=== PATIENT | female | born 2000 | race Caucasian/White ===

== ENCOUNTER → 2019-04-02 13:01 | Outpatient (CLI) | payer OTHER, SELFPAY ==
[2019-04-02 12:24] VITALS: BMI 26.6
[2019-04-02 15:00] LABS: Chlamydia Trachomatis by PCR Negative (Negative); Neisserai gonorrhoeae by PCR Negative (Negative); Probe Check PASS; Sample Adequacy Control PASS; Specimen Processing Control PASS
== END ==
PROVIDERS: Family Provider Pediatrics; PCP Pediatrics; Referring Provider Obstetrics & Gynecology; Visit Provider Obstetrics & Gynecology
DX: Z11.3 Encounter for screening for infections with a predominantly sexual mode of transmission (principal)
CPT/HCPCS: 87491; 87591

== ENCOUNTER → 2020-06-03 13:18 | Outpatient (CLI) | payer OTHER, SELFPAY ==
[2020-06-03 11:08] VITALS: BMI 26.6
[2020-06-03 17:37] LABS: Chlamydia Trachomatis by PCR Negative (Negative); Neisserai gonorrhoeae by PCR Negative (Negative); Probe Check PASS; Sample Adequacy Control PASS; Specimen Processing Control PASS
[2020-06-08 17:31] LABS: HPV Reflexed? NOT INDICATED
== END ==
PROVIDERS: PCP Pediatrics; Referring Provider Nurse Practitioner Women's Health; Visit Provider Nurse Practitioner Women's Health
DX: Z11.3 Encounter for screening for infections with a predominantly sexual mode of transmission (principal); Z12.4 Encounter for screening for malignant neoplasm of cervix
CPT/HCPCS: 87491; 87591; 88175; G0145

== ENCOUNTER → 2021-08-10 12:49 | Outpatient (CLI) | payer OTHER, SELFPAY ==
[2021-08-12 22:07] LABS: Chlamydia By Nucleic Acid AMP Negative (Negative)
[2021-08-12 22:33] LABS: Gonococcus By Nucleic Acid AMP Negative (Negative)
== END ==
PROVIDERS: PCP Pediatrics; Referring Provider Nurse Practitioner Women's Health; Visit Provider Nurse Practitioner Women's Health
DX: Z11.3 Encounter for screening for infections with a predominantly sexual mode of transmission (principal)
CPT/HCPCS: 87491; 87591

== ENCOUNTER → 2022-09-14 | Outpatient (CLI) | payer BC, SELFPAY ==
[2022-09-18 11:07] LABS: Chlamydia By Nucleic Acid AMP Negative (Negative)
[2022-09-18 14:00] LABS: Gonococcus By Nucleic Acid AMP Negative (Negative)
== END | disposition home or self-care (01) ==
PROVIDERS: PCP Pediatrics; Visit Provider Nurse Practitioner Women's Health
DX: Z11.3 Encounter for screening for infections with a predominantly sexual mode of transmission (principal)
CPT/HCPCS: 87491; 87591

== ENCOUNTER → 2023-01-23 | Outpatient (CLI) | payer BC, SELFPAY ==
[2023-01-23 17:54] LABS: Bacteria 0 SEEN /hpf (None Seen); Mucous, Urine 0 SEEN /hpf (<or=2+); Red Blood Cells-Urine 0 SEEN /hpf (0-5); Squamous Epithelial Cells - UA 0 SEEN /hpf (5-10)
[2023-01-23 18:03] LABS: Color, Urine Yellow (Yellow); Glucose, Dipstick Normal (Normal); Ketone-Dipstick Negative (Negative); Leukocyte Esterase-Dipstick Negative /ul (Negative); Nitrite-Dipstick Negative (Negative); Occult Blood-Urine Negative /ul (Negative); Protein-Dipstick Negative (Negative); Specific Gravity, Urine 1.015 (1.002-1.030); Urine Bilirubin Dipstick Negative (Negative); Urine Clarity Clear (Clear); Urine Urobilinogen Normal (Normal)
[2023-01-23 18:11] LABS: White Blood Cells 0-5 SEEN /hpf (0-5)
== END | disposition home or self-care (01) ==
PROVIDERS: PCP Pediatrics; Visit Provider Physician Assistant
DX: R39.9 Unspecified symptoms and signs involving the genitourinary system (principal)
CPT/HCPCS: 81001; 87086; 87088

== ENCOUNTER → 2023-09-19 | Outpatient (CLI) | payer OTHER, SELFPAY ==
[2023-09-24 15:59] LABS: HPV Reflexed? NOT INDICATED
== END | disposition home or self-care (01) ==
LOC: LABSPEC 17:00
PROVIDERS: PCP Nurse Practitioner Family; Referring Provider Nurse Practitioner Women's Health; Visit Provider Nurse Practitioner Women's Health
DX: Z12.4 Encounter for screening for malignant neoplasm of cervix (principal)
CPT/HCPCS: 88175; G0145

== ENCOUNTER → 2024-09-23 | Outpatient (CLI) | payer OTHER, SELFPAY | END | disposition home or self-care (01) | LOC: LABSPEC 10:41 | PROVIDERS: PCP Nurse Practitioner Family; Referring Provider Physician Assistant; Visit Provider Physician Assistant | DX: N89.8 Other specified noninflammatory disorders of vagina (principal) ==

== ENCOUNTER → 2025-02-24 | Outpatient (CLI) | payer SELFPAY ==
[2025-02-24 17:35] LABS: Amphetamine Urine NEGATIVE (<1000 ng/mL); Barbiturate Urine NEGATIVE (< 200 ng/mL); Benzodiazepine Urine NEGATIVE (< 200 ng/mL); Buprenorphine Urine NEGATIVE (< 200 ng/mL); Cocaine Urine NEGATIVE (< 300 ng/mL); Fentanyl, Urine NEGATIVE; Methadone Urine NEGATIVE (< 300 ng/mL); Opiates Urine NEGATIVE (< 300 ng/mL); Oxycodone, Urine NEGATIVE (< 100 ng/mL); PCP Urine NEGATIVE (< 25 ng/mL); THC Urine NEGATIVE (< 50 ng/mL)
== END | disposition home or self-care (01) ==
LOC: LABSPEC 15:16
PROVIDERS: PCP Nurse Practitioner Family; Referring Provider Obstetrics & Gynecology; Visit Provider Obstetrics & Gynecology
DX: O09.90 Supervision of high risk pregnancy, unspecified, unspecified trimester (principal); Z3A.00 Weeks of gestation of pregnancy not specified; O99.320 Drug use complicating pregnancy, unspecified trimester; F12.99 Cannabis use, unspecified with unspecified cannabis-induced disorder
CPT/HCPCS: 80307; 87086; 87088; 87491; 87591

== ENCOUNTER → 2025-03-20 | Outpatient (CLI) | payer SELFPAY ==
[2025-03-20 12:15] LABS: Absolute Lymphocyte Count 1.69 X10^3/uL (0.83-4.51); Absolute Neutrophil Count 5.7 X10^3/uL (2.0-7.7); Basophil# 0.04 X10^3/uL; Basophil% 0.5 % (0-1); Eosinophil# 0.31 X10^3/uL; Eosinophils% 3.8 % (0-5); Hematocrit 38.6 % (37-47); Hemoglobin 12.8 g/dL (12.0-15.0); Lymphocyte # 1.69 X10^3/ul (0.83-4.51); Lymphocyte % 20.7 % (19-41); Mean Corp Hgb Conc 33.2 g/dL (32-36); Mean Corpuscular Hgb 30.9 pg (27.0-32.0); Mean Corpuscular Volume 93.2 fL (81-99); Mean Platelet Vol. 10.2 fl (6.2-12.0); Monocyte# 0.42 X10^3/uL; Monocyte% 5.1 % (0-10); NRBC Flagged by Analyzer 0 % (0-5); Neutrophil # 5.69 X10^3/uL (2.7-7.7); Neutrophil % 69.7 % (47-70); Platelet Count 261 K/mm3 (150-450); RBC Distribution Width CV 12.7 % (11.6-14.6); RBC Distribution Width SD 43.7 fl (35.1-43.9); Red Blood Count 4.14 M/mm3 (4.2-5.4); White Blood Count 8.2 K/mm3 (4.4-11.0)
[2025-03-20 13:27] LABS: HIV Nonreactive (Nonreactive); Hepatitis B Surface Antigen Nonreactive (Nonreactive); Hepatitis C Antibody Nonreactive (Nonreactive); Rubella IgG REAC (Nonreactive); Syphilis Antibodies Nonreactive (Nonreactive)
[2025-03-20 14:20] LABS: Hemoglobin A1c 5.2 % (<=5.6)
== END | disposition home or self-care (01) ==
PROVIDERS: Obstetrics & Gynecology; PCP Nurse Practitioner Family; Referring Provider Obstetrics & Gynecology; Visit Provider Obstetrics & Gynecology
DX: O99.210 Obesity complicating pregnancy, unspecified trimester (principal); Z3A.00 Weeks of gestation of pregnancy not specified
CPT/HCPCS: 36415; 83036; 85025; 86703; 86762; 86780; 86803; 86850; 86900; 86901; 87340

== ENCOUNTER → 2025-07-14 | Outpatient (CLI) | payer OTHER, SELFPAY ==
[2025-07-14 15:14] LABS: Hematocrit 32.8 % (37-47); Hemoglobin 10.8 g/dL (12.0-15.0); Immature Granulocytes Count 0.070 X10^3/uL (0.0-0.0); Mean Corp Hgb Conc 32.9 g/dL (32-36); Mean Corpuscular Volume 92.7 fL (81-99); Mean Platelet Vol. 10.6 fl (6.2-12.0); NRBC Flagged by Analyzer 0 % (0-5); Platelet Count 295 K/mm3 (150-450); RBC Distribution Width CV 12.9 % (11.6-14.6); RBC Distribution Width SD 43.4 fl (35.1-43.9); Red Blood Count 3.54 M/mm3 (4.2-5.4); White Blood Count 13.2 K/mm3 (4.4-11.0)
[2025-07-14 16:02] LABS: Glucose Challenge Gest 1H 50g 105 mg/dL (70-140); HIV Nonreactive (Nonreactive); Syphilis Antibodies Nonreactive (Nonreactive)
== END | disposition home or self-care (01) ==
PROVIDERS: Obstetrics & Gynecology; Visit Provider Nurse Practitioner Women's Health
DX: O09.92 Supervision of high risk pregnancy, unspecified, second trimester (principal); Z13.1 Encounter for screening for diabetes mellitus; Z3A.00 Weeks of gestation of pregnancy not specified
CPT/HCPCS: 36415; 82950; 85025; 86703; 86780

== ENCOUNTER → 2025-08-19 | Outpatient (CLI) | payer OTHER, SELFPAY ==
--- NOTE | 2025-08-19 13:43 | EKG12_ITS ---
Test Reason : PALP Blood Pressure : */* mmHG Vent. Rate : 106 BPM Atrial Rate : 106 BPM P-R Int : 152 ms QRS Dur : 86 ms QT Int : 362 ms P-R-T Axes : 27 61 6 degrees QTcB Int : 480 ms Sinus tachycardia Otherwise normal ECG Confirmed by GENE REECE, YAMILETH ([id number]), assignment editor BETH HOLLAND ([id number]) on 08/20/2025 7:12:23 AM Referred By: Xin Otero Confirmed By: YAMILETH MILLS MD
== END | disposition home or self-care (01) ==
LOC: PSN 13:43
PROVIDERS: Referring Provider Nurse Practitioner Women's Health; Visit Provider Nurse Practitioner Women's Health
DX: R00.2 Palpitations (principal)
CPT/HCPCS: 93005

== ENCOUNTER 2025-09-07 14:03 | Outpatient (CLI) | payer OTHER, SELFPAY ==
[2025-09-07 14:17] VITALS: PULSE 118; O2SAT 97
[2025-09-07 14:19] VITALS: BMI 44.4
[2025-09-07 14:21] VITALS: BP 125/81; PULSE 107
[2025-09-07 14:22] VITALS: PULSE 120; O2SAT 98
[2025-09-07 14:24] VITALS: RESP 18; TEMP 36.8
--- NOTE | 2025-09-08 21:50 | OB.TRI.PN ---
Progress Notes Date of Service: 09/07/25 Progress Note: Patient presents for triage evaluation secondary to dec movement FHT: 140 Moderate variability reactive no decelerations category I tracing [place]: no regular Contractions Assessment and plan: 36 weeks dec movememnt Reactive NST, reassuring maternal and status patient discharged to home to follow-up as scheduled. See problem list details for additional plan information. Charges/Coding Procedures Urinary/Genital 52xxx-59xxx: 39794-08 non-stress test Interp
== END 2025-09-07 14:55 | disposition home or self-care (01) ==
LOC: WPOUT 14:11 → WP 14:12
PROVIDERS: Referring Provider Obstetrics & Gynecology; Visit Provider Obstetrics & Gynecology
DX: O36.8130 Decreased fetal movements, third trimester, not applicable or unspecified (principal); Z3A.36 36 weeks gestation of pregnancy
CPT/HCPCS: 59025; 99221; G0378

== ENCOUNTER → 2025-09-08 | Outpatient (CLI) | payer OTHER, SELFPAY | END | disposition home or self-care (01) | LOC: LABSPEC 14:58 | PROVIDERS: Visit Provider Advanced Practice Midwife | DX: O09.93 Supervision of high risk pregnancy, unspecified, third trimester (principal); Z3A.00 Weeks of gestation of pregnancy not specified | CPT/HCPCS: 87081 ==

== ENCOUNTER 2025-09-20 12:25 | Outpatient (CLI) | payer OTHER, SELFPAY ==
--- OUTSIDE RECORDS SUMMARY | 2025-09-20 12:35 | XMS RPT_ITS | CCD ---
Author Organization [facility] Care Team Providers Care Financial Sales Advisor Name Role Phone NO, PHYSICIAN Primary Care Unavailable YENY JULIEN Attending Unavailab ad JULIEN, YENY SMITH Primary Care Unavailab ad JULIEN, YENY SMITH Attending Unavailab ad JULIEN, YENY SMITH Primary Care Unavailab YENY Baker Attending Unavailab ad GUZMAN, PHYSICIAN Primary Care Unavailable YENY JULIEN Attending Unavailab Dr. Deanna Jung Primary Care Provider Dr. Deanna Lozada Referring Provider [place] OFFICE ASSISTANT, OFFICE ASSISTANT-C Xin Attending Provider No, Physician Primary Care Provider UnavailYeny Vicente DO Primary Care Provider Dr. Deanna Lozada Primary Care Provider [phone] Dr. Deanna Lozada Referring Provider Cyndi ALEX, ABI Cardenas Attending Provider NONE, XXXX Primary Care Physician Unavailab Nathan Perez Admitting Unavailable Nathan Kilgore Attending Unavailable Nathan Kilgore Attending Unavailable Demond ZUÑIGA-Joyce Frost Primary Care Provider [phone] Joyce Gaines Referring Provider Mary REECE, Dr. Victor Attending Provider Paula Cobos RN Attending Provider UnavailDr. Viktoria Mcconnell DO Attending Provider Dr. Viktoria Longoria DO Referring Provider Dr. Kayleigh Brian MD Referring Provider Xin Magdaleno Attending Provider [phone] Jeannine Gunn CNM Attending Provider [phone] [place] OFFICE ASSISTANT-C, Joyce D Primary Care Provider [place] OFFICE ASSISTANT-C, Joyce D Referring Provider Mary REECE, Dr. Victor Attending Provider Dr. Viktoria Longoria DO Attending Provider Care Physician, No Primary Primary Care Provider Unavailable KAYLEIGH BRIAN Referring Unavailabl e KAYLEIGH BRIAN Attending Unavailart e NO PRIMARY CARE, MD Primary Care Unavailable KAYLEIGH BRIAN Referring Unavailabl e NO PRIMARY CARE, MD Primary Care Unavailable PASCUAL KIRKLAND Attending Unavailable KAYLEIGH BRIAN Referring Unavailabl e NO PRIMARY CARE, Primary Care Unavailable BALAJI JERRY Attending Unavailable [place] OFFICE ASSISTANT-C, Joyce D Primary Care Provider [place] OFFICE ASSISTANT-C, Joyce D Referring Provider [place] OFFICE ASSISTANT-C, Joyce D Primary Care Physician Xin Magdaleno Attending Physician [phone] Jeannine Gunn CNM Attending Physician [phone] Dr. Viktoria Longoria DO Attending Physician Care Physician, No Primary Primary Care Physicia n Unavailable Dr. Kayleigh Brian MD Attending Physician Care Physician, No Primary Referring Provider Un available Care Physician, No Primary Primary Care Unava ilable Care Physician, No Primary Referring Unava ilable Jeannine Gunn Attending Unavailable Care Physician, No Primary Primary Care Unava ilable Kayleigh Brian Attending Unavailable Kayleigh Brian Admitting Unavailable Kayleigh Brian Referring Unavailable Viktoria Longoria Attending Unavailabl e [place], Joyce D Referring Unavailable [place], Joyce D Primary Care Unavailable Care Physician, No Primary Primary Care Unava ilable Jeannine Gunn Attending Unavailable Demond, Joyce D Primary Care Unavailable Benja Mercado Attending Unavailable Benja Mercado Referring Unavailable VandViktoria Li Attending Unavailabl e [place], Joyce D Primary Care Unavailable Viktoria Longoria Referring Unavailabl e Care Physician, No Primary Primary Care Unava ilable Kayleigh Brian Attending Unavailable Kayleigh Brian Referring Unavailable [place], Joyce D Primary Care Unavailable Kayleigh Brian Attending Unavailable Kayleigh Brian Referring Unavailable Care Physician, No Primary Primary Care Unava ilable Shanna OFFICE ASSISTANT, Xin Attending Unavailable [place], Joyce D Referring Unavailable [place] OFFICE ASSISTANT, Xin Attending Unavailable [place], Joyce D Primary Care Unavailable [place], Joyce D Referring Unavailable [place], Joyce D Primary Care Unavailable Jeannine Gunn Attending Unavailable [place], Joyce D Referring Unavailable [place], Joyce D Primary Care Unavailable [place], Joyce D Referring Unavailable MarcanthonyKayleigh Attending Unavailable [place], Joyce D Primary Care Unavailable [place], Joyce D Referring Unavailable Benja Mercado Attending Unavailable Care Physician, No Primary Primary Care Unava ilable Kayleigh Brian Attending Unavailable Kayleigh Brian Consulting Unavailable Kayleigh Brian Referring Unavailable Care Physician, No Primary Primary Care Unava ilable Care Physician, No Primary Referring Unava ilable Viktoria Longoria Attending Unavailabl Paula Hoffman Attending Unavailable [place], Joyce D Primary Care Unavailable [place], Joyce D Primary Care Unavailable [place], Joyce D Referring Unavailable Jeannine Gunn Attending Unavailable Vande VelViktoria mancera Attending Unavailabl e [place], Joyce D Primary Care Unavailable [place], Joyce D Referring Unavailable [place], Joyce D Primary Care Unavailable [place], Joyce D Referring Unavailable EmiranthKayleigh johnson Attending Unavailable Care Physician, No Primary Primary Care Unava ilable [place] OFFICE ASSISTANT, Xin Referring Unavailable [place] OFFICE ASSISTANT, Xin Attending Unavailable Care Physician, No Primary Primary Care Unava ilable [place] OFFICE ASSISTANT, Xin Attending Unavailable Care Physician, No Primary Referring Unava ilable Care Physician, No Primary Primary Care Unava ilable Shanna OFFICE ASSISTANT, Xin Attending Unavailable Care Physician, No Primary Primary Care Unava ilable [place], Joyce D Referring Unavailable Kayleigh Brian Attending Unavailable Care Physician, No Primary Primary Care Unava ilable Care Physician, No Primary Referring Unava ilable Kayleigh Brian Attending Unavailable Demond ZUÑIGA-CJoyce Primary Care Physician Demond ZUÑIGA-CJoyce Referring Provider Dr. Viktoria Longoria DO Attending Physician Xin Magdaleno Attending Physician [phone] Care Physician, No Primary Primary Care Physicia n Unavailable Mary REECE, Dr. Victor Attending Physician Care Physician, No Primary Referring Provider Un available Shanna ZUÑIGA-Xin Frost Referring Provider [phone] Angelica REECE, Dr. Ann Attending Physician [phone] Jeannine Gunn CNM Attending Physician [phone] Dr. Kayleigh Brian MD Referring Provider Mary REECE, Dr. Victor Nurse Practitioner [phone] Allergies Allergy Classification Reported Allergen(s) Allergy Type Date of Onset Reaction(s) Facility (12 sources) cat dander; Translations: [cat dander] Allergy to substance 3 Other [facility] Comment on above: Sneezing, itchy eyes (12 sources) Seasonal Allergies: Uncoded; Translations: [Seasonal Allergies: Uncoded] Allergy to substance 3 Other [facility] Comment on above: Sneezing, itchy eyes (1 source) No Known Medication Allergies; Translations: [No Known Medication Allergies] Propensity to adverse reactions (disorder) [facility] Repository Medications Current Medications Medication Drug Class(es) Dates Sig (Normalized) Sig (Original) docosahexaenoic acid 200 mg oral capsule (10 sources) Start: 02-14-2025 famotidine 20 mg oral tablet (3 sources) Histamine-2 Receptor Antagonist Start: 07-30-2025 take 1 tablet by mouth twice daily ondansetron 4 mg oral tablet (10 sources) Serotonin-3 Receptor Antagonist Start: 02-24-2025 take 1 tablet by mouth every six hours Multivitamins (1 source) Start: 03-07-2025 take 1 tablet by mouth once daily Multivitamins 1 tab(s), Oral, Daily, Refill(s) 0 Start Date: 03/07/25 Status: Ordered Repeat number: 1 Sumatriptan (11 sources) Serotonin-1b and Serotonin-1d Receptor Agonist Start: 03-07-2025 sumatriptan See Instructions, PRN, Refills(s) 0 Start Date: 03/07/25 Status: Ordered Repeat number: 1 Start: 10-10-2024 take 1 tablet by mouth once Completed/Discontinued Medications Medication Drug Class(es) Dates Sig (Normalized) Sig (Original) acetaminophen 250 mg / aspirin 250 mg / caffeine 65 mg oral tablet (11 sources) Platelet Aggregation Inhibitor, Nonsteroidal Anti-inflammatory Drug, Central Nervous System Stimulant, Methylxanthine Start: 10-10-2024 End: 02-14-2025 Aspirin-Acetaminop hen-Caffeine (Excedrin Extra Strength) 250-250-65 mg tablet Discontinued 1 {tbl} PO EVERY 4-6 HOURS as needed October 10, 2024 12:00am February 14, 2025 7:27am take 2 tablets by mo ut every six hours as needed for pain daaowxp-nudshnsyrawqf-odvnanwa (Excedrin Migraine) 250-250-65 mg per tablet Take 2 tablets by mouth every 6 (six) hours as needed for pain . 0 Active escitalopram 10 mg oral tablet (13 sources) Serotonin Reuptake Inhibitor Start: 06-03-2020 End: 08-10-2021 take 1 tablet by mouth once daily Escitalopram Oxalate (Lexapro) 10 mg tablet Discontinued 10 mg PO DAILY June 02, 2020 11:00pm August 10, 2021 10:57am 21 day ethinyl estradiol 0.018391 mg/hr / etonogestrel 0.005 mg/hr vaginal system (20 sources) Progestin, Estrogen Start: 07-07-2020 etonogestreL-ethiny l estradioL (NUVARING) 0.12-0.015 mg/24 hr vaginal ring Insert 1 each into the vagina every 21 days DIRECTED, REMOVE AFTER 3 WEEKS & WAIT 7 DAYS BEFORE INSERTING A NEW RING . 0 07/07/2020 Active Start: 12-11-2018 End: 09-19-2023 Etonogestrel-Ethinyl Estradi ol (Nuvaring) 0.12-0.015 mg/24 hr ring Discontinued 1 NMA VAGINAL every 4 weeks 3 0 August 29, 2022 8:51am September 14, 2022 3:22pm Start: 12-11-2018 End: 08-29-2022 Etonogestrel-Ethinyl Estradi ol (Nuvaring) 0.12-0.015 mg/24 hr ring Discontinued 1 VAG RING VAGINAL every 4 weeks April 26, 2020 7:52pm June 03, 2020 11:08am Start: 01-15-2018 End: 04-30-2018 Etonogestrel-Ethinyl Estradi ol (Nuvaring) 0.12-0.015 mg/24 hr ring Discontinued 1 NMA VAGINAL ONCE 3 24 02January 14, 2018 11:00pm April 28, 2018 11:00pm April 29, 2018 11:07pm Start: 01-15-2018 End: 04-30-2018 Etonogestrel-Ethinyl Estradi ol (Nuvaring) 0.12-0.015 mg/24 hr ring Discontinued 1 VAG RING VAGINAL ONCE 3 January 15, 2018 12:00am April 30, 2018 12:07am Etonogestrel-Ethinyl Estradi ol (Nuvaring) 0.12-0.015 mg/24 hr ring (18 sources) Start: 09-14-2022 End: 09-19-2023 Etonogestrel-Ethinyl Estradi ol (Nuvaring) 0.12-0.015 mg/24 hr ring Discontinued 1 NMA VAGINAL every 4 weeks 3 September 14, 2022 4:21pm September 19, 2023 4:59pm Start: 09-14-2022 End: 09-19-2023 Etonogestrel-Ethinyl Estradi ol (Nuvaring) 0.12-0.015 mg/24 hr ring Discontinued 1 NMA VAGINAL every 4 weeks September 14, 2022 4:21pm September 19, 2023 4:59pm Start: 09-14-2022 Etonogestrel-E thinyl Estradiol (Nuvaring) 0.12-0.015 mg/24 hr ring Active 1 VAG RING VAGINAL every 4 weeks September 14, 2022 4:21pm Start: 09-14-2022 Etonogestrel-E thinyl Estradiol (Nuvaring) 0.12-0.015 mg/24 hr ring Active 1 VAG RING VAGINAL every 4 weeks September 14, 2022 3:21pm Start: 08-29-2022 End: 09-14-2022 Etonogestrel-Ethinyl Estradi ol (Nuvaring) 0.12-0.015 mg/24 hr ring Discontinued 1 NMA VAGINAL every 4 weeks 3 August 29, 2022 9:51am September 14, 2022 4:22pm Start: 08-29-2022 End: 09-14-2022 Etonogestrel-Ethinyl Estradi ol (Nuvaring) 0.12-0.015 mg/24 hr ring Discontinued 1 NMA VAGINAL every 4 weeks 3 August 29, 2022 9:51am September 14, 2022 4:22pm Start: 08-29-2022 End: 09-14-2022 Etonogestrel-Ethinyl Estradi ol (Nuvaring) 0.12-0.015 mg/24 hr ring Discontinued 1 VAG RING VAGINAL every 4 weeks 3 August 29, 2022 9:51am September 14, 2022 4:22pm Start: 08-29-2022 End: 09-14-2022 Etonogestrel-Ethinyl Estradi ol (Nuvaring) 0.12-0.015 mg/24 hr ring Discontinued 1 VAG RING VAGINAL every 4 weeks August 29, 2022 8:51am September 14, 2022 3:22pm fexofenadine hydrochloride 180 mg oral tablet (12 sources) Histamine-1 Receptor Antagonist Start: 04-02-2019 End: 10-10-2024 take 1 tablet by mouth once daily Fexofenadine (Kitty Allergy) 180 mg tablet Discontinued 180 mg PO DAILY April 01, 2019 11:00pm October 10, 2024 4:00pm nitrofurantoin, macrocrystals 25 mg / nitrofurantoin, monohydrate 75 mg oral capsule (20 sources) Nitrofuran Antibacterial Start: 09-23-2024 End: 09-28-2024 take 1 capsule by mouth every twelve hours at mealtime Nitrofurantoin Monohyd/M-Cryst (Macrobid) 100 mg capsule Discontinued 100 mg PO Q12H 10 5 0 September 23, 2024 12:00am September 27, 2024 12:00am September 28, 2024 12:16am must administer with a meal/food Start: 01-23-2023 End: 01-28-2023 take 1 capsule by mouth every twelve hours at mealtime Nitrofurantoin Monohyd/M-Cryst (Macrobid) 100 mg capsule Discontinued 100 mg PO Q12H 10 5 0 January 22, 2023 11:00pm January 26, 2023 11:00pm January 27, 2023 11:12pm must administer with a meal/food propranolol hydrochloride 40 mg oral tablet (1 source) beta-Adrenergic Milind Start: 07-15-2020 End: 08-12-2020 take 1 tablet by mouth twice daily propranoloL (INDERAL) 40 MG tablet Indications: Migraine without aura and without status migrainosus, not intractable Take 1 (one) tablet (40 mg total) by mouth 2 (two) times a day . 60 tablet 0 07/15/2020 08/12/2020 Discontinued (Reorder (Suppress CancelRx Message to Pharmacy)) rimegepant 75 mg disintegrating oral tablet (11 sources) Start: 01-23-2023 End: 10-10-2024 take 1 tablet by mouth once as needed Rimegepant (Nurtec Odt) 75 mg tablet,disintegra ting Discontinued 75 mg PO ONCE as needed January 22, 2023 11:00pm October 10, 2024 4:01pm as a single dose Problems Active Problems Problem Classification Problem Date Documented Date Episodic/Chronic Abdominal pain (12 sources) Abdominal pain; Translations: [Unspecified abdominal pain] 08-10-2021 Episodic Comment on above: upper mid. Refer Dr Friend/GI Bacterial infection; unspecified site (1 source) Bacteria present; Translations: [Streptococcus, group B, as the cause of diseases classified elsewhere] 09-11-2025 Episodic Comment on above: treat in labor Cardiac dysrhythmias (12 sources) Palpitations; Translations: [Palpitations] Onset: 09-08-2025 07-14-2025 Episodic Comment on above: EKG Headache; including migraine (20 sources) Migraine without aura, not refractory ; Translations: [Migraine without aura, not intractable, without status migrainosus] Onset: 08-12-2020 Chronic Comment on above: on Sumatriptan - las t use 4/2 Immunizations and screening for infectious disease (1 source) Contact with and (suspected) exposure to infections with a predominantly sexual mode of transmission; Translations: [Contact with or exposure to venereal diseases] Episodic Menstrual disorders (1 source) Amenorrhea, unspecified; Translations: [Amenorrhea, unspecified] Onset: 08-18-2025 Chronic Nausea and vomiting (12 sources) Nausea and vomiting; Translations: [Nausea with vomiting, unspecified] 08-10-2021 Episodic Comment on above: related to upper abd ominal pain. Other complications of (20 sources) Maternal obesity complicating , childbirth and the puerperium, antepartum; Translations: [Obesity complicating , unspecified trimester] 02-14-2025 Chronic Comment on above: BMI 31.7 - HgBA1C or dered w/NOB Other complications of (11 sources) Anemia of ; Translations: [Anemia complicating , unspecified trimester] 07-15-2025 Chronic Comment on above: Add Fe Other complications of (1 source) Anemia complicating , third trimester; Translations: [Anemia complicating , third trimester] Onset: 09-08-2025 Chronic Other complications of (1 source) Obesity complicating , second trimester; Translations: [Obesity complicating , second trimester] Onset: 09-08-2025 Chronic Other complications of (1 source) Anemia complicating , unspecified trimester; Translations: [Anemia complicating , unspecified trimester] Onset: 07-30-2025 Chronic Other complications of (2 sources) Obesity complicating , unspecified trimester; Translations: [Obesity complicating , unspecified trimester] Onset: 08-18-2025 Chronic Other complications of (20 sources) High risk ; Translations: [Supervision of high risk , unspecified, unspecified trimester] 02-14-2025 Episodic Comment on above: G1, EMMANUEL 10/02/25, Hu sband: Eulalio PRR G1, EMMANUEL 10/02/25 , : Eulalio PRR G1, EMMANUEL 10/02/25 , girl [facility] : Eulaloi Other complications of (1 source) Supervision of high risk , unspecified, third trimester; Translations: [Supervision of high risk , unspecified, third trimester] Onset: 09-09-2025 Episodic Other complications of (1 source) Decreased movements, third trimester, not applicable or unspecified; Translations: [Decreased movements, third trimester, not applicable or unspecified] Onset: 09-17-2025 Episodic Other complications of (1 source) Supervision of high risk , unspecified, second trimester; Translations: [Supervision of high risk , unspecified, second trimester] Onset: 07-22-2025 Episodic Other complications of (2 sources) Supervision of high risk , unspecified, unspecified trimester; Translations: [Supervision of high risk , unspecified, unspecified trimester] Onset: 08-18-2025 Episodic Other and delivery including normal (20 sources) ; Translations: [Encounter for supervision of normal , unspecified, unspecified trimester] Onset: 08-18-2025 03-20-2025 Episodic Comment on above: Discussed genetic/ca rrier testing - desires both NIPT low risk, riccardo er neg. 10/19 Carrier for Cystic Fibrosis and Jdgjt-Hmdwx-Mjzsp Syndome. Other upper respiratory disease (10 sources) Seasonal allergy; Translations: [Other seasonal allergic rhinitis] 02-18-2025 Chronic Residual codes; unclassified (20 sources) Carrier of cystic fibrosis gene mutation; Translations: [Cystic fibrosis carrier] 04-15-2025 Episodic Comment on above: also Cybzh-uywxu-wmq tz 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 FOB needs screened also Rpttt-fvwwy-wzy tz 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 FOB drawn 04/15/25: Residual codes; unclassified (1 source) Cystic fibrosis carrier; Translations: [Cystic fibrosis carrier] Onset: 09-08-2025 Episodic Residual codes; unclassified (1 source) 36 weeks gestation of ; Translations: [36 weeks gestation of ] Onset: 09-08-2025 Episodic Residual codes; unclassified (1 source) 34 weeks gestation of ; Translations: [34 weeks gestation of ] Onset: 08-27-2025 Episodic Residual codes; unclassified (1 source) 30 weeks gestation of ; Translations: [30 weeks gestation of ] Onset: 07-30-2025 Episodic Residual codes; unclassified (1 source) 12 weeks gestation of ; Translations: [12 weeks gestation of ] Onset: 08-18-2025 Episodic Residual codes; unclassified (1 source) 8 weeks gestation of ; Translations: [8 weeks gestation of ] Onset: 08-18-2025 Episodic Screening and history of mental health and substance abuse codes (20 sources) H/O: anxiety state; Translations: [Personal history of other mental and behavioral disorders] Onset: 08-18-2025 02-14-2025 Episodic Comment on above: In college - on [employer] pro 2018, counseling 2022 Substance-related disorders (20 sources) Marijuana user; Translations: [Cannabis use, unspecified, uncomplicated] Onset: 08-18-2025 02-14-2025 Episodic Comment on above: Last use 2022 - rand om tx screen ordered Urinary tract infections (12 sources) Urinary tract infectious disease; Translations: [Urinary tract infection, site not specified] 01-23-2023 Episodic Past or Other Problems Problem Classification Problem Date Documented Date Episodic/Chronic Genitourinary symptoms and ill-defined conditions (1 source) Frequency of micturition; Translations: [Frequency of micturition] Onset: 09-23-2024 Episodic Hemorrhage during ; abruptio placenta; placenta previa (18 sources) Low lying placenta; Translations: [Low lying placenta NOS or without hemorrhage, unspecified trimester] Onset: 06-12-2025 05-28-2025 Episodic Comment on above: follow up at 28 week s Other female genital disorders (1 source) Other specified noninflammatory disorders of vagina; Translations: [Other specified noninflammatory disorders of vagina] Onset: 10-21-2024 Episodic Other lower respiratory disease (1 source) Hemoptysis; Translations: [Hemoptysis] Onset: 08-12-2020 08-12-2020 Episodic Residual codes; unclassified (1 source) 24 weeks gestation of ; Translations: [24 weeks gestation of ] Onset: 06-12-2025 Episodic Residual codes; unclassified (1 source) 19 weeks gestation of ; Translations: [19 weeks gestation of ] Onset: 05-12-2025 Episodic Results Test Name Value Interpretation Reference Range Facility Rule out Beta Strep (Grp. B) on 09-12-2025 CHRISTY Rule out Beta Strep (Grp. B) Rule out Beta Strep (Grp. B) Streptococcus agalactiae (B) Amount Growth Growth Streptococcus agalactiae (B): REACTION Ampicillin Islt JOSE G <=0.25 cefTRIAXone Islt JOSE G <=0.12 S Clindamycin Islt JOSE G >=1 R Clindamycin.induced Susc Islt NEG Linezolid Islt JOSE G <=2 S Vancomycin Islt JOSE G 0.5 S Normal [facility] Comment on above: Performed By: #### M [id number] ####[facility] [id number] [place], [address] Laboratory - Chemistry and C hemistry - challengeOrdered By: Jeannine Gunn on 09-08-2025 Glucose Ql (U) Negative [facility] Laboratory - UrinalysisOrder ed By: Jeannine Gunn on 09-08-2025 Protein Ql (U) Negative [facility] OB Triage Progress Noteon OB Triage Progress Note [facility] Medical Records Department [address] [place] [address] OB Triage Progress Note 09/08/252149 MR#: [id number] Acct: [id number] Name: BRAYEDN CONNELLY Rep #: [id number] : 2000 25 From: Kayleigh Brian MD PCP: Care Physician,No Primary Status:DEP CLI Y DOS: Location: WPOUT Progress Notes Date of Service: 09/07/25 Progress Note: Patient presents for triage evaluation secondary to dec movement FHT: 140 Moderate variability reactive no decelerations category I tracing [place]: no regular Contractions Assessment and plan: 36 weeks dec movememnt Reactive NST, reassuring maternal and status patient discharged to home to follow-up as scheduled. See problem list details for additional plan information. Charges/Coding Procedures Urinary/Genital 52xxx-59xxx: [id number] non-stress test Interp 09/08/252149 Date Kayleigh Brian MD Cosigner Signature (if applicable): Date __ CC: Dr. Kayleigh Brian MD; No Primary Care Physician Signed Normal [facility] Office Visit Reporton 09-08-2025 [facility] Office Visit Report [facility] [address], [address] [place] [address] OFFICE VISIT Date of Service: 09/08/25 MR#: [id number] Acct: [id number] Name: BRAYDEN CONNELLY Rep #: [id number] : 2000 Provider: JACK Christina ams Age/Sex: 25/F Location: [facility] Status: Signed Intake Vital Signs 07/30/25 14:22 08/27/25 14:25 09/07/25 14:19 09/08/25 13:33 09/08/25 13:40 Height 5 ft 4 in 5 ft 4 in 5 ft 4 in 5 ft 4 in 5 ft 4 in Weight: 260 lb 2 oz BMI 44.6 BP 120/86 H Intake Visit 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: No Is patient in pain?: No Allergies cat dander Allergy (Verified 09/08/25 13:33) Other Seasonal Allergies: Uncoded Allergy (Verified 09/08/25 13:33) Other Medications ???Medication ???Instructions ???Recorded ???Confirmed ???Type sumatriptan succinate 100 mg tablet 100 mg PO ONCE 10/10/24 5 History docosahexaenoic acid 200 mg mg PO 02/14/25 09/08/25 History capsule ( DHA) ondansetron HCl 4 mg tablet 4 mg PO Q6H #30 tabs 02/24/2501/28 Rx famotidine 20 mg tablet (Pepcid) 20 mg PO BID #60 tabs 07/30/2501/28 Rx Last Menstrual Period: 12/26/24 Zika: Zika virus screening: Negative : No PFSH PFSH Medical History Seasonal allergies Surgical History H/O oral surgery Family History Aunt Breast cancer Grandfather Pancreatic cancer Grandfather Heart disease Grandmother Benign tumor of breast Mother Benign tumor of breast Social History adopted: No household members: spouse 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: No 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) pets and animals: cat(s) history of recent travel: Yes ([place] - December 2024 [place] - January 2025) out of state: Yes sexually active: Yes Smoking Status: Never smoker alcohol intake: current alcohol intake frequency: holidays/special occasions only details: Not while substance use type: former substance user Date of last use: 2022 - Marijuana well-balanced diet: daily or most days caffeine: Yes Type: carbonated beverages eating out: 1-3 times/week during the past year weight has: decreased > 10 lbs what type of physical activity do you participate in: walking and running frequency: 5-6 times per week duration: 15-30 minutes/day naina/buddhism: Congregation seatbelt use: always do you feel safe at home: Yes 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 OB Visit EMMANUEL Calculator Estimated Delivery Date Method Current WG Current Estimate 10/02/25 LMP (Certain) 36w 4d Other Estimates 09/30/25 Ultrasound #1 36w 6d Expected Delivery Route/Plan Labor Preferences- CB/BF classes: encouraged labor support person: Pradip labor intervention preferences: [] pain management options preferred: wants limited but ok w epidural cut cord/dad catch: yes : yes PP control planned: discussed discussed possible routes of delivery and associated risks: [] special requests: [] Specific Issue/Plans Covid status: [] Flu vaccine: declines Tdap vaccine: declines Rhogam: NA LARC form signed: yes movement and labor precautions reviewed. Problem list reviewed and updated with the most current plan of care details and appropriate orders placed. Relevant counseling for the gestational age provided. Continue routine care and follow up unless otherwise noted in visit notes/problem list details Initial Weight: Not Recorded Date -???-???-???-???-?? ?-???-???-???-???-? ??-???-???- EGA Weight BP Urine Prot -???-???-???-???-?? ?-???-???-???-???-? ??-???-???- Glucose FHR FuHt Pres Dilation -???-???-???-???-?? ?-???-???-???-???-? ??-???-???- Effaced St Visit Note 02/24/25 -???-???-???-???-?? ?-???-???-???-???-? ??-???-???- 8w 4d 186 lb 2 oz 128/85 -???-???-???-???-?? ?-???-???-???-???-? ??-???-???- 189 -???-???-???-???-?? ?-???-???-???-???-? ??-???-???- JV- CRL cons istent with LMP. undecided about NIPT. 03/20/25 -???-???-???-???-?? ?-???-???-???-???-? ??-???-???- 12w 0d 194 lb 4 oz 118/75 Negative -???-???-???-???-?? ?-???-???-???-???-? ??-???-???- Negative 160 -???-???-???-???-?? ?-???-???-???-???-? ??-???-???- SM- no vb c (more content not included)... Normal [facility] Screening beta-hemolytic Str eptococcus cultureOrdered By: Jeannine Gunn on 09-08-2025 Beta-hemolytic Streptococcus culture Streptococcus agalactiae (B) Abnormal [facility] Laboratory - Chemistry and C hemistry - challengeOrdered By: Kayleigh Brian on 08-27-2025 Glucose Ql (U) Negative [facility] Laboratory - UrinalysisOrder ed By: Kayleigh Brian on 08-27-2025 Protein Ql (U) Negative [facility] Office Visit Reporton 08-27-2025 [facility] Office Visit Report [facility]'[address], [address] [place] [address] OFFICE VISIT Date of Service: 08/27/25 MR#: [id number] Acct: [id number] Name: BRAYDEN CONNELLY Rep #: [id number] : 2000 Provider: Dr. Kayleigh holly MD Age/Sex: 25/F Location: [facility] [place] Status: Signed Intake Vital Signs 07/14/25 13:11 08/13/25 13:28 08/27/25 14:25 Height 5 ft 4 in 5 ft 4 in 5 ft 4 in Weight: 262 lb 3 oz BMI 45.0 BP 114/81 H Intake Visit Reasons: 34 WK 6 DAYS Extruder Tender Required: No Is patient in pain?: No Allergies cat dander Allergy (Verified 08/27/25 14:26) Other Seasonal Allergies: Uncoded Allergy (Verified 08/27/25 14:26) Other Medications ???Medication ???Instructions ???Recorded ???Confirmed ???Type sumatriptan succinate 100 mg tablet 100 mg PO ONCE 10/10/24 5 History docosahexaenoic acid 200 mg mg PO 02/14/25 08/27/25 History capsule ( DHA) ondansetron HCl 4 mg tablet 4 mg PO Q6H #30 tabs 02/24/2508/07 Rx famotidine 20 mg tablet (Pepcid) 20 mg PO BID #60 tabs 07/30/25 Rx Last Menstrual Period: 12/26/24 Zika: Zika virus screening: Negative : No Have you fallen in the past year?: No PFSH PFSH Medical History Seasonal allergies Surgical History H/O oral surgery Family History Aunt Breast cancer Grandfather Pancreatic cancer Grandfather Heart disease Grandmother Benign tumor of breast Mother Benign tumor of breast Social History adopted: No household members: spouse 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: No 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) pets and animals: cat(s) history of recent travel: Yes ([place] - December 2024 [place] - January 2025) out of state: Yes sexually active: Yes Smoking Status: Never smoker alcohol intake: current alcohol intake frequency: holidays/special occasions only details: Not while substance use type: former substance user Date of last use: 2022 - Marijuana well-balanced diet: daily or most days caffeine: Yes Type: carbonated beverages eating out: 1-3 times/week during the past year weight has: decreased > 10 lbs what type of physical activity do you participate in: walking and running frequency: 5-6 times per week duration: 15-30 minutes/day naina/buddhism: Congregation seatbelt use: always do you feel safe at home: Yes 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 OB Visit EMMANUEL Calculator Estimated Delivery Date Method Current WG Current Estimate 10/02/25 LMP (Certain) 34w 6d Other Estimates 09/30/25 Ultrasound #1 35w 1d Expected Delivery Route/Plan Labor Preferences- CB/BF classes: encouraged labor support person: Pradip labor intervention preferences: [] pain management options preferred: wants limited but ok w epidural cut cord/dad catch: yes : yes PP control planned: discussed discussed possible routes of delivery and associated risks: [] special requests: [] Specific Issue/Plans Covid status: [] Flu vaccine: declines Tdap vaccine: declines Rhogam: NA LARC form signed: yes movement and labor precautions reviewed. Problem list reviewed and updated with the most current plan of care details and appropriate orders placed. Relevant counseling for the gestational age provided. Continue routine care and follow up unless otherwise noted in visit notes/problem list details Initial Weight: Not Recorded Date -???-???-???-???-?? ?-???-???-???-???-? ??-???-???- EGA Weight BP Urine Prot -???-???-???-???-?? ?-???-???-???-???-? ??-???-???- Glucose FHR FuHt Pres Dilation -???-???-???-???-?? ?-???-???-???-???-? ??-???-???- Effaced St Visit Note 02/24/25 -???-???-???-???-?? ?-???-???-???-???-? ??-???-???- 8w 4d 186 lb 2 oz 128/85 -???-???-???-???-?? ?-???-???-???-???-? ??-???-???- 189 -???-???-???-???-?? ?-???-???-???-???-? ??-???-???- JV- CRL cons istent with LMP. undecided about NIPT. 03/20/25 -???-???-???-???-?? ?-???-???-???-???-? ??-???-???- 12w 0d 194 lb 4 oz 118/75 Negative -???-???-???-???-?? ?-???-???-???-???-? ??-???-???- Negative 160 -???-???-???-???-?? ?-???-???-???-???-? ??-???-???- SM- no vb cr amping 0 (more content not included)... Normal [facility] 12 Lead EKGon 08-19-2025 12 Lead EKG [facility] [address] [place] [address] 12 Lead EKG 08/19/25 1404 MR#: [id number] Acct: [id number] Name: BRAYDEN CONNELLY Rep #: [id number] : 2000 25 From: Seth Dominguez MD Attending Dr: Xin Otero, OFFICE ASSISTANT-C Status: REG CLI Ordering Dr: Xin Otero OFFICE ASSISTANT OFFICE ASSISTANT-C Date: 08/19/25 Location: PSN Sex: F C Admitted: Test Reason : PALP Blood Pressure : */* mmHG Vent. Rate : 106 BPM Atrial Rate : 106 BPM P-R Int : 152 ms QRS Dur : 86 ms QT Int : 362 ms P-R-T Axes : 27 61 6 degrees QTcB Int : 480 ms Sinus tachycardia Otherwise normal ECG Confirmed by SETH DOMINGUEZ MD ([id number]), legal editor BETH HOLLAND ([id number]) on 08/20/2025 7:12:23 AM Referred By: Xin Otero Confirmed By: SETH DOMINGUEZ MD 08/20/25 0712 Date Seth Dominguez MD CC: OFFICE ASSISTANT-C Xni Otero; No Primary Care Physician Signed Normal [facility] Laboratory - Chemistry and C hemistry - challengeOrdered By: Xin Otero on 08-13-2025 Glucose Ql (U) Negative [facility] Laboratory - UrinalysisOrder ed By: Xin Otero on 08-13-2025 Protein Ql (U) Negative [facility] Car[facility] Office Visit Reporton 08-13-2025 Car[facility] Office Visit Report [facility]'s [address], [address] [place] [address] OFFICE VISIT Date of Service: 08/13/25 MR#: [id number] Acct: [id number] Name: BRAYDEN CONNELLY Rep #: [id number] : 2000 Provider: RAMILA eduardo Age/Sex: 25/F Location: [facility] [place] Status: Signed Intake Vital Signs 07/14/25 13:11 07/30/25 14:22 08/13/25 13:28 Height 5 ft 4 in 5 ft 4 in 5 ft 4 in Weight: 253 lb 5 oz BMI 43.4 BP 115/75 Intake Visit Reasons: 32 WK 6 DAYS Extruder Tender Required: No Is patient in pain?: No Allergies cat dander Allergy (Verified 08/13/25 13:26) Other Seasonal Allergies: Uncoded Allergy (Verified 08/13/25 13:26) Other Medications ???Medication ???Instructions ???Recorded ???Confirmed ???Type sumatriptan succinate 100 mg tablet 100 mg PO ONCE 10/10/24 5 History docosahexaenoic acid 200 mg mg PO 02/14/25 08/13/25 History capsule ( DHA) ondansetron HCl 4 mg tablet 4 mg PO Q6H #30 tabs 02/24/2506/30 Rx famotidine 20 mg tablet (Pepcid) 20 mg PO BID #60 tabs 07/30/2506/30 Rx Last Menstrual Period: 12/26/24 Zika: Zika virus screening: Negative : No PFSH PFSH Medical History Seasonal allergies Surgical History H/O oral surgery Family History Aunt Breast cancer Grandfather Pancreatic cancer Grandfather Heart disease Grandmother Benign tumor of breast Mother Benign tumor of breast Social History adopted: No household members: spouse 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: No 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) pets and animals: cat(s) history of recent travel: Yes ([place] - December 2024 [place] - January 2025) out of state: Yes sexually active: Yes Smoking Status: Never smoker alcohol intake: current alcohol intake frequency: holidays/special occasions only details: Not while substance use type: former substance user Date of last use: 2022 - Marijuana well-balanced diet: daily or most days caffeine: Yes Type: carbonated beverages eating out: 1-3 times/week during the past year weight has: decreased > 10 lbs what type of physical activity do you participate in: walking and running frequency: 5-6 times per week duration: 15-30 minutes/day naina/buddhism: Congregation seatbelt use: always do you feel safe at home: Yes additional social history: : Eulalio DANGELO History 1 Elective abortions Hx Para 0 Spontaneous abortions 0 Hx # Term Pregnancies Ectopic pregnancies Hx # Pregnancies Multiple births # of living children HPI 32 WK 6 DAYS Details: BRAYDEN CONNELLY is a 25 year old who presents for routine OB visit. OB Visit EMMANUEL Calculator Estimated Delivery Date Method Current WG Current Estimate 10/02/25 LMP (Certain) 32w 6d Other Estimates 09/30/25 Ultrasound #1 33w 1d Expected Delivery Route/Plan Labor Preferences- CB/BF classes: encouraged labor support person: Pradip labor intervention preferences: [] pain management options preferred: wants limited but ok w epidural cut cord/dad catch: yes : yes PP control planned: discussed discussed possible routes of delivery and associated risks: [] special requests: [] Specific Issue/Plans Covid status: [] Flu vaccine: declines Tdap vaccine: declines Rhogam: NA LARC form signed: yes movement and labor precautions reviewed. Problem list reviewed and updated with the most current plan of care details and appropriate orders placed. Relevant counseling for the gestational age provided. Continue routine care and follow up unless otherwise noted in visit notes/problem list details Initial Weight: Not Recorded Date -???-???-???-???-?? ?-???-???-???-???-? ??-???-???- EGA Weight BP Urine Prot -???-???-???-???-?? ?-???-???-???-???-? ??-???-???- Glucose FHR FuHt Pres Dilation -???-???-???-???-?? ?-???-???-???-???-? ??-???-???- Effaced St Visit Note 02/24/25 -???-???-???-???-?? ?-???-???-???-???-? ??-???-???- 8w 4d 186 lb 2 oz 128/85 -???-???-???-???-?? ?-???-???-???-???-? ??-???-???- 189 -???-???-???-???-?? ?-???-???-???-???-? ??-???-???- JV- CRL cons istent with LMP. undecided about NIPT. 03/20/25 -???-???-???-???-?? ?-???-???-???-???-? ??-???-???- 12w 0d 194 lb 4 oz 118/75 Negative -???-???-???-???-?? ?-???-???-???-???-? ??-???-???- Negative 160 -???-???-???-???-?? ?-???-???-???-???-? ??-???-???- SM- no vb cr amping 04/15/25 -???-???-???-???-?? (more content not included)... Normal [facility] Laboratory - Chemistry and C hemistry - challengeOrdered By: Kayleigh Brian on 07-30-2025 Glucose Ql (U) Negative [facility] Laboratory - UrinalysisOrder ed By: Kayleigh Brian on 07-30-2025 Protein Ql (U) Negative [facility] Car[facility]vester Office Visit Reporton 07-30-2025 Carrot [facility]vester Office Visit Report [facility]'s [address], [address] [place] [address] OFFICE VISIT Date of Service: 07/30/25 MR#: [id number] Acct: [id number] Name: BRAYDEN CONNELLY Rep #: [id number] : 2000 Provider: Dr. Kayleigh holly MD Age/Sex: 25/F Location: [facility] [place] Status: Signed Intake Vital Signs 05/12/25 13:39 07/14/25 13:11 07/30/25 14:22 Height 5 ft 4 in 5 ft 4 in 5 ft 4 in Weight: 251 lb 3 oz BMI 43.1 BP 119/84 H Intake Visit Reasons: 30 WK 6 DAYS Chief Complaint: 30wk OB Extruder Tender Required: No Is patient in pain?: No Allergies cat dander Allergy (Verified 07/30/25 14:18) Other Seasonal Allergies: Uncoded Allergy (Verified 07/30/25 14:18) Other Medications ???Medication ???Instructions ???Recorded ???Confirmed ???Type sumatriptan succinate 100 mg tablet 100 mg PO ONCE 10/10/24 5 History docosahexaenoic acid 200 mg mg PO 02/14/25 07/30/25 History capsule ( DHA) ondansetron HCl 4 mg tablet 4 mg PO Q6H #30 tabs 02/24/2507/08 Rx famotidine 20 mg tablet (Pepcid) 20 mg PO BID #60 tabs 07/30/25 Rx Last Menstrual Period: 12/26/24 : No PFSH PFSH Medical History Seasonal allergies Surgical History H/O oral surgery Family History Aunt Breast cancer Grandfather Pancreatic cancer Grandfather Heart disease Grandmother Benign tumor of breast Mother Benign tumor of breast Social History adopted: No household members: spouse 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: No 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) pets and animals: cat(s) history of recent travel: Yes ([place] - December 2024 [place] - January 2025) out of state: Yes sexually active: Yes Smoking Status: Never smoker alcohol intake: current alcohol intake frequency: holidays/special occasions only details: Not while substance use type: former substance user Date of last use: 2022 - Marijuana well-balanced diet: daily or most days caffeine: Yes Type: carbonated beverages eating out: 1-3 times/week during the past year weight has: decreased > 10 lbs what type of physical activity do you participate in: walking and running frequency: 5-6 times per week duration: 15-30 minutes/day naina/buddhism: Congregation seatbelt use: always do you feel safe at home: Yes 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 OB Visit EMMANUEL Calculator Estimated Delivery Date Method Current WG Current Estimate 10/02/25 LMP (Certain) 30w 6d Other Estimates 09/30/25 Ultrasound #1 31w 1d Expected Delivery Route/Plan Labor Preferences- CB/BF classes: encouraged labor support person: Pradip labor intervention preferences: [] pain management options preferred: wants limited but ok w epidural cut cord/dad catch: yes : yes PP control planned: discussed discussed possible routes of delivery and associated risks: [] special requests: [] Specific Issue/Plans Covid status: [] Flu vaccine: [] Tdap vaccine: declines Rhogam: NA LARC form signed: yes movement and labor precautions reviewed. Problem list reviewed and updated with the most current plan of care details and appropriate orders placed. Relevant counseling for the gestational age provided. Continue routine care and follow up unless otherwise noted in visit notes/problem list details Initial Weight: Not Recorded Date -???-???-???-???-?? ?-???-???-???-???-? ??-???-???- EGA Weight BP Urine Prot -???-???-???-???-?? ?-???-???-???-???-? ??-???-???- Glucose FHR FuHt Pres Dilation -???-???-???-???-?? ?-???-???-???-???-? ??-???-???- Effaced St Visit Note 02/24/25 -???-???-???-???-?? ?-???-???-???-???-? ??-???-???- 8w 4d 186 lb 2 oz 128/85 -???-???-???-???-?? ?-???-???-???-???-? ??-???-???- 189 -???-???-???-???-?? ?-???-???-???-???-? ??-???-???- JV- CRL cons istent with LMP. undecided about NIPT. 03/20/25 -???-???-???-???-?? ?-???-???-???-???-? ??-???-???- 12w 0d 194 lb 4 oz 118/75 Negative -???-???-???-???-?? ?-???-???-???-???-? ??-???-???- Negative 160 -???-???-???-???-?? ?-???-???-???-???-? ??-???-???- SM- no vb cr amping 04/15/25 -???-???-???-???-?? ?-???-???-???-???-? ??-???-???- (more content not included)... Normal [facility] Absolute lymphocyte countOrd ered By: Viktoria Suazo on 07-14-2025 Lymphocytes Auto (Unsp spec) [#/Vol] 1.58 10*3/uL 0.83-4.51 [facility] Absolute neutrophil countOrd ered By: Viktoria Suazo on 07-14-2025 Neutrophils (Bld) [#/Vol] 10.7 10*3/uL High 2.0-7.7 [facility] Automated lymphocyte count a s percentage of total leukocytesOrdered By: Viktoria Suazo on 07-14-2025 Lymphocytes/100 WBC Auto (Unsp spec) 12.0 % Low 19-41 [facility] Basophil percentageOrdered B y: Viktoria Suazo on 07-14-2025 Basophils/100 WBC (Bld) 0.3 % 0-1 [facility] CBC W/Diff, Automatedon 09-0 Absolute Lymph 1.58 X10 3/uL Normal 0.83-4.51 [facility] Comment on above: Performed By: #### L 205.1481, L501.0250, L100.0100, [id number] ####[facility] [address] [place], [address] Absolute Neut 10.7 X10 3/uL High 2.0-7.7 [facility] Comment on above: Performed By: #### L 509.8002, L501.0250, L100.0100, [id number] ####[facility] [address] [place], [address] Basophils/100 WBC (Bld) 0.3 % Normal 0-1 [facility] Comment on above: Performed By: #### L 509.8002, L501.0250, L100.0100, [id number] ####[facility] [address] [place], [address] Eosinophils/100 WBC (Bld) 1.8 % Normal 0-5 [facility] Comment on above: Performed By: #### L 509.8002, L501.0250, L100.0100, [id number] ####[facility] [address] [place], [address] Erythrocyte distribution width (RBC) [Ratio] 12.9 % Normal 11.6-14.6 [facility] Comment on above: Performed By: #### L 509.8002, L501.0250, L100.0100, [id number] ####[facility] [address] [place], [address] Hematocrit (Bld) [Volume fraction] 32.8 % Low 37-47 [facility] Comment on above: Performed By: #### L 509.8002, L501.0250, L100.0100, [id number] ####[facility] [address] [place], [address] Hemoglobin (Bld) [Mass/Vol] 10.8 g/dL Low 12.0-15.0 [facility] Comment on above: Performed By: #### L 509.8002, L501.0250, L100.0100, [id number] ####[facility] [address] [place], [address] IG% 0.500 Normal 0.0-0.9 [facility] Comment on above: Result Comment: IG% - Immature Granulocytes (promyelocytes, myelocytes and metamyelocytes) > 1% indicates that a LEFT SHIFT is Present. Performed By: #### L 509.8002, L501.0250, L100.0100, [id number] ####[facility] [address] [place], [address] Lymphocytes/100 WBC (Bld) 12.0 % Low 19-41 [facility] Comment on above: Performed By: #### L 509.8002, L501.0250, L100.0100, [id number] ####[facility] [address] [place], [address] MCH (RBC) [Entitic mass] 30.5 pg Normal 27.0-32.0 [facility] Comment on above: Performed By: #### L 509.8002, L501.0250, L100.0100, [id number] ####[facility] [address] [place], [address] MCHC (RBC) [Mass/Vol] 32.9 g/dL Normal 32-36 [facility] Comment on above: Performed By: #### L 509.8002, L501.0250, L100.0100, [id number] ####[facility] [address] [place], [address] MCV (RBC) [Entitic vol] 92.7 fL Normal 81-99 [facility] Comment on above: Performed By: #### L 509.8002, L501.0250, L100.0100, [id number] ####[facility] [address] [place], [address] Monocytes/100 WBC (Bld) 4.4 % Normal 0-10 [facility] Comment on above: Performed By: #### L 509.8002, L501.0250, L100.0100, [id number] ####[facility] [address] [place], [address] Neutrophils/100 WBC (Bld) 81.0 % High 47-70 [facility] Comment on above: Performed By: #### L 509.8002, L501.0250, L100.0100, [id number] ####[facility] [address] [place], [address] Nucleated RBC (Bld) [#/Vol] 0 10*3/uL Normal 0-5 [facility] Comment on above: Performed By: #### L 509.8002, L501.0250, L100.0100, [id number] ####[facility] [address] [place], [address] Platelet mean volume (Bld) [Entitic vol] 10.6 fL Normal 6.2-12.0 [facility] Comment on above: Performed By: #### L 509.8002, L501.0250, L100.0100, [id number] ####[facility] [address] [place], [address] Platelets (Bld) [#/Vol] 295 10*3/uL Normal 150-450 [facility] Comment on above: Performed By: #### L 509.8002, L501.0250, L100.0100, [id number] ####[facility] [address] [place], [address] RBC (Bld) [#/Vol] 3.54 10*6/uL Low 4.2-5.4 [facility] Comment on above: Performed By: #### L 509.8002, L501.0250, L100.0100, [id number] ####[facility] [address] [place], [address] RDW SD 43.4 fl Normal 35.1-43.9 [facility] Comment on above: Performed By: #### L 509.8002, L501.0250, L100.0100, [id number] ####[facility] [address] [place], [address] WBC (Bld) [#/Vol] 13.2 10*3/uL High 4.4-11.0 [facility] Comment on above: Performed By: #### L 509.8002, L501.0250, L100.0100, [id number] ####[facility] [address] [place], [address] Eosinophil percentageOrdered By: Viktoria Suazo on 07-14-2025 Eosinophils/100 WBC (Bld) 1.8 % 0-5 [facility] Erythrocyte distribution wid th ratioOrdered By: Viktoria Suazo on 07-14-2025 Erythrocyte distribution width (RBC) [Ratio] 12.9 % 11.6-14.6 [facility] Erythrocyte distribution wid th standard deviationOrdered By: Viktoria Suazo on 07-14-2025 Erythrocyte distribution width (RBC) [Ratio] 43.4 fl 35.1-43.9 [facility] Glucose Challenge Gest 1H 50 zonia 07-14-2025 GLU GEST 50g 1H 105 mg/dL Normal 70-140 [facility] Comment on above: Performed By: #### L 509.8002, L501.0250, L100.0100, L3890.6006 ####[facility] [id number] [place], [address] Glucose measurement at 2 chinmay rs post-dose gestational glucose tolerance testOrdered By: Viktoria Suazo on 07-14-2025 Glucose [Mass/Vol] 105 mg/dL 70-140 [facility] HIVon 07-14-2025 HIV Non-Reactive Normal Nonreactive [facility] Comment on above: Result Comment: Non- Reactive Reactive Repeatedly reactive samples must be confirmed according to CDC recommended confirmatory algorithms. The subresults for either HIVAG or AHIV can be used as an aid in the selection of the confirmation algorithm for reactive samples. Send out specimens with Reactive results to [facility] for confirmation. Order the HIV antibody detection and differentiation: lc#[id number] Performed By: #### L 509.8002, L501.0250, L100.0100, L3890.6006 ####[facility] [id number] [place], [address] Hematocrit Auto (Bld) [Volum e fraction]Ordered By: Viktoria Suazo on 07-14-2025 Hematocrit (Bld) [Volume fraction] 32.8 % Low 37-47 [facility] Hemoglobin measurementOrdere d By: Viktoria Suazo on 07-14-2025 Hemoglobin (Bld) [Mass/Vol] 10.8 g/dL Low 12.0-15.0 [facility] Immature granulocytes/100 WB C Auto (Bld)Ordered By: Viktoria Suazo on 07-14-2025 Immature granulocytes/100 WBC (Bld) 0.500 % 0.0-0.9 [facility] Comment on above: IG% - Immature Granu locytes (promyelocytes, myelocytes and metamyelocytes) > 1% indicates that a LEFT SHIFT is Present. Laboratory - Chemistry and C hemistry - challengeOrdered By: Xin Otero on 07-14-2025 Glucose Ql (U) Negative [facility] Laboratory - UrinalysisOrder ed By: Xin Otero on 07-14-2025 Protein Ql (U) Negative [facility] MCV (mean corpuscular volume ) determinationOrdered By: Viktoria Suazo on 07-14-2025 MCV (RBC) [Entitic vol] 92.7 fL 81-99 [facility] Mean corpuscular hemoglobin (MCH) determinationOrdered By: Viktoria Suazo on 07-14-2025 MCH (RBC) [Entitic mass] 30.5 pg 27.0-32.0 [facility] Mean corpuscular hemoglobin concentration (MCHC) determinationOrdered By: Viktoria Suazo on 07-14-2025 MCHC (RBC) [Mass/Vol] 32.9 g/dL 32-36 [facility] Mean platelet volume determi nationOrdered By: Viktoria Lakeisha on 07-14-2025 Platelet mean volume (Bld) [Entitic vol] 10.6 fL 6.2-12.0 [facility] Monocyte percentageOrdered B y: Viktoria Lakeisha on 07-14-2025 Monocytes/100 WBC (Bld) 4.4 % 0-10 [facility] Neutrophil percentageOrdered By: Viktoria Lakeisha on 07-14-2025 Neutrophils/100 WBC (Bld) 81.0 % High 47-70 [facility] No Panel InformationOrdered By: Viktoria Suazo on 07-14-2025 HIV (1&2) Antibody Non-Reactive Nonreactive [facility] Comment on above: Non-ReactiveReactive Repeatedly reactive samples must be confirmed according to CDC recommended confirmatory algorithms. The subresults for either HIVAG or AHIV can be used as an aid in the selection of the confirmation algorithm for reactive samples.Send out specimens with Reactive results to [facility] for confirmation.Order the HIV antibody detection and differentiation: #[id number] Nucleated red blood cell per centageOrdered By: Viktoriaisaias Suazo on 07-14-2025 Nucleated RBC/100 WBC (Bld) [Ratio] 0 % 0-5 [facility] Office Visit Reporton 07-14-2025 [facility] Office Visit Report [facility] [address], [address] [place] [address] OFFICE VISIT Date of Service: 07/14/25 MR#: [id number] Acct: [id number] Name: BRAYDEN CONNELLY Rep #: [id number] : 2000 Provider: RAMILA eduardo Age/Sex: 25/F Location: [facility] [place] Status: Signed Intake Vital Signs 05/12/25 13:39 06/12/25 11:08 07/14/25 12:59 07/14/25 13:11 Height 5 ft 4 in 5 ft 4 in 5 ft 4 in 5 ft 4 in Weight: 247 lb 3 oz BMI 42.4 BP 120/79 Intake Visit Reasons: 28 wk ob/glucose Chief Complaint: 28 Week OB/Glucose Extruder Tender Required: No Is patient in pain?: No Allergies cat dander Allergy (Verified 07/14/25 12:58) Other Seasonal Allergies: Uncoded Allergy (Verified 07/14/25 12:58) Other Medications ???Medication ???Instructions ???Recorded ???Confirmed ???Type sumatriptan succinate 100 mg tablet 100 mg PO ONCE 10/10/24 5 History docosahexaenoic acid 200 mg mg PO 02/14/25 07/14/25 History capsule ( DHA) ondansetron HCl 4 mg tablet 4 mg PO Q6H #30 tabs 02/24/25 09/0 06/30 Rx Last Menstrual Period: 12/26/24 Zika: Zika virus screening: Negative : Yes PFSH PFSH Medical History Seasonal allergies Surgical History H/O oral surgery Family History Aunt Breast cancer Grandfather Pancreatic cancer Grandfather Heart disease Grandmother Benign tumor of breast Mother Benign tumor of breast Social History adopted: No household members: spouse 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: No 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) pets and animals: cat(s) history of recent travel: Yes ([place] - December 2024 [place] - January 2025) out of state: Yes sexually active: Yes Smoking Status: Never smoker alcohol intake: current alcohol intake frequency: holidays/special occasions only details: Not while substance use type: former substance user Date of last use: 2022 - Marijuana well-balanced diet: daily or most days caffeine: Yes Type: carbonated beverages eating out: 1-3 times/week during the past year weight has: decreased > 10 lbs what type of physical activity do you participate in: walking and running frequency: 5-6 times per week duration: 15-30 minutes/day naina/buddhism: Congregation seatbelt use: always do you feel safe at home: Yes 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 OB Visit EMMANUEL Calculator Estimated Delivery Date Method Current WG Current Estimate 10/02/25 LMP (Certain) 28w 4d Other Estimates 09/30/25 Ultrasound #1 28w 6d Expected Delivery Route/Plan Labor Preferences- CB/BF classes: encouraged labor support person: Pradip labor intervention preferences: [] pain management options preferred: wants limited but ok w epidural cut cord/dad catch: yes : yes PP control planned: discussed discussed possible routes of delivery and associated risks: [] special requests: [] Specific Issue/Plans Covid status: [] Flu vaccine: [] Tdap vaccine: declines Rhogam: NA LARC form signed: yes Problem list reviewed and updated with the most current plan of care details and appropriate orders placed. Relevant counseling for the gestational age provided. Continue routine care and follow up unless otherwise noted in visit notes/problem list details Initial Weight: Not Recorded Date -???-???-???-???-?? ?-???-???-???-???-? ??-???-???- EGA Weight BP Urine Prot -???-???-???-???-?? ?-???-???-???-???-? ??-???-???- Glucose FHR FuHt Pres Dilation -???-???-???-???-?? ?-???-???-???-???-? ??-???-???- Effaced St Visit Note 02/24/25 -???-???-???-???-?? ?-???-???-???-???-? ??-???-???- 8w 4d 186 lb 2 oz 128/85 -???-???-???-???-?? ?-???-???-???-???-? ??-???-???- 189 -???-???-???-???-?? ?-???-???-???-???-? ??-???-???- JV- CRL cons istent with LMP. undecided about NIPT. 03/20/25 -???-???-???-???-?? ?-???-???-???-???-? ??-???-???- 12w 0d 194 lb 4 oz 118/75 Negative -???-???-???-???-?? ?-???-???-???-???-? ??-???-???- Negative 160 -???-???-???-???-?? ?-???-???-???-???-? ??-???-???- SM- no vb cr amping 04/15/25 -???-???-???-???-?? ?-???-???-???-???-? ??-???-???- 15w 5d 203 lb 8 oz 120/82 Negat (more content not included)... Normal [facility] Platelet countOrdered By: Deo Suazo on 07-14-2025 Platelets (d) [#/Vol] 295 10*3/uL 150-450 [facility] RBC Auto (d) [#/Vol]Ordere d By: Viktoria Suazo on 07-14-2025 RBC (d) [#/Vol] 3.54 10*6/uL Low 4.2-5.4 [facility] Syphilis Antibodieson 2024 Syphilis Abs Non-Reactive Normal Nonreactive [facility] Comment on above: Performed By: #### L 509.8002, L501.0250, L100.0100, L3890.6006 ####[facility] [id number] [place], [address] White blood cell (WBC) count Ordered By: Viktoria Suazo on 07-14-2025 WBC (Bld) [#/Vol] 13.2 10*3/uL High 4.4-11.0 [facility] Laboratory - Chemistry and C hemistry - challengeOrdered By: Viktoria Suazo on 06-12-2025 Glucose Ql (U) Negative [facility] Laboratory - UrinalysisOrder ed By: Viktoria Suazo on 06-12-2025 Protein Ql (U) Negative [facility] Office Visit Reporton 06-12-2025 [facility] Office Visit Report [facility]'s [address], [address] [place] [address] OFFICE VISIT Date of Service: 06/12/25 MR#: [id number] Acct: [id number] Name: MARICELBRAYDEN KANDACE Rep #: [id number] : 2000 Provider: Dr. Viktoria Rosas DO Age/Sex: 25/F Location: [facility] [place] Status: Signed Intake Vital Signs 03/20/25 10:55 05/12/25 13:39 06/12/25 11:07 06/12/25 11:08 Height 5 ft 4 in 5 ft 4 in 5 ft 4 in 5 ft 4 in Weight: 233 lb 3 oz BMI 40.0 BP 123/84 H Intake Visit Reasons: 24 wk ob Extruder Tender Required: No Is patient in pain?: No Allergies cat dander Allergy (Verified 06/12/25 11:07) Other Seasonal Allergies: Uncoded Allergy (Verified 06/12/25 11:07) Other Medications ???Medication ???Instructions ???Recorded ???Confirmed ???Type sumatriptan succinate 100 mg tablet 100 mg PO ONCE 10/10/24 5 History docosahexaenoic acid 200 mg mg PO 02/14/25 06/12/25 History capsule ( DHA) ondansetron HCl 4 mg tablet 4 mg PO Q6H #30 tabs 02/24/2505/30 Rx Last Menstrual Period: 12/26/24 Zika: Zika virus screening: Negative : No PFSH PFSH Medical History Seasonal allergies Surgical History H/O oral surgery Family History Aunt Breast cancer Grandfather Pancreatic cancer Grandfather Heart disease Grandmother Benign tumor of breast Mother Benign tumor of breast Social History adopted: No household members: spouse 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: No 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) pets and animals: cat(s) history of recent travel: Yes ([place] - December 2024 [place] - January 2025) out of state: Yes sexually active: Yes Smoking Status: Never smoker alcohol intake: current alcohol intake frequency: holidays/special occasions only details: Not while substance use type: former substance user Date of last use: 2022 - Marijuana well-balanced diet: daily or most days caffeine: Yes Type: carbonated beverages eating out: 1-3 times/week during the past year weight has: decreased > 10 lbs what type of physical activity do you participate in: walking and running frequency: 5-6 times per week duration: 15-30 minutes/day naina/buddhism: Congregation seatbelt use: always do you feel safe at home: Yes 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 OB Visit EMMANUEL Calculator Estimated Delivery Date Method Current WG Current Estimate 10/02/25 LMP (Certain) 24w 0d Other Estimates 09/30/25 Ultrasound #1 24w 2d Expected Delivery Route/Plan Labor Preferences- CB/BF classes: [] labor support person: [] labor intervention preferences: [] pain management options preferred: [] cut cord/dad catch: [] : [] PP control planned: [] discussed possible routes of delivery and associated risks: [] special requests: [] Specific Issue/Plans Covid status: [] Flu vaccine: [] Tdap vaccine: [] Rhogam: [] LARC form signed: [] Problem list reviewed and updated with the most current plan of care details and appropriate orders placed. Relevant counseling for the gestational age provided. Continue routine care and follow up unless otherwise noted in visit notes/problem list details Initial Weight: Not Recorded Date -???-???-???-???-?? ?-???-???-???-???-? ??-???-???- EGA Weight BP Urine Prot -???-???-???-???-?? ?-???-???-???-???-? ??-???-???- Glucose FHR FuHt Pres Dilation -???-???-???-???-?? ?-???-???-???-???-? ??-???-???- Effaced St Visit Note 02/24/25 -???-???-???-???-?? ?-???-???-???-???-? ??-???-???- 8w 4d 186 lb 2 oz 128/85 -???-???-???-???-?? ?-???-???-???-???-? ??-???-???- 189 -???-???-???-???-?? ?-???-???-???-???-? ??-???-???- JV- CRL cons istent with LMP. undecided about NIPT. 03/20/25 -???-???-???-???-?? ?-???-???-???-???-? ??-???-???- 12w 0d 194 lb 4 oz 118/75 Negative -???-???-???-???-?? ?-???-???-???-???-? ??-???-???- Negative 160 -???-???-???-???-?? ?-???-???-???-???-? ??-???-???- SM- no vb cr amping 04/15/25 -???-???-???-???-?? ?-???-???-???-???-? ??-???-???- 15w 5d 203 lb 8 oz 120/82 Negative -???-???-???-???-?? ?-???-???-???-???-? ??-???-???- Negative 160 -???-???-???-???-?? ?-???-?? (more content not included)... Normal [facility] Laboratory - Chemistry and C hemistry - challengeOrdered By: Jeannine Gunn on 05-12-2025 Glucose Ql (U) Negative [facility] Laboratory - UrinalysisOrder ed By: Jeannine Gunn on 05-12-2025 Protein Ql (U) Negative [facility] Office Visit Reporton 05-12-2025 Car[facility] Office Visit Report [facility]'s [address], [address] [place] [address] OFFICE VISIT Date of Service: 05/12/25 MR#: [id number] Acct: [id number] Name: BRAYDEN CONNELLY Rep #: [id number] : 2000 Provider: JACK Christina ams Age/Sex: 25/F [place] [facility] [place] Status: Signed Intake Vital Signs 02/24/25 13:12 04/15/25 13:37 05/12/25 13:39 Height 5 ft 4 in 5 ft 4 in 5 ft 4 in Weight: 216 lb 8 oz BMI 37.1 BP 124/82 H Intake Visit Reasons: 20 wk ob Chief Complaint: 20wk OB Extruder Tender Required: No Is patient in pain?: No Allergies cat dander Allergy (Verified 05/12/25 13:40) Other Seasonal Allergies: Uncoded Allergy (Verified 05/12/25 13:40) Other Medications ???Medication ???Instructions ???Recorded ???Confirmed ???Type sumatriptan succinate 100 mg tablet 100 mg PO ONCE 10/10/24 5 History docosahexaenoic acid 200 mg mg PO 02/14/25 05/12/25 History capsule ( DHA) ondansetron HCl 4 mg tablet 4 mg PO Q6H #30 tabs 02/24/2505/30 Rx Last Menstrual Period: 12/26/24 : No PFSH PFSH Medical History Seasonal allergies Surgical History H/O oral surgery Family History Aunt Breast cancer Grandfather Pancreatic cancer Grandfather Heart disease Grandmother Benign tumor of breast Mother Benign tumor of breast Social History adopted: No household members: spouse 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: No 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) pets and animals: cat(s) history of recent travel: Yes ([place] - December 2024 [place] - January 2025) out of state: Yes sexually active: Yes Smoking Status: Never smoker alcohol intake: current alcohol intake frequency: holidays/special occasions only details: Not while substance use type: former substance user Date of last use: 2022 - Marijuana well-balanced diet: daily or most days caffeine: Yes Type: carbonated beverages eating out: 1-3 times/week during the past year weight has: decreased > 10 lbs what type of physical activity do you participate in: walking and running frequency: 5-6 times per week duration: 15-30 minutes/day naina/buddhism: Congregation seatbelt use: always do you feel safe at home: Yes 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 OB Visit EMMANUEL Calculator Estimated Delivery Date Method Current WG Current Estimate 10/02/25 LMP (Certain) 19w 4d Other Estimates 09/30/25 Ultrasound #1 19w 6d Expected Delivery Route/Plan Labor Preferences- CB/BF classes: [] labor support person: [] labor intervention preferences: [] pain management options preferred: [] cut cord/dad catch: [] : [] PP control planned: [] discussed possible routes of delivery and associated risks: [] special requests: [] Specific Issue/Plans Covid status: [] Flu vaccine: [] Tdap vaccine: [] Rhogam: [] LARC form signed: [] Problem list reviewed and updated with the most current plan of care details and appropriate orders placed. Relevant counseling for the gestational age provided. Continue routine care and follow up unless otherwise noted in visit notes/problem list details Initial Weight: Not Recorded Date -???-???-???-???-?? ?-???-???-???-???-? ??-???-???- EGA Weight BP Urine Prot -???-???-???-???-?? ?-???-???-???-???-? ??-???-???- Glucose FHR FuHt Pres Dilation -???-???-???-???-?? ?-???-???-???-???-? ??-???-???- Effaced St Visit Note 02/24/25 -???-???-???-???-?? ?-???-???-???-???-? ??-???-???- 8w 4d 186 lb 2 oz 128/85 -???-???-???-???-?? ?-???-???-???-???-? ??-???-???- 189 -???-???-???-???-?? ?-???-???-???-???-? ??-???-???- JV- CRL cons istent with LMP. undecided about NIPT. 03/20/25 -???-???-???-???-?? ?-???-???-???-???-? ??-???-???- 12w 0d 194 lb 4 oz 118/75 Negative -???-???-???-???-?? ?-???-???-???-???-? ??-???-???- Negative 160 -???-???-???-???-?? ?-???-???-???-???-? ??-???-???- SM- no vb cr amping 04/15/25 -???-???-???-???-?? ?-???-???-???-???-? ??-???-???- 15w 5d 203 lb 8 oz 120/82 Negative -???-???-???-???-?? ?-???-???-???-???-? ??-???-???- Negative 160 -???-???-???-???-?? ?-???-???-???-???-? ??-???-???- MH-No VB. Na usea improved. Reviewed CF ca (more content not included)... Normal [facility] Laboratory - Chemistry and C hemistry - challengeOrdered By: Xin Otero on 04-15-2025 Glucose Ql (U) Negative [facility] Laboratory - UrinalysisOrder ed By: Xin Otero on 04-15-2025 Protein Ql (U) Negative [facility] Office Visit Reporton 04-15-2025 Car[facility] Office Visit Report [facility]'s [address], [address] [place] [address] OFFICE VISIT Date of Service: 04/15/25 MR#: [id number] Acct: [id number] Name: BRAYDEN CONNELLY Rep #: [id number] : 2000 Provider: RAMILA eduardo Age/Sex: 25/F Location: [facility] [place] Status: Signed Intake Vital Signs 02/24/25 13:12 03/20/25 10:55 04/15/25 13:37 Height 5 ft 4 in 5 ft 4 in 5 ft 4 in Weight: 203 lb 8 oz BMI 34.9 BP 120/82 H Intake Visit Reasons: 16 wk ob Chief Complaint: 16 Week OB Extruder Tender Required: No Is patient in pain?: No Allergies cat dander Allergy (Verified 04/15/25 13:39) Other Seasonal Allergies: Uncoded Allergy (Verified 04/15/25 13:39) Other Medications ???Medication ???Instructions ???Recorded ???Confirmed ???Type sumatriptan succinate 100 mg tablet 100 mg PO ONCE 10/10/24 5 History docosahexaenoic acid 200 mg mg PO 02/14/25 04/15/25 History capsule ( DHA) ondansetron HCl 4 mg tablet 4 mg PO Q6H #30 tabs 02/24/2504/06 Rx Last Menstrual Period: 12/26/24 Zika: Zika virus screening: Negative : No PFSH PFSH Medical History Seasonal allergies Surgical History H/O oral surgery Family History Aunt Breast cancer Grandfather Pancreatic cancer Grandfather Heart disease Grandmother Benign tumor of breast Mother Benign tumor of breast Social History adopted: No household members: spouse 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: No 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) pets and animals: cat(s) history of recent travel: Yes ([place] - December 2024 [place] - January 2025) out of state: Yes sexually active: Yes Smoking Status: Never smoker alcohol intake: current alcohol intake frequency: holidays/special occasions only details: Not while substance use type: former substance user Date of last use: 2022 - Marijuana well-balanced diet: daily or most days caffeine: Yes Type: carbonated beverages eating out: 1-3 times/week during the past year weight has: decreased > 10 lbs what type of physical activity do you participate in: walking and running frequency: 5-6 times per week duration: 15-30 minutes/day naina/buddhism: Congregation seatbelt use: always do you feel safe at home: Yes 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 OB Visit EMMANUEL Calculator Estimated Delivery Date Method Current WG Current Estimate 10/02/25 LMP (Certain) 15w 5d Other Estimates 09/30/25 Ultrasound #1 16w 0d Expected Delivery Route/Plan Labor Preferences- CB/BF classes: [] labor support person: [] labor intervention preferences: [] pain management options preferred: [] cut cord/dad catch: [] : [] PP control planned: [] discussed possible routes of delivery and associated risks: [] special requests: [] Specific Issue/Plans Covid status: [] Flu vaccine: [] Tdap vaccine: [] Rhogam: [] LARC form signed: [] Problem list reviewed and updated with the most current plan of care details and appropriate orders placed. Relevant counseling for the gestational age provided. Continue routine care and follow up unless otherwise noted in visit notes/problem list details Initial Weight: Not Recorded Date -???-???-???-???-?? ?-???-???-???-???-? ??-???-???- EGA Weight BP Urine Prot -???-???-???-???-?? ?-???-???-???-???-? ??-???-???- Glucose FHR FuHt Pres Dilation -???-???-???-???-?? ?-???-???-???-???-? ??-???-???- Effaced St Visit Note 02/24/25 -???-???-???-???-?? ?-???-???-???-???-? ??-???-???- 8w 4d 186 lb 2 oz 128/85 -???-???-???-???-?? ?-???-???-???-???-? ??-???-???- 189 -???-???-???-???-?? ?-???-???-???-???-? ??-???-???- JV- CRL cons istent with LMP. undecided about NIPT. 03/20/25 -???-???-???-???-?? ?-???-???-???-???-? ??-???-???- 12w 0d 194 lb 4 oz 118/75 Negative -???-???-???-???-?? ?-???-???-???-???-? ??-???-???- Negative 160 -???-???-???-???-?? ?-???-???-???-???-? ??-???-???- SM- no vb cr amping 04/15/25 -???-???-???-???-?? ?-???-???-???-???-? ??-???-???- 15w 5d 203 lb 8 oz 120/82 Negative -???-???-???-???-?? ?-???-???-???-???-? ??-???-???- Negative 160 -???-???-???-???-?? ?-???-???- (more content not included)... Normal [facility] Absolute lymphocyte countOrd ered By: Viktoria Lakeisha on 03-20-2025 Lymphocytes Auto (Unsp spec) [#/Vol] 1.69 10*3/uL 0.83-4.51 [facility] Absolute neutrophil countOrd ered By: Viktoria Suazo on 03-20-2025 Neutrophils (Bld) [#/Vol] 5.7 10*3/uL 2.0-7.7 [facility] Automated lymphocyte count a s percentage of total leukocytesOrdered By: Viktoria Suazo on 03-20-2025 Lymphocytes/100 WBC Auto (Unsp spec) 20.7 % 19-41 [facility] Basophil percentageOrdered B y: Viktoria Lakeisha on 03-20-2025 Basophils/100 WBC (Bld) 0.5 % 0-1 [facility] CBC W/Diff, Automatedon 05- Absolute Lymph 1.69 X10 3/uL Normal 0.83-4.51 [facility] [facility] Comment on above: Performed By: #### L 3890.6301, L3890.6102, L900.0098, L509.8002, L3890.6006, L501.9985, L100.0100, BTS, L509.4006 #### [facility] [address] [place], [place], [address] Absolute Neut 5.7 X10 3/uL Normal 2.0-7.7 [facility] Comment on above: Performed By: #### L 3890.6301, L3890.6102, L900.0098, L509.8002, L3890.6006, L501.9985, L100.0100, BTS, L509.4006 #### [facility] [address] [place], [address] Basophils/100 WBC (Bld) 0.5 % Normal 0-1 [facility] Comment on above: Performed By: #### L 3890.6301, L3890.6102, L900.0098, L509.8002, L3890.6006, L501.9985, L100.0100, BTS, L509.4006 #### [facility] [address] [place], [address] Eosinophils/100 WBC (Bld) 3.8 % Normal 0-5 [facility] Comment on above: Performed By: #### L 3890.6301, L3890.6102, L900.0098, L509.8002, L3890.6006, L501.9985, L100.0100, BTS, L509.4006 #### [facility] [address] [facility] [place] [place], [address] Erythrocyte distribution width (RBC) [Ratio] 12.7 % Normal 11.6-14.6 [facility] Comment on above: Performed By: #### L 3890.6301, L3890.6102, L900.0098, L509.8002, L3890.6006, L501.9985, L100.0100, BTS, L509.4006 #### [facility] [address] [place], [address] Hematocrit (Bld) [Volume fraction] 38.6 % Normal 37-47 [facility] Comment on above: Performed By: #### L 3890.6301, L3890.6102, L900.0098, L509.8002, L3890.6006, L501.9985, L100.0100, BTS, L509.4006 #### [facility] [address] [place], [address] Hemoglobin (Bld) [Mass/Vol] 12.8 g/dL Normal 12.0-15.0 [facility] Comment on above: Performed By: #### L 3890.6301, L3890.6102, L900.0098, L509.8002, L3890.6006, L501.9985, L100.0100, BTS, L509.4006 #### [facility] [address] [place], [address] IG% 0.200 Normal 0.0-0.9 [facility] Comment on above: Result Comment: IG% - Immature Granulocytes (promyelocytes, myelocytes and metamyelocytes) > 1% indicates that a LEFT SHIFT is Present. Performed By: #### L 3890.6301, L3890.6102, L900.0098, L509.8002, L3890.6006, L501.9985, L100.0100, BTS, L509.4006 #### [facility] [address] [place], [address] Lymphocytes/100 WBC (Bld) 20.7 % Normal 19-41 [facility] Comment on above: Performed By: #### L 3890.6301, L3890.6102, L900.0098, L509.8002, L3890.6006, L501.9985, L100.0100, BTS, L509.4006 #### [facility] [address] [place], [address] MCH (RBC) [Entitic mass] 30.9 pg Normal 27.0-32.0 [facility] Comment on above: Performed By: #### L 3890.6301, L3890.6102, L900.0098, L509.8002, L3890.6006, L501.9985, L100.0100, BTS, L509.4006 #### [facility] [address] [place], [address] MCHC (RBC) [Mass/Vol] 33.2 g/dL Normal 32-36 [facility] Comment on above: Performed By: #### L 3890.6301, L3890.6102, L900.0098, L509.8002, L3890.6006, L501.9985, L100.0100, BTS, L509.4006 #### [facility] [address] [place], [address] MCV (RBC) [Entitic vol] 93.2 fL Normal 81-99 [facility] Comment on above: Performed By: #### L 3890.6301, L3890.6102, L900.0098, L509.8002, L3890.6006, L501.9985, L100.0100, BTS, L509.4006 #### [facility] [address] [place], [address] Monocytes/100 WBC (Bld) 5.1 % Normal 0-10 [facility] Comment on above: Performed By: #### L 3890.6301, L3890.6102, L900.0098, L509.8002, L3890.6006, L501.9985, L100.0100, BTS, L509.4006 #### [facility] [address] [place], [address] Neutrophils/100 WBC (Bld) 69.7 % Normal 47-70 [facility] Comment on above: Performed By: #### L 3890.6301, L3890.6102, L900.0098, L509.8002, L3890.6006, L501.9985, L100.0100, BTS, L509.4006 #### [facility] [address] [place], [address] Nucleated RBC (Bld) [#/Vol] 0 10*3/uL Normal 0-5 [facility] Comment on above: Performed By: #### L 3890.6301, L3890.6102, L900.0098, L509.8002, L3890.6006, L501.9985, L100.0100, BTS, L509.4006 #### [facility] [address] [place], [address] Platelet mean volume (Bld) [Entitic vol] 10.2 fL Normal 6.2-12.0 [facility] Comment on above: Performed By: #### L 3890.6301, L3890.6102, L900.0098, L509.8002, L3890.6006, L501.9985, L100.0100, BTS, L509.4006 #### [facility] [address] [place], [address] ( Platelets (Bld) [#/Vol] 261 10*3/uL Normal 150-450 [facility] Comment on above: Performed By: #### L 3890.6301, L3890.6102, L900.0098, L509.8002, L3890.6006, L501.9985, L100.0100, BTS, L509.4006 #### [facility] [address] [place], [address] ( RBC (Bld) [#/Vol] 4.14 10*6/uL Low 4.2-5.4 [facility] Comment on above: Performed By: #### L 3890.6301, L3890.6102, L900.0098, L509.8002, L3890.6006, L501.9985, L100.0100, BTS, L509.4006 #### [facility] [address] [place], [address] RDW SD 43.7 fl Normal 35.1-43.9 [facility] Comment on above: Performed By: #### L 3890.6301, L3890.6102, L900.0098, L509.8002, L3890.6006, L501.9985, L100.0100, BTS, L509.4006 #### [facility] [address] [place], [place], [id number] WBC (Bld) [#/Vol] 8.2 10*3/uL Normal 4.4-11.0 [facility] Comment on above: Performed By: #### L 3890.6301, L3890.6102, L900.0098, L509.8002, L3890.6006, L501.9985, L100.0100, BTS, L509.4006 #### [facility] [address] [place], [place], [id number] Eosinophil percentageOrdered By: Viktoria Suazo on 03-20-2025 Eosinophils/100 WBC (Bld) 3.8 % 0-5 [facility] Erythrocyte distribution wid th ratioOrdered By: Viktoria Suazo on 03-20-2025 Erythrocyte distribution width (RBC) [Ratio] 12.7 % 11.6-14.6 [facility] Erythrocyte distribution wid th standard deviationOrdered By: Viktoria Suazo on 03-20-2025 Erythrocyte distribution width (RBC) [Ratio] 43.7 fl 35.1-43.9 [facility] HIVon 03-20-2025 HIV Non-Reactive Normal Nonreactive [facility] Comment on above: Result Comment: Non- Reactive Reactive Repeatedly reactive samples must be confirmed according to CDC recommended confirmatory algorithms. The subresults for either HIVAG or AHIV can be used as an aid in the selection of the confirmation algorithm for reactive samples. Send out specimens with Reactive results to [facility] for confirmation. Order the HIV antibody detection and differentiation: lc#[id number] Performed By: #### L 3890.6301, L3890.6102, L900.0098, L509.8002, L3890.6006, L501.9985, L100.0100, BTS, L509.4006 ####[facility] [address] [place], [place], [id number] Hematocrit Auto (Bld) [Volum e fraction]Ordered By: Viktoria Lakeisha on 03-20-2025 Hematocrit (Bld) [Volume fraction] 38.6 % 37-47 [facility] Hemoglobin A1con 03-20-2025 HbA1c (Bld) [Mass fraction] 5.2 % Normal <=5.6 [facility] Comment on above: Result Comment: Norm al < 5.7 % Prediabetic 5.7 - 6.4 % Diabetic >or= 6.5 % Please note range changes. Performed By: #### L 3890.6301, L3890.6102, L900.0098, L509.8002, L3890.6006, L501.9985, L100.0100, BTS, L509.4006 ####[facility] [address] [place], [place], [id number] Hemoglobin A1c percentageOrd ered By: Viktoria Lakeisha on 03-20-2025 HbA1c (Bld) [Mass fraction] 5.2 % <5.7 [facility] Comment on above: Normal < 5.7 % Predi abetic 5.7 - 6.4 % Diabetic >or= 6.5 % Please note range changes. Hemoglobin measurementOrdere d By: Viktoria Suazo on 03-20-2025 Hemoglobin (Bld) [Mass/Vol] 12.8 g/dL 12.0-15.0 [facility] Hepatitis C Antibodyon 03-20 Hepatitis C Ab Non-Reactive Normal Nonreactive [facility] Comment on above: Result Comment: Reac tive: Presumptive evidence of antibodies to HCV. Follow CDC recommendations for supplemental testing. Non-Reactive: Antibodies to HCV were not detected; does not exclude the possibility of exposure to HCV Reactive Results are presumptive evidence of antibodies to HCV. Follow CDC recommendations for supplemental testing. Order confirmation testing: HCV Quant by PCR testing - HCVPCR #[id number] Non Reactive: < 0.8 Equivocal: >/= 0.8 to < 1.0 Reactive: >/= 1.0 The CDC requires that a reactive/equivocal HCV antibody result be sent out for confirmation. HCV Quant by PCR testing. Performed By: #### L 3890.6301, L3890.6102, L900.0098, L509.8002, L3890.6006, L501.9985, L100.0100, BTS, L509.4006 ####[facility] [address] [facility] [place], [place], [id number] Immature granulocytes/100 WB C Auto (Bld)Ordered By: Viktoria Suazo on 03-20-2025 Immature granulocytes/100 WBC (Bld) 0.200 % 0.0-0.9 [facility] Comment on above: IG% - Immature Granu locytes (promyelocytes, myelocytes and metamyelocytes) > 1% indicates that a LEFT SHIFT is Present. L3890.6102on 03-20-2025 HEP B Surf Ag Non-Reactive Normal Nonreactive [facility] Comment on above: Result Comment: Reac tive: Presumptive evidence of HBV. Repeatedly reactive samples must be confirmed using a neutralization test ([employer] HBsAg Confirmatory Test) Non-Reactive: HBsAg not detected; does not exclude the possibility of exposure to HBV Performed By: #### L 3890.6301, L3890.6102, L900.0098, L509.8002, L3890.6006, L501.9985, L100.0100, BTS, L509.4006 ####[facility] [address] [place], [place], [id number] L509.4006on 03-20-2025 Rubella IgG REAC Normal Nonreactive [facility] Comment on above: Result Comment: Anti body Result: Interpretation Non-Reactive: Non-Immune Reactive: Immune The following results were obtained with the [employer] Rubella IgG assay. Results from assays of other manufacturers cannot be used interchangeably. Performed By: #### L 3890.6301, L3890.6102, L900.0098, L509.8002, L3890.6006, L501.9985, L100.0100, BTS, L509.4006 ####[facility] [id number] [place], [address] Laboratory - Chemistry and C hemistry - challengeOrdered By: Kayleigh Brian on 03-20-2025 Glucose Ql (U) Negative [facility] Laboratory - Microbiology an d Antimicrobial susceptibilityOrdered By: Viktoria Suazo on 03-20-2025 HBV surface Ag Ql (S) Non-Reactive Nonreactive [facility] Comment on above: Reactive: Presumptiv e evidence of HBV. Repeatedly reactive samples must be confirmed using a neutralization test ([employer] HBsAg Confirmatory Test)Non-Reactive: HBsAg not detected; does not exclude the possibility of exposure to HBV Laboratory - UrinalysisOrder ed By: Kayleigh Brian on 03-20-2025 Protein Ql (U) Negative [facility] MCV (mean corpuscular volume ) determinationOrdered By: Viktoria Suazo on 03-20-2025 MCV (RBC) [Entitic vol] 93.2 fL 81-99 [facility] Mean corpuscular hemoglobin (MCH) determinationOrdered By: Viktoria Suazo on 03-20-2025 MCH (RBC) [Entitic mass] 30.9 pg 27.0-32.0 [facility] Mean corpuscular hemoglobin concentration (MCHC) determinationOrdered By: Viktoria Suazo on 03-20-2025 MCHC (RBC) [Mass/Vol] 33.2 g/dL 32-36 [facility] Mean platelet volume determi nationOrdered By: Viktoria Suazo on 03-20-2025 Platelet mean volume (Bld) [Entitic vol] 10.2 fL 6.2-12.0 [facility] Monocyte percentageOrdered B y: Viktoria Suazo on 03-20-2025 Monocytes/100 WBC (Bld) 5.1 % 0-10 [facility] NATERAon 03-20-2025 NATURA SEE SCANNED REPORT Normal [facility] Comment on above: Order Comment: Comme nts: Genetic Carrier testing - with gender Performed By: #### L 3890.6301, L3890.6102, L900.0098, L509.8002, L3890.6006, L501.9985, L100.0100, BTS, L509.4006 ####[facility] [address] [place], [address] Neutrophil percentageOrdered By: Viktoria Suazo on 03-20-2025 Neutrophils/100 WBC (Bld) 69.7 % 47-70 [facility] No Panel InformationOrdered By: Viktoria Suazo on 03-20-2025 HIV (1&2) Antibody Non-Reactive Nonreactive [facility] Comment on above: Non-ReactiveReactive Repeatedly reactive samples must be confirmed according to CDC recommended confirmatory algorithms. The subresults for either HIVAG or AHIV can be used as an aid in the selection of the confirmation algorithm for reactive samples.Send out specimens with Reactive results to [facility] for confirmation.Order the HIV antibody detection and differentiation: #[id number] Nucleated red blood cell per centageOrdered By: Viktoria Suazo on 03-20-2025 Nucleated RBC/100 WBC (Bld) [Ratio] 0 % 0-5 [facility] Office Visit Reporton 03-20-2025 [facility] Office Visit Report [facility], [address] [place] [address] OFFICE VISIT Date of Service: 03/20/25 MR#: [id number] Acct: [id number] Name: BRAYDEN LUZ Rep #: [id number] 23 : 2000 Provider: Dr. 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 Tender Required: No Is patient in pain?: No Feel stressed/tense/nerv ous/anxious/difficu lty sleeping: not at all Allergies cat dander Allergy (Verified 03/20/25 10:54) Other Seasonal Allergies: Uncoded Allergy (Verified 03/20/25 10:54) Other Medications ???Medication ???Instructions ???Recorded ???Confirmed ???Type sumatriptan succinate 100 mg tablet 100 mg PO ONCE 10/10/24 5 History docosahexaenoic acid 200 mg mg PO 02/14/25 03/20/25 History capsule ( DHA) ondansetron HCl 4 mg tablet 4 mg PO Q6H #30 tabs 02/24/2503/06 Rx Last Menstrual Period: 12/26/24 Zika: Zika virus screening: Negative : No PFSH PFSH Medical History Seasonal allergies Surgical History H/O oral surgery Family History Aunt Breast cancer Grandfather Pancreatic cancer Grandfather Heart disease Grandmother Benign tumor of breast Mother Benign tumor of breast Social History adopted: No household members: spouse 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: No 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) pets and animals: cat(s) history of recent travel: Yes ([place] - December 2024 [place] - January 2025) out of state: Yes sexually active: Yes Smoking Status: Never smoker alcohol intake: current alcohol intake frequency: holidays/special occasions only details: Not while substance use type: former substance user Date of last use: 2022 - Marijuana well-balanced diet: daily or most days caffeine: Yes Type: carbonated beverages eating out: 1-3 times/week during the past year weight has: decreased > 10 lbs what type of physical activity do you participate in: walking and running frequency: 5-6 times per week duration: 15-30 minutes/day naina/buddhism: Congregation seatbelt use: always do you feel safe at home: Yes additional social history: : Eulalio - ANTOLIN History 1 Elective abortions Hx Para 0 Spontaneous abortions 0 Hx # Term Pregnancies Ectopic pregnancies Hx # Pregnancies Multiple births # of living children HPI 12wk OB Details: BRAYDEN LUZ is a 25 year old who presents for routine OB visit. OB Visit EMMANUEL Calculator Estimated Delivery Date Method Current WG Current Estimate 10/02/25 LMP (Certain) 12w 0d Other Estimates 09/30/25 Ultrasound #1 12w 2d Expected Delivery Route/Plan Labor Preferences- CB/BF classes: [] labor support person: [] labor intervention preferences: [] pain management options preferred: [] cut cord/dad catch: [] : [] PP control planned: [] discussed possible routes of delivery and associated risks: [] special requests: [] Specific Issue/Plans Covid status: [] Flu vaccine: [] Tdap vaccine: [] Rhogam: [] LARC form signed: [] Problem list reviewed and updated with the most current plan of care details and appropriate orders placed. Relevant counseling for the gestational age provided. Continue routine care and follow up unless otherwise noted in visit notes/problem list details Initial Weight: Not Recorded Date -???-???-???-???-?? ?-???-???-???-???-? ??-???-???- EGA Weight BP Urine Prot -???-???-???-???-?? ?-???-???-???-???-? ??-???-???- Glucose FHR FuHt Pres Dilation -???-???-???-???-?? ?-???-???-???-???-? ??-???-???- Effaced St Visit Note 02/24/25 -???-???-???-???-?? ?-???-???-???-???-? ??-???-???- 8w 4d 186 lb 2 oz 128/85 -???-???-???-???-?? ?-???-???-???-???-? ??-???-???- 189 -???-???-???-???-?? ?-???-???-???-???-? ??-???-???- JV- CRL cons istent with LMP. undecided about NIPT. 03/20/25 -???-???-???-???-?? ?-???-???-???-???-? ??-???-???- 12w 0d 194 lb 4 oz 118/75 Negative -???-???-???-???-?? ?-???-???-???-???-? ??-???-???- Negative 160 -???-???-???-???-?? ?-???-???-???-???-? ??-???-???- SM- no vb cr amping ACOG First Trimester First Trimester: Discussed Results POC Urinalysis 2 Dip (Clinic) Office Urine (more content not included)... Normal [facility] Platelet countOrdered By: Deo Suazo on 03-20-2025 Platelets (Bld) [#/Vol] 261 10*3/uL 150-450 [facility] RBC Auto (Bld) [#/Vol]Ordere d By: Viktoria Suazo on 03-20-2025 RBC (Bld) [#/Vol] 4.14 10*6/uL Low 4.2-5.4 [facility] Syphilis Antibodieson 2024 Syphilis Abs Non-Reactive Normal Nonreactive [facility] Comment on above: Performed By: #### L 3890.6301, L3890.6102, L900.0098, L509.8002, L3890.6006, L501.9985, L100.0100, BTS, L509.4006 ####[facility] [address] [place], [place], [id number] Type AND Screenon 03-20-2025 Ab SCREEN GEL Negative Normal [facility] Comment on above: Order Comment: PN Performed By: #### L 3890.6301, L3890.6102, L900.0098, L509.8002, L3890.6006, L501.9985, L100.0100, BTS, L509.4006 ####[facility] [address] [place], [address] White blood cell (WBC) count Ordered By: Viktoria Suazo on 03-20-2025 WBC (Bld) [#/Vol] 8.2 10*3/uL 4.4-11.0 [facility] C Urineon 03-10-2025 Bacteria identified Cx Nom (U) Microbiology PROCEDURE: Urine Culture [R1] SOURCE: U CleanCatch BODY SITE: COLLECTED DATE/TIME: 03/07/2025 17:41 EDT RECEIVED DATE/TIME: 03/08/2025 12:43 EDT START DATE/TIME: 03/08/2025 12:43 EDT FREE TEXT SOURCE: Jame MI, Nathan Cardenas. Jame MI, Nathan Cardenas. FINAL REPORTS Final Report [] Verified Date/Time: 03/10/2025 08:24 EDT <10,000 cfu/ml Mixed skin contaminants Performing Locations R1: This test was performed at: [facility], [address] [place] [address], [address] , [place], Normal [facility] Comment on above: Performed By: #### 2 [id number] #### [facility] [address] [place] [address] Family Medicine Office/Clini c Noteon 03-08-2025 Family Medicine Office/Clinic Note Family Medicine Office/Clinic Note Chief Complaint uti symptoms HPI Staff 25 year old female presents with UTI symptoms on and off for a few weeks feels like shes not emptying her bladder completely pt is 10 weeks Frequency- yes Urgency- yes Small volume void- denies Dysuria- slightly Pressure- yes Back pain- low back pain Nocturia- yes Fever/chills- denies Nausea/vomiting- nausea UTI or other reason for antbx's last 30 days- denies History of Present Illness I have reviewed and verified the staff HPI to be accurate for this encounter. Portions of this record have been created with voice recognition software. Occasional wrong-word or ???lsiye-j-syen??? substitutions may have occurred due to the inherent limitations of voice recognition software. 25 yo female presents today with cc of urinary urgency frequency states slight burning and lower bladder pressure low back pain. States that is currently 10 weeks . G1, P0. Feels like she is not emptying her bladder completely. States these symptoms have been on and off, x 2-3 weeks duration. Pt also notes getting up in the middle of the night to urinate. States nausea. Denies vomiting. Denies fever, or chills. Patient states history of UTIs especially as a teenager. States similar where she would have symptoms intermittently for long periods of time sometimes she would have UTIs sometimes she would not. States she feels like with early things are probably growing and moving but she denies any burning with urination states some bladder pressure notices that more so she is running or exercising. States that this is her first so she is unsure if it is UTI versus . 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 Patient states that they were not planning to get this soon so will most likely be moving back to [place] by the end of the year as that is where all of their support system is. She would just like to ensure that she does not have a UTI or if she does be treated. She has no other concerns at this time. Review of Systems PHQ Score Initial Depression Screen Score: 0 SCORE ROS negative unless otherwise stated in HPI. Physical Exam Vitals & Measurements T: 36.9 ???C(Oral) HR: 98(Peripheral) BP: 126/82 SpO2: 97% HT: 64 in HT: 162 cm WT: 189.597 lb WT: 86 kg BMI: 32.77 General:Well developed, well nourished, in no acute distress very pleasant young female Eyes:not assessed Ears:not assessed Nose:not addressed Mouth:not assessed Neck:not assessed Lungs:Lung sounds are clear bilaterally. No wheezing, rhonchi, or crackles on exam. Cardio:S1, S2, regular rhythm. No murmurs, gallops, or rubs. Abdomen:Bowel sounds are present x 4 quadrants. Abdomen is soft, non-tender, non-distended. No rigidity, rebound, or guarding on exam. No flank pain. Musculoskeletal:No CVA tenderness Extremity:not assessed Neurologic:not assessed Skin:not assessed Mental Status:Alert and oriented x3. Normal mood and affect Assessment/Plan Urine dip in office is negative. Will send for culture in regards to patient's early to confirm no bacterial growth. Discussed with patient that we will update her or contact her in the next 2 to 4 days with a urine culture result otherwise continue follow-up with her OB in addition to increasing water intake. Continue to monitor. May return if needed. ER for reevaluation for any significantly worsening symptoms. Patient agrees and understands plan. 1. Urinary frequency (R35.0: Frequency of micturition) UA without abnormality. Discussed UTI unlikely. Will cx urine to ensure no bacterial growth and notify of results in 3-5 days. Fluids/rest. FU with PCP if continuing or worsening symptoms for further eval. Patient verbalized understanding of tx plan. Ordered: E&M of New Patient Low 30-44 Min 28893 2. First trimester (Z34.91: Encounter for supervision of normal , unspecified, first trimester) Continue follow up with OB. Ordered: E&M of New Patient Low 30-44 Min 03636 UTI symptoms (R39.9: Unspecified symptoms and signs involving the genitourinary system) Ordered: Urine Culture Urnls Dip Stick Auto w/o Microscopy POC 41651 Follow-up With When Contact Information NONE, XXXX Additional Instructions: Patient Education First Trimester of , Udui-cc-Cqzc Urinary Frequency, Adult Problem List/Past Medical History Ongoing No qualifying data Historical No qualifying data Medications Multivitamins, 1 tab(s), Oral, Daily sumatriptan, See Instructions Allergies No Known Medication Allergies Social History Tobacco Never (less than 100 in lifetime) Tobacco Use:. Never Smokeless Tobacco Use:., 03/07/2025 [facility] Comment on above: Result Comment: Elec tronically Signed By: Jame MI, Nathan Griffin\.br\Date and Time Signed: 03/08/25 09:14 EDT Ambulatory Visit Summaryon 0 03-07-2025 Ambulatory Visit Summary Ambulatory Visi t Summary BRAYDEN CONNELLY :2000 Visit Date:03/07/2025 Ambulatory Visit Instructions Your Diagnosis Urinary frequency First trimester UTI symptoms Your Care Team Attending Physician - Jame MI, Nathan Griffin Primary Care Physician - NONE, XXXX This Is Your Medications List Contact prescribing physician if questions or concerns multivitamin, ( Multivitamins) sumatriptan Discharge Vitals Temperature (Oral) 36.9 ???C Heart Rate (Peripheral) 98 Blood Pressure 126/82 Height 162 cm Height 64 in Weight 86 kg Weight 189.597 lb BMI 32.77 Medications What How Much When Instructions Unchanged multivitamin, ( Multivitamins) 1 Tablets By Mouth Every day Contact prescribing physician if questions or concerns Unchanged sumatriptan See instructions PRN Contact prescribing physician if questions or concerns Allergies No Known Medication Allergies Patient Survey You may receive a survey via text or e-mail asking about your office visit. Please share your experience with us by completing your survey. We appreciate your feedback and thank you for choosing us for your care. [facility] Patient Letter FTon 2024 Patient Letter [facility] Patient Letter [facility] [address] [facility] [place], [facility] [place] [phone] March 07, 2025 BRAYDEN CONNELLY [address] [place] [id number] : 2000 Please excuse BRAYDEN CONNELLY from work . Date and/or Time of Absence: From: 03/07/25 To: 03/10/25 May return to work on: 03/10/25 Restrictions: None Comments: Please excuse due to an acute illness. Provider Signature: Nathan Kilgore PA-C Physician [employer] [address] [facility] [place] [address] [facility] Chlamydia/GC AMY aptimaon CHLAMY,NUC ACID Negative Normal Negative [facility] Comment on above: Performed By: #### L 505.5000, L7000.1800, M100.2200 ####[facility] [address] [place], [address] GC BY NUC ACID Negative Normal Negative [facility] Comment on above: Result Comment: Perf ormed at: =G - [facility] [address] [place], [place] [id number] [employer] T[employer] Burner: Christal Cochran MD, Phone: [phone] Performed By: #### L 505.5000, L7000.1800, M100.2200 ####[facility] [address] [place], [address] Urine Cultureon 02-25-2025 URC Mixed Gram Positive Organisms Veyo Count 11,000-25,000 MIXC Mixed contaminants. Submit a new specimen if indicated. Normal [facility] Comment on above: Performed By: #### L 505.5000, L7000.1800, M100.2200 ####[facility] [address] [place], [address] Amphetamine detection with 1 000 ng/mL as cutoffOrdered By: Viktoria Suazo on 02-24-2025 Amphetamines Screen method >1000 ng/mL Ql (U) Negative < 200 ng/mL [facility] Chlamydia trachomatis rRNA d etection by probe and target amplification methodOrdered By: Viktoria Suazo on 02-24-2025 C. trachomatis rRNA AMY+probe Ql (Unsp spec) Negative Negative [facility] Neisseria gonorrhoeae nuclei c acid detection by amplified probe techniqueOrdered By: Viktoria Suazo on 02-24-2025 N. gonorrhoeae DNA AMY+probe Ql (Unsp spec) Negative Negative [facility] Comment on above: Performed at: =G - [facility] [address] [facility], [place] [id number] Director: Christal Cochran MD, Phone: [phone] No Panel InformationOrdered By: Viktoria Suazo on 02-24-2025 Urine Buprenorphine Qualitative Negative < 200 ng/mL [facility] Urine Oxycodone Screen Negative < 100 ng/mL [facility] Office Visit Reporton 02-24-2025 [facility] Office Visit Report [facility] [address], [address] [place] [address] OFFICE VISIT Date of Service: 02/24/25 MR#: [id number] Acct: [id number] Name: BRAYDEN LUZ Rep #: [id number] : 2000 Provider: Dr. 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: New OB Extruder Tender Required: No Is patient in pain?: No Allergies cat dander Allergy (Verified 02/24/25 13:10) Other Seasonal Allergies: Uncoded Allergy (Verified 02/24/25 13:10) Other Medications ???Medication ???Instructions ???Recorded ???Confirmed ???Type sumatriptan succinate 100 mg tablet 100 mg PO ONCE 10/10/24 5 History docosahexaenoic acid 200 mg mg PO 02/14/25 02/24/25 History capsule ( DHA) ondansetron HCl 4 mg tablet 4 mg PO Q6H #30 tabs 02/24/252 11/30 Rx Last Menstrual Period: 12/26/24 : No PFSH PFSH Medical History Seasonal allergies Surgical History H/O oral surgery Family History Aunt Breast cancer Grandfather Pancreatic cancer Grandfather Heart disease Grandmother Benign tumor of breast Mother Benign tumor of breast Social History adopted: No household members: spouse 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: No 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) pets and animals: cat(s) history of recent travel: Yes ([place] - December 2024 [place] - January 2025) out of state: Yes sexually active: Yes Smoking Status: Never smoker alcohol intake: current alcohol intake frequency: holidays/special occasions only details: Not while substance use type: former substance user Date of last use: 2022 - Marijuana well-balanced diet: daily or most days caffeine: Yes Type: carbonated beverages eating out: 1-3 times/week during the past year weight has: decreased > 10 lbs what type of physical activity do you participate in: walking and running frequency: 5-6 times per week duration: 15-30 minutes/day naina/buddhism: Congregation seatbelt use: always do you feel safe at home: Yes 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 OB Visit EMMANUEL Calculator Estimated Delivery Date Method Current WG Current Estimate 10/02/25 LMP (Certain) 8w 4d Other Estimates 09/30/25 Ultrasound #1 8w 6d Estimated Due Date: 10/02/25 Expected Delivery Route/Plan Labor Preferences- CB/BF classes: [] labor support person: [] labor intervention preferences: [] pain management options preferred: [] cut cord/dad catch: [] : [] PP control planned: [] discussed possible routes of delivery and associated risks: [] special requests: [] Specific Issue/Plans Covid status: [] Flu vaccine: [] Tdap vaccine: [] Rhogam: [] LARC form signed: [] Problem list reviewed and updated with the most current plan of care details and appropriate orders placed. Relevant counseling for the gestational age provided. Continue routine care and follow up unless otherwise noted in visit notes/problem list details Initial Weight: Not Recorded Date -???-???-???-???-?? ?-???-???-???-???-? ??-???-???- EGA Weight BP Urine Prot -???-???-???-???-?? ?-???-???-???-???-? ??-???-???- Glucose FHR FuHt Pres Dilation -???-???-???-???-?? ?-???-???-???-???-? ??-???-???- Effaced St Visit Note 02/24/25 -???-???-???-???-?? ?-???-???-???-???-? ??-???-???- 8w 4d 186 lb 2 oz 128/85 -???-???-???-???-?? ?-???-???-???-???-? ??-???-???- 189 -???-???-???-???-?? ?-???-???-???-???-? ??-???-???- JV- CRL cons istent with LMP. undecided about NIPT. Menstrual History Last Menstrual Period: 12/26/24 On hormonal BC at conception: No Antepartum Record Genetic Screening: Congenital Heart Defect: Other, Neural Tube Defect: Other, Hemoglobinopathy Or Carrier: Other, Cystic Fibrosis: Other, Chromosome Abnormality: Other, Bautista-Sachs: Other, Hemophilia: Other, Intellectual Disability/Autism: Other, Recurrent Loss/Stillbirth: Other, Other St (more content not included)... Normal [facility] Quantitative urine opiates m easurementOrdered By: Viktoria Suazo on 02-24-2025 Opiates Ql (U) Negative < 300 ng/mL [facility] Screening urine fentanyl ajay surementOrdered By: Viktoria Suazo on 02-24-2025 fentaNYL Screen Ql (U) Negative [facility] Urine Drug Screen (VISTA)on 02-24-2025 AMPHETAMINES Negative Normal <1000 ng/mL [facility] Comment on above: Order Comment: UNK Performed By: #### L 505.5000, L7000.1800, M100.2200 ####[facility] [address] [place], [address] BARBITIURATES Negative Normal < 200 ng/mL [facility] Comment on above: Order Comment: UNK Performed By: #### L 505.5000, L7000.1800, M100.2200 ####[facility] [address] [place], [address] BENZODIAZIPINE Negative Normal < 200 ng/mL [facility] Comment on above: Order Comment: UNK Performed By: #### L 505.5000, L7000.1800, M100.2200 ####[facility] [address] [place], [address] BUP Ur Drug Scr Negative Normal < 200 ng/mL [facility] Comment on above: Order Comment: UNK Performed By: #### L 505.5000, L7000.1800, M100.2200 ####[facility] [address] [place], [address] COCAINE Negative Normal < 300 ng/mL [facility] Comment on above: Order Comment: UNK Performed By: #### L 505.5000, L7000.1800, M100.2200 ####[facility] [address] [place], [address] Fentanyl Negative Normal [facility] Comment on above: Order Comment: UNK Performed By: #### L 505.5000, L7000.1800, M100.2200 ####[facility] [address] [place], [address] METHADONE Negative Normal < 300 ng/mL [facility] Comment on above: Order Comment: UNK Performed By: #### L 505.5000, L7000.1800, M100.2200 ####[facility] [address] [place], [address] OPIATES Negative Normal < 300 ng/mL [facility] Comment on above: Order Comment: UNK Performed By: #### L 505.5000, L7000.1800, M100.2200 ####[facility] [address] [place], [address] OXYCODONE Negative Normal < 100 ng/mL [facility] Comment on above: Order Comment: UNK Performed By: #### L 505.5000, L7000.1800, M100.2200 ####[facility] [address] [place], [address] PCP Negative Normal < 25 ng/mL [facility] Comment on above: Order Comment: UNK Performed By: #### L 505.5000, L7000.1800, M100.2200 ####[facility] [address] [place], [address] THC Negative Normal < 50 ng/mL [facility] Comment on above: Order Comment: UNK Performed By: #### L 505.5000, L7000.1800, M100.2200 ####[facility] [address] [place], [address] Urine benzodiazepine levelOr dered By: Viktoria Suazo on 02-24-2025 Benzodiazepines Ql (U) Negative < 200 ng/mL [facility] Urine cocaine levelOrdered B y: Viktoria Suazo on 02-24-2025 Cocaine Ql (U) Negative < 300 ng/mL [facility] Urine cultureOrdered By: Luz Suazo on 02-24-2025 Bacteria identified Cx Nom (U) Positive Abnormal [facility] Urine jiskk-8-gpxttnyppguovc abinol (THC) measurementOrdered By: Viktoria Suazo on 02-24-2025 Cannabinoids Screen Ql (U) Negative < 50 ng/mL [facility] Urine phencyclidine (PCP) de tectionOrdered By: Viktoria Suazo on 02-24-2025 Phencyclidine Ql (U) Negative < 25 ng/mL [facility] - Chemistry and C hemistry - challengeOrdered By: Viktoria Suazo on 02-14-2025 HCG ( test) Ql (U) Positive [facility] Office Visit Reporton [address] [facility] [address] [place] [address] OFFICE VISIT Date of Service: MR#: [id number] Acct: [id number] Patient: BRAYDEN LUZ Rep #: [id number] : 2000 Provider: Paula Cobos RN Age/Sex: 25/F Location: [facility] Status: Signed Intake Vital Signs 01/29/25 09:16 02/14/25 09:20 Height 5 ft 4 in 5 ft 4 in Weight: 184 lb 6 oz BMI 31.6 BP 118/68 Intake Visit Reasons: Amb Documentation Chief Complaint: Nurse visit; Confirmation; Inperson PNOB Extruder Tender Required: No Accompanied by: Mother Is patient in pain?: No Allergies cat dander Allergy (Verified 02/14/25 08:26) Other Seasonal Allergies: Uncoded Allergy (Verified 02/14/25 08:26) Other Medications ???Medication ???Instructions ???Recorded ???Confirmed ???Type sumatriptan succinate 100 mg tablet 100 mg PO ONCE 10/10/24 5 History docosahexaenoic acid 200 mg mg PO 02/14/25 02/14/25 History capsule ( DHA) Is last menstrual period known: Yes Post menopausal: No Patient : Yes Nurse's Note: Pt here for PNOB. Office UPT: positive/negative. Vitals WNL. PNOB questions completed. Problem list, allergies, and medications updated. Results POC Urine Office , Urine Positive Last Edit by Paula Cobos RN on 02/14/25 09:22 Assessment and Plan Assessment and Plan (1) Obesity affecting : Status: Acute Comment: BMI 31.7 - HgBA1C ordered w/NOB (2) Supervision of high-risk : Status: Acute Comment: G1, EMAMNUEL 10/02/25, : Eulalio (3) : Status: Acute Comment: Discussed genetic/carrier testing - desires both (4) History of anxiety: Status: Acute Comment: In college - on Lexapro 2018, counseling 2022 (5) Marijuana use: Status: Acute Comment: Last use 2022 - random tx screen ordered (6) Migraines: Status: Acute Comment: on Sumatriptan - last use 02/05 Orders: Orders CBC W/Diff, Automated 02/14/25 O09.90 - Supervision of high risk , unspecified, unspecified trimester Type Screen 02/14/25 O09.90 - Supervision of high risk , unspecified, unspecified trimester Rubella IgG 02/14/25 O09.90 - Supervision of high risk , unspecified, unspecified trimester Hepatitis C Antibody 02/14/25 O09.90 - Supervision of high risk , unspecified, unspecified trimester Hepatitis B Surface Antigen 02/14/25 O09.90 - Supervision of high risk , unspecified, unspecified trimester Culture, Urine 02/14/25 O09.90 - Supervision of high risk , unspecified, unspecified trimester Syphilis Antibodies 02/14/25 O09.90 - Supervision of high risk , unspecified, unspecified trimester Chlamydia/GC AMY aptima 02/14/25 O09.90 - Supervision of high risk , unspecified, unspecified trimester HIV 02/14/25 O09.90 - Supervision of high risk , unspecified, unspecified trimester Urine Drug Screen 02/14/25 F12.90 - Cannabis use, unspecified, uncomplicated, O09.90 - Supervision of high risk , unspecified, unspecified trimester Hemoglobin A1c 02/14/25 O09.90 - Supervision of high risk , unspecified, unspecified trimester, O99.210 - Obesity complicating , unspecified trimester CHRISTIE 03/06/25 O09.90 - Supervision of high risk , unspecified, unspecified trimester POC Urine 02/14/25 N91.2 - Amenorrhea, unspecified 02/18/25 0512 Date Kayleigh Ambriz Signature: Date (if applicable) CC: Normal [facility] Office Visit Reporton 10-10-2024 Car[facility]vester Office Visit Report [facility] [address], [address] [place] [address] OFFICE VISIT Date of Service: 10/10/24 MR#: [id number] Acct: [id number] Name: BRAYDEN LUZ Rep #: [id number] : 2000 Provider: JACK Christina ams Age/Sex: 24/F Location: [facility] Status: Signed Intake Vital Signs 09/19/23 15:59 09/19/23 16:20 09/23/24 08:32 10/10/24 15:59 10/10/24 16:04 Height 5 ft 5 in 5 ft 5 in 5 ft 4 in 5 ft 4 in 5 ft 4 in Weight: 189 lb BMI 32.4 BP 118/76 Intake Visit Reasons: Annual (HUC OB) Extruder Tender Required: No Is patient in pain?: No Allergies cat dander Allergy (Verified 10/10/24 16:00) Other Seasonal Allergies: Uncoded Allergy (Verified 10/10/24 16:00) Other Medications ???Medication ???Instructions ???Recorded ???Confirmed ???Type aspirin-acetaminoph en-caffeine 250 1 tab PO Q4-6H PRN 10/10/24 10/10/24 History mg-250 mg-65 mg tablet (Excedrin Extra Strength) sumatriptan succinate 100 mg tablet 100 mg PO ONCE 10/10/24 10/10/24 History Is last menstrual period known: Yes Last Menstrual Period: 10/05/24 Post menopausal: No Patient : No : No PFSH Medical History Seasonal allergies Urinary tract infection with hematuria Surgical History H/O oral surgery Family History Aunt Breast cancer Grandfather Pancreatic cancer Social History (Updated 10/10/24 @ 16:03 by Renuka Peters) current occupational status: 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 Last PAP: 2022 History of abnormal PAP: Last mammogram: due at 39 History of abnormal mammogram: Colon cancer screening: due at 44 Other preventative health care screenings: online doc - no screening labs Female Reproductive History Last Menstrual Period: 10/05/24 Cycle Length: 21-35 Bleeding Duration: 7 Questions: metorrhagia: No, sexually active: Yes, dyspareunia: No and PCB: No ROS Const Constitutional: Reports system reviewed and no additional complaints, except as documented Cardio Card: Reports system reviewed and no additional complaints, except as documented Resp Resp: Reports system reviewed and no additional complaints, except as documented GI GI: Reports system reviewed and no additional complaints, except as documented : Reports system reviewed and no additional complaints, except as documented; Denies difficulty voiding, dysuria or urinary frequency Skin Skin/Breast: Reports system reviewed and no additional complaints, except as documented Neuro Neuro: Reports system reviewed and no additional complaints, except as documented Psych Psych: Reports system reviewed and no additional complaints, except as documented; Denies anhedonia, anxiety or depression Exam Const General: cooperative, healthy appearing, comfortable and no acute distress Orientation: alert, awake and oriented x3 Neck Neck: normal visual inspection and full ROM Thyroid: thyroid normal Chest Breast inspection: normal inspection of the breasts and normal inspection of the axillae Breast palpation: normal palpation of the breasts and normal palpation of the axillae Resp Effort Inspection: normal respiratory effort, able to speak in complete sentences and symmetric chest movement GI Inspection: normal to inspection Palpation: soft Rectal Exam: visual inspection normal External Female Exam: normal external appearance and normal appearance of the urethra Urethra: normal appearance of the urethra Speculum Exam - Vagina: normal appearance of the vagina and normal vaginal discharge Speculum Exam - Cervix: normal appearance of the cervix and nontender Bimanual Exam- Vagina Uterus: normal bimanual exam, normal palpation, uterine size normal, No tender and non-tender Bimanual Exam- Adnexa, other: normal Pelvic Support: normal Skin General: no rashes or lesions noted Neuro General: patient alert, patient awake and patient oriented x3 Cognition: normal cognition Speech: speech normal Gait: normal gait Extrem General: normal to inspection and fu (more content not included)... Normal [facility] Urgent Care Visit Reporton 1 11-23-2023 Urgent Care Visit Report [facility] [address], [address] [place] [address] OFFICE VISIT Date of Service: 09/23/24 MR#: [id number] Acct: [id number] Name: BRAYDEN LUZ Rep #: [id number] : 2000 Provider: ABI Salgado Age/Sex: 24/F [place] [facility] Status: Signed Intake Vital Signs 09/19/23 16:20 09/23/24 08:32 Height 5 ft 5 in 5 ft 4 in Weight: 191 lb 2 oz BMI 32.8 BP 110/72 Blood Pressure Location Lt brachial Position Sitting Respiration 14 Pulse 76 Pulse Source NIBP Temp 98.6 F Temp Source Oral Pulse Oximetry (%) 98 Oxygen Delivery Method room air Intake Visit Reasons: CONCERN FOR UTI Chief Complaint: urinary frequency Extruder Tender Required: No Is patient in pain?: No Allergies cat dander Allergy (Verified 09/23/24 08:32) Other Seasonal Allergies: Uncoded Allergy (Verified 09/23/24 08:32) Other Is last menstrual period known: No Post menopausal: No Patient : No Have you fallen in the past year?: No Nurse's Note: urinary frequency x 1 week, concern for UTI. denies abd pain/back pain/ fever. 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 No complaints of fever, chills, sweats, lightheadedness/diz ziness, nausea/vomiting, or chest pain/shortness of breath/dyspnea on exertion/back pain. No changes in color/ character of urine or stool. No miat-gjp-knoilvw products taken to assist. No other associated symptoms and no alleviating/aggrava ting factors. ROS Const Constitutional: No other (As above) Exam Const General: cooperative, healthy appearing and no acute distress Orientation: alert, awake and oriented x3 Chest Chest palpation inspection: normal inspection of the chest Resp Effort Inspection: normal respiratory effort and able to speak in complete sentences Cardio Rate: regular rate Pulses: radial pulses present GI Inspection: normal to inspection Palpation: soft and trace to absent tender suprapubic (Patient describes upon self-palpation) General: No CVA tenderness Skin General: no rashes or lesions noted Neuro General: patient alert, patient awake and patient oriented x3 Cognition: normal cognition Speech: speech normal Psych Appearance: grossly normal Mental Status: mental status grossly normal Mood: congruent mood Affect: normal affect Speech and Movement: speech and movement normal Attitude: cooperative Diagnoses Urinary tract infection N39.0 Assessment and Plan Assessment and Plan (1) Urinary tract infection: Status: Acute Plan: See POC results; urine sent to lab for UA and C/S. Macrobid as prescribed today. Supportive measures as instructed today. Follow-up with PCP in 3 to 5 days should symptoms not improve, sooner should symptoms only worsen or any other concerns develop. Patient states acknowledging understanding all the above. Results POC Urine Office , Urine Negative Last Edit by Awa Berman on 09/23/24 08:37 POC Urinalysis Dip (Clinic) Office Urine Color Yellow Last Edit by Awa Berman on 09/23/24 08:37 Office Urine Clarity Clear Last Edit by Awa Berman on 09/23/24 08:37 Office Urine Glucose Negative Last Edit by Awa Berman on 09/23/24 08:37 Office Urine Ketones Negative Last Edit by Awa Berman on 09/23/24 08:37 Off Ur Spec [place] 1.010 Last Edit by Awa Berman on 09/23/24 08:37 Office Urine pH 6.5 Last Edit by Awa Berman on 09/23/24 08:37 Office Urine Bilirubin Negative Last Edit by Awa Berman on 09/23/24 08:37 Office Urine Urobilinogen Negative Last Edit by Awa Berman on 09/23/24 08:37 Office Urine Blood Negative Last Edit by Awa Berman on 09/23/24 08:37 Office Urine Blood Hemolyzed NA Last Edit by Awa Berman on 09/23/24 08:37 Office Urine Pr (more content not included)... Normal [facility] Culture, urineOrdered By: St bari Hanna on 01-25-2023 Bacteria identified Cx Nom (U) Positive [facility] Basophil percentageOrdered B y: Benja Hanna on 01-23-2023 Basophil percentage 0-5 SEEN /hpf 0-5 [facility] Bilirubin Test strip Ql (U)O rdered By: Benja Hanna on 01-23-2023 Bilirubin Ql (U) Negative Negative [facility] Ketones Test strip Ql (U)Ord ered By: Benja Hanna on 01-23-2023 Ketones Ql (U) Negative Negative [facility] Laboratory - Chemistry and C hemistry - challengeon 01-23-2023 Bilirubin Ql (U) Negative [facility] Glucose Ql (U) Negative [facility] Ketones Ql (U) Negative [facility] pH (U) 6.0 [pH] [facility] Specific gravity (U) [Rel density] 1.010 [facility] Urobilinogen (U) [Mass/Vol] 0.3101173 mg/dL [facility] Laboratory - Hematology and Cell countson 01-23-2023 Hemoglobin Ql (U) Negative [facility] Laboratory - Specimen inform ationon 01-23-2023 Clarity (U) Clear [facility] Color (U) Yellow [facility] Laboratory - Urinalysison Nitrite Ql (U) Negative [facility] Protein Ql (U) Negative [facility] Mucus LM Ql (Urine sed)Order ed By: Benja Hanna on 01-23-2023 Mucus Ql (Urine sed) 0 SEEN /hpf [facility] Nitrite Test strip Ql (U)Ord ered By: Benja Hanna on 01-23-2023 Nitrite Ql (U) Negative Negative [facility] No Panel Informationon 01-23 Urine Leukocytes Positive [facility] Comment on above: Off Ur Leukocytes pr eviously reported as Negatve Urine Non-Hemolyzed Blood [facility] Protein Test strip Ql (U)Ord ered By: Benja Hanna on 01-23-2023 Protein Ql (U) Negative Negative [facility] Squamous epithelial cells de tection in urine sediment by light microscopyOrdered By: Benja Hanna on 01-23-2023 Epithelial cells.squamous LM Ql (Urine sed) 0 SEEN /hpf 5-10 [facility] Urine blood detectionOrdered By: Benja Hanna on 01-23-2023 RBC Ql (U) Negative Negative [facility] RBC Ql (U) 0 SEEN /hpf 0-5 [facility] Urine clarityOrdered By: Eugenio Hanna on 01-23-2023 Clarity (U) Clear Clear [facility] Urine color determinationOrd ered By: Benja Hanna on 01-23-2023 Color (U) Yellow Yellow [facility] Urine glucose detectionOrder ed By: Benja Hanna on 01-23-2023 Glucose Ql (U) Normal mg/dl Normal [facility] Urine leukocyte esterase det ection by dipstickOrdered By: Benja Hanna on 01-23-2023 Leukocyte esterase Test strip Ql (U) Negative Negative [facility] Urine pHOrdered By: Benja yanez on 01-23-2023 pH (U) 6.0 [pH] 5.0 - 8.0 [facility] Urine sediment bacteria coun t by microscopy (number/high power field)Ordered By: Benja Hanna on 01-23-2023 Bacteria LM.HPF (Urine sed) [#/Area] 0 /[HPF] None Seen [facility] Urine specific gravity measu rementOrdered By: Benja Hanna on 01-23-2023 Specific gravity (U) [Rel density] 1.015 1.002-1.030 [facility] Urobilinogen Auto test strip Ql (U)Ordered By: Benja Hanna on 01-23-2023 Urobilinogen Ql (U) Normal mg/dl Normal [facility] Chlamydia trachomatis rRNA d etection by probe and target amplification methodon 09-14-2022 C. trachomatis rRNA AMY+probe Ql (Unsp spec) Negative Negative [facility] Work Phone: Laboratory - Microbiology an d Antimicrobial susceptibilityon 09-14-2022 N. gonorrhoeae DNA AMY+probe Ql (Unsp spec) Negative Negative [facility] Work Phone: Comment on above: Performed at: =G - [address] [id number] Director: Christal Cochran MD, Phone: [phone] No Panel Informationon 09-14 POC Trichomonas (Rapid) Negative [facility] Work Phone: Vital Signs Date Time Vital Sign Value Performing Clinician Faci lity 09-08-2025 13:40-0500 Body height 162.56 cm Joyce MCGRATH Work Phone: [facility] 09-08-2025 13:33-0500 Body mass index (BMI) [Ratio] 44.6 kg/m2 Joyce MCGRATH Work Phone: [facility] 09-08-2025 13:33-0500 Body weight 117.99 kg Joyce MCGRATH Work Phone: [facility] 09-08-2025 13:33-0500 Diastolic blood pressure 86 mm[Hg] Joyce MCGRATH Work Phone: [facility] 09-08-2025 13:33-0500 Systolic blood pressure 120 mm[Hg] Joyce Eubanksley OFFICE ASSISTANT-C Work Phone: [facility] 09-07-2025 14:24-0500 Body temperature 98.2 [degF] Joyce Lagos OFFICE ASSISTANT-C Work Phone: [facility] 09-07-2025 14:24-0500 Respiratory rate 18 /min Joyce Lagos OFFICE ASSISTANT-C Work Phone: [facility] 09-07-2025 14:22-0500 Heart rate 120 /min Joyce Lagos OFFICE ASSISTANT-C Work Phone: [facility] 09-07-2025 14:22-0500 SaO2% (BldA) [Mass fraction] 98 % Joyce Lagos OFFICE ASSISTANT-C Work Phone: [facility] 09-07-2025 14:21-0500 Diastolic blood pressure 81 mm[Hg] Joyce Lagos OFFICE ASSISTANT-C Work Phone: [facility] 09-07-2025 14:21-0500 Systolic blood pressure 125 mm[Hg] Joyce Lagos OFFICE ASSISTANT-C Work Phone: [facility] 09-07-2025 14:19-0500 Body mass index (BMI) [Ratio] 44.4 kg/m2 Joyce Lagos OFFICE ASSISTANT-C Work Phone: [facility] 09-07-2025 14:19-0500 Body weight 117.59 kg Joyce Lagos OFFICE ASSISTANT-C Work Phone: [facility] 08-27-2025 14:25-0400 Body mass index (BMI) [Ratio] 45 kg/m2 Joyce Lagos OFFICE ASSISTANT-C Work Phone: [facility] 08-27-2025 14:25-0400 Body weight 118.92 kg Joyce Lagos OFFICE ASSISTANT-C Work Phone: [facility] 08-27-2025 14:25-0400 Diastolic blood pressure 81 mm[Hg] Joyce Lagos OFFICE ASSISTANT-C Work Phone: [facility] 08-27-2025 14:25-0400 Systolic blood pressure 114 mm[Hg] Joyce Lagos OFFICE ASSISTANT-C Work Phone: [facility] 08-13-2025 13:28-0400 Body height 162.56 cm Joyce Lagos OFFICE ASSISTANT-C Work Phone: [facility] 08-13-2025 13:28-0400 Body mass index (BMI) [Ratio] 43.4 kg/m2 Joyce Lagos OFFICE ASSISTANT-C Work Phone: [facility] 08-13-2025 13:28-0400 Body weight 114.9 kg Joyec Lagos OFFICE ASSISTANT-C Work Phone: [facility] 08-13-2025 13:28-0400 Diastolic blood pressure 75 mm[Hg] Joyce Lagos OFFICE ASSISTANT-C Work Phone: [facility] 08-13-2025 13:28-0400 Systolic blood pressure 115 mm[Hg] Joyce Lagos OFFICE ASSISTANT-C Work Phone: [facility] 07-30-2025 14:22-0400 Body height 162.56 cm Joyce Lagos OFFICE ASSISTANT-C Work Phone: [facility] 07-30-2025 14:22-0400 Body mass index (BMI) [Ratio] 43.1 kg/m2 Joyce Lagos OFFICE ASSISTANT-C Work Phone: [facility] 07-30-2025 14:22-0400 Body weight 113.93 kg Joyce Lagos OFFICE ASSISTANT-C Work Phone: [facility] 07-30-2025 14:22-0400 Diastolic blood pressure 84 mm[Hg] Joyce Lagos OFFICE ASSISTANT-C Work Phone: [facility] 07-30-2025 14:22-0400 Systolic blood pressure 119 mm[Hg] Joyce Lagos OFFICE ASSISTANT-C Work Phone: [facility] 07-14-2025 13:11-0400 Body height 162.56 cm Joyce Lagos OFFICE ASSISTANT-C Work Phone: [facility] 07-14-2025 12:59-0400 Body mass index (BMI) [Ratio] 42.4 kg/m2 Joyce Lagos OFFICE ASSISTANT-C Work Phone: [facility] 07-14-2025 12:59-0400 Body weight 112.12 kg Joyce Lagos OFFICE ASSISTANT-C Work Phone: [facility] 07-14-2025 12:59-0400 Diastolic blood pressure 79 mm[Hg] Joyce Lagos OFFICE ASSISTANT-C Work Phone: [facility] 07-14-2025 12:59-0400 Systolic blood pressure 120 mm[Hg] Joyce Lagos OFFICE ASSISTANT-C Work Phone: [facility] 06-12-2025 11:08-0400 Body height 162.56 cm Joyce Lagos OFFICE ASSISTANT-C Work Phone: [facility] 06-12-2025 11:07-0400 Body mass index (BMI) [Ratio] 40 kg/m2 Joyce Lagos OFFICE ASSISTANT-C Work Phone: [facility] 06-12-2025 11:07-0400 Body weight 105.77 kg Joyce Lagos OFFICE ASSISTANT-C Work Phone: [facility] 06-12-2025 11:07-0400 Diastolic blood pressure 84 mm[Hg] Joyce Lagos OFFICE ASSISTANT-C Work Phone: [facility] 06-12-2025 11:07-0400 Systolic blood pressure 123 mm[Hg] Joyce Lagos OFFICE ASSISTANT-C Work Phone: [facility] 05-12-2025 13:39-0400 Body height 162.56 cm Joyce Lagos OFFICE ASSISTANT-C Work Phone: [facility] 05-12-2025 13:39-0400 Body mass index (BMI) [Ratio] 37.1 kg/m2 Joyce Lagos OFFICE ASSISTANT-C Work Phone: [facility] 05-12-2025 13:39-0400 Body weight 98.2 kg Joyce Lagos OFFICE ASSISTANT-C Work Phone: [facility] 05-12-2025 13:39-0400 Diastolic blood pressure 82 mm[Hg] Joyce Lagos OFFICE ASSISTANT-C Work Phone: [facility] 05-12-2025 13:39-0400 Systolic blood pressure 124 mm[Hg] Joyce Lagos OFFICE ASSISTANT-C Work Phone: [facility] 04-15-2025 13:37-0400 Body height 162.56 cm Joyce Lagos OFFICE ASSISTANT-C Work Phone: [facility] 04-15-2025 13:37-0400 Body mass index (BMI) [Ratio] 34.9 kg/m2 Joyce Lagos OFFICE ASSISTANT-C Work Phone: [phone] [place] [address] 04-15-2025 13:37-0400 Body weight 92.3 kg Joyce Lagos OFFICE ASSISTANT-C Work Phone: [facility] 04-15-2025 13:37-0400 Diastolic blood pressure 82 mm[Hg] Joyce Lagos OFFICE ASSISTANT-C Work Phone: [facility] 04-15-2025 13:37-0400 Systolic blood pressure 120 mm[Hg] Joyce Lagos OFFICE ASSISTANT-C Work Phone: [facility] 03-20-2025 10:55-0400 Body height 162.56 cm Joyce Lagos OFFICE ASSISTANT-C Work Phone: [facility] 03-20-2025 10:54-0400 Body mass index (BMI) [Ratio] 33.3 kg/m2 Joyce Lagos OFFICE ASSISTANT-C Work Phone: [facility] 03-20-2025 10:54-0400 Body weight 88.11 kg Joyce Lagos OFFICE ASSISTANT-C Work Phone: [facility] 03-20-2025 10:54-0400 Diastolic blood pressure 75 mm[Hg] Joyce Lagos OFFICE ASSISTANT-C Work Phone: [facility] 03-20-2025 10:54-0400 Systolic blood pressure 118 mm[Hg] Joyce Lagos OFFICE ASSISTANT-C Work Phone: [facility] 02-24-2025 13:12-0400 Body mass index (BMI) [Ratio] 31.9 kg/m2 Joyce Lagos OFFICE ASSISTANT-C Work Phone: [facility] 02-24-2025 13:12-0400 Body weight 84.42 kg Joyce Lagos OFFICE ASSISTANT-C Work Phone: [facility] 02-24-2025 13:12-0400 Diastolic blood pressure 85 mm[Hg] Joyce Lagos OFFICE ASSISTANT-C Work Phone: [facility] 02-24-2025 13:12-0400 Systolic blood pressure 128 mm[Hg] Joyce Lagos OFFICE ASSISTANT-C Work Phone: [facility] 02-14-2025 09:20-0400 Body mass index (BMI) [Ratio] 31.6 kg/m2 Joyce Lagos OFFICE ASSISTANT-C Work Phone: [facility] 02-14-2025 09:20-0400 Body weight 83.63 kg Joyce Lagos OFFICE ASSISTANT-C Work Phone: [facility] 02-14-2025 09:20-0400 Diastolic blood pressure 68 mm[Hg] Joyce Lagos OFFICE ASSISTANT-C Work Phone: [facility] 02-14-2025 09:20-0400 Systolic blood pressure 118 mm[Hg] Joyce Lagos OFFICE ASSISTANT-C Work Phone: [facility] 01-23-2023 15:48-0400 Body height 165.[address] Deanna Lozada Work Phone: [facility] 01-23-2023 15:48-0400 Body mass index (BMI) [Ratio] 27.3 kg/m2 Dr. Deanna Lozada Work Phone: [facility] 01-23-2023 15:48-0400 Body temperature 98.6 [degF] Dr. Deanna Lozada Work Phone: [facility] 01-23-2023 15:48-0400 Body weight 74.[address] Deanna Lozada Work Phone: [facility] 01-23-2023 15:48-0400 Diastolic blood pressure 68 mm[Hg] Dr. Deanna Lozada Work Phone: [facility] 01-23-2023 15:48-0400 Heart rate 65 /min Dr. Deanna Lozada Work Phone: [facility] 01-23-2023 15:48-0400 Respiratory rate 16 /min Dr. Deanna Lozada Work Phone: [facility] 01-23-2023 15:48-0400 SaO2% (BldA) [Mass fraction] 97 % Dr. Deanna Lozada Work Phone: [facility] 01-23-2023 15:48-0400 Systolic blood pressure 106 mm[Hg] Dr. Deanna Lozada Work Phone: [facility] 09-14-2022 15:16-0500 Body height 162.[address] Deanna Lozada Work Phone: [facility] Work Phone: 09-14-2022 15:11-0500 Body mass index (BMI) [Ratio] 28.5 kg/m2 Dr. Deanna Lozada Work Phone: [facility] Work Phone: 09-14-2022 15:11-0500 Body weight 75.[address] Deanna Lozada Work Phone: [facility] Work Phone: 09-14-2022 15:11-0500 Diastolic blood pressure 74 mm[Hg] Dr. Deanna Lozada Work Phone: [facility] Work Phone: 09-14-2022 15:11-0500 Systolic blood pressure 116 mm[Hg] Dr. Deanna Lozada Work Phone: [facility] Work Phone: Encounters Encounter Date Encounter Type Care Provider Facility Start: 10-02-2025 ambulatory No Primary Car e Physician Facility:[facility] Start: 09-18-2025 ambulatory No [place] Car [place] [place]: 09-08-2025 ambulatory No Primary Car e Physician [place] [place] Start: 09-08-2025 End: 09-08-2025 ambulatory No Primary Care Physician [place] Start: 09-07-2025 End: 09-08-2025 ambulatory No Primary Care Physician Facility:[facility] Start: 08-27-2025 End: 08-27-[address] Kayleigh Brian MD -[facility] Work Phone: Start: 08-27-2025 End: 08-27-2025 ambulatory No Primary Care Physician Facility[place] Start: 08-19-2025 Non-patient / Non-visit Dr. Kristie REECE -[facility] Work Phone: Start: 08-19-2025 End: 08-19-2025 Patient encounter procedure Xin Otero NP-C -Pulmonary Services/Neurology Work Phone: Start: 08-19-2025 End: 08-19-2025 ambulatory No Primary Care Physician Facility:[facility] Start: 08-13-2025 End: 08-13-2025 Patient encounter procedure Xin Otero NP-C -[facility] Work Phone: Start: 08-13-2025 End: 08-13-2025 ambulatory Joyce Lagos OFFICE ASSISTANT-C Work Phone: [facility] Start: 07-30-2025 End: 07-30-[address] Kayleigh Brian MD -[facility] Work Phone: Start: 07-30-2025 End: 07-30-2025 ambulatory Joyce Francis Lagos OFFICE ASSISTANT-C Work Phone: -[facility] Start: 07-14-2025 End: 07-14-2025 Patient encounter procedure Xin Otero NP-C -[facility] Work Phone: Start: 07-14-2025 End: 07-14-2025 ambulatory Joyce Lagos OFFICE ASSISTANT-C Work Phone: [facility] Start: 07-14-2025 End: 07-14-2025 ambulatory No Primary Care Physician Facility:[facility] Start: 06-12-2025 End: 06-12-[address] Viktoria Longoria DO -[facility] Work Phone: Start: 06-12-2025 End: 06-12-2025 ambulatory Joyce Francis Lagos OFFICE ASSISTANT-C Work Phone: -[facility] Start: 05-27-2025 End: 05-27-2025 [facility]ulatory [facility] Start: 05-12-2025 End: 05-12-2025 Patient encounter procedure Jeannine Gunn CNM -[facility] Work Phone: Start: 05-12-2025 End: 05-12-2025 ambulatory Joyce Francis Lagos OFFICE ASSISTANT-C Work Phone: -[facility] Start: 05-12-2025 End: 05-12-2025 ambulatory KAYLEIGH BRIAN [facility] Start: 04-15-2025 End: 04-15-2025 Patient encounter procedure Xin LANTIGUAC -[facility] Work Phone: Start: 04-15-2025 End: 04-15-2025 ambulatory Joyce Lagos OFFICE ASSISTANT-C Work Phone: [facility] Work Phone: Start: 03-20-2025 End: 03-20-[address] Kayleigh Brian MD -[facility] Work Phone: Start: 03-20-2025 End: 03-20-2025 ambulatory Joyce Lagos OFFICE ASSISTANT-C Work Phone: [facility] Work Phone: Start: 03-20-2025 End: 03-20-2025 ambulatory Joyce Francis Lagos Facility:[facility] Start: 03-07-2025 End: 03-07-2025 Lab Drop off Nathan Kilgore [facility] Start: 03-07-2025 End: 03-07-2025 ambulatory Nathan Kilgore Facility:[facility] [place] Start: 02-24-2025 End: 02-24-[address] Viktoria Longoria DO -Laboratory Specimen Work Phone: Start: 02-24-2025 End: 02-24-[address] Viktoria Longoria DO -[facility] Work Phone: Start: 02-24-2025 End: 02-24-2025 ambulatory Viktoria Longoria [place] [place]: 02-24-2025 End: 02-24-2025 ambulatory Viktoria Longoria Facility:[facility] Start: 02-14-2025 Non-patient / Non-visit Paula mccann RN -[facility] Work Phone: Start: 02-14-2025 End: 02-14-[address] Kayleigh Brian MD -[facility] Work Phone: Start: 02-14-2025 End: 02-14-2025 ambulatory Joyce Lagos [place] [place] Start: 10-10-2024 Encounter for gynecological examination (general) (routine) without abnormal findings Jeannine Gunn [facility] Start: 10-10-2024 End: 10-10-2024 ambulatory Joyce Lagos [place] [place] Start: 09-23-2024 End: 09-23-2024 ambulatory Joyce Lagos [place] [place] Start: 09-23-2024 End: 09-23-2024 ambulatory Joyce Lagos Facility:[facility] Start: 01-23-2023 End: 01-23-[address] Deanna Lozada Work Phone: [facility] Work Phone: Start: 01-23-2023 End: 01-23-[address] Deanna Lozada Work Phone: [facility]-Laboratory, Specimen Start: 01-23-2023 End: 01-23-[address] Deanna Lozada Work Phone: [facility] Start: 09-14-2022 End: 09-14-[address] Deanna Lozada Work Phone: [facility] Work Phone: Start: 09-14-2022 End: 09-14-[address] Deanna Lozada Work Phone: [facility]-Laboratory, Specimen Start: 09-14-2022 End: 09-14-[address] Deanna Lozada Work Phone: [facility] Start: 08-12-2020 End: 08-12-2020 Patient encounter procedure YENY JULIEN [facility] Start: 08-10-2020 Patient encounter procedure YENY JULIEN [facility] Start: 08-08-2020 Refill Yeny Curry DO Work Phone: [facility] Comment on above: Migraine without aur a and without status migrainosus, not intractable Start: 07-15-2020 End: 07-15-2020 Patient encounter procedure PHYSICIAN NO [facility] Ambulatory Procedures Date Procedure Procedure Detail Performing Clinician Start: 07-14-2025 Serologic test for syphilis Joyce Lagos NP-Marg[facility] Work Phone: Start: 03-20-2025 Hepatitis C antibody measurement Joyce Lagos NP-Margot Work Phone: Comment on above: Reactive: Presumptiv e evidence of antibodies to HCV. Follow CDC recommendations for supplemental testing.Non-Reactive: Antibodies to HCV were not detected; does not exclude the possibility of exposure to HCVReactive Results are presumptive evidence of antibodies to HCV. Follow CDC recommendations for supplemental testing.Order confirmation testing: HCV Quant by PCR testing - HCVPCR #[id number] Non Reactive: < 0.8 Equivocal: >/= 0.8 to < 1.0 Reactive: >/= 1.0The CDC requires that a reactive/equivocal HCV antibody result be sent out for confirmation. HCV Quant by PCR testing. Start: 03-20-2025 Procedure Joyce Lagos OFFICE ASSISTANT-C Work Phone: Start: 03-20-2025 Rubella IgG measurement Joyce Lagos OFFICE ASSISTANT-C Work Phone: Comment on above: Antibody Result: Int erpretationNon-Reactive: Non- ImmuneReactive: ImmuneThe following results were obtained with the [employer] Rubella IgG assay. Results from assays of other manufacturers cannot be used interchangeably. Start: 03-20-2025 Serologic test for syphilis Joyce Lagos OFFICE ASSISTANT-C Work Phone: Start: 02-24-2025 Methadone measurement, urine Joyce Lagos OFFICE ASSISTANT-C Work Phone: Start: 02-24-2025 Urine culture Joyce pastrana OFFICE ASSISTANT-C Work Phone: Urine culture Dr. Deanna Ospina dt Work Phone: Plan of Treatment Date Care Activity Detail Author Start: 09-08-2025 Non-patient / Non-visit Non-patient / Non-visit -[facility] Start: 09-08-2025 End: 09-08-2025 Patient encounter procedure Departed Clinical -Laboratory Specimen Work Phone: Start: 09-08-2025 Beta-hemolytic Streptococcus culture Group B Streptococcus Culture [facility] Start: 09-08-2025 End: 09-08-2025 Patient encounter procedure Anemia in -[facility] Work Phone: Start: 09-07-2025 Nonstress test [facility] Start: 09-07-2025 Obstetric monitoring [facility] Start: 09-07-2025 Vital signs measurements [facility] Start: 09-07-2025 [facility] Start: 09-07-2025 End: 09-07-2025 Patient encounter procedure Departed Clinical [facility] Work Phone: Start: 09-07-2025 End: 09-08-2025 Non-patient / Non-visit Non-patient / Non-visit -[facility] Start: 09-07-2025 Patient discharge [facility] Start: 07-14-2025 Electrocardiographic procedure [facility] Start: 07-14-2025 CBC W Auto Differential panel - Blood [facility] Start: 07-14-2025 Measurement of glucose 2 hours after glucose challenge for glucose tolerance test [facility] Start: 07-14-2025 Serologic test for syphilis [facility] Start: 07-14-2025 [facility] Start: 03-20-2025 CBC W Auto Differential panel - Blood [facility] Start: 03-20-2025 Hemoglobin A1c/Hemoglobin.total in Blood [facility] Start: 03-20-2025 Hepatitis C antibody measurement [facility] Start: 03-20-2025 Procedure [facility] Start: 03-20-2025 Rubella IgG measurement [facility] Start: 03-20-2025 Serologic test for syphilis [facility] Start: 03-20-2025 [facility] Start: 07-07-2022 Influenza vaccination Sequential Influenza Vaccine (#1) [facility] Start: 2017 Hepatitis C screening Hepatitis C Screening [facility] Start: 2014 HIV screening HIV Screening [facility] Start: 2011 Depression screening using PHQ-9 (Patient Health Questionnaire 9) score Depression Screening (PHQ-2/9) [facility] Start: 2010 Vaccination for human papillomavirus HPV Vaccines (1 - 2-dose series) [facility] Start: 2002 History and physical examination, annual for health maintenance Wellness Visit [facility] Start: 1999 COVID-19 Vaccine (#1) COVID-19 Vaccine (#1) [facility] Start: 1999 Screening for Chlamydia trachomatis Chlamydia Screening [facility] Start: 1999 Screening for malignant neoplasm of cervix Pap Smear [facility] Start: 1999 Tetanus vaccination Tetanus: Every 10yrs [facility] CBC W Auto Different ial panel - Blood [facility] Erythrocyte mean cor puscular volume determination [facility] Erythrocyte mean cor puscular volume determination [facility] Hematocrit [Volume F raction] of Blood [facility] Hematocrit [Volume F raction] of Blood [facility] Hemoglobin [Mass/vol ume] in Blood [facility] Hemoglobin [Mass/vol ume] in Blood [facility] Hepatitis B virus rivas rface Ag [Presence] in Serum [facility] Leukocytes [#/volume ] in Blood [facility] Leukocytes [#/volume ] in Blood [facility] Mean corpuscular hem oglobin concentration determination [facility] Mean corpuscular hem oglobin concentration determination [facility] Mean corpuscular hem oglobin determination [facility] Mean corpuscular hem oglobin determination [facility] Measurement of gluco se 2 hours after glucose challenge for glucose tolerance test [facility] Neutrophil count [facility] Neutrophil count [facility] Neutrophil percent differential count [facility] Neutrophil percent differential count [facility] Patient Education Kick Counts OB Triage: Return to Hospital or Notify Physician if you Experience: [facility] Work Phone: Platelets [#/volume] in Blood [facility] Platelets [#/volume] in Blood [facility] Red blood cell count [facility] Red blood cell count [facility] Red cell distributio n width determination [facility] Red cell distributio n width determination [facility] Serologic test for syphilis [facility] Payers Date Payer Category Payer Unknown [id number] 2024 Self-pay [id number] 2023 Unknown [id number] 2019 Unknown [id number] 1999 Unknown [id number] 2.16. 840.1.042586.3.579.2.903 1999 Unknown [id number] 2.16. 840.1.101347.3.579.2.903 1999 Unknown [id number] 2.16. 840.1.886185.3.579.2.903 1999 Unknown [id number] 2.16. 840.1.372992.3.579.2.903 1999 Unknown [id number] 2.16.8 40.1.270743.3.579.2.727 1999 Unknown [id number] 2.16.8 40.1.038366.3.579.2.727 1999 Unknown [id number] 2.16. 840.1.859028.3.579.2.479 Unknown [id number] Unknown [id number] Unknown [id number] 2.16.8 40.1.882088.3.579.2.462 Unknown [id number] 2.16.8 40.1.093174.3.579.2.462 Unknown [id number] 2.16.8 40.1.716391.3.579.2.462 Unknown [id number] 2.16.8 40.1.491439.3.579.2.462 Unknown [id number] 2.16.8 40.1.082227.3.579.2.462 Unknown [id number] 2.16.8 40.1.685460.3.579.2.462 Unknown [id number] 2.16.8 40.1.192936.3.579.2.462 Unknown [id number] 2.16.8 40.1.339123.3.579.2.462 Unknown [id number] 2.16.8 40.1.052449.3.579.2.462 Unknown [id number] 2.16.8 40.1.519226.3.579.2.462 Unknown [id number] 2.16.8 40.1.997390.3.579.2.462 Unknown [id number] 2.16.8 40.1.946619.3.579.2.462 Unknown [id number] 2.16.8 40.1.845933.3.579.2.462 Unknown [id number] 2.16.8 40.1.722656.3.579.2.462 Unknown [id number] 2.16.8 40.1.071519.3.579.2.462 Unknown [id number] 2.16.8 40.1.795314.3.579.2.462 Unknown [id number] 2.16.8 40.1.036105.3.579.2.462 Unknown [id number] 2.16.8 40.1.447546.3.579.2.462 Unknown [id number] 2.16.8 40.1.108354.3.579.2.462 Unknown [id number] 2.16.8 40.1.150447.3.579.2.462 Unknown [id number] 2.16.8 40.1.593137.3.579.2.462 Unknown [id number] 2.16.8 40.1.930648.3.579.2.462 Unknown [id number] 2.16.8 40.1.123038.3.579.2.462 Unknown [id number] 2.16.8 40.1.479211.3.579.2.462 Social History Date Type Detail Facility Start: 09-14-2022 End: 01-23-2023 Tobacco smoking status NHIS Unknown if ever smoked [facility] Start: 2000 Sex Assigned At Female W [facility] Start: 07-15-2020 End: 02-14-2025 Tobacco smoking status NHIS Never smoked tobacco [facility] Start: 07-15-2020 Tobacco use and exposure Smoke less tobacco non-user [facility] Start: 07-15-2020 Alcohol intake Current drinke r of alcohol (finding) [facility] Start: 07-15-2020 History SDOH Alcohol Frequency 3 [facility] Start: 07-14-2020 History SDOH Alcohol Std Drinks 99 [facility] Start: 2000 Sex Assigned At Not on file [facility] Start: 07-13-2020 End: 08-12-2020 Exposure to SARS-CoV-2 (event) Unable to assess [facility] Tobacco smoking status Never [facility] Sexual Orientation [facility] Sex Assigned At Female [facility] Sex Female (finding) [facility] Clinical Notes 08-10-2020 to 08-27-2025 Note Date & Type Note Facility 08-27-2025 Progress note [facility] 08-27-2025 Progress note Note Date/Time August 27, 2025 3:55pm [facility] [address], [address] [place] [address] OFFICE VISIT Date of Service: 08/27/25 MR#: [id number] Acct: [id number] Name: BRAYDEN CONNELLY Rep #: [id number] : 2000 Provider: Dr. 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 Is patient in pain?: No Allergies cat dander Allergy (Verified 08/27/25 14:26) Other Seasonal Allergies: Uncoded Allergy (Verified 08/27/25 14:26) Other Medications ?Medication ?Instructions ?Recorded ?Confirmed ?Type sumatriptan succinate 100 mg tablet 100 mg PO ONCE 03/2908/27/25 History docosahexaenoic acid 200 mg mg PO 02/14/25 08/27/25 Hi story capsule ( DHA) ondansetron HCl 4 mg tablet 4 mg PO Q6H #30 tabs 02/2408/27/25 Rx famotidine 20 mg tablet (Pepcid) 20 mg PO BID #60 tabs 07/30/25 08/27/25 Rx Last Menstrual Period: 12/26/24 Zika: Zika virus screening: Negative : No Have you fallen in the past year?: No PFSH PFSH Medical History Seasonal allergies Surgical History H/O oral surgery Family History Aunt Breast cancer Grandfather Pancreatic cancer Grandfather Heart disease Grandmother Benign tumor of breast Mother Benign tumor of breast Social History adopted: No household members: spouse 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: No 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) pets and animals: cat(s) history of recent travel: Yes ([place] - December 2024 & [place] - January 2025)out of state: Yes sexually active: Yes Smoking Status: Never smoker alcohol intake: current alcohol intake frequency: holidays/special occasions only details: Not while substance use type: former substance user Date of last use: 2022 - Marijuana well-balanced diet: daily or most days caffeine: Yes Type: carbonated beverages eating out: 1-3 times/week during the past year weight has: decreased > 10 lbs what type of physical activity do you participate in: walking and running frequency: 5-6 times per week duration: 15-30 minutes/day naina/buddhism: Congregation seatbelt use: always do you feel safe at home: Yes additional social history: : Eulalio - ANTOLIN History 1 Elective abortions Hx Para 0 Spontaneous abortions 0 Hx # Term Pregnancies Ectopic pregnancies Hx # Pregnancies Multiple births # of living children HPI 34 WK 6 DAYS Details: BRAYDEN CONNELLY is a 25 year old who presents for routine OB visit. OB Visit EMMANUEL Calculator Estimated Delivery Date Method Current WG Current Estimate 10/02/25 LMP (Certain) 34w 6d Other Estimates 09/30/25 Ultrasound #1 35w 1d Expected Delivery Route/Plan Labor Preferences- CB/BF classes: encouraged labor support person: Pradip labor intervention preferences: [] pain management options preferred: wants limited but ok w epidural cut cord/dad catch: yes : yes PP control planned: discussed discussed possible routes of delivery and associated risks: [] special requests: [] Specific Issue/Plans Covid status: [] Flu vaccine: declines Tdap vaccine: declines Rhogam: NA LARC form signed: yes movement and labor precautions reviewed. Problem list reviewed and updated with the most current plan of care details and appropriate orders placed. Relevant counseling for the gestational age provided. Continue routine care and follow up unless otherwise noted in visit notes/problem list details Initial Weight: Not Recorded Date -?-?-?-?-?-?-?-?-?-?-?-?- EGA Weight BP Urine Prot -?-?-?-?-?-?-?-?-?-?-?-?- Glucose FHR FuHt Pres Dilation -?-?-?-?-?-?-?-?-?-?-?-?- Effaced St Visit Note 02/24/25 -?-?-?-?-?-?-?-?-?-?-?-?- 8w 4d 186 lb 2 oz 128/85 -?-?-?-?-?-?-?-?-?-?-?-?- 189 -?-?-?-?-?-?-?-?-?-?-?-?- JV- CRL consiste nt with LMP. undecided about NIPT. 03/20/25 -?-?-?-?-?-?-?-?-?-?-?-?- 12w 0d 194 lb 4 oz 118/75 Nega tive -?-?-?-?-?-?-?-?-?-?-?-?- Negative 160 -?-?-?-?-?-?-?-?-?-?-?-?- SM- no vb crampi ng 04/15/25 -?-?-?-?-?-?-?-?-?-?-?-?- 15w 5d 203 lb 8 oz 120/82 Nega tive -?-?-?-?-?-?-?-?-?-?-?-?- Negative 160 -?-?-?-?-?-?-?-?-?-?-?-?- MH-No VB. Nausea improved. Reviewed CF carrier and Ruthann vaz-FOB to be drawn today. Brief US confirm FHT 05/12/25 -?-?-?-?-?-?-?-?-?-?-?-?- 19w 4d 216 lb 8 oz 124/82 Nega tive -?-?-?-?-?-?-?-?-?-?-?-?- Negative 150 -?-?-?-?-?-?-?-?-?-?-?-?- KW- no vb/ctx. f luttlydia +, had anatomy US today. 06/12/25 -?-?-?-?-?-?-?-?-?-?-?-?- 24w 0d 233 lb 3 oz 123/84 Nega tive -?-?-?-?-?-?-?-?-?-?-?-?- Negative 144 26 -?-?-?-?-?-?-?-?-?-?-?-?- JV- migraines ar e stable on sumatriptan. taking it about once or twice a week. no lof, vaginal bleeding, or dec fm. JV- migraines are stable on sumatriptan. taking it about once or twice a week. no lof, vaginal bleeding, or dec fm. needs rpt scan for placenta jul 13. 07/14/25 -?-?-?-?-?-?-?-?-?-?-?-?- 28w 4d 247 lb 3 oz 120/79 Nega tive -?-?-?-?-?-?-?-?-?-?-?-?- Negative 151 30 -?-?-?-?-?-?-?-?-?-?-?-?- -No VB, LOF. G ood FM. States noting that she is having increased heart rate-EKG ordered. [facility] US today for growth and check placenta. 28 wk labs pending. -No VB, LOF. Good FM. Sta trisha noting that she is having increased heart rate- EKG ordered. [facility] today for growth and check placenta. 28 wk labs pending. Discussed changes in areolas-exam normal. 07/30/25 -?-?-?-?-?-?-?-?-?-?-?-?- 30w 6d 251 lb 3 oz 119/84 Nega tive -?-?-?-?-?-?-?-?-?-?-?-?- Negative 140 32 -?-?-?-?-?-?-?-?-?-?-?-?- Sm- no vb lof go od fm no regular ctx 08/13/25 -?-?-?-?-?-?-?-?-?-?-?-?- 32w 6d 253 lb 5 oz 115/75 Nega tive -?-?-?-?-?-?-?-?-?-?-?-?- Negative 141 33 -?-?-?-?-?-?-?-?-?-?-?-?- MH-No VB, LOF, C TX. Good FM. Did have migraine over weekend and had to use imitrex first time in several months 08/27/25 -?-?-?-?-?-?-?-?-?-?-?-?- 34w 6d 262 lb 3 oz 114/81 Nega tive -?-?-?-?-?-?-?-?-?-?-?-?- Negative 130 35 -?-?-?-?-?-?-?-?-?-?-?-?- SM- no vb lof go od fm n oreuglar ctx ACOG First Trimester First Trimester: Discussed Second Trimester Second Trimester: Signs and Symptoms of Labor, Selecting a care provider, Depression/Anxiety and Intimate Partner Violence Third Trimester Third Trimester: Pain Management Plans, Labor support person(s), Immediate Larc, Signs and Symptoms of Preeclampsia, Infant Feeding No and Family Medical Leave or Disability Forms ROS Const Denies fever(s) GI Reports as per HPI and Denies abdominal pain Reports as per HPI, Denies abnormal vaginal bleeding, Denies dysuria and Denies vaginal discharge Exam Const General: healthy appearing, comfortable and no acute distress GI Inspection: normal to inspection Palpation: soft and nontender Results POC Urinalysis 2 Dip (Clinic) Office Urine Glucose Negative Last Edit by Kristie Jackman on 08/27/25 14:30 Office Urine Protein Negative Last Edit by Kristie Jackman on 08/27/25 14:30 Coding Level of Care Code OB Routine Diagnoses Anemia during in third trimester O99.013 Trimester: third trimester Palpitation R00.2 Cystic fibrosis carrier Z14.1 Obesity affecting in second trimester, unspecified obesity type O99.212 Obesity type affecting : unspecified obesity Trimester: second trimester Supervision of high risk in third trimester O09.93 Trimester: third trimester 34 weeks gestation of Z3A.34 Weeks of gestation: 34 weeks History of anxiety Z86.59 Marijuana use F12.90 Migraine without status migrainosus, not intractable, unspecified migraine type G43.909 Intractability: not intractable Migraine type: unspecified Status migrainosus presence: without status migrainosus Assessment and Plan Assessment and Plan (1) Anemia in : Status: Acute Qualifiers: Trimester: third trimester Qualified Code(s): O99.013 - Anemia complicating , third trimester Comment: Add Fe (2) Palpitation: Status: Acute Comment: EKG (3) Cystic fibrosis carrier: Status: 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 FOB drawn 04/15/25: (4) Obesity affecting : Status: Acute Qualifiers: Obesity type affecting : unspecified obesity Trimester: second trimester Qualified Code(s): O99.212 - Obesity complicating , second trimester Comment: BMI 31.7 - HgBA1C ordered w/NOB (5) Supervision of high-risk : Status: Acute Qualifiers: Trimester: third trimester Qualified Code(s): O09.93 - Supervision of high risk , unspecified, third trimester Comment: PRR G1, EMMANUEL 10/02/25, girl [facility] : Eulalio (6) : Status: Acute Qualifiers: Weeks of gestation: 34 weeks Qualified Code(s): Z3A.34 - 34 weeks gestation of Comment: NIPT low risk, carrier neg. 10/19 Carrier for Cystic Fibrosis and Koozk-Cnhxf-Vrrfs Syndome. (7) History of anxiety: Status: Acute Comment: In college - on Lexapro 2018, counseling 2022 (8) Marijuana use: Status: Acute Comment: Last use 2022 - random tx screen ordered (9) Migraines: Status: Acute Qualifiers: Intractability: not intractable Migraine type: unspecified Status migrainosus presence: without status migrainosus Qualified Code(s): G43.909 - Migraine, unspecified, not intractable, without status migrainosus Comment: on Sumatriptan - last use 02/05 Orders: Orders POC Urinalysis 2 Dip (Clinic) Today Clinical Quality Measures Falls Risk Screening/Assistive Devices Have you fallen in the past year?: No 08/27/25 4548 <Electronically signed by Kayleigh garcia MD> Date _ [facility] Signature: Date (if applicable) CC: ~ [employer] Work Phone: 1(249) 788-874909-24-2025 [facility] [address], [address] [place] [address] OFFICE VISIT Date of Service: 07/30/25 MR#: [id number] Acct: [id number] Name: BRAYDEN CONNELLY Rep #: [id number] : 2000 Provider: Dr. Isael Brian MD Age/Sex: 25/F [place] [facility] Status: Signed Intake Vital Signs 05/12/25 13:39 07/14/25 13:11 07/30/25 14:22 Height 5 ft 4 in 5 ft 4 in 5 ft 4 in Weight: 251 lb 3 oz BMI 43.1 BP 119/84 H Intake Visit Reasons: 30 WK 6 DAYS Chief Complaint: 30wk OB Extruder Tender Required: No Is patient in pain?: No Allergies cat dander Allergy (Verified 07/30/25 14:18) Other Seasonal Allergies: Uncoded Allergy (Verified 07/30/25 14:18) Other Medications ?Medication ?Instructions ?Recorded ?Confirmed ?Type sumatriptan succinate 100 mg tablet 100 mg PO ONCE 03/2907/30/25 History docosahexaenoic acid 200 mg mg PO 02/14/25 07/30/25 Hi story capsule ( DHA) ondansetron HCl 4 mg tablet 4 mg PO Q6H #30 tabs 02/2407/30/25 Rx famotidine 20 mg tablet (Pepcid) 20 mg PO BID #60 tabs 07/30/25 07/30/25 Rx Last Menstrual Period: 12/26/24 : No PFSH PFSH Medical History Seasonal allergies Surgical History H/O oral surgery Family History Aunt Breast cancer Grandfather Pancreatic cancer Grandfather Heart disease Grandmother Benign tumor of breast Mother Benign tumor of breast Social History adopted: No household members: spouse 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: No 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) pets and animals: cat(s) history of recent travel: Yes ([place] - December 2024 & [place] - January 2025)out of state: Yes sexually active: Yes Smoking Status: Never smoker alcohol intake: current alcohol intake frequency: holidays/special occasions only details: Not while substance use type: former substance user Date of last use: 2022 - Marijuana well-balanced diet: daily or most days caffeine: Yes Type: carbonated beverages eating out: 1-3 times/week during the past year weight has: decreased > 10 lbs what type of physical activity do you participate in: walking and running frequency: 5-6 times per week duration: 15-30 minutes/day naina/buddhism: Congregation seatbelt use: always do you feel safe at home: Yes 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 OB Visit EMMANUEL Calculator Estimated Delivery Date Method Current WG Current Estimate 10/02/25 LMP (Certain) 30w 6d Other Estimates 09/30/25 Ultrasound #1 31w 1d Expected Delivery Route/Plan Labor Preferences- CB/BF classes: encouraged labor support person: Pradip labor intervention preferences: [] pain management options preferred: wants limited but ok w epidural cut cord/dad catch: yes : yes PP control planned: discussed discussed possible routes of delivery and associated risks: [] special requests: [] Specific Issue/Plans Covid status: [] Flu vaccine: [] Tdap vaccine: declines Rhogam: NA LARC form signed: yes movement and labor precautions reviewed. Problem list reviewed and updated with the most current plan of care details and appropriate ordersplaced. Relevant counseling for the gestational age provided. Continue routine care and follow up unless otherwise noted in visit notes/problem list details Initial Weight: Not Recorded Date -?-?-?-?-?-?-?-?-?-?-?-?- EGA Weight BP Urine Prot -?-?-?-?-?-?-?-?-?-?-?-?- Glucose FHR FuHt Pres Dilation -?-?-?-?-?-?-?-?-?-?-?-?- Effaced St Visit Note 02/24/25 -?-?-?-?-?-?-?-?-?-?-?-?- 8w 4d 186 lb 2 oz 128/85 -?-?-?-?-?-?-?-?-?-?-?-?- 189 -?-?-?-?-?-?-?-?-?-?-?-?- JV- CRL consiste nt with LMP. undecided about NIPT. 03/20/25 -?-?-?-?-?-?-?-?-?-?-?-?- 12w 0d 194 lb 4 oz 118/75 Nega tive -?-?-?-?-?-?-?-?-?-?-?-?- Negative 160 -?-?-?-?-?-?-?-?-?-?-?-?- SM- no vb crampi ng 04/15/25 -?-?-?-?-?-?-?-?-?-?-?-?- 15w 5d 203 lb 8 oz 120/82 Nega tive -?-?-?-?-?-?-?-?-?-?-?-?- Negative 160 -?-?-?-?-?-?-?-?-?-?-?-?- -No VB. Nausea improved. Reviewed CF carrier and Ruthann vaz-FOB to be drawn today. Brief US confirm FHT 05/12/25 -?-?-?-?-?-?-?-?-?-?-?-?- 19w 4d 216 lb 8 oz 124/82 Nega tive -?-?-?-?-?-?-?-?-?-?-?-?- Negative 150 -?-?-?-?-?-?-?-?--?-?-?-?- - no vb/ctx. f lutters +, had anatomy US today. 06/12/25 -?-?-?-?-?-?-?-?-?-?-?-?- 24w 0d 233 lb 3 oz 123/84 Nega tive -?-?-?-?-?-?-?-?-?-?-?-?- Negative 144 26 -?-?-?-?-?-?-?-?-?-?-?-?- JV- migraines ar e stable on sumatriptan. taking it about once or twice a week. no lof, vaginal bleeding, or dec fm. JV- migraines are stable on sumatriptan. taking it about once or twice a week. no lof, vaginal bleeding, or dec fm. needs rpt scan for placenta jul 13. 07/14/25 -?-?-?-?-?-?-?-?-?-?--?-?- 28w 4d 247 lb 3 oz 120/79 Nega tive -?-?-?-?-?-?-?-?-?-?-?-?- Negative 151 30 -?-?-?-?-?-?-?-?-?-?-?-?- -No VB, LOF. G ood FM. States noting that she is having increased heart rate-EKG ordered. [facility] US today for growth and check placenta. 28 wk labs pending. -No VB, LOF. Good FM. Sta trisha noting that she is having increased heart rate- EKG ordered. [facility] US today for growth and check placenta. 28 wk labs pending. Discussed changes in areolas-exam normal. 07/30/25 -?-?-?-?-?-?-?-?-?-?-?-?- 30w 6d 251 lb 3 oz 119/84 Nega tive -?-?-?-?-?-?-?-?-?-?-?-?- Negative 140 32 -?-?-?-?-?-?-?-?-?-?-?-?- Sm- no vb lof go od fm no regular ctx ACOG First Trimester First Trimester: Discussed Second Trimester Second Trimester: Signs and Symptoms of Labor, Selecting a care provider, Depression/Anxiety and Intimate Partner Violence Third Trimester Third Trimester: Pain Management Plans, Labor support person(s), Immediate Larc, Signs and Symptoms of Preeclampsia, Infant Feeding No and Family Medical Leave or Disability Forms Results POC Urinalysis 2 Dip (Clinic) Office Urine Glucose Negative Last Edit by Viridiana Adame on 07/30/25 14:31 Office Urine Protein Negative Last Edit by Viridiana Adame on 07/30/25 14:31 Coding Level of Care Code OB Routine Diagnoses Anemia in O99.019 Palpitation R00.2 Cystic fibrosis carrier Z14.1 Obesity affecting in second trimester, unspecified obesity type O99.212 Obesity type affecting : unspecified obesity Trimester: second trimester Supervision of high risk in third trimester O09.93 Trimester: third trimester 30 weeks gestation of Z3A.30 Weeks of gestation: 30 weeks History of anxiety Z86.59 Marijuana use F12.90 Migraines G43.909 Assessment and Plan Assessment and Plan (1) Anemia in : Status: Acute Comment: Add Fe (2) Palpitation: Status: Acute Comment: EKG (3) Cystic fibrosis carrier: Status: Acute Comment: also Mcipg-odnqr-gpilm 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 FOB drawn 04/15/25: (4) Obesity affecting : Status: Acute Qualifiers: Obesity type affecting : unspecified obesity Trimester: second trimester Qualified Code(s): O99.212 - Obesity complicating , second trimester Comment: BMI 31.7 - HgBA1C ordered w/NOB (5) Supervision of high-risk : Status: Acute Qualifiers: Trimester: third trimester Qualified Code(s): O09.93 - Supervision of high risk , unspecified, third trimester Comment: PRR G1, EMMANUEL 10/02/25, : Eulalio (6) : Status: Acute Qualifiers: Weeks of gestation: 30 weeks Qualified Code(s): Z3A.30 - 30 weeks gestation of Comment: NIPT low risk, carrier neg. 10/19 Carrier for Cystic Fibrosis and Xzbue-Ixvcc-Umqlb Syndome. (7) History of anxiety: Status: Acute Comment: In college - on Lexapro 2018, counseling 2022 (8) Marijuana use: Status: Acute Comment: Last use 2022 - random tx screen ordered (9) Migraines: Status: Acute Comment: on Sumatriptan - last use 02/05 Orders: Orders POC Urinalysis 2 Dip (Clinic) Today Medications: New famotidine (Pepcid) 20 mg PO BID 60 tabs 6RF 07/30/25 1457 jose REECE> Date _ Kayleigh Brian [facility] Signature: Date (if applicable) CC: ~ [facility]09[facility]24-2025 Progress note Author Kayleigh Biran [facility] Services Note Date/Time July 30, 2025 2:57pm [facility] [address], [address] [place] [address] OFFICE VISIT Date of Service: 07/30/25 MR#: [id number] Acct: [id number] Name: BRAYDEN CONNELLY Rep #: [id number] : 2000 Provider: Dr. Isael Brian MD Age/Sex: 25/F Location: [facility] Status: Signed Intake Vital Signs 05/12/25 13:39 07/14/25 13:11 07/30/25 14:22 Height 5 ft 4 in 5 ft 4 in 5 ft 4 in Weight: 251 lb 3 oz BMI 43.1 BP 119/84 H Intake Visit Reasons: 30 WK 6 DAYS Chief Complaint: 30wk OB Extruder Tender Required: No Is patient in pain?: No Allergies cat dander Allergy (Verified 07/30/25 14:18) Other Seasonal Allergies: Uncoded Allergy (Verified 07/30/25 14:18) Other Medications ?Medication ?Instructions ?Recorded ?Confirmed ?Type sumatriptan succinate 100 mg tablet 100 mg PO ONCE 03/2907/30/25 History docosahexaenoic acid 200 mg mg PO 02/14/25 07/30/25 Hi story capsule ( DHA) ondansetron HCl 4 mg tablet 4 mg PO Q6H #30 tabs 02/2407/30/25 Rx famotidine 20 mg tablet (Pepcid) 20 mg PO BID #60 tabs 07/30/25 07/30/25 Rx Last Menstrual Period: 12/26/24 : No PFSH PFSH Medical History Seasonal allergies Surgical History H/O oral surgery Family History Aunt Breast cancer Grandfather Pancreatic cancer Grandfather Heart disease Grandmother Benign tumor of breast Mother Benign tumor of breast Social History adopted: No household members: spouse 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: No 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) pets and animals: cat(s) history of recent travel: Yes ([place] - December 2024 & [place] - January 2025)out of state: Yes sexually active: Yes Smoking Status: Never smoker alcohol intake: current alcohol intake frequency: holidays/special occasions only details: Not while substance use type: former substance user Date of last use: 2022 - Marijuana well-balanced diet: daily or most days caffeine: Yes Type: carbonated beverages eating out: 1-3 times/week during the past year weight has: decreased > 10 lbs what type of physical activity do you participate in: walking and running frequency: 5-6 times per week duration: 15-30 minutes/day naina/buddhism: Congregation seatbelt use: always do you feel safe at home: Yes 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 OB Visit EMMANUEL Calculator Estimated Delivery Date Method Current WG Current Estimate 10/02/25 LMP (Certain) 30w 6d Other Estimates 09/30/25 Ultrasound #1 31w 1d Expected Delivery Route/Plan Labor Preferences- CB/BF classes: encouraged labor support person: Pradip labor intervention preferences: [] pain management options preferred: wants limited but ok w epidural cut cord/dad catch: yes : yes PP control planned: discussed discussed possible routes of delivery and associated risks: [] special requests: [] Specific Issue/Plans Covid status: [] Flu vaccine: [] Tdap vaccine: declines Rhogam: NA LARC form signed: yes movement and labor precautions reviewed. Problem list reviewed and updated with the most current plan of care details and appropriate orders placed. Relevant counseling for the gestational age provided. Continue routine care and follow up unless otherwise noted in visit notes/problem list details Initial Weight: Not Recorded Date -?-?-?-?-?-?-?-?-?-?-?-?- EGA Weight BP Urine Prot -?-?-?-?-?-?-?-?-?-?-?-?- Glucose FHR FuHt Pres Dilation -?-?-?-?-?-?-?-?-?-?-?-?- Effaced St Visit Note 02/24/25 -?-?-?-?-?-?-?-?-?-?-?-?- 8w 4d 186 lb 2 oz 128/85 -?-?-?-?-?-?-?-?-?-?-?-?- 189 -?-?-?-?-?-?-?-?-?-?-?-?- JV- CRL consiste nt with LMP. undecided about NIPT. 03/20/25 -?-?-?-?-?-?-?-?-?-?-?-?- 12w 0d 194 lb 4 oz 118/75 Nega tive -?-?-?-?-?-?-?-?-?-?-?-?- Negative 160 -?-?-?-?-?-?-?-?-?-?-?-?- SM- no vb crampi ng 04/15/25 -?-?-?-?-?-?-?-?-?-?-?-?- 15w 5d 203 lb 8 oz 120/82 Nega tive -?-?-?-?-?-?-?-?-?-?-?-?- Negative 160 -?-?-?-?-?-?-?-?-?-?-?-?- MH-No VB. Nausea improved. Reviewed CF mervat and Ruthann vaz-FOB to be drawn today. Brief US confirm FHT 05/12/25 -?-?-?-?-?-?-?-?-?-?-?-?- 19w 4d 216 lb 8 oz 124/82 Nega tive -?-?-?-?-?-?-?-?-?-?-?-?- Negative 150 -?-?-?-?-?-?-?-?--?-?-?-?- KW- no vb/ctx. f lutters +, had anatomy US today. 06/12/25 -?-?-?-?-?-?-?-?-?-?-?-?- 24w 0d 233 lb 3 oz 123/84 Nega tive -?-?-?-?-?-?-?-?-?-?-?-?- Negative 144 26 -?-?-?-?-?-?-?-?-?-?-?-?- JV- migraines ar e stable on sumatriptan. taking it about once or twice a week. no lof, vaginal bleeding, or dec fm. JV- migraines are stable on sumatriptan. taking it about once or twice a week. no lof, vaginal bleeding, or dec fm. needs rpt scan for placenta jul 13. 07/14/25 -?-?-?-?-?-?-?-?-?-?--?-?- 28w 4d 247 lb 3 oz 120/79 Nega tive -?-?-?-?-?-?-?-?-?-?-?-?- Negative 151 30 -?-?-?-?-?-?-?-?-?-?-?-?- MH-No VB, LOF. G ood FM. States noting that she is having increased heart rate-EKG ordered. MFM US today for growth and check placenta. 28 wk labs pending. MH-No VB, LOF. Good FM. Sta trisha noting that she is having increased heart rate- EKG ordered. MFM US today for growth and check placenta. 28 wk labs pending. Discussed changes in areolas-exam normal. 07/30/25 -?-?-?-?-?-?-?-?-?-?-?-?- 30w 6d 251 lb 3 oz 119/84 Nega tive -?-?-?-?-?-?-?-?-?-?-?-?- Negative 140 32 -?-?-?-?-?-?-?-?-?-?-?-?- - no vb lof go od fm no regular ctx ACOG First Trimester First Trimester: Discussed Second Trimester Second Trimester: Signs and Symptoms of Labor, Selecting a care provider, Depression/Anxiety and Intimate Partner Violence Third Trimester Third Trimester: Pain Management Plans, Labor support person(s), Immediate Larc, Signs and Symptoms of Preeclampsia, Feeding No and Family Medical Leave or Disability Forms Results POC Urinalysis 2 Dip (Clinic) Office Urine Glucose Negative Last Edit by Viridiana Adame on 07/30/25 14:31 Office Urine Protein Negative Last Edit by Viridiana Adame on 07/30/25 14:31 Coding Level of Care Code OB Routine Diagnoses Anemia in O99.019 Palpitation R00.2 Cystic fibrosis carrier Z14.1 Obesity affecting in second trimester, unspecified obesity type O99.212 Obesity type affecting : unspecified obesity Trimester: second trimester Supervision of high risk in third trimester O09.93 Trimester: third trimester 30 weeks gestation of Z3A.30 Weeks of gestation: 30 weeks History of anxiety Z86.59 Marijuana use F12.90 Migraines G43.909 Assessment and Plan Assessment and Plan (1) Anemia in : Status: Acute Comment: Add Fe (2) Palpitation: Status: Acute Comment: EKG (3) Cystic fibrosis carrier: Status: Acute Comment: also Seztd-hgtmg-yvvls 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 FOB drawn 04/15/25: (4) Obesity affecting : Status: Acute Qualifiers: Obesity type affecting : unspecified obesity Trimester: second trimester Qualified Code(s): O99.212 - Obesity complicating , second trimester Comment: BMI 31.7 - HgBA1C ordered w/NOB (5) Supervision of high-risk : Status: Acute Qualifiers: Trimester: third trimester Qualified Code(s): O09.93 - Supervision of high risk , unspecified, third trimester Comment: PRR G1, EMMANUEL 10/02/25, : Eulalio (6) : Status: Acute Qualifiers: Weeks of gestation: 30 weeks Qualified Code(s): Z3A.30 - 30 weeks gestation of Comment: NIPT low risk, carrier neg. 10/19 Carrier for Cystic Fibrosis and Nflgr-Plrpx-Nsbaf Syndome. (7) History of anxiety: Status: Acute Comment: In college - on Lexapro 2018, counseling 2022 (8) Marijuana use: Status: Acute Comment: Last use 2022 - random tx screen ordered (9) Migraines: Status: Acute Comment: on Sumatriptan - last use 02/05 Orders: Orders POC Urinalysis 2 Dip (Clinic) Today Medications: New famotidine (Pepcid) 20 mg PO BID 60 tabs 6RF 07/30/25 4787 <Electronically signed by Kayleigh garcia MD> Date _ Kayleigh Brian MD Cosigner Signature: Date (if applicable) CC: ~ [facility] [employer] [facility] Work Phone: 1(284) 977-323908-07-2025 Evaluation note* Diagnosis Onset Date Resolution Status Admit Date Cystic fibrosis carrier acute A ug2024 10:58am History of anxiety acute June 12, 2025 10:58am Marijuana use acute June 12, 2025 10:58am Migraines acute June 12 10:58am Obesity affecting acute June 12, 2025 10:58am acute June 12 10:58am Supervision of high-risk acute June 12, 2025 10:58am Low lying placenta, antepartum resolved June 12, 2025 10:58am Cystic fibrosis carrier acute S eptember 2024 12:52pm History of anxiety acute 2024 12:52pm Marijuana use acute July 142024 12:52pm Obesity affecting acute July 14, 2025 12:52pm acute July 14, 2025 12:52pm Supervision of high-risk acute July 14 12:52pm Low lying placenta, antepartum resolved July 14 025 12:52pm Anemia in acute Septe mb2024 2:14pm Cystic fibrosis carrier acute S eptember 2024 2:14pm History of anxiety acute 2024 2:14pm Marijuana use acute July 082024 2:14pm Migraines acute July 2:14pm Obesity affecting acute July 30, 2025 2:14pm Palpitation acute July 2:14pm acute July 2:14pm Supervision of high-risk acute July 30, 2025 2:14pm Anemia in acute Octob er 2024 1:23pm Cystic fibrosis carrier acute O ctober 2024 1:23pm History of anxiety acute Octobe r 2024 1:23pm Marijuana use acute August 1:23pm Migraines acute August 13, 2 025 1:23pm Obesity affecting acute August 13, 2025 1:23pm Palpitation acute August 13, 2025 1:23pm acute August 13 2 025 1:23pm Supervision of high-risk acute August 13 1:23pm Anemia in acute Octob er 2024 2:23pm Cystic fibrosis carrier acute O ctober 2024 2:23pm History of anxiety acute Octobe r 2024 2:23pm Marijuana use acute August 2:23pm Migraines acute August 27, 2025 2:23pm Obesity affecting acute August 27, 2025 2:23pm Palpitation acute August 27, 2025 2:23pm acute August 27, 2025 2:23pm Supervision of high-risk acute August 27 2:23pm Anemia in acute Novem petey 2024 1:29pm Cystic fibrosis carrier acute N ovember 2024 1:29pm History of anxiety acute Novemb er 2024 1:29pm Marijuana use acute September 1:29pm Migraines acute September 08, 2025 1:29pm Obesity affecting acute September 08, 2025 1:29pm Palpitation acute September 08, 2025 1:29pm acute September 08, 2025 1:29pm Supervision of high-risk acute September 08 1:29pm [facility] Work Phone: 1(711) 996-557108-07-2025 [facility] [address] [place] [address], [address] [place] [id number] OFFICE VISIT Date of Service: 06/12/25 MR#: [id number] Acct: [id number] Name: BRAYDEN CONNELLY Rep #: [id number] : 2000 Provider: Dr. 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 Is patient in pain?: No Allergies cat dander Allergy (Verified 06/12/25 11:07) Other Seasonal Allergies: Uncoded Allergy (Verified 06/12/25 11:07) Other Medications ?Medication ?Instructions ?Recorded ?Confirmed ?Type sumatriptan succinate 100 mg tablet 100 mg PO ONCE 03/2906/12/25 History docosahexaenoic acid 200 mg mg PO 02/14/25 06/12/25 Hi story capsule ( DHA) ondansetron HCl 4 mg tablet 4 mg PO Q6H #30 tabs 02/2406/12/25 Rx Last Menstrual Period: 12/26/24 Zika: Zika virus screening: Negative : No PFSH PFSH Medical History Seasonal allergies Surgical History H/O oral surgery Family History Aunt Breast cancer Grandfather Pancreatic cancer Grandfather Heart disease Grandmother Benign tumor of breast Mother Benign tumor of breast Social History adopted: No household members: spouse 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: No 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) pets and animals: cat(s) history of recent travel: Yes ([place] - December 2024 & [place] - January 2025)out of state: Yes sexually active: Yes Smoking Status: Never smoker alcohol intake: current alcohol intake frequency: holidays/special occasions only details: Not while substance use type: former substance user Date of last use: 2022 - Marijuana well-balanced diet: daily or most days caffeine: Yes Type: carbonated beverages eating out: 1-3 times/week during the past year weight has: decreased > 10 lbs what type of physical activity do you participate in: walking and running frequency: 5-6 times per week duration: 15-30 minutes/day naina/buddhism: Congregation seatbelt use: always do you feel safe at home: Yes 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 OB Visit EMMANUEL Calculator Estimated Delivery Date Method Current WG Current Estimate 10/02/25 LMP (Certain) 24w 0d Other Estimates 09/30/25 Ultrasound #1 24w 2d Expected Delivery Route/Plan Labor Preferences- CB/BF classes: [] labor support person: [] labor intervention preferences: [] pain management options preferred: [] cut cord/dad catch: [] : [] PP control planned: [] discussed possible routes of delivery and associated risks: [] special requests: [] Specific Issue/Plans Covid status: [] Flu vaccine: [] Tdap vaccine: [] Rhogam: [] LARC form signed: [] Problem list reviewed and updated with the most current plan of care details and appropriate ordersplaced. Relevant counseling for the gestational age provided. Continue routine care and follow up unless otherwise noted in visit notes/problem list details Initial Weight: Not Recorded Date -?-?-?-?-?-?-?-?-?-?-?-?- EGA Weight BP Urine Prot -?-?-?-?-?-?-?-?-?-?--?-?- Glucose FHR FuHt Pres Dilation -?-?-?-?-?-?-?-?-?-?-?-?- Effaced St Visit Note 02/24/25 -?-?-?-?-?-?-?-?-?-?-?-?- 8w 4d 186 lb 2 oz 128/85 -?-?-?-?-?-?-?-?-?-?-?-?- 189 -?-?-?-?-?-?-?-?-?-?-?-?- JV- CRL consiste nt with LMP. undecided about NIPT. 03/20/25 -?-?-?-?-?-?-?-?-?-?-?-?- 12w 0d 194 lb 4 oz 118/75 Nega tive -?-?-?-?-?-?-?-?-?-?-?-?- Negative 160 -?-?-?-?-?-?-?-?-?-?-?-?- SM- no vb crampi ng 04/15/25 -?-?-?-?-?-?-?-?-?-?-?-?- 15w 5d 203 lb 8 oz 120/82 Nega tive -?-?-?-?-?-?-?-?-?-?-?-?- Negative 160 -?-?-?-?-?-?-?-?-?-?-?-?- MH-No VB. Nausea improved. Reviewed CF carrier and Ruthann vaz-FOB to be drawn today. Brief US confirm FHT 05/12/25 -?-?-?-?-?-?-?-?-?-?-?-?- 19w 4d 216 lb 8 oz 124/82 Nega tive -?-?-?-?-?-?-?-?-?-?-?-?- Negative 150 -?-?-?-?-?-?-?-?-?-?-?-?- KW- no vb/ctx. f lutters +, had anatomy US today. 06/12/25 -?-?-?-?-?-?-?--?-?-?-?-?- 24w 0d 233 lb 3 oz 123/84 Nega tive -?-?-?-?-?-?-?-?-?-?-?-?- Negative 144 26 -?-?-?-?-?-?-?-?-?-?-?-?- JV- migraines ar e stable on sumatriptan. taking it about once or twice a week. no lof, vaginal bleeding, or dec fm. JV- migraines are stable on sumatriptan. taking it about once or twice a week. no lof, vaginal bleeding, or dec fm. needs rpt scan for placenta jul 13. ACOG First Trimester First Trimester: Discussed Results POC Urinalysis 2 Dip (Clinic) Office Urine Glucose Negative Last Edit by Palma Arriaga on 06/12/25 11: 43 Office Urine Protein Negative Last Edit by Palma Arriaga on 06/12/25 11: 43 Coding Level of Care Code OB Routine Diagnoses Low lying placenta, antepartum O44.40 Cystic fibrosis carrier Z14.1 Obesity affecting in second trimester, unspecified obesity type O99.212 Obesity type affecting : unspecified obesity Trimester: second trimester Supervision of high risk in second trimester O09.92 Trimester: second trimester 24 weeks gestation of Z3A.24 Weeks of gestation: 24 weeks History of anxiety Z86.59 Marijuana use F12.90 Migraines G43.909 Assessment and Plan Assessment and Plan (1) Low lying placenta, antepartum: Status: Acute Comment: follow up at 28 weeks (2) Cystic fibrosis carrier: Status: Acute Comment: 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 FOB drawn 04/15/25: (3) Obesity affecting : Status: Acute Qualifiers: Obesity type affecting : unspecified obesity Trimester: second trimester Qualified Code(s): O99.212 - Obesity complicating , second trimester Comment: BMI 31.7 - HgBA1C ordered w/NOB (4) Supervision of high-risk : Status: Acute Qualifiers: Trimester: second trimester Qualified Code(s): O09.92 - Supervision of high risk , unspecified, second trimester Comment: PRR G1, EMMANUEL 10/02/25, : Eulalio (5) : Status: Acute Qualifiers: Weeks of gestation: 24 weeks Qualified Code(s): Z3A.24 - 24 weeks gestation of Comment: NIPT low risk, carrier neg. 10/19 Carrier for Cystic Fibrosis and Cnskk-Sowbu-Zmqxm Syndome. (6) History of anxiety: Status: Acute Comment: In college - on Lexapro 2018, counseling 2022 (7) Marijuana use: Status: Acute Comment: Last use 2022 - random tx screen ordered (8) Migraines: Status: Acute Comment: on Sumatriptan - last use 02/05 Orders: Orders POC Urinalysis 2 Dip (Clinic) Today CBC W/Diff, Automated Today O09.92 - Supervision of high risk , unspecified, second trimester Glucose Challenge Gest 1H 50g Today O09.92 - Supervision of high risk , unspecified, second trimester, Z13.1 - Encounter for screening for diabetes mellitus HIV Today O09.92 - Supervision of high risk , unspecified, second trimester Syphilis Antibodies Today O09.92 - Supervision of high risk , unspecified, second trimester 06/12/25 1145 e Velde DO> Date _ Viktoria Wilkes Lakeisha DO [facility] Signature: Date (if applicable) CC: ~ [facility]07-07-2025 [facility] [address] [place] [address], [address] [place] [address] OFFICE VISIT Date of Service: 05/12/25 MR#: [id number] Acct: [id number] Name: BRAYDEN CONNELLY Rep #: [id number] : 2000 Provider: JACK Gunn Age/Sex: 25/F Location: [facility] Status: Signed Intake Vital Signs 02/24/25 13:12 04/15/25 13:37 05/12/25 13:39 Height 5 ft 4 in 5 ft 4 in 5 ft 4 in Weight: 216 lb 8 oz BMI 37.1 BP 124/82 H Intake Visit Reasons: 20 wk ob Chief Complaint: 20wk OB Extruder Tender Required: No Is patient in pain?: No Allergies cat dander Allergy (Verified 05/12/25 13:40) Other Seasonal Allergies: Uncoded Allergy (Verified 05/12/25 13:40) Other Medications ?Medication ?Instructions ?Recorded ?Confirmed ?Type sumatriptan succinate 100 mg tablet 100 mg PO ONCE 03/2905/12/25 History docosahexaenoic acid 200 mg mg PO 02/14/25 05/12/25 Hi story capsule ( DHA) ondansetron HCl 4 mg tablet 4 mg PO Q6H #30 tabs 02/2405/12/25 Rx Last Menstrual Period: 12/26/24 : No PFSH PFSH Medical History Seasonal allergies Surgical History H/O oral surgery Family History Aunt Breast cancer Grandfather Pancreatic cancer Grandfather Heart disease Grandmother Benign tumor of breast Mother Benign tumor of breast Social History adopted: No household members: spouse 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: No 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) pets and animals: cat(s) history of recent travel: Yes ([place] - December 2024 & [place] - January 2025)out of state: Yes sexually active: Yes Smoking Status: Never smoker alcohol intake: current alcohol intake frequency: holidays/special occasions only details: Not while substance use type: former substance user Date of last use: 2022 - Marijuana well-balanced diet: daily or most days caffeine: Yes Type: carbonated beverages eating out: 1-3 times/week during the past year weight has: decreased > 10 lbs what type of physical activity do you participate in: walking and running frequency: 5-6 times per week duration: 15-30 minutes/day naina/buddhism: Congregation seatbelt use: always do you feel safe at home: Yes 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 OB Visit EMMANUEL Calculator Estimated Delivery Date Method Current WG Current Estimate 10/02/25 LMP (Certain) 19w 4d Other Estimates 09/30/25 Ultrasound #1 19w 6d Expected Delivery Route/Plan Labor Preferences- CB/BF classes: [] labor support person: [] labor intervention preferences: [] pain management options preferred: [] cut cord/dad catch: [] : [] PP control planned: [] discussed possible routes of delivery and associated risks: [] special requests: [] Specific Issue/Plans Covid status: [] Flu vaccine: [] Tdap vaccine: [] Rhogam: [] LARC form signed: [] Problem list reviewed and updated with the most current plan of care details and appropriate ordersplaced. Relevant counseling for the gestational age provided. Continue routine care and follow up unless otherwise noted in visit notes/problem list details Initial Weight: Not Recorded Date -?-?-?-?-?-?-?-?-?-?-?-?- EGA Weight BP Urine Prot -?-?-?-?-?-?-?-?-?-?-?-?- Glucose FHR FuHt Pres Dilation -?-?-?-?-?-?-?-?-?-?-?-?- Effaced St Visit Note 02/24/25 -?-?-?-?-?-?-?-?-?-?-?-?- 8w 4d 186 lb 2 oz 128/85 -?-?-?-?-?-?-?-?-?-?-?-?- 189 -?-?-?-?-?-?-?-?-?-?-?-?- JV- CRL consiste nt with LMP. undecided about NIPT. 03/20/25 -?-?-?-?-?-?-?-?-?-?-?-?- 12w 0d 194 lb 4 oz 118/75 Nega tive -?-?-?-?-?-?-?-?-?-?-?-?- Negative 160 -?-?-?-?-?-?-?-?-?-?-?-?- SM- no vb crampi ng 04/15/25 -?-?-?-?-?-?-?-?-?-?-?-?- 15w 5d 203 lb 8 oz 120/82 Nega tive -?-?-?-?-?-?-?-?-?-?-?-?- Negative 160 -?-?-?-?-?-?-?-?-?-?-?-?- MH-No VB. Nausea improved. Reviewed CF carrier and Ruthann vaz-FOB to be drawn today. Brief US confirm FHT 05/12/25 -?-?-?-?-?-?-?-?-?-?-?-?- 19w 4d 216 lb 8 oz 124/82 Nega tive -?-?-?-?-?-?-?-?-?-?-?-?- Negative 150 -?-?--?-?-?-?-?-?-?-?-?-?- KW- no vb/ctx. f lutters +, had anatomy US today. ACOG First Trimester First Trimester: Discussed ROS Const Reports system reviewed and no additional complaints, except as documented Eyes Reports system reviewed and no additional complaints, except as documented ENT Reports system reviewed and no additional complaints, except as documented Card Reports system reviewed and no additional complaints, except as documented Resp Reports system reviewed and no additional complaints, except as documented GI Reports system reviewed and no additional complaints, except as documented, Denies nausea and Denies vomiting Reports system reviewed and no additional complaints, except as documented Musc Reports system reviewed and no additional complaints, except as documented Skin/Breast Reports system reviewed and no additional complaints, except as documented Neuro Yes system reviewed and no additional complaints, except as documented Psych Reports system reviewed and no additional complaints, except as documented Endo Reports system reviewed and no additional complaints, except as documented Jarrod/Lymph Reports system reviewed and no additional complaints, except as documented Aller/Immun Reports system reviewed and no additional complaints, except as documented Exam Const General: cooperative, healthy appearing and no acute distress Orientation: alert, awake and oriented x3 Neck Neck: normal visual inspection and full ROM Resp Effort & Inspection: normal respiratory effort, able to speak in complete sentences and symmetric chest movement GI Inspection: normal to inspection Palpation: soft and other Other: gravid Skin General: no rashes or lesions noted Neuro General: patient alert, patient awake and patient oriented x3 Cognition: normal cognition Speech: speech normal Gait: normal gait Motor: muscle tone normal throughout Extrem General: normal to inspection and full ROM Psych Appearance: grossly normal Mental Status: mental status grossly normal Mood: congruent mood Affect: normal affect Speech and Movement: speech and movement normal Attitude: cooperative Thought Process: normal Thought Content: normal Judgment: judgment good Results POC Urinalysis 2 Dip (Clinic) Office Urine Glucose Negative Last Edit by Viridiana Adame on 05/12/25 13:48 Office Urine Protein Negative Last Edit by Viridiana Adame on 05/12/25 13:48 Coding Level of Care Code OB Routine Diagnoses Cystic fibrosis carrier Z14.1 Obesity affecting in second trimester, unspecified obesity type O99.212 Obesity type affecting : unspecified obesity Trimester: second trimester Supervision of high risk in second trimester O09.92 Trimester: second trimester 19 weeks gestation of Z3A.19 Weeks of gestation: 19 weeks History of anxiety Z86.59 Marijuana use F12.90 Migraines G43.909 Assessment and Plan Assessment and Plan (1) Cystic fibrosis carrier: Status: Acute Comment: also Huecz-sqyke-nqevw 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 FOB drawn 04/15/25: (2) Obesity affecting : Status: Acute Qualifiers: Obesity type affecting : unspecified obesity Trimester: second trimester Qualified Code(s): O99.212 - Obesity complicating , second trimester Comment: BMI 31.7 - HgBA1C ordered w/NOB (3) Supervision of high-risk : Status: Acute Qualifiers: Trimester: second trimester Qualified Code(s): O09.92 - Supervision of high risk , unspecified, second trimester Comment: PRR G1, EMMANUEL 10/02/25, : Eulalio (4) : Status: Acute Qualifiers: Weeks of gestation: 19 weeks Qualified Code(s): Z3A.19 - 19 weeks gestation of Comment: NIPT low risk, carrier neg. 10/19 Carrier for Cystic Fibrosis and Neivv-Zvsip-Vntwg Syndome. (5) History of anxiety: Status: Acute Comment: In college - on Lexapro 2018, counseling 2022 (6) Marijuana use: Status: Acute Comment: Last use 2022 - random tx screen ordered (7) Migraines: Status: Acute Comment: on Sumatriptan - last use 02/05 Orders: Orders POC Urinalysis 2 Dip (Clinic) Today Plan Details Additional Comments: ACOG trimester education reviewed and updated. see problem list details for updated plan management information and see below for orders placed atthis visit. [place] appropriate handout given. 05/12/25 1403 s JACK> Date _ Jeannine Gunn CNM Cosigner Signature: Date (if applicable) CC: ~ [facility]07-07-2025 Progress note Author Jeannine Gunn [facility] Note Date/Time May 12, 2025 2:03p [facility] [address] [place] [address], [address] [place] [address] OFFICE VISIT Date of Service: 05/12/25 MR#: [id number] Acct: [id number] Name: BRAYDEN CONNELLY Rep #: [id number] : 2000 Provider: JACK Gunn Age/Sex: 25/F Location: [facility] [place] Status: Signed Intake Vital Signs 02/24/25 13:12 04/15/25 13:37 05/12/25 13:39 Height 5 ft 4 in 5 ft 4 in 5 ft 4 in Weight: 216 lb 8 oz BMI 37.1 BP 124/82 H Intake Visit Reasons: 20 wk ob Chief Complaint: 20wk OB Extruder Tender Required: No Is patient in pain?: No Allergies cat dander Allergy (Verified 05/12/25 13:40) Other Seasonal Allergies: Uncoded Allergy (Verified 05/12/25 13:40) Other Medications ?Medication ?Instructions ?Recorded ?Confirmed ?Type sumatriptan succinate 100 mg tablet 100 mg PO ONCE 03/2905/12/25 History docosahexaenoic acid 200 mg mg PO 02/14/25 05/12/25 Hi story capsule ( DHA) ondansetron HCl 4 mg tablet 4 mg PO Q6H #30 tabs 02/2405/12/25 Rx Last Menstrual Period: 12/26/24 : No PFSH PFSH Medical History Seasonal allergies Surgical History H/O oral surgery Family History Aunt Breast cancer Grandfather Pancreatic cancer Grandfather Heart disease Grandmother Benign tumor of breast Mother Benign tumor of breast Social History adopted: No household members: spouse 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: No 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) pets and animals: cat(s) history of recent travel: Yes ([place] - December 2024 & [place] - January 2025)out of state: Yes sexually active: Yes Smoking Status: Never smoker alcohol intake: current alcohol intake frequency: holidays/special occasions only details: Not while substance use type: former substance user Date of last use: 2022 - Marijuana well-balanced diet: daily or most days caffeine: Yes Type: carbonated beverages eating out: 1-3 times/week during the past year weight has: decreased > 10 lbs what type of physical activity do you participate in: walking and running frequency: 5-6 times per week duration: 15-30 minutes/day naina/buddhism: [employer]regation seatbelt use: always do you feel safe at home: Yes 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 OB Visit EMMANUEL Calculator Estimated Delivery Date Method Current WG Current Estimate 10/02/25 LMP (Certain) 19w 4d Other Estimates 09/30/25 Ultrasound #1 19w 6d Expected Delivery Route/Plan Labor Preferences- CB/BF classes: [] labor support person: [] labor intervention preferences: [] pain management options preferred: [] cut cord/dad catch: [] : [] PP control planned: [] discussed possible routes of delivery and associated risks: [] special requests: [] Specific Issue/Plans Covid status: [] Flu vaccine: [] Tdap vaccine: [] Rhogam: [] LARC form signed: [] Problem list reviewed and updated with the most current plan of care details and appropriate orders placed. Relevant counseling for the gestational age provided. Continue routine care and follow up unless otherwise noted in visit notes/problem list details Initial Weight: Not Recorded Date -?-?-?-?-?-?-?-?-?-?-?-?- EGA Weight BP Urine Prot -?-?-?-?-?-?-?-?-?-?-?-?- Glucose FHR FuHt Pres Dilation -?-?-?-?-?-?-?-?-?-?-?-?- Effaced St Visit Note 02/24/25 -?-?-?-?-?-?-?-?-?-?-?-?- 8w 4d 186 lb 2 oz 128/85 -?-?-?-?-?-?-?-?-?-?-?-?- 189 -?-?-?-?-?-?-?-?-?-?-?-?- JV- CRL consiste nt with LMP. undecided about NIPT. 03/20/25 -?-?-?-?-?-?-?-?-?-?-?-?- 12w 0d 194 lb 4 oz 118/75 Nega tive -?-?-?-?-?-?-?-?-?-?-?-?- Negative 160 -?-?-?-?-?-?-?-?-?-?-?-?- SM- no vb crampi ng 04/15/25 -?-?-?-?-?-?-?-?-?-?-?-?- 15w 5d 203 lb 8 oz 120/82 Nega tive -?-?-?-?-?-?-?-?-?-?-?-?- Negative 160 -?-?-?-?-?-?-?-?-?-?-?-?- MH-No VB. Nausea improved. Reviewed CF carrier and Ruthann vaz-FOB to be drawn today. Brief US confirm FHT 05/12/25 -?-?-?-?-?-?-?-?-?-?-?-?- 19w 4d 216 lb 8 oz 124/82 Nega tive -?-?-?-?-?-?-?-?-?-?-?-?- Negative 150 -?-?--?-?-?-?-?-?-?-?-?-?- KW- no vb/ctx. f lutters +, had anatomy US today. ACOG First Trimester First Trimester: Discussed ROS Const Reports system reviewed and no additional complaints, except as documented Eyes Reports system reviewed and no additional complaints, except as documented ENT Reports system reviewed and no additional complaints, except as documented Card Reports system reviewed and no additional complaints, except as documented Resp Reports system reviewed and no additional complaints, except as documented GI Reports system reviewed and no additional complaints, except as documented, Denies nausea and Denies vomiting Reports system reviewed and no additional complaints, except as documented Musc Reports system reviewed and no additional complaints, except as documented Skin/Breast Reports system reviewed and no additional complaints, except as documented Neuro Yes system reviewed and no additional complaints, except as documented Psych Reports system reviewed and no additional complaints, except as documented Endo Reports system reviewed and no additional complaints, except as documented Jarrod/Lymph Reports system reviewed and no additional complaints, except as documented Aller/Immun Reports system reviewed and no additional complaints, except as documented Exam Const General: cooperative, healthy appearing and no acute distress Orientation: alert, awake and oriented x3 Neck Neck: normal visual inspection and full ROM Resp Effort & Inspection: normal respiratory effort, able to speak in complete sentences and symmetric chest movement GI Inspection: normal to inspection Palpation: soft and other Other: gravid Skin General: no rashes or lesions noted Neuro General: patient alert, patient awake and patient oriented x3 Cognition: normal cognition Speech: speech normal Gait: normal gait Motor: muscle tone normal throughout Extrem General: normal to inspection and full ROM Psych Appearance: grossly normal Mental Status: mental status grossly normal Mood: congruent mood Affect: normal affect Speech and Movement: speech and movement normal Attitude: cooperative Thought Process: normal Thought Content: normal Judgment: judgment good Results POC Urinalysis 2 Dip (Clinic) Office Urine Glucose Negative Last Edit by Viridiana Adame on 05/12/25 13:48 Office Urine Protein Negative Last Edit by Viridiana Adame on 05/12/25 13:48 Coding Level of Care Code OB Routine Diagnoses Cystic fibrosis carrier Z14.1 Obesity affecting in second trimester, unspecified obesity type O99.212 Obesity type affecting : unspecified obesity Trimester: second trimester Supervision of high risk in second trimester O09.92 Trimester: second trimester 19 weeks gestation of Z3A.19 Weeks of gestation: 19 weeks History of anxiety Z86.59 Marijuana use F12.90 Migraines G43.909 Assessment and Plan Assessment and Plan (1) Cystic fibrosis carrier: Status: Acute Comment: also Rpkgv-jsbyn-wyopu 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 FOB drawn 04/15/25: (2) Obesity affecting : Status: Acute Qualifiers: Obesity type affecting : unspecified obesity Trimester: second trimester Qualified Code(s): O99.212 - Obesity complicating , second trimester Comment: BMI 31.7 - HgBA1C ordered w/NOB (3) Supervision of high-risk : Status: Acute Qualifiers: Trimester: second trimester Qualified Code(s): O09.92 - Supervision of high risk , unspecified, second trimester Comment: PRR G1, EMMANUEL 10/02/25, : Eulalio (4) : Status: Acute Qualifiers: Weeks of gestation: 19 weeks Qualified Code(s): Z3A.19 - 19 weeks gestation of Comment: NIPT low risk, carrier neg. 10/19 Carrier for Cystic Fibrosis and Vvplb-Eajio-Jyokv Syndome. (5) History of anxiety: Status: Acute Comment: In college - on Lexapro 2018, counseling 2022 (6) Marijuana use: Status: Acute Comment: Last use 2022 - random tx screen ordered (7) Migraines: Status: Acute Comment: on Sumatriptan - last use 02/05 Orders: Orders POC Urinalysis 2 Dip (Clinic) Today Plan Details Additional Comments: ACOG trimester education reviewed and updated. see problem list details for updated plan management information and see below for orders placed at this visit. [place] appropriate handout given. 05/12/25 1383 <Electronically signed by Jeannine davenport CNM> Date _ Jeaninne Gunn CNM Cosigner Signature: Date (if applicable) CC: ~ [facility] Work Phone: 1(844) 593-333206-10-2025 Evaluation note* Diagnosis Onset Date Resolution Status Admit Date Cystic fibrosis carrier acute J 2024 1:33pm History of anxiety acute April 062024 1:33pm Marijuana use acute April 15, 2025 1:33pm Obesity affecting acute April 15, 2025 1:33pm acute April 15 1:33pm Supervision of high-risk acute April 15, 2025 1:33pm Cystic fibrosis carrier acute J arturo2024 1:29pm History of anxiety acute May 122024 1:29pm Marijuana use acute May 12 1:29pm Migraines acute May 12, 2025 1:29pm Obesity affecting acute May 12, 2025 1:29pm acute May 12, 2025 1:29pm Supervision of high-risk acute May 12, 2025 1 :29pm Cystic fibrosis carrier acute A ugust 2024 10:58am History of anxiety acute June 12, 2025 10:58am Marijuana use acute June 12, 2025 10:58am Migraines acute June 12 10:58am Obesity affecting acute June 12, 2025 10:58am acute June 12 10:58am Supervision of high-risk acute June 12, 2025 10:58am Low lying placenta, antepartum resolved June 12, 2025 10:58am Cystic fibrosis carrier acute S eptember 2024 12:52pm History of anxiety acute 2024 12:52pm Marijuana use acute July 142024 12:52pm Obesity affecting acute July 14, 2025 12:52pm acute July 14, 2025 12:52pm Supervision of high-risk acute July 14 12:52pm Low lying placenta, antepartum resolved July 14 12:52pm [facility] Work Phone: 1(735) 614-876206-10-2025 Evaluation note* Diagnosis Onset Date Resolution Status Admit Date Cystic fibrosis carrier acute J 2024 1:33pm History of anxiety acute April 062024 1:33pm Marijuana use acute April 15, 2025 1:33pm Obesity affecting acute April 15, 2025 1:33pm acute April 15 1:33pm Supervision of high-risk acute April 15, 2025 1:33pm Cystic fibrosis carrier acute J arturo 2024 1:29pm History of anxiety acute May 122024 1:29pm Marijuana use acute May 12 1:29pm Migraines acute May 12, 2025 1:29pm Obesity affecting acute May 12, 2025 1:29pm acute May 12, 2025 1:29pm Supervision of high-risk acute May 12, 2025 1 :29pm Cystic fibrosis carrier acute A ug2024 10:58am History of anxiety acute June 12, 2025 10:58am Marijuana use acute June 12, 2025 10:58am Migraines acute June 12 10:58am Obesity affecting acute June 12, 2025 10:58am acute June 12 10:58am Supervision of high-risk acute June 12, 2025 10:58am Low lying placenta, antepartum resolved June 12, 2025 10:58am Cystic fibrosis carrier acute S epte2024 12:52pm History of anxiety acute 2024 12:52pm Marijuana use acute July 142024 12:52pm Obesity affecting acute July 14, 2025 12:52pm acute July 14, 2025 12:52pm Supervision of high-risk acute July 14 12:52pm Low lying placenta, antepartum resolved July 14 12:52pm Anemia in acute 2024 2:14pm Cystic fibrosis carrier acute S eptember 2024 2:14pm History of anxiety acute 2024 2:14pm Marijuana use acute July 082024 2:14pm Migraines acute July 2:14pm Obesity affecting acute July 30, 2025 2:14pm Palpitation acute July 2:14pm acute July 2:14pm Supervision of high-risk acute July 30, 2025 2:14pm [facility] Work Phone: 1(641) 871-308206-10-2025 Evaluation note* Diagnosis Onset Date Resolution Status Admit Date Cystic fibrosis carrier acute J 2024 1:33pm History of anxiety acute April 062024 1:33pm Marijuana use acute April 15, 2025 1:33pm Obesity affecting acute April 15, 2025 1:33pm acute April 15 1:33pm Supervision of high-risk acute April 15, 2025 1:33pm Cystic fibrosis carrier acute J arturo 2024 1:29pm History of anxiety acute May 122024 1:29pm Marijuana use acute May 12 1:29pm Migraines acute May 12, 2025 1:29pm Obesity affecting acute May 12, 2025 1:29pm acute May 12, 2025 1:29pm Supervision of high-risk acute May 12, 2025 1 :29pm Cystic fibrosis carrier acute A ugust 2024 10:58am History of anxiety acute June 12, 2025 10:58am Marijuana use acute June 12, 2025 10:58am Migraines acute June 12 10:58am Obesity affecting acute June 12, 2025 10:58am acute June 12 10:58am Supervision of high-risk acute June 12, 2025 10:58am Low lying placenta, antepartum resolved June 12, 2025 10:58am Cystic fibrosis carrier acute S eptemb2024 12:52pm History of anxiety acute 2024 12:52pm Marijuana use acute July 142024 12:52pm Obesity affecting acute July 14, 2025 12:52pm acute July 14, 2025 12:52pm Supervision of high-risk acute July 14 12:52pm Low lying placenta, antepartum resolved July 14 12:52pm Anemia in acute Jule mb2024 2:14pm Cystic fibrosis carrier acute S eptemb2024 2:14pm History of anxiety acute Septem 2024 2:14pm Marijuana use acute July 082024 2:14pm Migraines acute July 2:14pm Obesity affecting acute July 30, 2025 2:14pm Palpitation acute July 2:14pm acute July 2:14pm Supervision of high-risk acute July 30, 2025 2:14pm Anemia in acute Octob er 2024 1:23pm Cystic fibrosis carrier acute O ctober 2024 1:23pm History of anxiety acute Octobe r 2024 1:23pm Marijuana use acute August 1:23pm Migraines acute August 13, 2 025 1:23pm Obesity affecting acute August 13, 2025 1:23pm Palpitation acute August 13, 2025 1:23pm acute August 13 025 1:23pm Supervision of high-risk acute August 13 1:23pm [facility] Work Phone: 1(280) 533-467005-15-2025 Evaluation note* Diagnosis Onset Date Resolution Status Admit Date History of anxiety acute March 202024 10:44am Marijuana use acute March 20, 2 025 10:44am Migraines acute March 20, 2025 10:44am Obesity affecting acute March 20, 2025 10:44am acute March 20, 2025 10:44am Supervision of high-risk acute March 20, 2025 1 0:44am Cystic fibrosis carrier acute J une 2024 1:33pm History of anxiety acute April 062024 1:33pm Marijuana use acute April 15, 2025 1:33pm Obesity affecting acute April 15, 2025 1:33pm acute April 15 1:33pm Supervision of high-risk acute April 15, 2025 1:33pm Cystic fibrosis carrier acute J arturo2024 1:29pm History of anxiety acute May 122024 1:29pm Marijuana use acute May 12, 2 025 1:29pm Migraines acute May 12, 2025 1:29pm Obesity affecting acute May 12, 2025 1:29pm acute May 12, 2025 1:29pm Supervision of high-risk acute May 12, 2025 1 :29pm Cystic fibrosis carrier acute A ugust 2024 10:58am History of anxiety acute June 12, 2025 10:58am Low lying placenta, antepartum acute June 12, 2025 10:58am Marijuana use acute June 12, 2025 10:58am Migraines acute June 12 10:58am Obesity affecting acute June 12, 2025 10:58am acute June 12 10:58am Supervision of high-risk acute June 12, 2025 10:58am Cystic fibrosis carrier acute S eptember 2024 12:52pm History of anxiety acute Septem 2024 12:52pm Low lying placenta, antepartum acute July 14 2 025 12:52pm Marijuana use acute July 142024 12:52pm Migraines acute July 14, 2025 12:52pm Obesity affecting acute July 14, 2025 12:52pm acute July 14, 2025 12:52pm Supervision of high-risk acute July 14 2 025 12:52pm [facility] Work Phone: 1([phone]) 111-535405-03-2025 NotePatient Education Obstetrics and Gynecology First Trimester of The first trimester of starts on the first day of your last menstrual period until the end of week 12. This is also called months 1 through 3 of . Body changes during your first trimester Your body goes through many changes during . The changes usually return to normal after your baby is born. Physical changes ??? You may gain or lose weight. ??? Your breasts may grow larger and hurt. The area around your nipples may get darker. ??? Dark spots or blotches may develop on your face. ??? You may have changes in your hair. Health changes ??? You may feel like you might vomit (nauseous), and you may vomit. ??? You may have heartburn. ??? You may have headaches. ??? You may have trouble pooping (constipation). ??? Your gums may bleed. Other changes ??? You may get tired easily. ??? You may pee (urinate) more often. ??? Your menstrual periods will stop. ??? You may not feel hungry. ??? You may want to eat certain kinds of food. ??? You may have changes in your emotions from day to day. ??? You may have more dreams. Follow these instructions at home: Medicines ??? Take vbgc-teq-lfunqsi and prescription medicines only as told by your doctor. Some medicines are not safe during . ??? Take a vitamin that contains at least 600 micrograms (mcg) of folic acid. Eating and drinking ??? Eat healthy meals that include: ? Fresh fruits and vegetables. ? Whole grains. ? Good sources of protein, such as meat, eggs, or tofu. ? Low-fat dairy products. ??? Avoid raw meat and unpasteurized juice, milk, and cheese. ??? If you feel like you may vomit, or you vomit: ? Eat 4 or 5 small meals a day instead of 3 large meals. ? Try eating a few soda crackers. ? Drink liquids between meals instead of during meals. ??? You may need to take these actions to prevent or treat trouble pooping: ? Drink enough fluids to keep your pee (urine) pale yellow. ? Eat foods that are high in fiber. These include beans, whole grains, and fresh fruits and vegetables. ? Limit foods that are high in fat and sugar. These include fried or sweet foods. Activity ??? Exercise only as told by your doctor. Most people can do their usual exercise routine during . ??? Stop exercising if you have cramps or pain in your lower belly (abdomen) or low back. ??? Do not exercise if it is too hot or too humid, or if you are in a place of great height (high altitude). ??? Avoid heavy lifting. ??? If you choose to, you may have sex unless your doctor tells you not to. Relieving pain and discomfort ??? Wear a good support bra if your breasts are sore. ??? Rest with your legs raised (elevated) if you have leg cramps or low back pain. ??? If you have bulging veins (varicose veins) in your legs: ? Wear support hose as told by your doctor. ? Raise your feet for 15 minutes, 3?4 times a day. ? Limit salt in your food. Safety ??? Wear your seat belt at all times when you are in a car. ??? Talk with your doctor if someone is hurting you or yelling at you. ??? Talk with your doctor if you are feeling sad or have thoughts of hurting yourself. Lifestyle ??? Do not use hot tubs, steam rooms, or saunas. ??? Do not douche. Do not use tampons or scented sanitary pads. ??? Do not use herbal medicines, illegal drugs, or medicines that are not approved by your doctor. Do not drink alcohol. ??? Do not smoke or use any products that contain nicotine or tobacco. If you need help quitting, ask your doctor. ??? Avoid cat litter boxes and soil that is used by cats. These carry germs that can cause harm to the baby and can cause a loss of your baby by miscarriage or stillbirth. General instructions ??? Keep all follow-up visits. This is important. ??? Ask for help if you need counseling or if you need help with nutrition. Your doctor can give you advice or tell you where to go for help. ??? Visit your dentist. At home, brush your teeth with a soft toothbrush. Floss gently. ??? Write down your questions. Take them to your visits. Where to find more information ??? [employer]: [email or web address] ??? [employer]: www.acog.org ??? Office on Women's Health: womenshealth.gov/ Contact a doctor if: ??? You are dizzy. ??? You have a fever. ??? You have mild cramps or pressure in your lower belly. ??? You have a nagging pain in your belly area. ??? You continue to feel like you may vomit, you vomit, or you have watery poop (diarrhea) for 24 hours or longer. ??? You have a bad-smelling fluid coming from your vagina. ??? You have pain when you pee. ??? You are exposed to a disease that spreads from person to person, such as chickenpox, measles, Zika virus, HIV, or hepatitis. Get help right away if: ??? You (more content not included)...[facility]05-02-2025 Evaluation + Plan note Diagnostic Tests Pending * Urine Culture 03/07/25 [facility] 04-21-2025 Evaluation note* Diagnosis Onset Date Resolution Status Admit Date History of anxiety acute February 24, 2025 1:08pm Marijuana use acute February 24, 2025 1:08pm Migraines acute February 24 1:08pm Obesity affecting acute February 24, 2025 1:08pm acute February 24 1:08pm Supervision of high-risk acute February 24, 2025 1:08pm History of anxiety acute March 202024 10:44am Marijuana use acute March 20, 2 025 10:44am Migraines acute March 20, 2025 10:44am Obesity affecting acute March 20, 2025 10:44am acute March 20, 2025 10:44am Supervision of high-risk acute March 20, 2025 1 0:44am [facility] Work Phone: 1(247) 519-574104-21-2025 Evaluation note* Diagnosis Onset Date Resolution Status Admit Date History of anxiety acute February 24, 2025 1:08pm Marijuana use acute February 24, 2025 1:08pm Migraines acute February 24 1:08pm Obesity affecting acute February 24, 2025 1:08pm acute February 24 1:08pm Supervision of high-risk acute February 24, 2025 1:08pm History of anxiety acute March 202024 10:44am Marijuana use acute March 20, 10:44am Migraines acute March 20, 2025 10:44am Obesity affecting acute March 20, 2025 10:44am acute March 20, 2025 10:44am Supervision of high-risk acute March 20, 2025 1 0:44am Cystic fibrosis carrier acute J 2024 1:33pm History of anxiety acute April 062024 1:33pm Marijuana use acute April 15, 2025 1:33pm Migraines acute April 15 1:33pm Obesity affecting acute April 15, 2025 1:33pm acute April 15 1:33pm Supervision of high-risk acute April 15, 2025 1:33pm [facility] Work Phone: 1(840) 514-926604-21-2025 Evaluation note* Diagnosis Onset Date Resolution Status Admit Date History of anxiety acute February 24, 2025 1:08pm Marijuana use acute February 24, 2025 1:08pm Migraines acute February 24 1:08pm Obesity affecting acute February 24, 2025 1:08pm acute February 24 1:08pm Supervision of high-risk acute February 24, 2025 1:08pm History of anxiety acute March 202024 10:44am Marijuana use acute March 20, 2 025 10:44am Migraines acute March 20, 2025 10:44am Obesity affecting acute March 20, 2025 10:44am acute March 20, 2025 10:44am Supervision of high-risk acute March 20, 2025 1 0:44am Cystic fibrosis carrier acute J une 2024 1:33pm History of anxiety acute April 062024 1:33pm Marijuana use acute April 15, 2025 1:33pm Obesity affecting acute April 15, 2025 1:33pm acute April 15 1:33pm Supervision of high-risk acute April 15, 2025 1:33pm Cystic fibrosis carrier acute J arturo 2024 1:29pm History of anxiety acute May 122024 1:29pm Marijuana use acute May 12, 2 1:29pm Migraines acute May 12, 2025 1:29pm Obesity affecting acute May 12, 2025 1:29pm acute May 12, 2025 1:29pm Supervision of high-risk acute May 12, 2025 1 :29pm [facility] Work Phone: 1(270) 327-256704-21-2025 Evaluation note* Diagnosis Onset Date Resolution Status Admit Date History of anxiety acute February 24, 2025 1:08pm Marijuana use acute February 24, 2025 1:08pm Migraines acute February 24 1:08pm Obesity affecting acute February 24, 2025 1:08pm acute February 24 1:08pm Supervision of high-risk acute February 24, 2025 1:08pm History of anxiety acute March 202024 10:44am Marijuana use acute March 20, 2 025 10:44am Migraines acute March 20, 2025 10:44am Obesity affecting acute March 20, 2025 10:44am acute March 20, 2025 10:44am Supervision of high-risk acute March 20, 2025 1 0:44am Cystic fibrosis carrier acute J une 2024 1:33pm History of anxiety acute April 062024 1:33pm Marijuana use acute April 15, 2025 1:33pm Obesity affecting acute April 15, 2025 1:33pm acute April 15 1:33pm Supervision of high-risk acute April 15, 2025 1:33pm Cystic fibrosis carrier acute J arturo 2024 1:29pm History of anxiety acute May 122024 1:29pm Marijuana use acute May 12, 2 025 1:29pm Migraines acute May 12, 2025 1:29pm Obesity affecting acute May 12, 2025 1:29pm acute May 12, 2025 1:29pm Supervision of high-risk acute May 12, 2025 1 :29pm Cystic fibrosis carrier acute A [id number] 10:58am History of anxiety acute June 12, 2025 10:58am Low lying placenta, antepartum acute June 12, 2025 10:58am Marijuana use acute June 12, 2025 10:58am Migraines acute June 12 10:58am Obesity affecting acute June 12, 2025 10:58am acute June 12 10:58am Supervision of high-risk acute June 12, 2025 10:58am [facility] Work Phone: [phone]) [phone] Miscellaneous Notes* Telephone Encounter - Joyce Lloyd LPN - 08/11/2020 11:17 AM EDT Pt rescheduled video visit for tomorrow (08/12/20) at 11:00am. States she does not need a refill before appt. * Telephone Encounter - Yeny Julien DO - 08/10/2020 2:01 PM EDT No show for today's appointment. Please reschedule video visit. Let me know if refill needed beforeappointment and update preferred pharmacy if needed. documented in this [id number] Telephone encounter Note* Telephone Encounter - Joyce Lloyd LPN - 08/11/2020 11:17 AM EDT Pt rescheduled video visit for tomorrow (08/12/20) at 11:00am. States she does not need a refill before appt. [id number] Telephone encounter Note* Telephone Encounter - Yeny Julien DO - 08/10/2020 2:01 PM EDT No show for today's appointment. Please reschedule video visit. Let me know if refill needed beforeappointment and update preferred pharmacy if needed. [facility] note* Diagnosis Onset Date Resolution Status Possible exposure to STD non eactive Encounter for routine gynecological examination noneactive [facility] Work Phone: Evaluation note* Diagnosis Migraine without aura and without status migrainosus, not intractable documented in this encounter [facility] note* Diagnosis Onset Date Resolution Status Urinary tract infection with hematuria acute [facility] Work Phone: Hospital course Narrative No data available for this section [facility] Hospital Discharge instructions No data available for this section [facility] Progress note No data available for this section [facility] Progress note Author Viktoria Suazo [facility] Note Date/Time June 12, 2025 11: 45am [facility] [address] [place] [address], [address] [place] [address] OFFICE VISIT Date of Service: 06/12/25 MR#: [id number] Acct: [id number] Name: BRAYDEN CONNELLY Rep #: [id number] : 2000 Provider: Dr. 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 Is patient in pain?: No Allergies cat dander Allergy (Verified 06/12/25 11:07) Other Seasonal Allergies: Uncoded Allergy (Verified 06/12/25 11:07) Other Medications ?Medication ?Instructions ?Recorded ?Confirmed ?Type sumatriptan succinate 100 mg tablet 100 mg PO ONCE 03/2906/12/25 History docosahexaenoic acid 200 mg mg PO 02/14/25 06/12/25 Hi story capsule ( DHA) ondansetron HCl 4 mg tablet 4 mg PO Q6H #30 tabs 02/2406/12/25 Rx Last Menstrual Period: 12/26/24 Zika: Zika virus screening: Negative : No PFSH PFSH Medical History Seasonal allergies Surgical History H/O oral surgery Family History Aunt Breast cancer Grandfather Pancreatic cancer Grandfather Heart disease Grandmother Benign tumor of breast Mother Benign tumor of breast Social History adopted: No household members: spouse 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: No 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) pets and animals: cat(s) history of recent travel: Yes ([place] - December 2024 & [place] - January 2025)out of state: Yes sexually active: Yes Smoking Status: Never smoker alcohol intake: current alcohol intake frequency: holidays/special occasions only details: Not while substance use type: former substance user Date of last use: 2022 - well-balanced diet: daily or most days caffeine: Yes Type: carbonated beverages eating out: 1-3 times/week during the past year weight has: decreased > 10 lbs what type of physical activity do you participate in: walking and running frequency: 5-6 times per week duration: 15-30 minutes/day naina/buddhism: [employer] seatbelt use: always do you feel safe at home: Yes 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 OB Visit EMMANUEL Calculator Estimated Delivery Date Method Current WG Current Estimate 10/02/25 LMP (Certain) 24w 0d Other Estimates 09/30/25 Ultrasound #1 24w 2d Expected Delivery Route/Plan Labor Preferences- CB/BF classes: [] labor support person: [] labor intervention preferences: [] pain management options preferred: [] cut cord/dad catch: [] : [] PP control planned: [] discussed possible routes of delivery and associated risks: [] special requests: [] Specific Issue/Plans Covid status: [] Flu vaccine: [] Tdap vaccine: [] Rhogam: [] LARC form signed: [] Problem list reviewed and updated with the most current plan of care details and appropriate orders placed. Relevant counseling for the gestational age provided. Continue routine care and follow up unless otherwise noted in visit notes/problem list details Initial Weight: Not Recorded Date -?-?-?-?-?-?-?-?-?-?-?-?- EGA Weight BP Urine Prot -?-?-?-?-?-?-?-?-?-?--?-?- Glucose FHR FuHt Pres Dilation -?-?-?-?-?-?-?-?-?-?-?-?- Effaced St Visit Note 02/24/25 -?-?-?-?-?-?-?-?-?-?-?-?- 8w 4d 186 lb 2 oz 128/85 -?-?-?-?-?-?-?-?-?-?-?-?- 189 -?-?-?-?-?-?-?-?-?-?-?-?- JV- CRL consiste nt with LMP. undecided about NIPT. 03/20/25 -?-?-?-?-?-?-?-?-?-?-?-?- 12w 0d 194 lb 4 oz 118/75 Nega tive -?-?-?-?-?-?-?-?-?-?-?-?- Negative 160 -?-?-?-?-?-?-?-?-?-?-?-?- SM- no vb crampi ng 04/15/25 -?-?-?-?-?-?-?-?-?-?-?-?- 15w 5d 203 lb 8 oz 120/82 Nega tive -?-?-?-?-?-?-?-?-?-?-?-?- Negative 160 -?-?-?-?-?-?-?-?-?-?-?-?- MH-No VB. Nausea improved. Reviewed CF mervat and Ruthann vaz-FOB to be drawn today. Brief US confirm FHT 05/12/25 -?-?-?-?-?-?-?-?-?-?-?-?- 19w 4d 216 lb 8 oz 124/82 Nega tive -?-?-?-?-?-?-?-?-?-?-?-?- Negative 150 -?-?-?-?-?-?-?-?-?-?-?-?- KW- no vb/ctx. f lutters +, had anatomy US today. 06/12/25 -?-?-?-?-?-?-?--?-?-?-?-?- 24w 0d 233 lb 3 oz 123/84 Nega tive -?-?-?-?-?-?-?-?-?-?-?-?- Negative 144 26 -?-?-?-?-?-?-?-?-?-?-?-?- JV- migraines ar e stable on sumatriptan. taking it about once or twice a week. no lof, vaginal bleeding, or dec fm. JV- migraines are stable on sumatriptan. taking it about once or twice a week. no lof, vaginal bleeding, or dec fm. needs rpt scan for placenta jul 13. ACOG First Trimester First Trimester: Discussed Results POC Urinalysis 2 Dip (Clinic) Office Urine Glucose Negative Last Edit by Palma Arriaga on 06/12/25 11: 43 Office Urine Protein Negative Last Edit by Palma Arriaga on 06/12/25 11: 43 Coding Level of Care Code OB Routine Diagnoses Low lying placenta, antepartum O44.40 Cystic fibrosis carrier Z14.1 Obesity affecting in second trimester, unspecified obesity type O99.212 Obesity type affecting : unspecified obesity Trimester: second trimester Supervision of high risk in second trimester O09.92 Trimester: second trimester 24 weeks gestation of Z3A.24 Weeks of gestation: 24 weeks History of anxiety Z86.59 Marijuana use F12.90 Migraines G43.909 Assessment and Plan Assessment and Plan (1) Low lying placenta, antepartum: Status: Acute Comment: follow up at 28 weeks (2) Cystic fibrosis carrier: Status: Acute Comment: 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 FOB drawn 04/15/25: (3) Obesity affecting : Status: Acute Qualifiers: Obesity type affecting : unspecified obesity Trimester: second trimester Qualified Code(s): O99.212 - Obesity complicating , second trimester Comment: BMI 31.7 - HgBA1C ordered w/NOB (4) Supervision of high-risk : Status: Acute Qualifiers: Trimester: second trimester Qualified Code(s): O09.92 - Supervision of high risk , unspecified, second trimester Comment: PRR G1, EMMANUEL 10/02/25, : Eulalio (5) : Status: Acute Qualifiers: Weeks of gestation: 24 weeks Qualified Code(s): Z3A.24 - 24 weeks gestation of Comment: NIPT low risk, carrier neg. 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 (6) History of anxiety: Status: Acute Comment: In college - on Lexapro 2018, counseling 2022 (7) Marijuana use: Status: Acute Comment: Last use 2022 - random tx screen ordered (8) Migraines: Status: Acute Comment: on Sumatriptan - last use 02/05 Orders: Orders POC Urinalysis 2 Dip (Clinic) Today CBC W/Diff, Automated Today O09.92 - Supervision of high risk , unspecified, second trimester Glucose Challenge Gest 1H 50g Today O09.92 - Supervision of high risk , unspecified, second trimester, Z13.1 - Encounter for screening for diabetes mellitus HIV Today O09.92 - Supervision of high risk , unspecified, second trimester Syphilis Antibodies Today O09.92 - Supervision of high risk , unspecified, second trimester 06/12/25 1145 <Electronically signed by Viktoria Diaz DO> Date _ Viktoria Longoria DO Cosigner Signature: Date (if applicable) CC: ~ [facility] Work Phone: Reason for referral (narrative)No reason for referral information availableK[facility] Work Phone: Summary Purpose Family History Relationship Condition Age at Onset Recorded Date/T solomon aunt Malignant neoplasm of breast Unknown grandfather Malignant neoplasm of pancreas Unknown Relationship Condition Age at Onset Recorded Date/T solomon aunt Malignant neoplasm of breast Unknown grandfather Malignant neoplasm of pancreas Unknown grandfather Cardiac disease Unknown grandmother Benign neoplasm of breast Unknown mother Benign neoplasm of breast Unknown Advance Directives No Advanced Directives Records FoundNo Advanced Directives Records FoundNo Advanced Directives Records FoundNo Advanced Directives Records FoundNo Advanced Directives Records FoundNo Advanced Directives Records Found Chief Complaint and Reason for Visit Chief Complaint Annual (HUC OB) Reason for Visit Possible exposure to STD Encounter for routine gynecological examination Chief Complaint CONCERN FOR UTI Reason for Visit Urinary tract infect ion with hematuria Chief Complaint Admit Date confirmation test/ vitals Apri l 2024 8:11am Amb Documentation February 14, 2025 8:2 6am New OB, LMP 12/26, EMMANUEL 10/02February 24, 2025 1:08pm 12wk OB March 20, 2025 10:44 am Reason for Visit Admit Date History of anxiety February 24, 2025 1:0 8pm Marijuana use February 24, 2025 1:0 8pm Migraines February 24, 2025 1:0 8pm Obesity affecting February 24, 2025 1:08pm February 24, 2025 1:0 8pm Supervision of high-risk February 24, 2025 1:08pm History of anxiety March 20, 2025 10:44 am Marijuana use March 20, 2025 10:44 am Migraines March 20, 2025 10:44 am Obesity affecting March 20 10:44am March 20, 2025 10:44 am Supervision of high-risk March 062024 10:44am Chief Complaint Admit Date confirmation test/ vitals Apri l 2024 8:11am Amb Documentation February 14, 2025 8:2 6am New OB, LMP 12/26, EMMANUEL 10/02February 24, 2025 1:08pm 12wk OB March 20, 2025 10:44 am 16 wk ob April 15, 2025 1:33 pm Reason for Visit Admit Date History of anxiety February 24, 2025 1:0 8pm Marijuana use February 24, 2025 1:0 8pm Migraines February 24, 2025 1:0 8pm Obesity affecting February 24, 2025 1:08pm February 24, 2025 1:0 8pm Supervision of high-risk February 24, 2025 1:08pm History of anxiety March 20, 2025 10:44 am Marijuana use March 20, 2025 10:44 am Migraines March 20, 2025 10:44 am Obesity affecting March 20 10:44am March 20, 2025 10:44 am Supervision of high-risk March 062024 10:44am Cystic fibrosis carrier April 15, 2025 1:33pm History of anxiety April 15, 2025 1:33 pm Marijuana use April 15, 2025 1:33 pm Migraines April 15, 2025 1:33 pm Obesity affecting April 15, 1:33pm April 15, 2025 1:33 pm Supervision of high-risk April 15, 2025 1:33pm Chief Complaint Admit Date confirmation test/ vitals Apri l 2024 8:11am Amb Documentation February 14, 2025 8:2 6am New OB, LMP 12/26, EMMANUEL 10/02February 24, 2025 1:08pm 12wk OB March 20, 2025 10:44 am 16 wk ob April 15, 2025 1:33 pm 20 wk ob May 12, 2025 1:29p m Reason for Visit Admit Date History of anxiety February 24, 2025 1:0 8pm Marijuana use February 24, 2025 1:0 8pm Migraines February 24, 2025 1:0 8pm Obesity affecting February 24, 2025 1:08pm February 24, 2025 1:0 8pm Supervision of high-risk February 24, 2025 1:08pm History of anxiety March 20, 2025 10:44 am Marijuana use March 20, 2025 10:44 am Migraines March 20, 2025 10:44 am Obesity affecting March 20 10:44am March 20, 2025 10:44 am Supervision of high-risk March 062024 10:44am Cystic fibrosis carrier April 15, 2025 1:33pm History of anxiety April 15, 2025 1:33 pm Marijuana use April 15, 2025 1:33 pm Obesity affecting April 15, 025 1:33pm April 15, 2025 1:33 pm Supervision of high-risk April 15, 2025 1:33pm Cystic fibrosis carrier May 12, 2025 1 :29pm History of anxiety May 12, 2025 1:29p m Marijuana use May 12, 2025 1:29p m Migraines May 12, 2025 1:29p m Obesity affecting May 12 1:29pm May 12, 2025 1:29p m Supervision of high-risk May 12, 2025 1:29pm Chief Complaint Admit Date confirmation test/ vitals Apri l 2024 8:11am Amb Documentation February 14, 2025 8:2 6am New OB, LMP 12/26, EMMANUEL 10/02February 24, 2025 1:08pm 12wk OB March 20, 2025 10:44 am 16 wk ob April 15, 2025 1:33 pm 20 wk ob May 12, 2025 1:29p m 24 wk ob June 12, 2025 10: 58am Reason for Visit Admit Date History of anxiety February 24, 2025 1:0 8pm Marijuana use February 24, 2025 1:0 8pm Migraines February 24, 2025 1:0 8pm Obesity affecting February 24, 2025 1:08pm February 24, 2025 1:0 8pm Supervision of high-risk February 24, 2025 1:08pm History of anxiety March 20, 2025 10:44 am Marijuana use March 20, 2025 10:44 am Migraines March 20, 2025 10:44 am Obesity affecting March 20 10:44am March 20, 2025 10:44 am Supervision of high-risk March 062024 10:44am Cystic fibrosis carrier April 15, 2025 1:33pm History of anxiety April 15, 2025 1:33 pm Marijuana use April 15, 2025 1:33 pm Obesity affecting April 15, 1:33pm April 15, 2025 1:33 pm Supervision of high-risk April 15, 2025 1:33pm Cystic fibrosis carrier May 12, 2025 1 :29pm History of anxiety May 12, 2025 1:29p m Marijuana use May 12, 2025 1:29p m Migraines May 12, 2025 1:29p m Obesity affecting May 12 1:29pm May 12, 2025 1:29p m Supervision of high-risk May 12, 2025 1:29pm Cystic fibrosis carrier June 12, 2025 10:58am History of anxiety June 12, 2025 10: 58am Low lying placenta, antepartum June 10:58am Marijuana use June 12, 2025 10: 58am Migraines June 12, 2025 10: 58am Obesity affecting June 12, 2025 10:58am June 12, 2025 10: 58am Supervision of high-risk Augus 2024 10:58am Chief Complaint Admit Date 12wk OB March 20, 2025 10:44 am 16 wk ob April 15, 2025 1:33 pm 20 wk ob May 12, 2025 1:29p m 24 wk ob June 12, 2025 10: 58am 28 wk ob/glucose July 14, 2025 12:52pm Reason for Visit Admit Date History of anxiety March 20, 2025 10:44 am Marijuana use March 20, 2025 10:44 am Migraines March 20, 2025 10:44 am Obesity affecting March 20 10:44am March 20, 2025 10:44 am Supervision of high-risk March 062024 10:44am Cystic fibrosis carrier April 15, 2025 1:33pm History of anxiety April 15, 2025 1:33 pm Marijuana use April 15, 2025 1:33 pm Obesity affecting April 15, 025 1:33pm April 15, 2025 1:33 pm Supervision of high-risk April 15, 2025 1:33pm Cystic fibrosis carrier May 12, 2025 1 :29pm History of anxiety May 12, 2025 1:29p m Marijuana use May 12, 2025 1:29p m Migraines May 12, 2025 1:29p m Obesity affecting May 12 1:29pm May 12, 2025 1:29p m Supervision of high-risk May 12, 2025 1:29pm Cystic fibrosis carrier June 12, 2025 10:58am History of anxiety June 12, 2025 10: 58am Low lying placenta, antepartum June 10:58am Marijuana use June 12, 2025 10: 58am Migraines June 12, 2025 10: 58am Obesity affecting June 12, 2025 10:58am June 12, 2025 10: 58am Supervision of high-risk Augus 2024 10:58am Cystic fibrosis carrier July 14 12:52pm History of anxiety July 14, 2025 12:52pm Low lying placenta, antepartum July 14, 2025 12:52pm Marijuana use July 14, 2025 12:52pm Migraines July 14, 2025 12:52pm Obesity affecting July 12:52pm July 14, 2025 12:52pm Supervision of high-risk Septe [email or web address] 12:52pm Chief Complaint Admit Date 16 wk ob April 15, 2025 1:33 pm 20 wk ob May 12, 2025 1:29p m 24 wk ob June 12, 2025 10: 58am 28 WK 4 D/GLUCOSE July 14, 2025 12:52pm Reason for Visit Admit Date Cystic fibrosis carrier April 15, 2025 1:33pm History of anxiety April 15, 2025 1:33 pm Marijuana use April 15, 2025 1:33 pm Obesity affecting April 15, 2 025 1:33pm April 15, 2025 1:33 pm Supervision of high-risk April 15, 2025 1:33pm Cystic fibrosis carrier May 12, 2025 1 :29pm History of anxiety May 12, 2025 1:29p m Marijuana use May 12, 2025 1:29p m Migraines May 12, 2025 1:29p m Obesity affecting May 12 1:29pm May 12, 2025 1:29p m Supervision of high-risk May 12, 2025 1:29pm Cystic fibrosis carrier June 12, 2025 10:58am History of anxiety June 12, 2025 10: 58am Marijuana use June 12, 2025 10: 58am Migraines June 12, 2025 10: 58am Obesity affecting June 12, 2025 10:58am June 12, 2025 10: 58am Supervision of high-risk Augus 2024 10:58am Low lying placenta, antepartum June 10:58am Cystic fibrosis carrier July 14 12:52pm History of anxiety July 14, 2025 12:52pm Marijuana use July 14, 2025 12:52pm Obesity affecting July 12:52pm July 14, 2025 12:52pm Supervision of high-risk Septe [email or web address] 12:52pm Low lying placenta, antepartum July 14, 2025 12:52pm Chief Complaint Admit Date 16 wk ob April 15, 2025 1:33 pm 20 wk ob May 12, 2025 1:29p m 24 wk ob June 12, 2025 10: 58am 28 WK 4 D/GLUCOSE July 14, 2025 12:52pm 30 WK 6 DAYS July 30, 2025 2:14pm Reason for Visit Admit Date Cystic fibrosis carrier April 15, 2025 1:33pm History of anxiety April 15, 2025 1:33 pm Marijuana use April 15, 2025 1:33 pm Obesity affecting April 15 025 1:33pm April 15, 2025 1:33 pm Supervision of high-risk April 15, 2025 1:33pm Cystic fibrosis carrier May 12, 2025 1 :29pm History of anxiety May 12, 2025 1:29p m Marijuana use May 12, 2025 1:29p m Migraines May 12, 2025 1:29p m Obesity affecting May 12 1:29pm May 12, 2025 1:29p m Supervision of high-risk May 12, 2025 1:29pm Cystic fibrosis carrier June 12, 2025 10:58am History of anxiety June 12, 2025 10: 58am Marijuana use June 12, 2025 10: 58am Migraines June 12, 2025 10: 58am Obesity affecting June 12, 2025 10:58am June 12, 2025 10: 58am Supervision of high-risk Augus 2024 10:58am Low lying placenta, antepartum June 10:58am Cystic fibrosis carrier July 14 025 12:52pm History of anxiety July 14, 2025 12:52pm Marijuana use July 14, 2025 12:52pm Obesity affecting July 12:52pm July 14, 2025 12:52pm [facility] 20[facility] 12:52pm Low lying placenta, antepartum July 14, 2025 12:52pm Anemia in July 30, 2025 2:14pm Cystic fibrosis carrier July 30, 2025 2:14pm History of anxiety July 30, 2025 2:14pm Marijuana use July 30, 2025 2:14pm Migraines July 30, 2025 2:14pm Obesity affecting July [id number] 2:14pm Palpitation July 30, 2025 2:14pm July 30, 2025 2:14pm Supervision of high-risk [facility] 2024 2:14pm Chief Complaint Admit Date 16 wk ob April 15, 2025 1:33 pm 20 wk ob May 12, 2025 1:29p m 24 wk ob June 12, 2025 10: 58am 28 WK 4 D/GLUCOSE July 14, 2025 12:52pm 30 WK 6 DAYS July 30, 2025 2:14pm 32 WK 6 DAYS August 13, 2025 1: 23pm Reason for Visit Admit Date Cystic fibrosis carrier April 15, 2025 1:33pm History of anxiety April 15, 2025 1:33 pm Marijuana use April 15, 2025 1:33 pm Obesity affecting April 15, 2 025 1:33pm April 15, 2025 1:33 pm Supervision of high-risk April 15, 2025 1:33pm Cystic fibrosis carrier May 12, 2025 1 :29pm History of anxiety May 12, 2025 1:29p m Marijuana use May 12, 2025 1:29p m Migraines May 12, 2025 1:29p m Obesity affecting May 12 1:29pm May 12, 2025 1:29p m Supervision of high-risk May 12, 2025 1:29pm Cystic fibrosis carrier June 12, 2025 10:58am History of anxiety June 12, 2025 10: 58am Marijuana use June 12, 2025 10: 58am Migraines June 12, 2025 10: 58am Obesity affecting June 12, 2025 10:58am June 12, 2025 10: 58am Supervision of high-risk [facility] 2024 10:58am Low lying placenta, antepartum June 10:58am Cystic fibrosis carrier July 14 12:52pm History of anxiety July 14, 2025 12:52pm Marijuana use July 14, 2025 12:52pm Obesity affecting July 12:52pm July 14, 2025 12:52pm Supervision of high-risk [facility] 2024 12:52pm Low lying placenta, antepartum July 14, 2025 12:52pm Anemia in July 30, 2025 2:14pm Cystic fibrosis carrier July 30, 2025 2:14pm History of anxiety July 30, 2025 2:14pm Marijuana use July 30, 2025 2:14pm Migraines July 30, 2025 2:14pm Obesity affecting July [id number] 2:14pm Palpitation July 30, 2025 2:14pm July 30, 2025 2:14pm Supervision of high-risk [facility] 2024 2:14pm Anemia in August 13, 2025 1: 23pm Cystic fibrosis carrier August 13 1:23pm History of anxiety August 13, 2025 1: 23pm Marijuana use August 13, 2025 1: 23pm Migraines August 13, 2025 1: 23pm Obesity affecting August 13, 2025 1:23pm Palpitation August 13, 2025 1: 23pm August 13, 2025 1: 23pm Supervision of high-risk [facility] 2024 1:23pm Chief Complaint Admit Date 24 wk ob June 12, 2025 10: 58am 28 WK 4 D/GLUCOSE July 14, 2025 12:52pm 30 WK 6 DAYS July 30, 2025 2:14pm 32 WK 6 DAYS August 13, 2025 1: 23pm PALPITATIONS August 19, 2025 1 :41pm PALPITATIONS August 19, 2025 2 :04pm 34 WK 6 DAYS August 27, 2025 2 :23pm [email or web address] ob August 19, 2025 2 :04pm DECREASED MOVEMENT September 07, 2 025 2:03pm [email or web address] ob September 08, 2025 1 :29pm DECREASED MOVEMENT September 08, 2 025 9:50pm Reason for Visit Admit Date Cystic fibrosis carrier June 12, 2025 10:58am History of anxiety June 12, 2025 10: 58am Marijuana use June 12, 2025 10: 58am Migraines June 12, 2025 10: 58am Obesity affecting June 12, 2025 10:58am June 12, 2025 10: 58am Supervision of high-risk [facility] 2024 10:58am Low lying placenta, antepartum June 10:58am Cystic fibrosis carrier July 14 025 12:52pm History of anxiety July 14, 2025 12:52pm Marijuana use July 14, 2025 12:52pm Obesity affecting July 12:52pm July 14, 2025 12:52pm [facility] 2024 12:52pm Low lying placenta, antepartum July 14, 2025 12:52pm Anemia in July 30, 2025 2:14pm Cystic fibrosis carrier July 30, 2025 2:14pm History of anxiety July 30, 2025 2:14pm Marijuana use July 30, 2025 2:14pm Migraines July 30, 2025 2:14pm Obesity affecting July [id number] 2:14pm Palpitation July 30, 2025 2:14pm July 30, 2025 2:14pm Supervision of high-risk [facility] 2024 2:14pm Anemia in August 13, 2025 1: 23pm Cystic fibrosis carrier August 13 1:23pm History of anxiety August 13, 2025 1: 23pm Marijuana use August 13, 2025 1: 23pm Migraines August 13, 2025 1: 23pm Obesity affecting August 13, 2025 1:23pm Palpitation August 13, 2025 1: 23pm August 13, 2025 1: 23pm Supervision of high-risk [facility] 2024 1:23pm Anemia in August 27, 2025 2 :23pm Cystic fibrosis carrier August 27 2:23pm History of anxiety August 27, 2025 2 :23pm Marijuana use August 27, 2025 2 :23pm Migraines August 27, 2025 2 :23pm Obesity affecting August 2:23pm Palpitation August 27, 2025 2 :23pm August 27, 2025 2 :23pm Supervision of high-risk [facility] 2024 2:23pm Anemia in September 08, 2025 1 :29pm Cystic fibrosis carrier September 08 1:29pm History of anxiety September 08, 2025 1 :29pm Marijuana use September 08, 2025 1 :29pm Migraines September 08, 2025 1 :29pm Obesity affecting September 1:29pm Palpitation September 08, 2025 1 :29pm September 08, 2025 1 :29pm Supervision of high-risk N[facility] 2024 1:29pm Additional Source Comments INFORMATION SOURCE (unrecogn ized section and content) DATE CREATED AUTHOR 09/01/2020 [facility] DATE CREATED AUTHOR AUTHOR'S ORGANIZ ATION 03/13/2025 [facility] DATE CREATED AUTHOR AUTHOR'S ORGANIZ ATION 07/16/2025 [facility] DATE CREATED AUTHOR AUTHOR'S ORGANIZ ATION 09/17/2025 [facility] Goals (unrecognized section and content) Type Care Experience svdLabor Preferences -CB/BF classes: encouragedlabor support person: Mushtaq intervention preferences: []pain management options preferred: wants limited but ok w epiduralcut cord/dad catch: yesbreastfeeding: yesPP control planned: discusseddiscussed possible routes of delivery and associated risks: []special requests: [] Reason for Visit (unrecogniz ed section and content) Reason Comments Medication Refill Care Teams (unrecognized sec tion and content) Financial Sales Advisor Relationship Specialty Start Date End Date No, Physician [facility] PCP - General 07/14/20 08/09/20 Yeny Julien DO [address] [place] [address] [place] [address] PCP - General Family Medicine 08/10/20 Team Status: Active Member Role Status Dates Dr. Deanna Lozada MD Family Provider Active Dr. Deanna Lozada MD Primary Care Provider Active Team Status: Inactive Member Role Status Dates Dr. Deanna Lozada MD Primary Care Provider, Referring Provider Active Benja ALEX PA Attending Provider Active Team Status: Inactive Member Role Status Dates Dr. Deanna Lozada MD Primary Care Provider Active Benja ALEX PA Attending Provider Active Team Status: Active Member Role Status Dates Joyce Lagos , OFFICE ASSISTANT-C Primary Care Provider Active Team Status: Inactive Member Role Status Dates Joyce Lagos , OFFICE ASSISTANT-C Primary Care Provider Active Start: February 14, 2025 End: February 14, 2025 Joyce Francis Lagos , OFFICE ASSISTANT-C Referring Provider Active St art: February 14, 2025 End: February 14, 2025 Dr. Kayleigh Brian MD Attending Provider Active Start: February 14, 2025 End: February 14, 2025 Team Status: Active Member Role Status Dates Joyce Lagos , OFFICE ASSISTANT-C Primary Care Provider Active Start: February 14, 2025 Paula Cobos RN Attending Provider Active St art: February 14, 2025 Team Status: Inactive Member Role Status Dates Joyce Francis Lagos , OFFICE ASSISTANT-C Primary Care Provider Active Start: February 24, 2025 End: February 24, 2025 Joyce Francis Lagos , OFFICE ASSISTANT-C Referring Provider Active St art: February 24, 2025 End: February 24, 2025 Dr. Viktoria Longoria DO Attending Provider Activ e Start: February 24, 2025 End: February 24, 2025 Team Status: Inactive Member Role Status Dates Joyce Francis Lagos , OFFICE ASSISTANT-C Primary Care Provider Active Start: February 24, 2025 End: February 24, 2025 Dr. Viktoria Longoria DO Attending Provider Activ e Start: February 24, 2025 End: February 24, 2025 Dr. Viktoria Longoria DO Referring Provider Activ e Start: February 24, 2025 End: February 24, 2025 Team Status: Inactive Member Role Status Dates Joyce Francis Lagos , OFFICE ASSISTANT-C Primary Care Provider Active Start: March 20, 2025 End: March 20, 2025 Joyce Lagos , OFFICE ASSISTANT-C Referring Provider Active St art: March 20, 2025 End: March 20, 2025 Dr. Kayleigh Brian MD Attending Provider Active Start: March 20, 2025 End: March 20, 2025 Team Status: Active Member Role Status Dates Joyce Lagos , OFFICE ASSISTANT-C Primary Care Provider Active Start: March 20, 2025 Dr. Kayleigh Brian MD Attending Provider Active Start: March 20, 2025 Dr. Kayleigh Brian MD Referring Provider Active Start: March 20, 2025 Team Status: Inactive Member Role Status Dates Joyce Lagos , OFFICE ASSISTANT-C Primary Care Provider Active Start: March 20, 2025 End: March 20, 2025 Dr. Kayleigh Brian MD Attending Provider Active Start: March 20, 2025 End: March 20, 2025 Dr. Kayleigh Brian MD Referring Provider Active Start: March 20, 2025 End: March 20, 2025 Team Status: Inactive Member Role Status Dates Joyce Francis Lagos , OFFICE ASSISTANT-C Primary Care Provider Active Start: April 15, 2025 End: April 15, 2025 Joyce Lagos , OFFICE ASSISTANT-C Referring Provider Active St art: April 15, 2025 End: April 15, 2025 Xin Otero NP, OFFICE ASSISTANT-C Attending Provider Active Start: April 15, 2025 End: April 15, 2025 Team Status: Active Member Role/Relationship Status Dates Joyce Francis Lagos , OFFICE ASSISTANT-C Primary Care Provider Active Team Status: Inactive Member Role/Relationship Status Dates Joyce Francis Lagos , OFFICE ASSISTANT-C Primary Care Provider Active Start: February 14, 2025 End: February 14, 2025 Joyce Lagos , OFFICE ASSISTANT-C Referring Provider Active St art: February 14, 2025 End: February 14, 2025 Dr. Kayleigh Brian MD Attending Provider Active Start: February 14, 2025 End: February 14, 2025 Team Status: Active Member Role/Relationship Status Dates Joyce Lagos , OFFICE ASSISTANT-C Primary Care Provider Active Start: February 14, 2025 Paula Cobos RN Attending Provider Active St art: February 14, 2025 Team Status: Inactive Member Role/Relationship Status Dates Joyce Francis Lagos , OFFICE ASSISTANT-C Primary Care Provider Active Start: February 24, 2025 End: February 24, 2025 Joyce Lagos , OFFICE ASSISTANT-C Referring Provider Active St art: February 24, 2025 End: February 24, 2025 Dr. Viktoria Longoria DO Attending Provider Activ e Start: February 24, 2025 End: February 24, 2025 Team Status: Inactive Member Role/Relationship Status Dates Joyce Francis Lagos , OFFICE ASSISTANT-C Primary Care Provider Active Start: February 24, 2025 End: February 24, 2025 Dr. Viktoria Longoria DO Attending Provider Activ e Start: February 24, 2025 End: February 24, 2025 Dr. Viktoria Longoria DO Referring Provider Activ e Start: February 24, 2025 End: February 24, 2025 Team Status: Inactive Member Role/Relationship Status Dates Joyce Francis Lagos , OFFICE ASSISTANT-C Primary Care Provider Active Start: March 20, 2025 End: March 20, 2025 Joyce Lagos , OFFICE ASSISTANT-C Referring Provider Active St art: March 20, 2025 End: March 20, 2025 Dr. Kayleigh Brian MD Attending Provider Active Start: March 20, 2025 End: March 20, 2025 Team Status: Inactive Member Role/Relationship Status Dates Joyce Lagos , OFFICE ASSISTANT-C Primary Care Provider Active Start: March 20, 2025 End: March 20, 2025 Dr. Kayleigh Brian MD Attending Provider Active Start: March 20, 2025 End: March 20, 2025 Dr. Kayleigh Brian MD Referring Provider Active Start: March 20, 2025 End: March 20, 2025 Team Status: Inactive Member Role/Relationship Status Dates Joyce Francis Lagos , OFFICE ASSISTANT-C Primary Care Provider Active Start: April 15, 2025 End: April 15, 2025 Joyce Lagos , OFFICE ASSISTANT-C Referring Provider Active St art: April 15, 2025 End: April 15, 2025 Xin Otero NP, OFFICE ASSISTANT-C Attending Provider Active Start: April 15, 2025 End: April 15, 2025 Team Status: Inactive Member Role/Relationship Status Dates Joyce Francis Lagos , OFFICE ASSISTANT-C Primary Care Provider Active Start: May 12, 2025 End: May 12, 2025 Joyce D Demond , OFFICE ASSISTANT-C Referring Provider Active St art: May 12, 2025 End: May 12, 2025 Jeannine Gunn CNM Attending Provider Active S tart: May 12, 2025 End: May 12, 2025 Team Status: Inactive Member Role/Relationship Status Dates Joyce D Demond , OFFICE ASSISTANT-C Primary Care Provider Active Start: June 12, 2025 End: June 12, 2025 Joyce D Demond , OFFICE ASSISTANT-C Referring Provider Active St art: June 12, 2025 End: June 12, 2025 Dr. Viktoria Longoria DO Attending Provider Activ e Start: June 12, 2025 End: June 12, 2025 Team Status: Active Member Role/Relationship Status Dates No Primary Care Physician Primary Care Provider Active Team Status: Inactive Member Role/Relationship Status Dates Joyce D Demond , OFFICE ASSISTANT-C Primary Care Provider Active Start: March 20, 2025 End: March 20, 2025 Joyce Francis Lagos , OFFICE ASSISTANT-C Referring Provider Active St art: March 20, 2025 End: March 20, 2025 Dr. Kayleigh Brain MD Attending Provider Active Start: March 20, 2025 End: March 20, 2025 Team Status: Inactive Member Role/Relationship Status Dates Joyce D Demond , OFFICE ASSISTANT-C Primary Care Provider Active Start: March 20, 2025 End: March 20, 2025 Dr. Kayleigh Brian MD Attending Provider Active Start: March 20, 2025 End: March 20, 2025 Dr. Kayleigh Brian MD Referring Provider Active Start: March 20, 2025 End: March 20, 2025 Team Status: Inactive Member Role/Relationship Status Dates Joyce D Demond , OFFICE ASSISTANT-C Primary Care Provider Active Start: April 15, 2025 End: April 15, 2025 Joyce D Demond , OFFICE ASSISTANT-C Referring Provider Active St art: April 15, 2025 End: April 15, 2025 Xin Otero NP, OFFICE ASSISTANT-C Attending Provider Active Start: April 15, 2025 End: April 15, 2025 Team Status: Inactive Member Role/Relationship Status Dates Joyce D Demond , OFFICE ASSISTANT-C Primary Care Provider Active Start: May 12, 2025 End: May 12, 2025 Joyce Lagos , OFFICE ASSISTANT-C Referring Provider Active St art: May 12, 2025 End: May 12, 2025 Jeannine Gunn CNM Attending Provider Active S tart: May 12, 2025 End: May 12, 2025 Team Status: Inactive Member Role/Relationship Status Dates Joyce Lagos , OFFICE ASSISTANT-C Primary Care Provider Active Start: June 12, 2025 End: June 12, 2025 Joyce Lagos , OFFICE ASSISTANT-C Referring Provider Active St art: June 12, 2025 End: June 12, 2025 Dr. Viktoria Longoria , DO Attending Provider Activ e Start: June 12, 2025 End: June 12, 2025 Team Status: Inactive Member Role/Relationship Status Dates Joyce Lagos , OFFICE ASSISTANT-C Referring Provider Active St art: July 14, 2025 End: July 14, 2025 Xin Otero OFFICE ASSISTANT, OFFICE ASSISTANT-C Attending Provider Active Start: July 14, 2025 End: July 14, 2025 No Primary Care Physician Primary Care Provider Active Start: July 14, 2025 End: July 14, 2025 Team Status: Active Member Role/Relationship Status Dates No Primary Care Physician Primary Care Provider Active Start: July 14, 2025 Xin Otero OFFICE ASSISTANT, OFFICE ASSISTANT-C Attending Provider Active Start: July 14, 2025 Team Status: Inactive Member Role/Relationship Status Dates Joyce Lagos , OFFICE ASSISTANT-C Primary Care Provider Active Start: April 15, 2025 End: April 15, 2025 Joyce Lagos , OFFICE ASSISTANT-C Referring Provider Active St art: April 15, 2025 End: April 15, 2025 Xin Otero OFFICE ASSISTANT, OFFICE ASSISTANT-C Attending Provider Active Start: April 15, 2025 End: April 15, 2025 Team Status: Inactive Member Role/Relationship Status Dates Joyce Lagos , OFFICE ASSISTANT-C Primary Care Provider Active Start: May 12, 2025 End: May 12, 2025 Joyce Lagos , OFFICE ASSISTANT-C Referring Provider Active St art: May 12, 2025 End: May 12, 2025 Jeannine Gunn CNM Attending Provider Active S tart: May 12, 2025 End: May 12, 2025 Team Status: Inactive Member Role/Relationship Status Dates Joyce Lagos , OFFICE ASSISTANT-C Primary Care Provider Active Start: June 12, 2025 End: June 12, 2025 Joyce Lagos , OFFICE ASSISTANT-C Referring Provider Active St art: June 12, 2025 End: June 12, 2025 Dr. Viktoria Longoria DO Attending Provider Activ e Start: June 12, 2025 End: June 12, 2025 Team Status: Inactive Member Role/Relationship Status Dates Joyce Lagos , OFFICE ASSISTANT-C Referring Provider Active St art: July 14, 2025 End: July 14, 2025 Xin Otero OFFICE ASSISTANT, OFFICE ASSISTANT-C Attending Provider Active Start: July 14, 2025 End: July 14, 2025 No Primary Care Physician Primary Care Provider Active Start: July 14, 2025 End: July 14, 2025 Team Status: Inactive Member Role/Relationship Status Dates No Primary Care Physician Primary Care Provider Active Start: July 14, 2025 End: July 14, 2025 Xin Otero NP, OFFICE ASSISTANT-C Attending Provider Active Start: July 14, 2025 End: July 14, 2025 Team Status: Active Member Role/Relationship Status Dates No Primary Care Physician Primary care physician Activ e Team Status: Inactive Member Role/Relationship Status Dates Joyce Lagos OFFICE ASSISTANT-C Primary care physician Active Start: April 15, 2025 End: April 15, 2025 Joyce Lagos , OFFICE ASSISTANT-C Referring Provider Active St art: April 15, 2025 End: April 15, 2025 Xin Otero NP, OFFICE ASSISTANT-C Attending physician Active Start: April 15, 2025 End: April 15, 2025 Team Status: Inactive Member Role/Relationship Status Dates Joyce Lagos , OFFICE ASSISTANT-C Primary care physician Active Start: May 12, 2025 End: May 12, 2025 Joyce Lagos OFFICE ASSISTANT-C Referring Provider Active St art: May 12, 2025 End: May 12, 2025 Jeannine Gunn CNM Attending physician Active Start: May 12, 2025 End: May 12, 2025 Team Status: Inactive Member Role/Relationship Status Dates Joyce Lagos , OFFICE ASSISTANT-C Primary care physician Active Start: June 12, 2025 End: June 12, 2025 Joyce Lagos , OFFICE ASSISTANT-C Referring Provider Active St art: June 12, 2025 End: June 12, 2025 Dr. Viktoria Longoria DO Attending physician Acti ve Start: June 12, 2025 End: June 12, 2025 Team Status: Inactive Member Role/Relationship Status Dates Joyce Lagos , OFFICE ASSISTANT-C Referring Provider Active St art: July 14, 2025 End: July 14, 2025 Xin Otero NP, OFFICE ASSISTANT-C Attending physician Active Start: July 14, 2025 End: July 14, 2025 No Primary Care Physician Primary care physician Activ e Start: July 14, 2025 End: July 14, 2025 Team Status: Inactive Member Role/Relationship Status Dates No Primary Care Physician Primary care physician Activ e Start: July 14, 2025 End: July 14, 2025 Xin Otero NP, OFFICE ASSISTANT-C Attending physician Active Start: July 14, 2025 End: July 14, 2025 Team Status: Inactive Member Role/Relationship Status Dates Joyce Lagos OFFICE ASSISTANT-C Referring Provider Active St art: July 30, 2025 End: July 30, 2025 Dr. Kayleigh Brian MD Attending physician Active Start: July 30, 2025 End: July 30, 2025 No Primary Care Physician Primary care physician Activ e Start: July 30, 2025 End: July 30, 2025 Team Status: Inactive Member Role/Relationship Status Dates No Primary Care Physician Primary care physician Activ e Start: August 13, 2025 End: August 13, 2025 No Primary Care Physician Referring Provider Active Start: August 13, 2025 End: August 13, 2025 Xin Otero NP, OFFICE ASSISTANT-C Attending physician Active Start: August 13, 2025 End: August 13, 2025 Team Status: Inactive Member Role/Relationship Status Dates Joyce Lagos , OFFICE ASSISTANT-C Primary care physician Active Start: June 12, 2025 End: June 12, 2025 Joyce Lagos OFFICE ASSISTANT-C Referring Provider Active St art: June 12, 2025 End: June 12, 2025 Dr. Viktoria Longoria DO Attending physician Acti ve Start: June 12, 2025 End: June 12, 2025 Team Status: Inactive Member Role/Relationship Status Dates Joyce Lagos OFFICE ASSISTANT-C Referring Provider Active St art: July 14, 2025 End: July 14, 2025 Xin Otero NP, OFFICE ASSISTANT-C Attending physician Active Start: July 14, 2025 End: July 14, 2025 No Primary Care Physician Primary care physician Activ e Start: July 14, 2025 End: July 14, 2025 Team Status: Inactive Member Role/Relationship Status Dates No Primary Care Physician Primary care physician Activ e Start: July 14, 2025 End: July 14, 2025 Xin Otero OFFICE ASSISTANT, OFFICE ASSISTANT-C Attending physician Active Start: July 14, 2025 End: July 14, 2025 Team Status: Inactive Member Role/Relationship Status Dates Joyce Lagos OFFICE ASSISTANT-C Referring Provider Active St art: July 30, 2025 End: July 30, 2025 Dr. Kayleigh Brian MD Attending physician Active Start: July 30, 2025 End: July 30, 2025 No Primary Care Physician Primary care physician Activ e Start: July 30, 2025 End: July 30, 2025 Team Status: Inactive Member Role/Relationship Status Dates No Primary Care Physician Primary care physician Activ e Start: August 13, 2025 End: August 13, 2025 No Primary Care Physician Referring Provider Active Start: August 13, 2025 End: August 13, 2025 Xin Otero OFFICE ASSISTANT, OFFICE ASSISTANT-C Attending physician Active Start: August 13, 2025 End: August 13, 2025 Team Status: Inactive Member Role/Relationship Status Dates No Primary Care Physician Primary care physician Activ e Start: August 19, 2025 End: August 19, 2025 Xin Otero OFFICE ASSISTANT, OFFICE ASSISTANT-C Attending physician Active Start: August 19, 2025 End: August 19, 2025 Xin Otero OFFICE ASSISTANT, OFFICE ASSISTANT-C Referring Provider Active Start: August 19, 2025 End: August 19, 2025 Team Status: Active Member Role/Relationship Status Dates No Primary Care Physician Primary care physician Activ e Start: August 19, 2025 Dr. Seth Dominguez MD Attending physician Active Start: August 19, 2025 Xin Otero OFFICE ASSISTANT, OFFICE ASSISTANT-C Referring Provider Active Start: August 19, 2025 Team Status: Inactive Member Role/Relationship Status Dates No Primary Care Physician Primary care physician Activ e Start: August 27, 2025 End: August 27, 2025 No Primary Care Physician Referring Provider Active Start: August 27, 2025 End: August 27, 2025 Dr. Kayleigh Brian MD Attending physician Active Start: August 27, 2025 End: August 27, 2025 Team Status: Active Member Role/Relationship Status Dates No Primary Care Physician Primary care physician Activ e Start: September 07, 2025 End: September 08, 2025 No Primary Care Physician Referring Provider Active Start: September 07, 2025 End: September 08, 2025 Jeannine Gunn CNM Attending physician Active Start: September 07, 2025 End: September 08, 2025 Team Status: Inactive Member Role/Relationship Status Dates No Primary Care Physician Primary care physician Activ e Start: September 07, 2025 End: September 07, 2025 Dr. Kayleigh Brian MD Attending physician Active Start: September 07, 2025 End: September 07, 2025 Dr. Kayleigh Brian MD Referring Provider Active Start: September 07, 2025 End: September 07, 2025 Team Status: Inactive Member Role/Relationship Status Dates No Primary Care Physician Primary care physician Activ e Start: September 08, 2025 End: September 08, 2025 No Primary Care Physician Referring Provider Active Start: September 08, 2025 End: September 08, 2025 Jeannine Gunn CNM Attending physician Active Start: September 08, 2025 End: September 08, 2025 Team Status: Inactive Member Role/Relationship Status Dates No Primary Care Physician Primary care physician Activ e Start: September 08, 2025 End: September 08, 2025 Jeannine Gunn CNM Attending physician Active Start: September 08, 2025 End: September 08, 2025 Team Status: Active Member Role/Relationship Status Dates No Primary Care Physician Primary care physician Activ e Start: September 08, 2025 Dr. Kayleigh Brian MD Attending physician Active Start: September 08, 2025 Dr. Kayleigh Brian MD Referring Provider Active Start: September 08, 2025 Dr. Kayleigh Brian MD Nurse Practitioner Active Start: September 08, 2025 FOR RECORDS PERTAINING TO PATIENTS WHO ARE OR HAVE BEEN ENROLLED IN A CHEMICAL DEPENDENCY/SUBSTANCEABUSE PROGRAM, SOME INFORMATION MAY BE OMITTED. This clinical summary was aggregated from multiple sources. Caution should be exercised in using it in the provision of clinical care. This summary normalizes information from multiple sources, and as a consequence, information in this document may materially change the coding, format and clinical context of patient data. In addition, data may be omitted in some cases. CLINICAL DECISIONS SHOULD BE BASED ON THE PRIMARY CLINICAL RECORDS. [employer] provides no warranty or guarantee of the accuracy or completeness of information in this document.
[2025-09-20 12:50] VITALS: BP 122/63; PULSE 108; RESP 16; TEMP 36.4; O2SAT 96
[2025-09-20 13:23] VITALS: BMI 45.6
--- NOTE | 2025-09-20 13:35 | OB.TRI.PN_ITS ---
Progress Notes Date of Service: 09/20/25 Progress Note: Patient presents for triage evaluation secondary to scheduled NST at 38 weeks. FHT: 120 Moderate variability reactive no decelerations category I tracing [place]: no Contractions Assessment and plan: Reactive NST, reassuring maternal and status patient discharged to home to follow-up in offe. See problem list details for additional plan information. 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 FOB drawn 04/15/25: (5) Obesity affecting : QUALIFIERS: Trimester: second trimester Obesity type affecting : unspecified obesity Qualified Code(s): O99.212 - Obesity co mplicating , second trimester COMMENT: BMI 31.7 - HgBA1C ordered w/NOB- excessive weight gain in . recommend weekly nsts. growth scan ordered (6) Supervision of high-risk : QUALIFIERS: Trimester: third trimester Qualified Code(s): O09.93 - Supervision of high risk , unspecified, third trimester COMMENT: PRR G1, EMMANUEL 10/02/25, girl [facility] : Eulalio (7) : QUALIFIERS: Weeks of gestation: 38 weeks Qualified Code(s): Z3A.38 - 38 weeks gestation of COMMENT: NIPT low risk, carrier neg. 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 (8) History of anxiety: COMMENT: In college - on Lexapro 2018, counseling 2022 (9) Marijuana use: COMMENT: Last use 2022 - random tx screen ordered (10) Migraines: QUALIFIERS: Migraine type: unspecified Status migrainosus presence: without status migrainosus Intractability: not intractable Qualified Code(s): G43.909 - Migraine, unspecified, not intractable, without status migrainosus COMMENT: on Sumatriptan - last use 02/05
== END 2025-09-20 13:22 | disposition home or self-care (01) ==
LOC: WPOUT 12:31 → WP 12:57
PROVIDERS: Visit Provider Advanced Practice Midwife
DX: O98.813 Other maternal infectious and parasitic diseases complicating pregnancy, third trimester (principal); B95.1 Streptococcus, group B, as the cause of diseases classified elsewhere; Z3A.38 38 weeks gestation of pregnancy; O99.013 Anemia complicating pregnancy, third trimester; O99.891 Other specified diseases and conditions complicating pregnancy; R00.2 Palpitations; Z14.1 Cystic fibrosis carrier; O99.213 Obesity complicating pregnancy, third trimester; O09.93 Supervision of high risk pregnancy, unspecified, third trimester
CPT/HCPCS: 59025; 99221; G0378

== ENCOUNTER → 2025-09-24 | Outpatient (CLI) | payer OTHER, SELFPAY ==
[2025-09-24 15:03] LABS: Hematocrit 31.9 % (37-47); Hemoglobin 10.1 g/dL (12.0-15.0); Immature Granulocytes Count 0.060 X10^3/uL (0.0-0.0); Mean Corp Hgb Conc 31.7 g/dL (32-36); Mean Corpuscular Volume 88.1 fL (81-99); Mean Platelet Vol. 10.3 fl (6.2-12.0); NRBC Flagged by Analyzer 0 % (0-5); Platelet Count 288 K/mm3 (150-450); RBC Distribution Width CV 14.2 % (11.6-14.6); RBC Distribution Width SD 45.1 fl (35.1-43.9); Red Blood Count 3.62 M/mm3 (4.2-5.4); White Blood Count 11.7 K/mm3 (4.4-11.0)
[2025-09-24 15:26] LABS: AST(SGOT) 15 U/L (<=31); Alanine Aminotransfer ALT/SGPT 10 U/L (<=34); Albumin, Serum 3.4 g/dL (3.5-5.0); Alkaline Phosphatase 120 U/L (35-104); Anion Gap 12 (5-15); BUN 4 mg/dL (4-19); BUN/Creat Ratio 8.0 RATIO (10-20); Calcium,Total 8.9 mg/dL (7.6-11.0); Carbon Dioxide 21.2 mmol/L (21.0-32.0); Chloride 103 mmol/L (98-108); Globulin 3.2 g/dL (2.2-4.2); Glucose 111 mg/dL (70-99); Potassium 3.8 mmol/L (3.3-5.1)
[2025-09-24 15:29] LABS: Creatinine, Urine (random) 116.00 mg/dL (28.00-217.00); Protein, Urine (Random) 21.5 mg/dL (0.0-12.0); Protein:Creat Ratio 185 mg/g CRE (0-200)
== END | disposition home or self-care (01) ==
LOC: BWCLAB 14:48
PROVIDERS: Visit Provider Obstetrics & Gynecology
DX: O26.899 Other specified pregnancy related conditions, unspecified trimester (principal); R51.9 Headache, unspecified; Z3A.00 Weeks of gestation of pregnancy not specified
CPT/HCPCS: 36415; 80053; 82570; 84156; 85025

== ENCOUNTER → 2025-09-29 | Outpatient (CLI) | payer OTHER, SELFPAY ==
--- NOTE | 2025-09-29 10:53 | US_ITS ---
PROCEDURE: OB LIMITED WITH BIOMETRICS 09/29/2025 REASON FOR EXAM: EXCESSIVE WEIGHT GAIN IN TECHNIQUE: Procedure Code: [id number] Modality: US Procedure: OB LIMITED WITH BIOMETRICS COMPARISON: No prior. FINDINGS Number: 1 Position: Vertex Placental Position: Anterior and not low-lying Placental Abnormalities: No evidence of previa. DIMENSIONS: Biparietal Diameter: 9.4 cm: 38 weeks and 2 days: 53.5 percentile/ Head Circumference: 34.1 cm: 39 weeks and 2 days: 37 percentile/ Abdominal Circumference: 34.9 cm: 38 weeks and 6 days: 53rd percentile/ Femur Length: 7.9 cm: 40 weeks and 3 days: 79 percentile/ ESTIMATED WEIGHT: 3726 g plus/-459 g. 65.4 percentile ESTIMATED WEIGHT PERCENTILE (24+ weeks): 65.4% ESTIMATED GESTATIONAL AGE: Baseline: 39 weeks and 4 days By Ultrasound: 38 weeks and 5 days ESTIMATED DATE OF DELIVERY: Baseline: October 02, 2025 By Ultrasound: October 08, 2025. BIOPHYSICAL ASSESSMENT: Amniotic Fluid Volume: 6.3 cm Amniotic Fluid Index: 16 cm (8-24 cm normal range) Cardiac Motion: 140 beats per minute (average) Trunk and Limb Motion: Present. MATERNAL ANATOMY: Adnexa: Neither maternal ovary is successfully identified. US/OB Limited With Biometrics IMPRESSION: Single live intrauterine gestation with a mean gestational age of 38 weeks and 5 days. Reading Location: [place] [id number]
== END | disposition home or self-care (01) ==
LOC: US 10:48
PROVIDERS: Referring Provider Obstetrics & Gynecology; Visit Provider Obstetrics & Gynecology
DX: O99.212 Obesity complicating pregnancy, second trimester (principal); Z3A.00 Weeks of gestation of pregnancy not specified
CPT/HCPCS: 76816

== ENCOUNTER 2025-10-09 19:17 | Inpatient (IN) | payer OTHER, SELFPAY ==
--- OUTSIDE RECORDS SUMMARY | 2025-10-09 19:27 | XMS RPT_ITS | CCD ---
Author Organization [facility] Care Team Providers Care Supervisor Home Economics Name Role Phone NO, PHYSICIAN Primary Care Unavailable YENY JULIEN Attending Unavailab ad JULIEN, YENY SMITH Primary Care Unavailab ad JULIEN, YENY SMITH Attending Unavailab ad JULIEN, YENY SMITH Primary Care Unavailab YENY Baker Attending Unavailab ad GUZMAN, PHYSICIAN Primary Care Unavailable YENY JULIEN Attending Unavailab Dr. Deanna Jung Primary Care Provider Dr. Deanna Lozada Referring Provider [place] LAY OUT AND DETAIL DRAFTER, LAY OUT AND DETAIL DRAFTER-C Xin Attending Provider No, Physician Primary Care Provider UnavailYeny Vicente DO Primary Care Provider Dr. Deanna Lozada Primary Care Provider Dr. Deanna Lozada Referring Provider Cyndi ALEX, ABI Cardenas Attending Provider NONE, XXXX Primary Care Physician Unavailab Nathan Perez Admitting Unavailable Nathan Kilgore Attending Unavailable Nathan Kilgore Attending Unavailable Demond ZUÑIGA-Joyce Frost Primary Care Provider Joyce Gaines Referring Provider [phone] Mary REECE, Dr. Victor Attending Provider Paula Cobos RN Attending Provider UnavailDr. Viktoria Mcconnell DO Attending Provider Dr. Viktoria Longoria DO Referring Provider Dr. Kayleigh Brian MD Referring Provider Xin Magdaleno Attending Provider [phone] Jeannine Gunn CNM Attending Provider [phone] [place] LAY OUT AND DETAIL DRAFTER-C, Joyce D Primary Care Provider [place] LAY OUT AND DETAIL DRAFTER-C, Joyce D Referring Provider Mary REECE, Dr. Victor Attending Provider [phone] Dr. Viktoria Longoria DO Attending Provider Care Physician, No Primary Primary Care Provider Unavailable KAYLEIGH BRIAN Referring Unavailabl e KAYLEIGH BRIAN Attending Unavailart e NO PRIMARY CARE, MD Primary Care Unavailable KAYLEIGH BRIAN Referring Unavailabl e NO PRIMARY CARE, MD Primary Care Unavailable PASCUAL KIRKLAND Attending Unavailable KAYLEIGH BRIAN Referring Unavailabl e NO PRIMARY CARE, Primary Care Unavailable BALAJI JERRY Attending Unavailable [place] LAY OUT AND DETAIL DRAFTER-C, Joyce D Primary Care Provider [place] LAY OUT AND DETAIL DRAFTER-C, Joyce D Referring Provider [place] LAY OUT AND DETAIL DRAFTER-C, Joyce D Primary Care Physician Xin Magdaleno [...] Physician, No Primary Primary Care Unava ilable [place] LAY OUT AND DETAIL DRAFTER, Xin Attending Unavailable [place], Joyce D Referring Unavailable Shanna LAY OUT AND DETAIL DRAFTER, Xin Attending Unavailable [place], Joyce D Primary [...] Physician, No Primary Primary Care Unava ilable [place] LAY OUT AND DETAIL DRAFTER, Xin Referring Unavailable Shanna LAY OUT AND DETAIL DRAFTER, Xin Attending Unavailable Care Physician, No Primary Primary Care Unava ilable [place] LAY OUT AND DETAIL DRAFTER, Xin Attending Unavailable Care Physician, No Primary Referring Unava ilable Care Physician, No Primary Primary Care Unava ilable [place] LAY OUT AND DETAIL DRAFTER, Xin Attending Unavailable Care Physician, No Primary Primary Care Unava ilable [place], Joyce D Referring Unavailable Kayleigh Brian Attending Unavailable Care Physician, No Primary Primary Care Unava ilable Care Physician, No Primary Referring Unava ilable Kayleigh Brian Attending Unavailable Demond ZUÑIGA-CJoyce Primary Care Physician Demond ZUÑIGA-CJoyce Referring Provider [phone] Dr. Viktoria Longoria DO Attending Physician Xin [...] Provider Mary REECE, Dr. Victor Nurse Practitioner Allergies Allergy Classification Reported Allergen(s) Allergy Type Date of Onset Reaction(s) Facility (12 sources) cat dander; Translations: [cat dander] Allergy to substance 3 Other [facility] Comment on above: Sneezing, itchy eyes (12 sources) Seasonal Allergies: Uncoded; Translations: [Seasonal Allergies: Uncoded] Allergy to substance 3 Other [facility] Comment on above: Sneezing, itchy eyes (1 source) No Known Medication Allergies; Translations: [No Known Medication Allergies] Propensity to adverse reactions (disorder) [facility] Repository Medications Current Medications Medication Drug [...] every six hours as needed for pain qbbzjjc-nwomtsmdcevsx-dzzwokcl (Excedrin Migraine) 250-250-65 mg per tablet Take [...] 10, 2021 10:57am 21 day ethinyl estradiol 0.576282 mg/hr / etonogestrel 0.005 mg/hr vaginal system [...] G1, EMMANUEL 10/02/25 , girl [facility] : Eulalio Other complications of (1 source) Supervision of [...] neg. 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 FOB needs screened also Xyyfe-yxahk-iar tz 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 FOB drawn 04/15/25: Residual [...] Comment on above: In college - [place], counseling 2022 Substance-related disorders (20 [...] Vancomycin Islt JOSE G 0.5 S Normal [facility] Comment on above: Performed By: #### M 100.340 ####[facility] [address] [place], [address] Laboratory - Chemistry and C hemistry - challengeOrdered By: Jeannine Gunn on 09-08-2025 Glucose Ql (U) Negative [facility] Laboratory - UrinalysisOrder ed By: Jeannine Gunn on 09-08-2025 Protein Ql (U) Negative [facility] OB Triage Progress Noteon OB Triage Progress Note [facility] Medical Records Department [address] [place] [address] OB Triage Progress Note 09/08/252149 MR#: [id number] Acct: [id number] Name: BRAYDEN CONNELLY Rep #: [id number] : 2000 25 From: Kayleigh Brian MD PCP: Care Physician,No Primary Status:DEP CLI Y DOS: Location: WPOUT Progress Notes Date of Service: 09/07/25 Progress Note: Patient presents for triage evaluation secondary to dec movement FHT: 140 Moderate variability reactive no decelerations category I tracing Wortham: no regular Contractions Assessment and plan: 36 weeks dec movememnt Reactive NST, reassuring maternal and status patient discharged to home to follow-up as scheduled. See problem list details for additional plan information. Charges/Coding Procedures Urinary/Genital 52xxx-59xxx: 97861-93 non-stress test Interp 09/08/252149 Date Kayleigh Brian MD Cosigner Signature (if applicable): Date __ CC: Dr. Kayleigh Brian MD; No Primary Care Physician Signed Normal [facility] Civil Engineering Manager Office Visit Reporton 09-08-2025 Civil Engineering Manager Office Visit Report [facility] [address], [address] [place] [address] OFFICE VISIT Date of Service: 09/08/25 MR#: [id number] Acct: [id number] Name: BRAYDEN CONNELLY Rep #: [id number] : 2000 Provider: JACK Christina ams Age/Sex: 25/F Location: [facility] [place] Status: Signed Intake Vital Signs 07/30/25 14:22 08/27/25 14:25 09/07/25 14:19 09/08/25 13:33 09/08/25 13:40 Height 5 ft 4 in 5 ft 4 in 5 ft 4 in 5 ft 4 in 5 ft 4 in Weight: 260 lb 2 oz BMI 44.6 BP 120/86 H Intake Visit Reasons: 36wk4d ob Intelligence Research Specialist Required: No Is patient in pain?: No [...] animals: cat(s) history of recent travel: Yes ([place] - December 2024 [place] - January 2025) out of state: Yes [...] 5-6 times per week duration: 15-30 minutes/day naina/church: Religious seatbelt use: always do you feel safe [...] vb c (more content not included)... Normal [facility] Screening beta-hemolytic Str eptococcus cultureOrdered By: Jeannine Gunn on 09-08-2025 Beta-hemolytic Streptococcus culture Streptococcus agalactiae (B) Abnormal [facility] Laboratory - Chemistry and C hemistry - challengeOrdered By: Kayleigh Brian on 08-27-2025 Glucose Ql (U) Negative [facility] Laboratory - UrinalysisOrder ed By: Kayleigh Brian on 08-27-2025 Protein Ql (U) Negative [facility] Civil Engineering Manager Office Visit Reporton 08-27-2025 Civil Engineering Manager Office Visit Report [facility], [address] [place] [address] OFFICE VISIT Date of Service: 08/27/25 MR#: [id number] Acct: [id number] Name: BRAYDEN CONNELLY Rep #: [id number] : 2000 Provider: Dr. Kayleigh holly MD Age/Sex: 25/F Location: [facility] [place] Status: Signed Intake Vital Signs 07/14/25 13:11 08/13/25 13:28 08/27/25 14:25 Height 5 ft 4 in 5 ft 4 in 5 ft 4 in Weight: 262 lb 3 oz BMI 45.0 BP 114/81 H Intake Visit Reasons: 34 WK 6 DAYS Intelligence Research Specialist Required: No Is patient in pain?: No [...] animals: cat(s) history of recent travel: Yes ([place] - December 2024 [place] - January 2025) out of state: Yes [...] 5-6 times per week duration: 15-30 minutes/day naina/church: Religious seatbelt use: always do you feel safe [...] amping 0 (more content not included)... Normal [facility] 12 Lead EKGon 08-19-2025 [address] [facility] Cardiovascular Services [address] [place] [address] 12 Lead EKG 08/19/25 1404 MR#: [id number] Acct: [id number] Name: BRAYDEN CONNELLY Rep #: [id number] : 2000 25 From: Seth Dominguez MD Attending Dr: Xin Otero, LAY OUT AND DETAIL DRAFTER-C Status: REG CLI Ordering Dr: Xin Otero LAY OUT AND DETAIL DRAFTER LAY OUT AND DETAIL DRAFTER-C Date: 08/19/25 Location: PSN Sex: F C [...] ECG Confirmed by SETH DOMINGUEZ MD ([id number]), rewrite editor BETH HOLLAND ([id number]) on 08/20/2025 7:12:23 AM Referred By: Xin Otero Confirmed By: SETH DOMINGUEZ MD 08/20/25 0712 Date Seth Dominguez MD CC: LAY OUT AND DETAIL DRAFTER-C Xin Otero; No Primary Care Physician Signed Normal [facility] Laboratory - Chemistry and C hemistry - challengeOrdered By: Xin Otero on 08-13-2025 Glucose Ql (U) Negative [facility] Laboratory - UrinalysisOrder ed By: Xin Otero on 08-13-2025 Protein Ql (U) Negative [facility] Civil Engineering Manager Office Visit Reporton 08-13-2025 Civil Engineering Manager Office Visit Report [facility] [address], [address] [place] [address] OFFICE VISIT Date of Service: 08/13/25 MR#: [id number] Acct: [id number] Name: BRAYDEN CONNELLY Rep #: [id number] : 2000 Provider: RAMILA eduardo Age/Sex: 25/F Location: [facility] [place] Status: Signed Intake Vital Signs 07/14/25 13:11 07/30/25 14:22 08/13/25 13:28 Height 5 ft 4 in 5 ft 4 in 5 ft 4 in Weight: 253 lb 5 oz BMI 43.4 BP 115/75 Intake Visit Reasons: 32 WK 6 DAYS Intelligence Research Specialist Required: No Is patient in pain?: No [...] animals: cat(s) history of recent travel: Yes ([place] - December 2024 [place] - January 2025) out of state: Yes [...] 5-6 times per week duration: 15-30 minutes/day naina/church: Religious seatbelt use: always do you feel safe [...] 04/15/25 -???-???-???-???-?? (more content not included)... Normal [facility] Laboratory - Chemistry and C hemistry - challengeOrdered By: Kayleigh Brian on 07-30-2025 Glucose Ql (U) Negative [facility] Laboratory - UrinalysisOrder ed By: Kayleigh Brian on 07-30-2025 Protein Ql (U) Negative [facility] Civil Engineering Manager Office Visit Reporton 07-30-2025 Civil Engineering Manager Office Visit Report [facility] [address], [address] [place] [address] OFFICE VISIT Date of Service: 07/30/25 MR#: [id number] Acct: [id number] Name: BRAYDEN CONNELLY Rep #: [id number] : 2000 Provider: Dr. Kayleigh holly MD Age/Sex: 25/F Location: [facility] [place] Status: Signed Intake Vital Signs 05/12/25 13:39 07/14/25 13:11 07/30/25 14:22 Height 5 ft 4 in 5 ft 4 in 5 ft 4 in Weight: 251 lb 3 oz BMI 43.1 BP 119/84 H Intake Visit Reasons: 30 WK 6 DAYS Chief Complaint: 30wk OB Intelligence Research Specialist Required: No Is patient in pain?: No [...] animals: cat(s) history of recent travel: Yes ([place] - December 2024 [place] - January 2025) out of state: Yes [...] 5-6 times per week duration: 15-30 minutes/day naina/church: Religious seatbelt use: always do you feel safe [...] ?-???-???-???-???-? ??-???-???- (more content not included)... Normal [facility] Absolute lymphocyte countOrd ered By: Viktoria Suazo on 07-14-2025 Lymphocytes Auto (Unsp spec) [#/Vol] 1.58 10*3/uL 0.83-4.51 [facility] Absolute neutrophil countOrd ered By: Viktoria Suazo on 07-14-2025 Neutrophils (Bld) [#/Vol] 10.7 10*3/uL High 2.0-7.7 [facility] Automated lymphocyte count a s percentage of total leukocytesOrdered By: Viktoria Suazo on 07-14-2025 Lymphocytes/100 WBC Auto (Unsp spec) 12.0 % Low 19-41 [facility] Basophil percentageOrdered B y: Viktoria Suazo on 07-14-2025 Basophils/100 WBC (Bld) 0.3 % 0-1 [facility] CBC W/Diff, Automatedon 09-0 Absolute Lymph 1.58 X10 3/uL Normal 0.83-4.51 [facility] Comment on above: Performed By: #### L 418.2207, L501.0250, L100.0100, L3890.6006 ####[facility] [address] [place], [address] Absolute Neut 10.7 X10 3/uL High 2.0-7.7 [facility] Comment on above: Performed By: #### L 509.8002, L501.0250, L100.0100, L3890.6006 ####[facility] [address] [place], [address] Basophils/100 WBC (Bld) 0.3 % Normal 0-1 [facility] Comment on above: Performed By: #### L 509.8002, L501.0250, L100.0100, L3890.6006 ####[facility] [address] [place], [address] Eosinophils/100 WBC (Bld) 1.8 % Normal 0-5 [facility] Comment on above: Performed By: #### L 509.8002, L501.0250, L100.0100, L3890.6006 ####[facility] [address] [place], [address] Erythrocyte distribution width (RBC) [Ratio] 12.9 % Normal 11.6-14.6 [facility] Comment on above: Performed By: #### L 509.8002, L501.0250, L100.0100, L3890.6006 ####[facility] [address] [place], [address] Hematocrit (Bld) [Volume fraction] 32.8 % Low 37-47 [facility] Comment on above: Performed By: #### L 509.8002, L501.0250, L100.0100, L3890.6006 ####[facility] [address] [place], [address] Hemoglobin (Bld) [Mass/Vol] 10.8 g/dL Low 12.0-15.0 [facility] Comment on above: Performed By: #### L 509.8002, L501.0250, L100.0100, L3890.6006 ####[facility] [address] [place], [address] IG% 0.500 Normal 0.0-0.9 [facility] Comment on above: Result Comment: IG% - Immature Granulocytes (promyelocytes, myelocytes and metamyelocytes) > 1% indicates that a LEFT SHIFT is Present. Performed By: #### L 509.8002, L501.0250, L100.0100, L3890.6006 ####[facility] [address] [place], [address] Lymphocytes/100 WBC (Bld) 12.0 % Low 19-41 [facility] Comment on above: Performed By: #### L 509.8002, L501.0250, L100.0100, L3890.6006 ####[facility] [address] [place], [address] MCH (RBC) [Entitic mass] 30.5 pg Normal 27.0-32.0 [facility] Comment on above: Performed By: #### L 509.8002, L501.0250, L100.0100, L3890.6006 ####[facility] [address] [place], [address] MCHC (RBC) [Mass/Vol] 32.9 g/dL Normal 32-36 [facility] Comment on above: Performed By: #### L 509.8002, L501.0250, L100.0100, L3890.6006 ####[facility] [address] [place], [address] MCV (RBC) [Entitic vol] 92.7 fL Normal 81-99 [facility] Comment on above: Performed By: #### L 509.8002, L501.0250, L100.0100, L3890.6006 ####[facility] [address] [place], [address] Monocytes/100 WBC (Bld) 4.4 % Normal 0-10 [facility] Comment on above: Performed By: #### L 509.8002, L501.0250, L100.0100, L3890.6006 ####[facility] [address] [place], [address] Neutrophils/100 WBC (Bld) 81.0 % High 47-70 [facility] Comment on above: Performed By: #### L 509.8002, L501.0250, L100.0100, L3890.6006 ####[facility] [address] [place], [address] Nucleated RBC (Bld) [#/Vol] 0 10*3/uL Normal 0-5 [facility] Comment on above: Performed By: #### L 509.8002, L501.0250, L100.0100, L3890.6006 ####[facility] [address] [place], [address] Platelet mean volume (Bld) [Entitic vol] 10.6 fL Normal 6.2-12.0 [facility] Comment on above: Performed By: #### L 509.8002, L501.0250, L100.0100, L3890.6006 ####[facility] [address] [place], [address] Platelets (Bld) [#/Vol] 295 10*3/uL Normal 150-450 [facility] Comment on above: Performed By: #### L 509.8002, L501.0250, L100.0100, L3890.6006 ####[facility] [address] [place], [address] RBC (Bld) [#/Vol] 3.54 10*6/uL Low 4.2-5.4 [facility] Comment on above: Performed By: #### L 509.8002, L501.0250, L100.0100, L3890.6006 ####[facility] [address] [place], [address] RDW SD 43.4 fl Normal 35.1-43.9 [facility] Comment on above: Performed By: #### L 509.8002, L501.0250, L100.0100, L3890.6006 ####[facility] [address] [place], [address] WBC (Bld) [#/Vol] 13.2 10*3/uL High 4.4-11.0 [facility] Comment on above: Performed By: #### L 509.8002, L501.0250, L100.0100, L3890.6006 ####[facility] [address] [place], [address] Eosinophil percentageOrdered By: Viktoria Suazo on 07-14-2025 Eosinophils/100 WBC (Bld) 1.8 % 0-5 [facility] Erythrocyte distribution wid th ratioOrdered By: Viktoria Suazo on 07-14-2025 Erythrocyte distribution width (RBC) [Ratio] 12.9 % 11.6-14.6 [facility] Erythrocyte distribution wid th standard deviationOrdered By: Viktoria Suazo on 07-14-2025 Erythrocyte distribution width (RBC) [Ratio] 43.4 fl 35.1-43.9 [facility] Glucose Challenge Gest 1H 50 zonia 07-14-2025 GLU GEST 50g 1H 105 mg/dL Normal 70-140 [facility] Comment on above: Performed By: #### L 509.8002, L501.0250, L100.0100, L3890.6006 ####[facility] [address] [place], [address] Glucose measurement at 2 chinmay rs post-dose gestational glucose tolerance testOrdered By: Viktoria Suazo on 07-14-2025 Glucose [Mass/Vol] 105 mg/dL 70-140 [facility] HIVon 07-14-2025 HIV Non-Reactive Normal Nonreactive [facility] Comment on above: Result Comment: Non- Reactive Reactive Repeatedly reactive samples must be confirmed according to CDC recommended confirmatory algorithms. The subresults for either HIVAG or AHIV can be used as an aid in the selection of the confirmation algorithm for reactive samples. Send out specimens with Reactive results to [facility] for confirmation. Order the HIV antibody detection and differentiation: lc#[id number] Performed By: #### L 509.8002, L501.0250, L100.0100, L3890.6006 ####[facility] [address] [place], [address] Hematocrit Auto (Bld) [Volum e fraction]Ordered By: Viktoria Suazo on 07-14-2025 Hematocrit (Bld) [Volume fraction] 32.8 % Low 37-47 [facility] Hemoglobin measurementOrdere d By: Viktoria Suazo on 07-14-2025 Hemoglobin (Bld) [Mass/Vol] 10.8 g/dL Low 12.0-15.0 [facility] Immature granulocytes/100 WB C Auto (Bld)Ordered By: Viktoria Suazo on 07-14-2025 Immature granulocytes/100 WBC (Bld) 0.500 % 0.0-0.9 [facility] Comment on above: IG% - Immature Granu locytes (promyelocytes, myelocytes and metamyelocytes) > 1% indicates that a LEFT SHIFT is Present. Laboratory - Chemistry and C hemistry - challengeOrdered By: Xin Otero on 07-14-2025 Glucose Ql (U) Negative [facility] Laboratory - UrinalysisOrder ed By: Xin Otero on 07-14-2025 Protein Ql (U) Negative [facility] MCV (mean corpuscular volume ) determinationOrdered By: Viktoria Suazo on 07-14-2025 MCV (RBC) [Entitic vol] 92.7 fL 81-99 [facility] Mean corpuscular hemoglobin (MCH) determinationOrdered By: Viktoria Suazo on 07-14-2025 MCH (RBC) [Entitic mass] 30.5 pg 27.0-32.0 [facility] Mean corpuscular hemoglobin concentration (MCHC) determinationOrdered By: Viktoria Suazo on 07-14-2025 MCHC (RBC) [Mass/Vol] 32.9 g/dL 32-36 [facility] Mean platelet volume determi nationOrdered By: Viktoria Lakeisha on 07-14-2025 Platelet mean volume (Bld) [Entitic vol] 10.6 fL 6.2-12.0 [facility] Monocyte percentageOrdered B y: Viktoria Lakeisha on 07-14-2025 Monocytes/100 WBC (Bld) 4.4 % 0-10 [facility] Neutrophil percentageOrdered By: Viktoria Lakeisha on 07-14-2025 Neutrophils/100 WBC (Bld) 81.0 % High 47-70 [facility] No Panel InformationOrdered By: Viktoria Suazo on 07-14-2025 HIV (1&2) Antibody Non-Reactive Nonreactive [facility] Comment on above: Non-ReactiveReactive Repeatedly reactive samples must be confirmed according to CDC recommended confirmatory algorithms. The subresults for either HIVAG or AHIV can be used as an aid in the selection of the confirmation algorithm for reactive samples.Send out specimens with Reactive results to [facility] for confirmation.Order the HIV antibody detection and differentiation: #[id number] Nucleated red blood cell per centageOrdered By: Viktoriaisaias Suazo on 07-14-2025 Nucleated RBC/100 WBC (Bld) [Ratio] 0 % 0-5 [facility] Civil Engineering Manager Office Visit Reporton 07-14-2025 Civil Engineering Manager Office Visit Report [facility] [address], [address] [place] [address] OFFICE VISIT Date of Service: 07/14/25 MR#: [id number] Acct: [id number] Name: BRAYDEN CONNELLY Rep #: [id number] : 2000 Provider: RAMILA eduardo Age/Sex: 25/F Location: [facility] [place] Status: Signed Intake Vital Signs 05/12/25 13:39 06/12/25 11:08 07/14/25 12:59 07/14/25 13:11 Height 5 ft 4 in 5 ft 4 in 5 ft 4 in 5 ft 4 in Weight: 247 lb 3 oz BMI 42.4 BP 120/79 Intake Visit Reasons: 28 wk ob/glucose Chief Complaint: 28 Week OB/Glucose Intelligence Research Specialist Required: No Is patient in pain?: No [...] animals: cat(s) history of recent travel: Yes ([place] - December 2024 [place] - January 2025) out of state: Yes [...] 5-6 times per week duration: 15-30 minutes/day naina/church: Religious seatbelt use: always do you feel safe [...] 120/82 Negat (more content not included)... Normal [facility] Platelet countOrdered By: Deo Suazo on 07-14-2025 Platelets (d) [#/Vol] 295 10*3/uL 150-450 [facility] RBC Auto (d) [#/Vol]Ordere d By: Viktoria Suazo on 07-14-2025 RBC (d) [#/Vol] 3.54 10*6/uL Low 4.2-5.4 [facility] Syphilis Antibodieson 2024 Syphilis Abs Non-Reactive Normal Nonreactive [facility] Comment on above: Performed By: #### L 509.8002, L501.0250, L100.0100, L3890.6006 ####[facility] [address] [place], [address] White blood cell (WBC) count Ordered By: Viktoria Suazo on 07-14-2025 WBC (Bld) [#/Vol] 13.2 10*3/uL High 4.4-11.0 [facility] Laboratory - Chemistry and C hemistry - challengeOrdered By: Viktoria Suazo on 06-12-2025 Glucose Ql (U) Negative [facility] Laboratory - UrinalysisOrder ed By: Viktoria Suazo on 06-12-2025 Protein Ql (U) Negative [facility] Civil Engineering Manager Office Visit Reporton 06-12-2025 Civil Engineering Manager Office Visit Report [facility] [address], [address] [place] [address] OFFICE VISIT Date of Service: 06/12/25 MR#: [id number] Acct: [id number] Name: MARICELBRAYDEN KANDACE Rep #: [id number] : 2000 Provider: Dr. Viktoria Rosas DO Age/Sex: 25/F Location: [facility] [place] Status: Signed Intake Vital Signs 03/20/25 10:55 05/12/25 13:39 06/12/25 11:07 06/12/25 11:08 Height 5 ft 4 in 5 ft 4 in 5 ft 4 in 5 ft 4 in Weight: 233 lb 3 oz BMI 40.0 BP 123/84 H Intake Visit Reasons: 24 wk ob Intelligence Research Specialist Required: No Is patient in pain?: No [...] animals: cat(s) history of recent travel: Yes ([place] - December 2024 [place] - January 2025) out of state: Yes [...] 5-6 times per week duration: 15-30 minutes/day naina/church: Religious seatbelt use: always do you feel safe [...] -???-???-???-???-?? ?-???-?? (more content not included)... Normal [facility] Laboratory - Chemistry and C hemistry - challengeOrdered By: Jeannine Gunn on 05-12-2025 Glucose Ql (U) Negative [facility] - UrinalysisOrder ed By: Jeannine Gunn on 05-12-2025 Protein Ql (U) Negative [facility] Civil Engineering Manager Office Visit Reporton 05-12-2025 Civil Engineering Manager Office Visit [facility] [address], [address] [place] [address] OFFICE VISIT Date of Service: 05/12/25 MR#: [id number] Acct: [id number] Name: BRAYDEN CONNELLY Rep #: [id number] : 2000 Provider: JACK Christina ams Age/Sex: 25/F Location: [facility] [place] Status: Signed Intake Vital Signs 02/24/25 13:12 04/15/25 13:37 05/12/25 13:39 Height 5 ft 4 in 5 ft 4 in 5 ft 4 in Weight: 216 lb 8 oz BMI 37.1 BP 124/82 H Intake Visit Reasons: 20 wk ob Chief Complaint: 20wk OB Intelligence Research Specialist Required: No Is patient in pain?: No [...] animals: cat(s) history of recent travel: Yes ([place] - December 2024 [place] - January 2025) out of state: Yes [...] 5-6 times per week duration: 15-30 minutes/day naina/church: Religious seatbelt use: always do you feel safe [...] CF ca (more content not included)... Normal [facility] Laboratory - Chemistry and C hemistry - challengeOrdered By: Xin Otero on 04-15-2025 Glucose Ql (U) Negative [facility] Laboratory - UrinalysisOrder ed By: Xin Otero on 04-15-2025 Protein Ql (U) Negative [facility] Civil Engineering Manager Office Visit Reporton 04-15-2025 Civil Engineering Manager Office Visit [facility] [address], [address] [place] [address] OFFICE VISIT Date of Service: 04/15/25 MR#: [id number] Acct: [id number] Name: BARYDEN CONNELLY Rep #: [id number] : 2000 Provider: RAMILA eduardo Age/Sex: 25/F Location: [facility] [place] Status: Signed Intake Vital Signs 02/24/25 13:12 03/20/25 10:55 04/15/25 13:37 Height 5 ft 4 in 5 ft 4 in 5 ft 4 in Weight: 203 lb 8 oz BMI 34.9 BP 120/82 H Intake Visit Reasons: 16 wk ob Chief Complaint: 16 Week OB Intelligence Research Specialist Required: No Is patient in pain?: No [...] animals: cat(s) history of recent travel: Yes ([place] - December 2024 [place] - January 2025) out of state: Yes [...] 5-6 times per week duration: 15-30 minutes/day naina/church: Religious seatbelt use: always do you feel safe [...] -???-???-???-???-?? ?-???-???- (more content not included)... Normal [facility] Absolute lymphocyte countOrd ered By: Viktoria Lakeisha on 03-20-2025 Lymphocytes Auto (Unsp spec) [#/Vol] 1.69 10*3/uL 0.83-4.51 [facility] Absolute neutrophil countOrd ered By: Viktoria Suazo on 03-20-2025 Neutrophils (Bld) [#/Vol] 5.7 10*3/uL 2.0-7.7 [facility] Automated lymphocyte count a s percentage of total leukocytesOrdered By: Viktoria Suazo on 03-20-2025 Lymphocytes/100 WBC Auto (Unsp spec) 20.7 % 19-41 [facility] Basophil percentageOrdered B y: Viktoria Lakeisha on 03-20-2025 Basophils/100 WBC (Bld) 0.5 % 0-1 [facility] CBC W/Diff, Automatedon 05- Absolute Lymph 1.69 X10 3/uL Normal 0.83-4.51 [facility] Comment on above: Performed By: #### L 3890.6301, L3890.6102, L900.0098, L509.8002, L3890.6006, L501.9985, L100.0100, BTS, L509.4006 #### [facility] [address] [place], [place], [address] Absolute Neut 5.7 X10 3/uL Normal 2.0-7.7 [facility] Comment on above: Performed By: #### L 3890.6301, L3890.6102, L900.0098, L509.8002, L3890.6006, L501.9985, L100.0100, BTS, L509.4006 #### [facility] [address] [place], [address] Basophils/100 WBC (Bld) 0.5 % Normal 0-1 [facility] Comment on above: Performed By: #### L 3890.6301, L3890.6102, L900.0098, L509.8002, L3890.6006, L501.9985, L100.0100, BTS, L509.4006 #### [facility] [address] [place], [address] Eosinophils/100 WBC (Bld) 3.8 % Normal 0-5 [facility] Comment on above: Performed By: #### L 3890.6301, L3890.6102, L900.0098, L509.8002, L3890.6006, L501.9985, L100.0100, BTS, L509.4006 #### [facility] [address] [facility] [place], [address] Erythrocyte distribution width (RBC) [Ratio] 12.7 % Normal 11.6-14.6 [facility] Comment on above: Performed By: #### L 3890.6301, L3890.6102, L900.0098, L509.8002, L3890.6006, L501.9985, L100.0100, BTS, L509.4006 #### [facility] [address] [place], [address] Hematocrit (Bld) [Volume fraction] 38.6 % Normal 37-47 [facility] Comment on above: Performed By: #### L 3890.6301, L3890.6102, L900.0098, L509.8002, L3890.6006, L501.9985, L100.0100, BTS, L509.4006 #### [facility] [address] [place], [address] Hemoglobin (Bld) [Mass/Vol] 12.8 g/dL Normal 12.0-15.0 [facility] Comment on above: Performed By: #### L 3890.6301, L3890.6102, L900.0098, L509.8002, L3890.6006, L501.9985, L100.0100, BTS, L509.4006 #### [facility] [address] [place], [address] IG% 0.200 Normal 0.0-0.9 [facility] Comment on above: Result Comment: IG% - Immature Granulocytes (promyelocytes, myelocytes and metamyelocytes) > 1% indicates that a LEFT SHIFT is Present. Performed By: #### L 3890.6301, L3890.6102, L900.0098, L509.8002, L3890.6006, L501.9985, L100.0100, BTS, L509.4006 #### [facility] [address] [place], [address] Lymphocytes/100 WBC (Bld) 20.7 % Normal 19-41 [facility] Comment on above: Performed By: #### L 3890.6301, L3890.6102, L900.0098, L509.8002, L3890.6006, L501.9985, L100.0100, BTS, L509.4006 #### [facility] [address] [place], [address] MCH (RBC) [Entitic mass] 30.9 pg Normal 27.0-32.0 [facility] Comment on above: Performed By: #### L 3890.6301, L3890.6102, L900.0098, L509.8002, L3890.6006, L501.9985, L100.0100, BTS, L509.4006 #### [facility] [address] [place], [address] MCHC (RBC) [Mass/Vol] 33.2 g/dL Normal 32-36 [facility] Comment on above: Performed By: #### L 3890.6301, L3890.6102, L900.0098, L509.8002, L3890.6006, L501.9985, L100.0100, BTS, L509.4006 #### [facility] [address] [place], [address] MCV (RBC) [Entitic vol] 93.2 fL Normal 81-99 [facility] Comment on above: Performed By: #### L 3890.6301, L3890.6102, L900.0098, L509.8002, L3890.6006, L501.9985, L100.0100, BTS, L509.4006 #### [facility] [address] [place], [address] Monocytes/100 WBC (Bld) 5.1 % Normal 0-10 [facility] Comment on above: Performed By: #### L 3890.6301, L3890.6102, L900.0098, L509.8002, L3890.6006, L501.9985, L100.0100, BTS, L509.4006 #### [facility] [address] [place], [address] Neutrophils/100 WBC (Bld) 69.7 % Normal 47-70 [facility] Comment on above: Performed By: #### L 3890.6301, L3890.6102, L900.0098, L509.8002, L3890.6006, L501.9985, L100.0100, BTS, L509.4006 #### [facility] [address] [place], [address] Nucleated RBC (Bld) [#/Vol] 0 10*3/uL Normal 0-5 [facility] Comment on above: Performed By: #### L 3890.6301, L3890.6102, L900.0098, L509.8002, L3890.6006, L501.9985, L100.0100, BTS, L509.4006 #### [facility] [address] [place], [address] Platelet mean volume (Bld) [Entitic vol] 10.2 fL Normal 6.2-12.0 [facility] Comment on above: Performed By: #### L 3890.6301, L3890.6102, L900.0098, L509.8002, L3890.6006, L501.9985, L100.0100, BTS, L509.4006 #### [facility] [address] [place], [address] ( Platelets (Bld) [#/Vol] 261 10*3/uL Normal 150-450 [facility] Comment on above: Performed By: #### L 3890.6301, L3890.6102, L900.0098, L509.8002, L3890.6006, L501.9985, L100.0100, BTS, L509.4006 #### [facility] [address] [place], [address] ( RBC (Bld) [#/Vol] 4.14 10*6/uL Low 4.2-5.4 [facility] Comment on above: Performed By: #### L 3890.6301, L3890.6102, L900.0098, L509.8002, L3890.6006, L501.9985, L100.0100, BTS, L509.4006 #### [facility] [address] [place], [address] RDW SD 43.7 fl Normal 35.1-43.9 [facility] Comment on above: Performed By: #### L 3890.6301, L3890.6102, L900.0098, L509.8002, L3890.6006, L501.9985, L100.0100, BTS, L509.4006 #### [facility] [address] [place], [place], [address] WBC (Bld) [#/Vol] 8.2 10*3/uL Normal 4.4-11.0 [facility] Comment on above: Performed By: #### L 3890.6301, L3890.6102, L900.0098, L509.8002, L3890.6006, L501.9985, L100.0100, BTS, L509.4006 #### [facility] [address] [place], [place], [address] Eosinophil percentageOrdered By: Viktoria Suazo on 03-20-2025 Eosinophils/100 WBC (Bld) 3.8 % 0-5 [facility] Erythrocyte distribution wid th ratioOrdered By: Viktoria Suazo on 03-20-2025 Erythrocyte distribution width (RBC) [Ratio] 12.7 % 11.6-14.6 [facility] Erythrocyte distribution wid th standard deviationOrdered By: Viktoria Suazo on 03-20-2025 Erythrocyte distribution width (RBC) [Ratio] 43.7 fl 35.1-43.9 [facility] HIVon 03-20-2025 HIV Non-Reactive Normal Nonreactive [facility] Comment on above: Result Comment: Non- Reactive Reactive Repeatedly reactive samples must be confirmed according to CDC recommended confirmatory algorithms. The subresults for either HIVAG or AHIV can be used as an aid in the selection of the confirmation algorithm for reactive samples. Send out specimens with Reactive results to [facility] for confirmation. Order the HIV antibody detection and differentiation: lc#[id number] Performed By: #### L 3890.6301, L3890.6102, L900.0098, L509.8002, L3890.6006, L501.9985, L100.0100, BTS, L509.4006 ####[facility] [address] [place], [place], [address] Hematocrit Auto (Bld) [Volum e fraction]Ordered By: Viktoria Lakeisha on 03-20-2025 Hematocrit (Bld) [Volume fraction] 38.6 % 37-47 [facility] Hemoglobin A1con 03-20-2025 HbA1c (Bld) [Mass fraction] 5.2 % Normal <=5.6 [facility] Comment on above: Result Comment: Norm al < 5.7 % Prediabetic 5.7 - 6.4 % Diabetic >or= 6.5 % Please note range changes. Performed By: #### L 3890.6301, L3890.6102, L900.0098, L509.8002, L3890.6006, L501.9985, L100.0100, BTS, L509.4006 ####[facility] [address] [place], [place], [address] Hemoglobin A1c percentageOrd ered By: Viktoria Lakeisha on 03-20-2025 HbA1c (Bld) [Mass fraction] 5.2 % <5.7 [facility] Comment on above: Normal < 5.7 % Predi abetic 5.7 - 6.4 % Diabetic >or= 6.5 % Please note range changes. Hemoglobin measurementOrdere d By: Viktoria Suazo on 03-20-2025 Hemoglobin (Bld) [Mass/Vol] 12.8 g/dL 12.0-15.0 [facility] Hepatitis C Antibodyon 03-20 Hepatitis C Ab Non-Reactive Normal Nonreactive [facility] Comment on above: Result Comment: Reac tive: Presumptive evidence of antibodies to HCV. Follow CDC recommendations for supplemental testing. Non-Reactive: Antibodies to HCV were not detected; does not exclude the possibility of exposure to HCV Reactive Results are presumptive evidence of antibodies to HCV. Follow CDC recommendations for supplemental testing. Order confirmation testing: HCV Quant by PCR testing - HCVPCR #[id number] Non Reactive: < 0.8 Equivocal: >/= 0.8 to < 1.0 Reactive: >/= 1.0 The CDC requires that a reactive/equivocal HCV antibody result be sent out for confirmation. HCV Quant by PCR testing. Performed By: #### L 3890.6301, L3890.6102, L900.0098, L509.8002, L3890.6006, L501.9985, L100.0100, BTS, L509.4006 ####[facility] [address] [facility] [place], [place], [address] Immature granulocytes/100 WB C Auto (Bld)Ordered By: Viktoria Suazo on 03-20-2025 Immature granulocytes/100 WBC (Bld) 0.200 % 0.0-0.9 [facility] Comment on above: IG% - Immature Granu locytes (promyelocytes, myelocytes and metamyelocytes) > 1% indicates that a LEFT SHIFT is Present. L3890.6102on 03-20-2025 HEP B Surf Ag Non-Reactive Normal Nonreactive [facility] Comment on above: Result Comment: Reac tive: Presumptive evidence of HBV. Repeatedly reactive samples must be confirmed using a neutralization test ([employer] HBsAg Confirmatory Test) Non-Reactive: HBsAg not detected; does not exclude the possibility of exposure to HBV Performed By: #### L 3890.6301, L3890.6102, L900.0098, L509.8002, L3890.6006, L501.9985, L100.0100, BTS, L509.4006 ####[facility] [address] [place], [place], [id number] L509.4006on 03-20-2025 Rubella IgG REAC Normal Nonreactive [facility] Comment on above: Result Comment: Anti body Result: Interpretation Non-Reactive: Non-Immune Reactive: Immune The following results were obtained with the [employer] Rubella IgG assay. Results from assays of other manufacturers cannot be used interchangeably. Performed By: #### L 3890.6301, L3890.6102, L900.0098, L509.8002, L3890.6006, L501.9985, L100.0100, BTS, L509.4006 ####[facility] [address] [place], [address] Laboratory - Chemistry and C hemistry - challengeOrdered By: Kayleigh Brian on 03-20-2025 Glucose Ql (U) Negative [facility] Laboratory - Microbiology an d Antimicrobial susceptibilityOrdered By: Viktoria Suazo on 03-20-2025 HBV surface Ag Ql (S) Non-Reactive Nonreactive [facility] Comment on above: Reactive: Presumptiv e evidence of HBV. Repeatedly reactive samples must be confirmed using a neutralization test ([employer] HBsAg Confirmatory Test)Non-Reactive: HBsAg not detected; does not exclude the possibility of exposure to HBV Laboratory - UrinalysisOrder ed By: Kayleigh Brian on 03-20-2025 Protein Ql (U) Negative [facility] MCV (mean corpuscular volume ) determinationOrdered By: Viktoria Suazo on 03-20-2025 MCV (RBC) [Entitic vol] 93.2 fL 81-99 [facility] Mean corpuscular hemoglobin (MCH) determinationOrdered By: Viktoria Suazo on 03-20-2025 MCH (RBC) [Entitic mass] 30.9 pg 27.0-32.0 [facility] Mean corpuscular hemoglobin concentration (MCHC) determinationOrdered By: Viktoria Suazo on 03-20-2025 MCHC (RBC) [Mass/Vol] 33.2 g/dL 32-36 [facility] Mean platelet volume determi nationOrdered By: Viktoria Suazo on 03-20-2025 Platelet mean volume (Bld) [Entitic vol] 10.2 fL 6.2-12.0 [facility] Monocyte percentageOrdered B y: Viktoria Suazo on 03-20-2025 Monocytes/100 WBC (Bld) 5.1 % 0-10 [facility] NATERAon 03-20-2025 NATURA SEE SCANNED REPORT Normal [facility] Comment on above: Order Comment: Comme nts: Genetic Carrier testing - with gender Performed By: #### L 3890.6301, L3890.6102, L900.0098, L509.8002, L3890.6006, L501.9985, L100.0100, BTS, L509.4006 ####[facility] [address] [place], [address] Neutrophil percentageOrdered By: Viktoria Suazo on 03-20-2025 Neutrophils/100 WBC (Bld) 69.7 % 47-70 [facility] No Panel InformationOrdered By: Viktoria Suazo on 03-20-2025 HIV (1&2) Antibody Non-Reactive Nonreactive [facility] Comment on above: Non-ReactiveReactive Repeatedly reactive samples must be confirmed according to CDC recommended confirmatory algorithms. The subresults for either HIVAG or AHIV can be used as an aid in the selection of the confirmation algorithm for reactive samples.Send out specimens with Reactive results to [facility] for confirmation.Order the HIV antibody detection and differentiation: #[id number] Nucleated red blood cell per centageOrdered By: Viktoria Suazo on 03-20-2025 Nucleated RBC/100 WBC (Bld) [Ratio] 0 % 0-5 [facility] Civil Engineering Manager Office Visit Reporton 03-20-2025 Civil Engineering Manager Office Visit Report [facility]'[address], [address] [place] [address] OFFICE VISIT Date of Service: 03/20/25 MR#: [id number] Acct: [id number] Name: BRAYDEN LUZ Rep #: [id number] : 2000 Provider: Dr. Kayleigh holly MD Age/Sex: 25/F Location: [facility] [place] Status: Signed Intake Vital Signs 01/29/25 09:16 02/24/25 13:12 03/20/25 10:54 03/20/25 10:55 Height 5 ft 4 in 5 ft 4 in 5 ft 4 in 5 ft 4 in Weight: 194 lb 4 oz BMI 33.3 BP 118/75 Intake Visit Reasons: 12wk OB Intelligence Research Specialist Required: No Is patient in pain?: No [...] animals: cat(s) history of recent travel: Yes ([place] - December 2024 [place] - January 2025) out of state: Yes [...] 5-6 times per week duration: 15-30 minutes/day naina/church: Religious seatbelt use: always do you feel safe [...] Office Urine (more content not included)... Normal [facility] Platelet countOrdered By: Deo Suazo on 03-20-2025 Platelets (Bld) [#/Vol] 261 10*3/uL 150-450 [facility] RBC Auto (Bld) [#/Vol]Ordere d By: Viktoria Suazo on 03-20-2025 RBC (Bld) [#/Vol] 4.14 10*6/uL Low 4.2-5.4 [facility] Syphilis Antibodieson 2024 Syphilis Abs Non-Reactive Normal Nonreactive [facility] Comment on above: Performed By: #### L 3890.6301, L3890.6102, L900.0098, L509.8002, L3890.6006, L501.9985, L100.0100, BTS, L509.4006 ####[facility] [address] [place], [place], [id number] Type AND Screenon 03-20-2025 Ab SCREEN GEL Negative Normal [facility] Comment on above: Order Comment: PN Performed By: #### L 3890.6301, L3890.6102, L900.0098, L509.8002, L3890.6006, L501.9985, L100.0100, BTS, L509.4006 ####[facility] [address] [place], [address] White blood cell (WBC) count Ordered By: Viktoria Suazo on 03-20-2025 WBC (Bld) [#/Vol] 8.2 10*3/uL 4.4-11.0 [facility] C Urineon 03-10-2025 Bacteria identified Cx Nom [...] Locations R1: This test was performed at: [facility], [address] [place] [address], [address] , [place], Normal [facility] Comment on above: Performed By: #### 2 [id number] #### [facility] [address] [place] [address] Family Medicine Office/Clini c Noteon 03-08-2025 Family [...] with voice recognition software. Occasional wrong-word or ???bnyfs-j-nbuy??? 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 Patient states that they were not planning to get this soon so will most likely be moving back to [place] by the end of the year as [...] E&M of New Patient Low 30-44 Min 05512 2. First trimester (Z34.91: Encounter for supervision of normal , unspecified, first trimester) Continue follow up with OB. Ordered: E&M of New Patient Low 30-44 Min 45560 UTI symptoms (R39.9: Unspecified symptoms and signs involving the genitourinary system) Ordered: Urine Culture Urnls Dip Stick Auto w/o Microscopy POC 70204 Follow-up With When Contact Information NONE, XXXX Additional Instructions: Patient Education First Trimester of , Vtkh-fz-Svqe Urinary Frequency, Adult Problem List/Past Medical History Ongoing No qualifying data Historical No qualifying data Medications Multivitamins, 1 tab(s), Oral, Daily sumatriptan, See Instructions Allergies No Known Medication Allergies Social History Tobacco Never (less than 100 in lifetime) Tobacco Use:. Never Smokeless Tobacco Use:., 03/07/2025 [facility] Comment on above: Result Comment: Elec [...] you for choosing us for your care. [facility] Patient Letter FTon 2024 Patient Letter [facility] Patient Letter [facility] [address] [facility], [facility] [place] [id number] March 07, 2025 BRAYDEN CONNELLY [address] [place] [id number] : 2000 Please excuse BRAYDEN CONNELLY from work . Date and/or Time of Absence: From: 03/07/25 To: 03/10/25 May return to work on: 03/10/25 Restrictions: None Comments: Please excuse due to an acute illness. Provider Signature: Nathan Kilgore PA-C Physician Stuffed Casing Tier [address] [facility] [place] [address] [facility] Chlamydia/GC AMY aptimaon CHLAMY,NUC ACID Negative Normal Negative [facility] Comment on above: Performed By: #### L 505.5000, L7000.1800, M100.2200 ####[facility] [address] [place], [address] GC BY NUC ACID Negative Normal Negative [facility] Comment on above: Result Comment: Perf ormed at: =G - [facility] [place] [address] [place], [place] [id number] Asphalt Spreader: Christal Cochran MD, Phone: [phone] Performed By: #### L 505.5000, L7000.1800, M100.2200 ####[facility] [address] [place], [address] Urine Cultureon 02-25-2025 [facility] Mixed Gram Positive Organisms [facility] Count 11,000-25,000 MIXC Mixed contaminants. Submit a new specimen if indicated. Normal [facility] Comment on above: Performed By: #### L 505.5000, L7000.1800, M100.2200 ####[facility] [address] [place], [address] Amphetamine detection with 1 000 ng/mL as cutoffOrdered By: Viktoria Suazo on 02-24-2025 Amphetamines Screen method >1000 ng/mL Ql (U) Negative < 200 ng/mL [facility] Chlamydia trachomatis rRNA d etection by probe and target amplification methodOrdered By: Viktoria Suazo on 02-24-2025 C. trachomatis rRNA AMY+probe Ql (Unsp spec) Negative Negative [facility] Neisseria gonorrhoeae nuclei c acid detection by amplified probe techniqueOrdered By: Viktoria Suazo on 02-24-2025 N. gonorrhoeae DNA AMY+probe Ql (Unsp spec) Negative Negative [facility] Comment on above: Performed at: =G - [facility] [address] [facility], [place] [id number] Director: Christal Cochran MD, Phone: [phone] No Panel InformationOrdered By: Viktoria Suazo on 02-24-2025 Urine Buprenorphine Qualitative Negative < 200 ng/mL [facility] Urine Oxycodone Screen Negative < 100 ng/mL [facility] Civil Engineering Manager Office Visit Reporton 02-24-2025 Civil Engineering Manager Office Visit Report [facility] [address], [address] [place] [address] OFFICE VISIT Date of Service: 02/24/25 MR#: [id number] Acct: [id number] Name: BRAYDEN LUZ Rep #: [id number] : 2000 Provider: Dr. Viktoria Rosas, Age/Sex: 25/F Location: [facility] [place] Status: Signed Intake Vital Signs 10/10/24 16:04 01/29/25 09:16 02/14/25 09:20 02/24/25 13:12 Height 5 ft 4 in 5 ft 4 in 5 ft 4 in 5 ft 4 in Weight: 186 lb 2 oz BMI 31.9 BP 128/85 H Intake Visit Reasons: New OB, LMP 12/26, EMMANUEL 10/02 Chief Complaint: New OB Intelligence Research Specialist Required: No Is patient in pain?: No [...] animals: cat(s) history of recent travel: Yes ([place] - December 2024 [place] - January 2025) out of state: Yes [...] 5-6 times per week duration: 15-30 minutes/day naina/church: Religious seatbelt use: always do you feel safe [...] Other St (more content not included)... Normal [facility] Quantitative urine opiates m easurementOrdered By: Viktoria Suazo on 02-24-2025 Opiates Ql (U) Negative < 300 ng/mL [facility] Screening urine fentanyl ajay surementOrdered By: Viktoria Suazo on 02-24-2025 fentaNYL Screen Ql (U) Negative [facility] [place] Urine Drug Screen (VISTA)on 02-24-2025 AMPHETAMINES Negative Normal <1000 ng/mL [facility] Comment on above: Order Comment: UNK Performed By: #### L 505.5000, L7000.1800, M100.2200 ####[facility] [address] [place], [address] BARBITIURATES Negative Normal < 200 ng/mL [facility] Comment on above: Order Comment: UNK Performed By: #### L 505.5000, L7000.1800, M100.2200 ####[facility] [address] [place], [address] BENZODIAZIPINE Negative Normal < 200 ng/mL [facility] Comment on above: Order Comment: UNK Performed By: #### L 505.5000, L7000.1800, M100.2200 ####[facility] [address] [place], [address] BUP Ur Drug Scr Negative Normal < 200 ng/mL [facility] Comment on above: Order Comment: UNK Performed By: #### L 505.5000, L7000.1800, M100.2200 ####[facility] [address] [place], [address] COCAINE Negative Normal < 300 ng/mL [facility] Comment on above: Order Comment: UNK Performed By: #### L 505.5000, L7000.1800, M100.2200 ####[facility] [address] [place], [address] Fentanyl Negative Normal [facility] Comment on above: Order Comment: UNK Performed By: #### L 505.5000, L7000.1800, M100.2200 ####[facility] [address] [place], [address] METHADONE Negative Normal < 300 ng/mL [facility] Comment on above: Order Comment: UNK Performed By: #### L 505.5000, L7000.1800, M100.2200 ####[facility] [address] [place], [address] OPIATES Negative Normal < 300 ng/mL [facility] Comment on above: Order Comment: UNK Performed By: #### L 505.5000, L7000.1800, M100.2200 ####[facility] [address] [place], [address] OXYCODONE Negative Normal < 100 ng/mL [facility] Comment on above: Order Comment: UNK Performed By: #### L 505.5000, L7000.1800, M100.2200 ####[facility] [address] [place], [address] PCP Negative Normal < 25 ng/mL [facility] Comment on above: Order Comment: UNK Performed By: #### L 505.5000, L7000.1800, M100.2200 ####[facility] [address] [place], [address] THC Negative Normal < 50 ng/mL [facility] Comment on above: Order Comment: UNK Performed By: #### L 505.5000, L7000.1800, M100.2200 ####[facility] [address] [place], [address] Urine benzodiazepine levelOr dered By: Viktoria Suazo on 02-24-2025 Benzodiazepines Ql (U) Negative < 200 ng/mL [facility] Urine cocaine levelOrdered B y: Viktoria Suazo on 02-24-2025 Cocaine Ql (U) Negative < 300 ng/mL [facility] Urine cultureOrdered By: Luz Suazo on 02-24-2025 Bacteria identified Cx Nom (U) Positive Abnormal [facility] Urine cyrni-5-[id number] abinol (THC) measurementOrdered By: Viktoria Suazo on 02-24-2025 Cannabinoids Screen Ql (U) Negative < 50 ng/mL [facility] Urine phencyclidine (PCP) de tectionOrdered By: Viktoria Suazo on 02-24-2025 Phencyclidine Ql (U) Negative < 25 ng/mL [facility] - Chemistry and C hemistry - challengeOrdered By: Viktoria Suazo on 02-14-2025 HCG ( test) Ql (U) Positive [facility] Office Visit Reporton 2024 Office Visit Report [facility] Services [address] [place] [address] OFFICE VISIT Date of Service: MR#: [id number] Acct: [id number] Patient: BRAYDEN LUZ Rep #: [id number] : 2000 Provider: Paula Cobos RN Age/Sex: 25/F Location: [facility] [place] Status: Signed Intake Vital Signs 01/29/25 09:16 02/14/25 09:20 Height 5 ft 4 in 5 ft 4 in Weight: 184 lb 6 oz BMI 31.6 BP 118/68 Intake Visit Reasons: Amb Documentation Chief Complaint: Nurse visit; Confirmation; Inperson PNOB Intelligence Research Specialist Required: No Accompanied by: Mother Is patient [...] of high-risk : Status: Acute Comment: G1, EMMANUEL 10/02/25, : Eulalio (3) : Status: Acute [...] Ambriz Signature: Date (if applicable) CC: Normal [facility] Civil Engineering Manager Office Visit Reporton 10-10-2024 Civil Engineering Manager Office Visit Report [facility] [address], [address] [place] [address] OFFICE VISIT Date of Service: 10/10/24 MR#: [id number] Acct: [id number] Name: BRAYDEN LUZ Rep #: [id number] : 2000 Provider: JACK Christina ams Age/Sex: 24/F Location: [facility] [place] Status: Signed Intake Vital Signs 09/19/23 15:59 09/19/23 16:20 09/23/24 08:32 10/10/24 15:59 10/10/24 16:04 Height 5 ft 5 in 5 ft 5 in 5 ft 4 in 5 ft 4 in 5 ft 4 in Weight: 189 lb BMI 32.4 BP 118/76 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 Normal [facility] Urgent Care Visit Reporton 1 11-23-2023 Urgent Care Visit Report [facility] [address], [address] [place] [address] OFFICE VISIT Date of Service: 09/23/24 MR#: [id number] Acct: [id number] Name: BRAYDEN LUZ Rep #: [id number] : 2000 Provider: ABI Salgado Age/Sex: 24/F Location: [facility] Status: Signed Intake Vital Signs [...] CONCERN FOR UTI Chief Complaint: urinary frequency Intelligence Research Specialist Required: No Is patient in pain?: No Allergies cat dander Allergy (Verified 09/23/24 08:32) Other Seasonal Allergies: Uncoded Allergy (Verified 09/23/24 08:32) Other Is last menstrual period known: No Post menopausal: No Patient : No Have you fallen in the past year?: No Nurse's Note: urinary frequency x 1 week, concern for UTI. denies abd pain/back pain/ fever. [facility] Medical History (Updated 09/23/24 @ 08:34 by [...] color/ character of urine or stool. No jbfw-ffg-wbujsjs products taken to assist. No other associated [...] Berman on 09/23/24 08:37 Off Ur Spec [place] 1.010 Last Edit by Awa Berman on [...] Urine Pr (more content not included)... Normal [facility] Culture, urineOrdered By: St bari Hanna on 01-25-2023 Bacteria identified Cx Nom (U) Positive [facility] Basophil percentageOrdered B y: Benja Hanna on 01-23-2023 Basophil percentage 0-5 SEEN /hpf 0-5 [facility] [place] Bilirubin Test strip Ql (U)O rdered By: Benja Hanna on 01-23-2023 Bilirubin Ql (U) Negative Negative [facility] Ketones Test strip Ql (U)Ord ered By: Benja Hanna on 01-23-2023 Ketones Ql (U) Negative Negative [facility] Laboratory - Chemistry and C hemistry - challengeon 01-23-2023 Bilirubin Ql (U) Negative [facility] Glucose Ql (U) Negative [facility] Ketones Ql (U) Negative [facility] pH (U) 6.0 [pH] [facility] Specific gravity (U) [Rel density] 1.010 [facility] Urobilinogen (U) [Mass/Vol] 0.4680097 mg/dL [facility] Laboratory - Hematology and Cell countson 01-23-2023 Hemoglobin Ql (U) Negative [facility] Laboratory - Specimen inform ationon 01-23-2023 Clarity (U) Clear [facility] Color (U) Yellow [facility] Laboratory - Urinalysison Nitrite Ql (U) Negative [facility] Protein Ql (U) Negative [facility] Mucus LM Ql (Urine sed)Order ed By: Benja Hanna on 01-23-2023 Mucus Ql (Urine sed) 0 SEEN /hpf [facility] Nitrite Test strip Ql (U)Ord ered By: Benja Hanna on 01-23-2023 Nitrite Ql (U) Negative Negative [facility] No Panel Informationon 01-23 Urine Leukocytes Positive [facility] Comment on above: Off Ur Leukocytes pr eviously reported as Negatve Urine Non-Hemolyzed Blood [facility] Protein Test strip Ql (U)Ord ered By: Benja Hanna on 01-23-2023 Protein Ql (U) Negative Negative [facility] Squamous epithelial cells de tection in urine sediment by light microscopyOrdered By: Benja Hanna on 01-23-2023 Epithelial cells.squamous LM Ql (Urine sed) 0 SEEN /hpf 5-10 [facility] Urine blood detectionOrdered By: Benja Hanna on 01-23-2023 RBC Ql (U) Negative Negative [facility] RBC Ql (U) 0 SEEN /hpf 0-5 [facility] Urine clarityOrdered By: Eugenio Hanna on 01-23-2023 Clarity (U) Clear Clear [facility] Urine color determinationOrd ered By: Benja Hanna on 01-23-2023 Color (U) Yellow Yellow [facility] Urine glucose detectionOrder ed By: Benja Hanna on 01-23-2023 Glucose Ql (U) Normal mg/dl Normal [facility] Urine leukocyte esterase det ection by dipstickOrdered By: Benja Hanna on 01-23-2023 Leukocyte esterase Test strip Ql (U) Negative Negative [facility] Urine pHOrdered By: Benja yanez on 01-23-2023 pH (U) 6.0 [pH] 5.0 - 8.0 [facility] Urine sediment bacteria coun t by microscopy (number/high power field)Ordered By: Benja Hanna on 01-23-2023 Bacteria LM.HPF (Urine sed) [#/Area] 0 /[HPF] None Seen [facility] Urine specific gravity measu rementOrdered By: Benja Hanna on 01-23-2023 Specific gravity (U) [Rel density] 1.015 1.002-1.030 [facility] Urobilinogen Auto test strip Ql (U)Ordered By: Benja Hanna on 01-23-2023 Urobilinogen Ql (U) Normal mg/dl Normal [facility] Chlamydia trachomatis rRNA d etection by probe and target amplification methodon 09-14-2022 C. trachomatis rRNA AMY+probe Ql (Unsp spec) Negative Negative [facility] Work Phone: Laboratory - Microbiology an d Antimicrobial susceptibilityon 09-14-2022 N. gonorrhoeae DNA AMY+probe Ql (Unsp spec) Negative Negative [facility] Work Phone: Comment on above: Performed at: =G - [address] [id number] Director: Christal Cochran MD, Phone: [phone] No Panel Informationon 09-14 POC Trichomonas (Rapid) Negative [facility] Work Phone: Vital Signs Date Time Vital Sign Value Performing Clinician Faci lity 09-08-2025 13:40-0500 Body height 162.56 cm Joyce MCGRATH Work Phone: [facility] 09-08-2025 13:33-0500 Body mass index (BMI) [Ratio] 44.6 kg/m2 Joyce MCGRATH Work Phone: [facility] 09-08-2025 13:33-0500 Body weight 117.99 kg Joyce MCGRATH Work Phone: [facility] 09-08-2025 13:33-0500 Diastolic blood pressure 86 mm[Hg] Joyce MCGRATH Work Phone: [facility] 09-08-2025 13:33-0500 Systolic blood pressure 120 mm[Hg] Joyce Eubanksley [employer] OUT [employer] DETAIL DRAFTER-C Work Phone: [facility] 09-07-2025 14:24-0500 Body temperature 98.2 [degF] Joyce Lagos [employer] OUT [employer]RAFTER[employer]C Work Phone: [facility] 09-07-2025 14:24-0500 Respiratory rate 18 /min Joyce Lagos [employer] OUT [employer]RAFTER[employer] Work Phone: [facility] 09-07-2025 14:22-0500 Heart rate 120 /min Joyce Lagos [employer] OUT [employer]RAFTER[employer] Work Phone: [facility] 09-07-2025 14:22-0500 SaO2% (BldA) [Mass fraction] 98 % Joyce Lagos [employer]RAFTER[employer] Work Phone: [facility] 09-07-2025 14:21-0500 Diastolic blood pressure 81 mm[Hg] Joyce Lagos [employer] OUT AND [employer]AIL [employer]RAFTER-C Work Phone: [facility] 09-07-2025 14:21-0500 Systolic blood pressure 125 mm[Hg] Joyce Lagos [employer] OUT AND [employer]RAFTER[employer]C Work Phone: [facility] 09-07-2025 14:19-0500 Body mass index (BMI) [Ratio] 44.4 kg/m2 Joyce Lagos [employer] OUT [employer]RAFTER[employer]C Work Phone: [facility] 09-07-2025 14:19-0500 Body weight 117.59 kg Joyce Lagos [employer] OUT AND [employer]AIL [employer]RAFTER-C Work Phone: [facility] 08-27-2025 14:25-0400 Body mass index (BMI) [Ratio] 45 kg/m2 Joyce Lagos [employer] OUT AND [employer]AIL [employer]RAFTER-C Work Phone: [facility] 08-27-2025 14:25-0400 Body weight 118.92 kg Joyce Lagos [employer] OUT AND [employer]AIL [employer]RAFTER-C Work Phone: [facility] 08-27-2025 14:25-0400 Diastolic blood pressure 81 mm[Hg] Joyce Lagos [employer] OUT AND [employer]RAFTER-C Work Phone: [facility] 08-27-2025 14:25-0400 Systolic blood pressure 114 mm[Hg] Joyce Lagos [employer] OUT AND [employer] DRAFTER-C Work Phone: [facility] 08-13-2025 13:28-0400 Body height 162.56 cm Joyce Lagos [employer] OUT AND [employer]AIL [employer]RAFTER[employer]C Work Phone: [facility] 08-13-2025 13:28-0400 Body mass index (BMI) [Ratio] 43.4 kg/m2 Joyce Lagos [employer] OUT AND [employer]AIL DRAFTER-C Work Phone: [facility] 08-13-2025 13:28-0400 Body weight 114.9 kg Joyce Lagos L[employer] OUT AND [employer]AIL DRAFTER-C Work Phone: [facility] 08-13-2025 13:28-0400 Diastolic blood pressure 75 mm[Hg] Joyce Lagos [employer] OUT AND [employer]RAFTER-C Work Phone: [facility] 08-13-2025 13:28-0400 Systolic blood pressure 115 mm[Hg] Joyce Lagos [employer] OUT AND [employer]AIL DRAFTER-C Work Phone: [facility] 07-30-2025 14:22-0400 Body height 162.56 cm Joyce Lagos L[employer] OUT AND [employer]AIL DRAFTER-C Work Phone: [facility] 07-30-2025 14:22-0400 Body mass index (BMI) [Ratio] 43.1 kg/m2 Joyce Lagos [employer] OUT AND [employer]AIL DRAFTER-C Work Phone: [facility] 07-30-2025 14:22-0400 Body weight 113.93 kg Joyce Lagos L[employer] OUT AND [employer]AIL DRAFTER-C Work Phone: [facility] 07-30-2025 14:22-0400 Diastolic blood pressure 84 mm[Hg] Joyce Lagos [employer] OUT AND [employer]AIL DRAFTER-C Work Phone: [facility] 07-30-2025 14:22-0400 Systolic blood pressure 119 mm[Hg] Joyce Lagos [employer] OUT AND [employer]AIL [employer]RAFTER-C Work Phone: [facility] 07-14-2025 13:11-0400 Body height 162.56 cm Joyce Lagos L[employer] OUT AND [employer]AIL DRAFTER-C Work Phone: [facility] 07-14-2025 12:59-0400 Body mass index (BMI) [Ratio] 42.4 kg/m2 Joyce Lagos [employer] OUT AND [employer]RAFTER-C Work Phone: [facility] 07-14-2025 12:59-0400 Body weight 112.12 kg Joyce Lagos L[employer] OUT AND [employer]AIL DRAFTER-C Work Phone: [facility] 07-14-2025 12:59-0400 Diastolic blood pressure 79 mm[Hg] Joyce Lagos [employer] OUT AND [employer]AIL DRAFTER-C Work Phone: [facility] 07-14-2025 12:59-0400 Systolic blood pressure 120 mm[Hg] Joyce Lagos L[employer] OUT AND [employer]AIL DRAFTER-C Work Phone: [facility] 06-12-2025 11:08-0400 Body height 162.56 cm Joyce Lagos L[employer] OUT AND [employer]AIL DRAFTER-C Work Phone: [facility] 06-12-2025 11:07-0400 Body mass index (BMI) [Ratio] 40 kg/m2 Joyce Lagos [employer] OUT AND [employer]AIL DRAFTER-C Work Phone: [facility] 06-12-2025 11:07-0400 Body weight 105.77 kg Joyce Lagos L[employer] OUT AND [employer]AIL DRAFTER-C Work Phone: [facility] 06-12-2025 11:07-0400 Diastolic blood pressure 84 mm[Hg] Joyce Lagos [employer] OUT AND [employer]AIL DRAFTER-C Work Phone: [facility] 06-12-2025 11:07-0400 Systolic blood pressure 123 mm[Hg] Joyce Lagos [employer] OUT AND [employer]AIL DRAFTER-C Work Phone: [facility] 05-12-2025 13:39-0400 Body height 162.56 cm Joyce Lagos L[employer] OUT AND [employer]AIL [employer]RAFTER-C Work Phone: [facility] 05-12-2025 13:39-0400 Body mass index (BMI) [Ratio] 37.1 kg/m2 Joyce Lagos [employer] OUT AND [employer]RAFTER-C Work Phone: [facility] 05-12-2025 13:39-0400 Body weight 98.2 kg Joyce Lagos L[employer] OUT AND [employer]AIL DRAFTER-C Work Phone: [facility] 05-12-2025 13:39-0400 Diastolic blood pressure 82 mm[Hg] Joyce Lagos [employer] OUT AND [employer]RAFTER-C Work Phone: [facility] 05-12-2025 13:39-0400 Systolic blood pressure 124 mm[Hg] Joyce Lagos [employer] OUT AND [employer]AIL [employer]RAFTER-C Work Phone: [facility] 04-15-2025 13:37-0400 Body height 162.56 cm Joyce Lagos [employer] OUT AND [employer]AIL [employer]RAFTER-C Work Phone: [facility] 04-15-2025 13:37-0400 Body mass index (BMI) [Ratio] 34.9 kg/m2 Joyce Lagos [employer] OUT [employer]RAFTER-C Work Phone: [phone] [place] [address] 04-15-2025 13:37-0400 Body weight 92.3 kg Joyce Lagos [employer] OUT AND [employer]AIL [employer]RAFTER-C Work Phone: [facility] 04-15-2025 13:37-0400 Diastolic blood pressure 82 mm[Hg] Joyce Lagos [employer] OUT AND [employer]AIL DRAFTER-C Work Phone: [facility] 04-15-2025 13:37-0400 Systolic blood pressure 120 mm[Hg] Joyce Lagos L[employer] OUT AND [employer]AIL DRAFTER-C Work Phone: [facility] 03-20-2025 10:55-0400 Body height 162.56 cm Joyce Lagos L[employer] OUT AND [employer]AIL DRAFTER-C Work Phone: [facility] 03-20-2025 10:54-0400 Body mass index (BMI) [Ratio] 33.3 kg/m2 Joyce Lagos [employer] OUT AND [employer]AIL [employer]RAFTER-C Work Phone: [facility] 03-20-2025 10:54-0400 Body weight 88.11 kg Joyce Lagos L[employer] OUT AND [employer]AIL DRAFTER-C Work Phone: [facility] 03-20-2025 10:54-0400 Diastolic blood pressure 75 mm[Hg] Joyce Lagos L[employer] OUT AND [employer]AIL DRAFTER-C Work Phone: [facility] 03-20-2025 10:54-0400 Systolic blood pressure 118 mm[Hg] Joyce Lagos [employer] OUT AND [employer]AIL DRAFTER-C Work Phone: [facility] 02-24-2025 13:12-0400 Body mass index (BMI) [Ratio] 31.9 kg/m2 Joyce Lagos [employer] OUT AND [employer]RAFTER-C Work Phone: [facility] 02-24-2025 13:12-0400 Body weight 84.42 kg Joyce Lagos L[employer] OUT AND [employer]AIL [employer]RAFTER-C Work Phone: [facility] 02-24-2025 13:12-0400 Diastolic blood pressure 85 mm[Hg] Joyce Lagos [employer] OUT AND [employer]AIL [employer]RAFTER-C Work Phone: [facility] 02-24-2025 13:12-0400 Systolic blood pressure 128 mm[Hg] Joyce Lagos [employer] OUT AND [employer]AIL DRAFTER-C Work Phone: [facility] 02-14-2025 09:20-0400 Body mass index (BMI) [Ratio] 31.6 kg/m2 Joyce Lagos [employer] OUT AND [employer]AIL DRAFTER-C Work Phone: [facility] 02-14-2025 09:20-0400 Body weight 83.63 kg Joyce Lagos L[employer] OUT AND [employer]AIL DRAFTER-C Work Phone: [facility] 02-14-2025 09:20-0400 Diastolic blood pressure 68 mm[Hg] Joyce Lagos L[employer] OUT AND [employer]AIL DRAFTER-C Work Phone: [facility] 02-14-2025 09:20-0400 Systolic blood pressure 118 mm[Hg] Joyce Lagos L[employer] OUT AND [employer]AIL DRAFTER-C Work Phone: [facility] 01-23-2023 15:48-0400 Body height 165.[address] Deanna Lozada Work Phone: [facility] 01-23-2023 15:48-0400 Body mass index (BMI) [Ratio] 27.3 kg/m2 Dr. Deanna Lozada Work Phone: [facility] 01-23-2023 15:48-0400 Body temperature 98.6 [degF] Dr. Deanna Lozada Work Phone: [facility] 01-23-2023 15:48-0400 Body weight 74.[address] Deanna Lozada Work Phone: [facility] 01-23-2023 15:48-0400 Diastolic blood pressure 68 mm[Hg] Dr. Deanna Lozada Work Phone: [facility] 01-23-2023 15:48-0400 Heart rate 65 /min Dr. Deanna Lozada Work Phone: [facility] 01-23-2023 15:48-0400 Respiratory rate 16 /min Dr. Deanna Lozada Work Phone: [facility] 01-23-2023 15:48-0400 SaO2% (BldA) [Mass fraction] 97 % Dr. Deanna Lozada Work Phone: [facility] 01-23-2023 15:48-0400 Systolic blood pressure 106 mm[Hg] Dr. Deanna Lozada Work Phone: [facility] 09-14-2022 15:16-0500 Body height 162.[address] Deanna Lozada Work Phone: [facility] Work Phone: 09-14-2022 15:11-0500 Body mass index (BMI) [Ratio] 28.5 kg/m2 Dr. Deanna Lozada Work Phone: [facility] Work Phone: 09-14-2022 15:11-0500 Body weight 75.[address] Deanna Lozada Work Phone: [facility] Work Phone: 09-14-2022 15:11-0500 Diastolic blood pressure 74 mm[Hg] Dr. Deanna Lozada Work Phone: [facility] Work Phone: 09-14-2022 15:11-0500 Systolic blood pressure 116 mm[Hg] Dr. Deanna Lozada Work Phone: [facility] Work Phone: Encounters Encounter Date Encounter Type Care Provider Facility Start: 10-02-2025 ambulatory No Primary Car e Physician Facility:[facility] Start: 09-18-2025 ambulatory No Primary Car e Physician Facility:[facility] Start: 09-08-2025 ambulatory No Primary Car e Physician Facility:[facility] Start: 09-08-2025 End: 09-08-2025 ambulatory No Primary Care Physician Facility:[facility] Start: 09-07-2025 End: 09-08-2025 ambulatory No Primary Care Physician Facility:[facility] Start: 08-27-2025 End: 08-27-[address] Kayleigh Brian MD -[facility] Work Phone: Start: 08-27-2025 End: 08-27-2025 ambulatory No Primary Care Physician Facility:[facility] Start: 08-19-2025 Non-patient / Non-visit Dr. Kristie REECE -[facility] Work Phone: Start: 08-19-2025 End: 08-19-2025 Patient encounter procedure Xin Otero NP-C -Pulmonary Services/Neurology Work Phone: Start: 08-19-2025 End: 08-19-2025 ambulatory No Primary Care Physician Facility:[facility] Start: 08-13-2025 End: 08-13-2025 Patient encounter procedure Xin Otero NP-C -[facility] Work Phone: Start: 08-13-2025 End: 08-13-2025 ambulatory Joyce Lagos L[employer] OUT AND DETAIL DRAFTER-C Work Phone: [facility] Start: 07-30-2025 End: 07-30-[address] Kayleigh Brian MD -[facility] Work Phone: Start: 07-30-2025 End: 07-30-2025 ambulatory Joyce Francis Lagos L[employer] OUT AND DETAIL DRAFTER-C Work Phone: -[facility] Start: 07-14-2025 End: 07-14-2025 Patient encounter procedure Xin Otero NP-C -[facility] Work Phone: Start: 07-14-2025 End: 07-14-2025 ambulatory Joyce Lagos [employer] OUT AND [employer]AIL DRAFTER-C [facility] Start: 07-14-2025 End: 07-14-2025 ambulatory No Primary Care Physician Facility:[facility] Start: 06-12-2025 End: 06-12-[address] Viktoria Longoria DO -[facility] Work Phone: Start: 06-12-2025 End: 06-12-2025 ambulatory Joyce Francis Lagos [employer] OUT AND [employer] DRAFTER-C Work Phone: -[facility] Start: 05-27-2025 End: 05-27-2025 ambulatory [facility] Start: 05-12-2025 End: 05-12-2025 Patient encounter procedure Jeannine Gunn CNM -[facility] Work Phone: Start: 05-12-2025 End: 05-12-2025 ambulatory Joyce Francis Lagos LAY OUT AND DETAIL DRAFTER-C Work Phone: -[facility] Start: 05-12-2025 End: 05-12-2025 ambulatory [facility] Start: 04-15-2025 End: 04-15-2025 Patient encounter procedure Xin LANTIGUAC -[facility] Work Phone: Start: 04-15-2025 End: 04-15-2025 ambulatory Joyce Lagos LAY OUT AND DETAIL DRAFTER-C Work Phone: [facility] Work Phone: Start: 03-20-2025 End: 03-20-[address] Kayleigh Brian MD -[facility] Work Phone: Start: 03-20-2025 End: 03-20-2025 ambulatory Joyce Lagos LAY OUT AND DETAIL DRAFTER-C Work Phone: [facility] Work Phone: Start: 03-20-2025 End: 03-20-2025 ambulatory Joyce Francis Lagos Facility:[facility] Start: 03-07-2025 End: 03-07-2025 Lab Drop off Nathan Kilgore [facility] Start: 03-07-2025 End: 03-07-2025 ambulatory Nathan Kilgore Facility:[facility] Start: 02-24-2025 End: 02-24-[address] Viktoria Longoria DO -Laboratory Specimen Work Phone: Start: 02-24-2025 End: 02-24-[address] Viktoria Longoria DO -[facility] Work Phone: Start: 02-24-2025 End: 02-24-2025 ambulatory Viktoria Longoria Facility:[facility] Start: 02-24-2025 End: 02-24-2025 ambulatory Viktoria Longoria Facility:[facility] Start: 02-14-2025 Non-patient / Non-visit Paula mccann RN -[facility] Work Phone: Start: 02-14-2025 End: 02-14-[address] Kayleigh Brian MD -[facility] Work Phone: Start: 02-14-2025 End: 02-14-2025 ambulatory Joyce Lagos Facility:[facility] Start: 10-10-2024 Encounter for gynecological examination (general) (routine) without abnormal findings Jeannine Gunn [facility] Start: 10-10-2024 End: 10-10-2024 ambulatory Joyce Lagos Facility:[facility] Start: 09-23-2024 End: 09-23-2024 ambulatory Joyce Lagos Facility:[facility] Start: 09-23-2024 End: 09-23-2024 ambulatory Joyce Lagos Facility:[facility] Start: 01-23-2023 End: 01-23-[address] Deanna Lozada Work Phone: [facility] Work Phone: Start: 01-23-2023 End: 01-23-[address] Deanna Lozada Work Phone: [facility]-Laboratory, Specimen Start: 01-23-2023 End: 01-23-[address] Deanna Lozada Work Phone: [facility] Start: 09-14-2022 End: 09-14-[address] Deanna Lozada Work Phone: [facility] Work Phone: Start: 09-14-2022 End: 09-14-[address] Deanna Lozada Work Phone: [facility]-Laboratory, Specimen Start: 09-14-2022 End: 09-14-[address] Deanna Lozada Work Phone: [facility] Start: 08-12-2020 End: 08-12-2020 Patient encounter procedure YENY JULIEN [facility] Start: 08-10-2020 Patient encounter procedure YENY JULIEN [facility] Start: 08-08-2020 Refill Yeny Curry DO Work Phone: [facility] Comment on above: Migraine without aur a and without status migrainosus, not intractable Start: 07-15-2020 End: 07-15-2020 Patient encounter procedure PHYSICIAN NO [facility] Ambulatory Procedures Date Procedure Procedure [...] HCV Quant by PCR testing - HCVPCR #[id number] Non Reactive: < 0.8 Equivocal: >/= 0.8 to < 1.0 Reactive: >/= 1.0The CDC requires that a reactive/equivocal HCV antibody result be sent out for confirmation. HCV Quant by PCR testing. Start: 03-20-2025 Procedure Joyce Lagos LAY OUT AND DETAIL DRAFTER-C Work Phone: Start: 03-20-2025 Rubella IgG measurement Joyce Lagos LAY OUT AND DETAIL DRAFTER-C Work Phone: Comment on above: Antibody Result: Int erpretationNon-Reactive: Non- ImmuneReactive: ImmuneThe following results were obtained with the [employer] Rubella IgG assay. Results from assays of other manufacturers cannot be used interchangeably. Start: 03-20-2025 Serologic test for syphilis Joyce Lagos LAY OUT AND DETAIL DRAFTER-C Work Phone: Start: 02-24-2025 Methadone measurement, urine Joyce Lagos LAY OUT AND DETAIL DRAFTER-C Work Phone: Start: 02-24-2025 Urine culture Joyce pastrana LAY OUT AND DETAIL DRAFTER-C Work Phone: Urine culture Dr. Deanna Ospina dt Work Phone: Plan of Treatment Date Care Activity Detail Author Start: 09-08-2025 Non-patient / Non-visit Non-patient / Non-visit -[facility] Start: 09-08-2025 End: 09-08-2025 Patient encounter procedure Departed Clinical -Laboratory Specimen Work Phone: Start: 09-08-2025 Beta-hemolytic Streptococcus culture Group B Streptococcus Culture [facility] Start: 09-08-2025 End: 09-08-2025 Patient encounter procedure Anemia in -[facility] Work Phone: Start: 09-07-2025 Nonstress test [facility] Start: 09-07-2025 Obstetric monitoring [facility] Start: 09-07-2025 Vital signs measurements [facility] Start: 09-07-2025 [facility] Start: 09-07-2025 End: 09-07-2025 Patient encounter procedure Departed Clinical [facility] Work Phone: Start: 09-07-2025 End: 09-08-2025 Non-patient / Non-visit Non-patient / Non-visit -[facility] Start: 09-07-2025 Patient discharge [facility] Start: 07-14-2025 Electrocardiographic procedure [facility] Start: 07-14-2025 CBC W Auto Differential panel - Blood [facility] Start: 07-14-2025 Measurement of glucose 2 hours after glucose challenge for glucose tolerance test [facility] Start: 07-14-2025 Serologic test for syphilis [facility] Start: 07-14-2025 [facility] Start: 03-20-2025 CBC W Auto Differential panel - Blood [facility] Start: 03-20-2025 Hemoglobin A1c/Hemoglobin.total in Blood [facility] Start: 03-20-2025 Hepatitis C antibody measurement [facility] Start: 03-20-2025 Procedure [facility] Start: 03-20-2025 Rubella IgG measurement [facility] Start: 03-20-2025 Serologic test for syphilis [facility] Start: 03-20-2025 [facility] Start: 07-07-2022 Influenza vaccination Sequential Influenza Vaccine (#1) [facility] Start: 2017 Hepatitis C screening Hepatitis C Screening [facility] Start: 2014 HIV screening HIV Screening [facility] Start: 2011 Depression screening using PHQ-9 (Patient Health Questionnaire 9) score Depression Screening (PHQ-2/9) [facility] Start: 2010 Vaccination for human papillomavirus HPV Vaccines (1 - 2-dose series) [facility] Start: 2002 History and physical examination, annual for health maintenance Wellness Visit [facility] Start: 1999 COVID-19 Vaccine (#1) COVID-19 Vaccine (#1) [facility] Start: 1999 Screening for Chlamydia trachomatis Chlamydia Screening [facility] Start: 1999 Screening for malignant neoplasm of cervix Pap Smear [facility] Start: 1999 Tetanus vaccination Tetanus: Every 10yrs [facility] CBC W Auto Different ial panel - Blood [facility] Erythrocyte mean cor puscular volume determination [facility] Erythrocyte mean cor puscular volume determination [facility] Hematocrit [Volume F raction] of Blood [facility] Hematocrit [Volume F raction] of Blood [facility] Hemoglobin [Mass/vol ume] in Blood [facility] Hemoglobin [Mass/vol ume] in Blood [facility] Hepatitis B virus rivas rface Ag [Presence] in Serum [facility] Leukocytes [#/volume ] in Blood [facility] Leukocytes [#/volume ] in Blood [facility] Mean corpuscular hem oglobin concentration determination [facility] Mean corpuscular hem oglobin concentration determination [facility] Mean corpuscular hem oglobin determination [facility] Mean corpuscular hem oglobin determination [facility] Measurement of gluco se 2 hours after glucose challenge for glucose tolerance test [facility] Neutrophil count [facility] Neutrophil count [facility] Neutrophil percent differential count [facility] Neutrophil percent differential count [facility] Patient Education Kick Counts OB Triage: Return to Hospital or Notify Physician if you Experience: [facility] Work Phone: Platelets [#/volume] in Blood [facility] Platelets [#/volume] in Blood [facility] Red blood cell count [facility] Red blood cell count [facility] Red cell distributio n width determination [facility] Red cell distributio n width determination [facility] Serologic test for syphilis [facility] Payers Date Payer Category Payer Unknown [id number] 2024 Self-pay [id number] 2023 Unknown [id number] 2019 Unknown [id number] 1999 Unknown [id number] 2.16. 840.1.086508.3.579.2.903 1999 Unknown [id number] 2.16. 840.1.363825.3.579.2.903 1999 Unknown [id number] 2.16. 840.1.237445.3.579.2.903 1999 Unknown [id number] 2.16. 840.1.277522.3.579.2.903 1999 Unknown [id number] 2.16.8 40.1.755974.3.579.2.727 1999 Unknown [id number] 2.16.8 40.1.592667.3.579.2.727 1999 Unknown [id number] 2.16. 840.1.102289.3.579.2.479 Unknown [id number] Unknown [id number] Unknown [id number] 2.16.8 40.1.592300.3.579.2.462 Unknown [id number] 2.16.8 40.1.638646.3.579.2.462 Unknown [id number] 2.16.8 40.1.305778.3.579.2.462 Unknown [id number] 2.16.8 40.1.396751.3.579.2.462 Unknown [id number] 2.16.8 40.1.124304.3.579.2.462 Unknown [id number] 2.16.8 40.1.919887.3.579.2.462 Unknown [id number] 2.16.8 40.1.060927.3.579.2.462 Unknown [id number] 2.16.8 40.1.467329.3.579.2.462 Unknown [id number] 2.16.8 40.1.527472.3.579.2.462 Unknown [id number] 2.16.8 40.1.849829.3.579.2.462 Unknown [id number] 2.16.8 40.1.238398.3.579.2.462 Unknown [id number] 2.16.8 40.1.143172.3.579.2.462 Unknown [id number] 2.16.8 40.1.547911.3.579.2.462 Unknown [id number] 2.16.8 40.1.406663.3.579.2.462 Unknown [id number] 2.16.8 40.1.360608.3.579.2.462 Unknown [id number] 2.16.8 40.1.234736.3.579.2.462 Unknown [id number] 2.16.8 40.1.046011.3.579.2.462 Unknown [id number] 2.16.8 40.1.398019.3.579.2.462 Unknown [id number] 2.16.8 40.1.224660.3.579.2.462 Unknown [id number] 2.16.8 40.1.245314.3.579.2.462 Unknown [id number] 2.16.8 40.1.402623.3.579.2.462 Unknown [id number] 2.16.8 40.1.208762.3.579.2.462 Unknown [id number] 2.16.8 40.1.883010.3.579.2.462 Unknown [id number] 2.16.8 40.1.060289.3.579.2.462 Social History Date Type Detail Facility Start: 09-14-2022 End: 01-23-2023 Tobacco smoking status NHIS Unknown if ever smoked [facility] Start: 2000 Sex Assigned At Female [facility] Start: 07-15-2020 End: 02-14-2025 Tobacco smoking status NHIS Never smoked tobacco [facility] Start: 07-15-2020 Tobacco use and exposure Smoke less tobacco non-user [facility] Start: 07-15-2020 Alcohol intake Current drinke r of alcohol (finding) [facility] Start: 07-15-2020 History SDOH Alcohol Frequency 3 [facility] Start: 07-14-2020 History SDOH Alcohol Std Drinks 99 [facility] Start: 2000 Sex Assigned At Not on file O hiOReal Start: 07-13-2020 End: 08-12-2020 Exposure to SARS-CoV-2 (event) Unable to assess [facility] Tobacco smoking status Never [facility] Sexual Orientation [facility] Sex Assigned At Female [facility] Sex Female (finding) [facility] Clinical Notes 08-10-2020 to 08-27-2025 Note Date & Type Note Facility 08-27-2025 Progress note [facility] 08-27-2025 Progress note Note Date/Time August 27, 2025 3:55pm [facility] [address], [address] [place] [address] OFFICE VISIT Date of Service: 08/27/25 MR#: [id number] Acct: [id number] Name: BRAYDEN CONNELLY Rep #: [id number] : 2000 Provider: Dr. Isael Brian MD Age/Sex: 25/F Location: [facility] Status: Signed Intake Vital Signs 07/14/25 13:11 08/13/25 13:28 08/27/25 14:25 Height 5 ft 4 in 5 ft 4 in 5 ft 4 in Weight: 262 lb 3 oz BMI 45.0 BP 114/81 H Intake Visit Reasons: 34 WK 6 DAYS Intelligence Research Specialist Required: No Is patient in pain?: No [...] animals: cat(s) history of recent travel: Yes ([place] - December 2024 & [place] - January 2025)out of state: Yes sexually [...] 5-6 times per week duration: 15-30 minutes/day naina/church: Religious seatbelt use: always do you feel safe [...] she is having increased heart rate-EKG ordered. [facility] US today for growth and check placenta. 28 wk labs pending. -No VB, LOF. Good FM. Sta trisha noting that she is having increased heart rate- EKG ordered. [facility] today for growth and check placenta. 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 FOB drawn 04/15/25: (4) Obesity [...] neg. 10/19 Carrier for Cystic Fibrosis and Eeilq-Ntqko-Qoaqb Syndome. (7) History of anxiety: Status: Acute [...] fallen in the past year?: No 08/27/25 9330 <Electronically signed by Kayleigh garcia MD> Date _ [facility] Signature: Date (if applicable) CC: ~ [facility] Work Phone: 1(272) 636-920209-24-2025 Progress [facility] [address], [address] [place] [address] OFFICE VISIT Date of Service: 07/30/25 MR#: [id number] Acct: [id number] Name: BRAYDEN CONNELLY Rep #: [id number] : 2000 Provider: Dr. Isael Brian MD Age/Sex: 25/F Location: [facility] Status: Signed Intake Vital Signs 05/12/25 13:39 07/14/25 13:11 07/30/25 14:22 Height 5 ft 4 in 5 ft 4 in 5 ft 4 in Weight: 251 lb 3 oz BMI 43.1 BP 119/84 H Intake Visit Reasons: 30 WK 6 DAYS Chief Complaint: 30wk OB Intelligence Research Specialist Required: No Is patient in pain?: No [...] animals: cat(s) history of recent travel: Yes ([place] - December 2024 & [place] - January 2025)out of state: Yes sexually [...] 5-6 times per week duration: 15-30 minutes/day naina/church: Religious seatbelt use: always do you feel safe [...] she is having increased heart rate-EKG ordered. [facility] US today for growth and check placenta. 28 wk labs pending. -No VB, LOF. Good FM. Sta trisha noting that she is having increased heart rate- EKG ordered. 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 FOB drawn 04/15/25: (4) Obesity [...] neg. 10/19 Carrier for Cystic Fibrosis and Mqibp-Nzsif-Djlep Syndome. (7) History of anxiety: Status: Acute [...] jose REECE> Date _ Kayleigh [facility] Signature: Date (if applicable) CC: ~ [facility]09-24-2025 Progress note Author Kayleigh Brian [facility] Note Date/Time July 30, 2025 2:57pm [facility] [address], [address] [place] [address] OFFICE VISIT Date of Service: 07/30/25 MR#: [id number] Acct: [id number] Name: BRAYDEN CONNELLY Rep #: [id number] : 2000 Provider: Dr. Isael Brian MD Age/Sex: 25/F Location: [facility] Status: Signed Intake Vital Signs 05/12/25 13:39 07/14/25 13:11 07/30/25 14:22 Height 5 ft 4 in 5 ft 4 in 5 ft 4 in Weight: 251 lb 3 oz BMI 43.1 BP 119/84 H Intake Visit Reasons: 30 WK 6 DAYS Chief Complaint: 30wk OB Intelligence Research Specialist Required: No Is patient in pain?: No [...] animals: cat(s) history of recent travel: Yes ([place] - December 2024 & [place] - January 2025)out of state: Yes sexually [...] 5-6 times per week duration: 15-30 minutes/day naina/church: Religious seatbelt use: always do you feel safe [...] 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 FOB drawn 04/15/25: (4) Obesity [...] neg. 10/19 Carrier for Cystic Fibrosis and Higmr-Hsbia-Bhfpq Syndome. (7) History of anxiety: Status: Acute Comment: In college - on Lexapro 2018, counseling 2022 (8) Marijuana use: Status: Acute Comment: Last use 2022 - random tx screen ordered (9) Migraines: Status: Acute Comment: on Sumatriptan - last use 02/05 Orders: Orders POC Urinalysis 2 Dip (Clinic) Today Medications: New famotidine (Pepcid) 20 mg PO BID 60 tabs 6RF 07/30/25 3347 <Electronically signed by Kayleigh garcia MD> Date _ Kayleigh Brian MD Cosigner Signature: Date (if applicable) CC: ~ [facility] Work Phone: 1(574) 780-641908-07-2025 Evaluation note* Diagnosis Onset Date Resolution Status [...] Supervision of high-risk acute September 08 1:29pm [facility] Work Phone: 1(530) 191-837808-07-[address] [facility] [address] [place] [address], [address] [place] [address] OFFICE VISIT Date of Service: 06/12/25 MR#: [id number] Acct: [id number] Name: BRAYDEN CONNELLY Rep #: [id number] : 2000 Provider: Dr. Sarika Longoria DO Age/Sex: 25/F Location: [facility] Status: Signed Intake Vital Signs 03/20/25 10:55 05/12/25 13:39 06/12/25 11:07 06/12/25 11:08 Height 5 ft 4 in 5 ft 4 in 5 ft 4 in 5 ft 4 in Weight: 233 lb 3 oz BMI 40.0 BP 123/84 H Intake Visit Reasons: 24 wk ob Intelligence Research Specialist Required: No Is patient in pain?: No [...] animals: cat(s) history of recent travel: Yes ([place] - December 2024 & [place] - January 2025)out of state: Yes sexually [...] 5-6 times per week duration: 15-30 minutes/day naina/church: Religious seatbelt use: always do you feel safe [...] 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 FOB drawn 04/15/25: (3) Obesity [...] neg. 10/19 Carrier for Cystic Fibrosis and Mrako-Nsjum-Dbbum Syndome. (6) History of anxiety: Status: Acute [...] DO> Date _ Viktoria Wilkes Lakeisha DO [facility] Signature: Date (if applicable) CC: ~ [facility]07-07-[address] [facility] [address] [place] [address], [address] [place] [address] OFFICE VISIT Date of Service: 05/12/25 MR#: [id number] Acct: [id number] Name: BRAYDEN CONNELLY Rep #: [id number] : 2000 Provider: JACK Gunn Age/Sex: 25/F Location: [facility] Status: Signed Intake Vital Signs 02/24/25 13:12 04/15/25 13:37 05/12/25 13:39 Height 5 ft 4 in 5 ft 4 in 5 ft 4 in Weight: 216 lb 8 oz BMI 37.1 BP 124/82 H Intake Visit Reasons: 20 wk ob Chief Complaint: 20wk OB Intelligence Research Specialist Required: No Is patient in pain?: No [...] animals: cat(s) history of recent travel: Yes ([place] - December 2024 & [place] - January 2025)out of state: Yes sexually [...] 5-6 times per week duration: 15-30 minutes/day naina/church: Religious seatbelt use: always do you feel safe [...] 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 FOB drawn 04/15/25: (2) Obesity [...] neg. 10/19 Carrier for Cystic Fibrosis and Cnayl-Zcgjb-Iqsxl Syndome. (5) History of anxiety: Status: Acute [...] [facility] Progress note Author Jeannine Gunn [facility] Note Date/Time May 12, 2025 2:03p [facility] [address] [place] [address], [address] [place] [address] OFFICE VISIT Date of Service: 05/12/25 MR#: [id number] Acct: [id number] Name: BRAYDEN CONNELLY Rep #: [id number] : 2000 Provider: JACK Gunn Age/Sex: 25/F Location: [facility] Status: Signed Intake Vital Signs 02/24/25 13:12 04/15/25 13:37 05/12/25 13:39 Height 5 ft 4 in 5 ft 4 in 5 ft 4 in Weight: 216 lb 8 oz BMI 37.1 BP 124/82 H Intake Visit Reasons: 20 wk ob Chief Complaint: 20wk OB Intelligence Research Specialist Required: No Is patient in pain?: No [...] animals: cat(s) history of recent travel: Yes ([place] - December 2024 & [place] - January 2025)out of state: Yes sexually [...] 5-6 times per week duration: 15-30 minutes/day naina/church: Religious seatbelt use: always do you feel safe [...] 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 FOB drawn 04/15/25: (2) Obesity [...] neg. 10/19 Carrier for Cystic Fibrosis and Cqgxc-Poyai-Hssit Syndome. (5) History of anxiety: Status: Acute [...] this visit. [place] appropriate handout given. 05/12/25 1483 <Electronically signed by Jeannine davenport CNM> Date _ Jeannine Gunn CNM Cosigner Signature: Date (if applicable) CC: ~ [facility] Work Phone: 1(113) 136-984406-10-2025 Evaluation note* Diagnosis Onset Date Resolution Status [...] lying placenta, antepartum resolved July 14 12:52pm [facility] Work Phone: 1(919) 173-209406-10-2025 Evaluation note* Diagnosis Onset Date Resolution Status [...] of high-risk acute July 30, 2025 2:14pm [facility] Work Phone: 1([phone]) 188-260706-10-2025 Evaluation note* Diagnosis Onset Date Resolution Status [...] Supervision of high-risk acute August 13 1:23pm [facility] Work Phone: 1(651) 898-105605-15-2025 Evaluation note* Diagnosis Onset Date Resolution Status [...] high-risk acute July 14 2 025 12:52pm [facility] Work Phone: 1([phone]) 518-548905-03-2025 NotePatient Education Obstetrics and Gynecology First Trimester [...] these instructions at home: Medicines ??? Take gvrj-qmo-qgoicgd and prescription medicines only as told by [...] visits. Where to find more information ??? [place] Association: americanpregnancy.org ??? [place] [employer]ians [employer]nec[employer]: www.acog.org ??? [...] away if: ??? You (more content not included)...[facility]05-02-2025 Evaluation + Plan note Diagnostic Tests Pending * Urine Culture 03/07/[address] [facility] 04-21-2025 Evaluation note* Diagnosis Onset Date Resolution [...] 1 0:44am [facility] Work Phone: 1(817) 608-564304-21-2025 Evaluation note* Diagnosis Onset Date Resolution Status [...] 2025 1:33pm [facility] Work Phone: 1([phone]) 110-131404-21-2025 Evaluation note* Diagnosis Onset Date Resolution Status [...] high-risk acute May 12, 2025 1 :29pm [facility] Work Phone: 1(371) 554-498404-21-2025 Evaluation note* Diagnosis Onset Date Resolution Status [...] of high-risk acute June 12, 2025 10:58am [facility] Work Phone: 1([phone]) [phone] Miscellaneous Notes* Telephone Encounter - Joyce Lloyd [...] preferred pharmacy if needed. documented in this [id number] Telephone encounter Note* Telephone Encounter - Joyce Lloyd LPN - 08/11/2020 11:17 AM EDT Pt rescheduled video visit for tomorrow (08/12/20) at 11:00am. States she does not need a refill before appt. [id number] Telephone encounter Note* Telephone Encounter - Yeny Julien DO - 08/10/2020 2:01 PM EDT No show for today's appointment. Please reschedule video visit. Let me know if refill needed beforeappointment and update preferred pharmacy if needed. [facility] note* Diagnosis Onset Date Resolution Status Possible exposure to STD non eactive Encounter for routine gynecological examination noneactive [facility] Work Phone: Evaluation note* Diagnosis Migraine without aura and without status migrainosus, not intractable documented in this encounter [facility] note* Diagnosis Onset Date Resolution Status Urinary tract infection with hematuria acute [facility] Work Phone: Hospital course Narrative No data available for this section [facility] Hospital Discharge instructions No data available for this section [facility] Progress note No data available for this section [facility] Progress note Author Viktoria Suazo [facility] Note Date/Time June 12, 2025 11: 45am [facility] [address] [place] [address], [address] [place] [address] OFFICE VISIT Date of Service: 06/12/25 MR#: [id number] Acct: [id number] Name: BRAYDEN CONNELLY Rep #: [id number] : 2000 Provider: Dr. Sarika Longoria DO Age/Sex: 25/F Location: [facility] [place] Status: Signed Intake Vital Signs 03/20/25 10:55 05/12/25 13:39 06/12/25 11:07 06/12/25 11:08 Height 5 ft 4 in 5 ft 4 in 5 ft 4 in 5 ft 4 in Weight: 233 lb 3 oz BMI 40.0 BP 123/84 H Intake Visit Reasons: 24 wk ob Intelligence Research Specialist Required: No Is patient in pain?: No [...] animals: cat(s) history of recent travel: Yes ([place] - December 2024 & [place] - January 2025)out of state: Yes sexually [...] 5-6 times per week duration: 15-30 minutes/day naina/church: Religious seatbelt use: always do you feel safe [...] 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 FOB drawn 04/15/25: (3) Obesity [...] neg. 10/19 Carrier for Cystic Fibrosis and Earpf-Wbfpa-Aaato Syndome. 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 2024 12:52pm Low lying placenta, antepartum July 14, 2025 12:52pm Anemia in July 30, 2025 2:14pm Cystic fibrosis carrier July 30, 2025 2:14pm History of anxiety July 30, 2025 2:14pm Marijuana use July 30, 2025 2:14pm Migraines July 30, 2025 2:14pm Obesity affecting July [id number] 2:14pm Palpitation July 30, 2025 2:14pm July 30, 2025 2:14pm Supervision of high-risk [facility] 2024 2:14pm Chief Complaint Admit Date 16 [...] 14, 2025 12:52pm Supervision of high-risk [facility] 2024 12:52pm Low lying placenta, antepartum July 14, 2025 12:52pm Anemia in July 30, 2025 2:14pm Cystic fibrosis carrier July 30, 2025 2:14pm History of anxiety July 30, 2025 2:14pm Marijuana use July 30, 2025 2:14pm Migraines July 30, 2025 2:14pm Obesity affecting July [id number] 2:14pm Palpitation July 30, 2025 2:14pm July 30, 2025 2:14pm Supervision of high-risk [facility] 2024 2:14pm Anemia in August 13, 2025 [...] 12:52pm [facility] 2024 12:52pm Low lying placenta, antepartum July 14, 2025 12:52pm Anemia in July 30, 2025 2:14pm Cystic fibrosis carrier July 30, 2025 2:14pm History of anxiety July 30, 2025 2:14pm Marijuana use July 30, 2025 2:14pm Migraines July 30, 2025 2:14pm Obesity affecting July [id number] 2:14pm Palpitation July 30, 2025 2:14pm July 30, 2025 2:14pm Supervision of high-risk [facility] 2024 2:14pm Anemia in August 13, 2025 [...] section and content) DATE CREATED AUTHOR 09/01/2020 [facility] DATE CREATED AUTHOR AUTHOR'S ORGANIZ ATION 03/13/2025 [facility] DATE CREATED AUTHOR AUTHOR'S ORGANIZ ATION 07/16/2025 [facility] DATE CREATED AUTHOR AUTHOR'S ORGANIZ ATION 09/17/2025 [facility] Goals (unrecognized section and content) Type Care [...] Care Teams (unrecognized sec tion and content) Supervisor Home Economics Relationship Specialty Start Date End Date No, Physician [facility] PCP - General 07/14/20 08/09/20 Yeny Julien DO [address] [place] [address] [place] [address] PCP - General Family Medicine 08/10/20 Team [...] Member Role Status Dates Joyce Lagos , LAY OUT AND DETAIL DRAFTER-C Primary Care Provider Active Team Status: Inactive Member Role Status Dates Joyce Lagos , LAY OUT AND DETAIL DRAFTER-C Primary Care Provider Active Start: February 14, 2025 End: February 14, 2025 Joyce Francis Lagos , LAY OUT AND DETAIL DRAFTER-C Referring Provider Active St art: February 14, 2025 End: February 14, 2025 Dr. Kayleigh Brian MD Attending Provider Active Start: February 14, 2025 End: February 14, 2025 Team Status: Active Member Role Status Dates Joyce Lagos , LAY OUT AND DETAIL DRAFTER-C Primary Care Provider Active Start: February 14, 2025 Paula Cobos RN Attending Provider Active St art: February 14, 2025 Team Status: Inactive Member Role Status Dates Joyce Francis Lagos , LAY OUT AND DETAIL DRAFTER-C Primary Care Provider Active Start: February 24, 2025 End: February 24, 2025 Joyce Francis Lagos , LAY OUT AND DETAIL DRAFTER-C Referring Provider Active St art: February 24, 2025 End: February 24, 2025 Dr. Viktoria Longoria DO Attending Provider Activ e Start: February 24, 2025 End: February 24, 2025 Team Status: Inactive Member Role Status Dates Joyce Francis Lagos , LAY OUT AND DETAIL DRAFTER-C Primary Care Provider Active Start: February 24, 2025 End: February 24, 2025 Dr. Viktoria Longoria DO Attending Provider Activ e Start: February 24, 2025 End: February 24, 2025 Dr. Viktoria Longoria DO Referring Provider Activ e Start: February 24, 2025 End: February 24, 2025 Team Status: Inactive Member Role Status Dates Joyce Francis Lagos , LAY OUT AND DETAIL DRAFTER-C Primary Care Provider Active Start: March 20, 2025 End: March 20, 2025 Joyce Lagos , LAY OUT AND DETAIL DRAFTER-C Referring Provider Active St art: March 20, 2025 End: March 20, 2025 Dr. Kayleigh Brian MD Attending Provider Active Start: March 20, 2025 End: March 20, 2025 Team Status: Active Member Role Status Dates Joyce Lagos , LAY OUT AND DETAIL DRAFTER-C Primary Care Provider Active Start: March 20, 2025 Dr. Kayleigh Brian MD Attending Provider Active Start: March 20, 2025 Dr. Kayleigh Brian MD Referring Provider Active Start: March 20, 2025 Team Status: Inactive Member Role Status Dates Joyce Lagos , LAY OUT AND DETAIL DRAFTER-C Primary Care Provider Active Start: March 20, 2025 End: March 20, 2025 Dr. Kayleigh Brian MD Attending Provider Active Start: March 20, 2025 End: March 20, 2025 Dr. Kayleigh Brian MD Referring Provider Active Start: March 20, 2025 End: March 20, 2025 Team Status: Inactive Member Role Status Dates Joyce Francis Lagos , LAY OUT AND DETAIL DRAFTER-C Primary Care Provider Active Start: April 15, 2025 End: April 15, 2025 Joyce Lagos , LAY OUT AND DETAIL DRAFTER-C Referring Provider Active St art: April 15, 2025 End: April 15, 2025 Xin Otero NP, LAY OUT AND DETAIL DRAFTER-C Attending Provider Active Start: April 15, 2025 End: April 15, 2025 Team Status: Active Member Role/Relationship Status Dates Joyce Francis Lagos , LAY OUT AND DETAIL DRAFTER-C Primary Care Provider Active Team Status: Inactive Member Role/Relationship Status Dates Joyce Francis Lagos , LAY OUT AND DETAIL DRAFTER-C Primary Care Provider Active Start: February 14, 2025 End: February 14, 2025 Joyce Lagos , LAY OUT AND DETAIL DRAFTER-C Referring Provider Active St art: February 14, 2025 End: February 14, 2025 Dr. Kayleigh Brian MD Attending Provider Active Start: February 14, 2025 End: February 14, 2025 Team Status: Active Member Role/Relationship Status Dates Joyce Lagos , LAY OUT AND DETAIL DRAFTER-C Primary Care Provider Active Start: February 14, 2025 Paula Cobos RN Attending Provider Active St art: February 14, 2025 Team Status: Inactive Member Role/Relationship Status Dates Joyce Fracnis Lagos , LAY OUT AND DETAIL DRAFTER-C Primary Care Provider Active Start: February 24, 2025 End: February 24, 2025 Joyce Lagos , LAY OUT AND DETAIL DRAFTER-C Referring Provider Active St art: February 24, 2025 End: February 24, 2025 Dr. Viktoria Longoria DO Attending Provider Activ e Start: February 24, 2025 End: February 24, 2025 Team Status: Inactive Member Role/Relationship Status Dates Joyce Francis Lagos , LAY OUT AND DETAIL DRAFTER-C Primary Care Provider Active Start: February 24, 2025 End: February 24, 2025 Dr. Viktoria Longoria DO Attending Provider Activ e Start: February 24, 2025 End: February 24, 2025 Dr. Viktoria Longoria DO Referring Provider Activ e Start: February 24, 2025 End: February 24, 2025 Team Status: Inactive Member Role/Relationship Status Dates Joyce Francis Lagos , LAY OUT AND DETAIL DRAFTER-C Primary Care Provider Active Start: March 20, 2025 End: March 20, 2025 Joyce Lagos , LAY OUT AND DETAIL DRAFTER-C Referring Provider Active St art: March 20, 2025 End: March 20, 2025 Dr. Kayleigh Brian MD Attending Provider Active Start: March 20, 2025 End: March 20, 2025 Team Status: Inactive Member Role/Relationship Status Dates Joyce Lagos , LAY OUT AND DETAIL DRAFTER-C Primary Care Provider Active Start: March 20, 2025 End: March 20, 2025 Dr. Kayleigh Brian MD Attending Provider Active Start: March 20, 2025 End: March 20, 2025 Dr. Kayleigh Brian MD Referring Provider Active Start: March 20, 2025 End: March 20, 2025 Team Status: Inactive Member Role/Relationship Status Dates Joyce Francis Lagos , LAY OUT AND DETAIL DRAFTER-C Primary Care Provider Active Start: April 15, 2025 End: April 15, 2025 Joyce Lagos , LAY OUT AND DETAIL DRAFTER-C Referring Provider Active St art: April 15, 2025 End: April 15, 2025 Xin Otero NP, LAY OUT AND DETAIL DRAFTER-C Attending Provider Active Start: April 15, 2025 End: April 15, 2025 Team Status: Inactive Member Role/Relationship Status Dates Joyce Francis Lagos , LAY OUT AND DETAIL DRAFTER-C Primary Care Provider Active Start: May 12, 2025 End: May 12, 2025 Joyce D Demond , LAY OUT AND DETAIL DRAFTER-C Referring Provider Active St art: May 12, 2025 End: May 12, 2025 Jeannine Gunn CNM Attending Provider Active S tart: May 12, 2025 End: May 12, 2025 Team Status: Inactive Member Role/Relationship Status Dates Joyce D Demond , LAY OUT AND DETAIL DRAFTER-C Primary Care Provider Active Start: June 12, 2025 End: June 12, 2025 Joyce D Demond , LAY OUT AND DETAIL DRAFTER-C Referring Provider Active St art: June 12, 2025 End: June 12, 2025 Dr. Viktoria Longoria DO Attending Provider Activ e Start: June 12, 2025 End: June 12, 2025 Team Status: Active Member Role/Relationship Status Dates No Primary Care Physician Primary Care Provider Active Team Status: Inactive Member Role/Relationship Status Dates Joyce D Demond , LAY OUT AND DETAIL DRAFTER-C Primary Care Provider Active Start: March 20, 2025 End: March 20, 2025 Joyce Francis Lagos , LAY OUT AND DETAIL DRAFTER-C Referring Provider Active St art: March 20, 2025 End: March 20, 2025 Dr. Kayleigh Brian MD Attending Provider Active Start: March 20, 2025 End: March 20, 2025 Team Status: Inactive Member Role/Relationship Status Dates Joyce D Demond , LAY OUT AND DETAIL DRAFTER-C Primary Care Provider Active Start: March 20, 2025 End: March 20, 2025 Dr. Kayleigh rBian MD Attending Provider Active Start: March 20, 2025 End: March 20, 2025 Dr. Kayleigh Brian MD Referring Provider Active Start: March 20, 2025 End: March 20, 2025 Team Status: Inactive Member Role/Relationship Status Dates Joyce D Demond , LAY OUT AND DETAIL DRAFTER-C Primary Care Provider Active Start: April 15, 2025 End: April 15, 2025 Joyce D Demond , LAY OUT AND DETAIL DRAFTER-C Referring Provider Active St art: April 15, 2025 End: April 15, 2025 Xin Otero NP, LAY OUT AND DETAIL DRAFTER-C Attending Provider Active Start: April 15, 2025 End: April 15, 2025 Team Status: Inactive Member Role/Relationship Status Dates Joyce D Demond , LAY OUT AND DETAIL DRAFTER-C Primary Care Provider Active Start: May 12, 2025 End: May 12, 2025 Joyce Lagos , LAY OUT AND DETAIL DRAFTER-C Referring Provider Active St art: May 12, 2025 End: May 12, 2025 Jeannine Gunn CNM Attending Provider Active S tart: May 12, 2025 End: May 12, 2025 Team Status: Inactive Member Role/Relationship Status Dates Joyce Lagos , LAY OUT AND DETAIL DRAFTER-C Primary Care Provider Active Start: June 12, 2025 End: June 12, 2025 Joyce Lagos , LAY OUT AND DETAIL DRAFTER-C Referring Provider Active St art: June 12, 2025 End: June 12, 2025 Dr. Viktoria Longoria , DO Attending Provider Activ e Start: June 12, 2025 End: June 12, 2025 Team Status: Inactive Member Role/Relationship Status Dates Joyce Lagos , LAY OUT AND DETAIL DRAFTER-C Referring Provider Active St art: July 14, 2025 End: July 14, 2025 Xin Otero LAY OUT AND DETAIL DRAFTER, LAY OUT AND DETAIL DRAFTER-C Attending Provider Active Start: July 14, 2025 End: July 14, 2025 No Primary Care Physician Primary Care Provider Active Start: July 14, 2025 End: July 14, 2025 Team Status: Active Member Role/Relationship Status Dates No Primary Care Physician Primary Care Provider Active Start: July 14, 2025 Xin Otero LAY OUT AND DETAIL DRAFTER, LAY OUT AND DETAIL DRAFTER-C Attending Provider Active Start: July 14, 2025 Team Status: Inactive Member Role/Relationship Status Dates Joyce Lagos , LAY OUT AND DETAIL DRAFTER-C Primary Care Provider Active Start: April 15, 2025 End: April 15, 2025 Joyce Lagos , LAY OUT AND DETAIL DRAFTER-C Referring Provider Active St art: April 15, 2025 End: April 15, 2025 Xin Otero LAY OUT AND DETAIL DRAFTER, LAY OUT AND DETAIL DRAFTER-C Attending Provider Active Start: April 15, 2025 End: April 15, 2025 Team Status: Inactive Member Role/Relationship Status Dates Joyce Lagos , LAY OUT AND DETAIL DRAFTER-C Primary Care Provider Active Start: May 12, 2025 End: May 12, 2025 Joyce Lagos , LAY OUT AND DETAIL DRAFTER-C Referring Provider Active St art: May 12, 2025 End: May 12, 2025 Jeannine Gunn CNM Attending Provider Active S tart: May 12, 2025 End: May 12, 2025 Team Status: Inactive Member Role/Relationship Status Dates Joyce Lagos , LAY OUT AND DETAIL DRAFTER-C Primary Care Provider Active Start: June 12, 2025 End: June 12, 2025 Joyce Lagos , LAY OUT AND DETAIL DRAFTER-C Referring Provider Active St art: June 12, 2025 End: June 12, 2025 Dr. Viktoria Longoria DO Attending Provider Activ e Start: June 12, 2025 End: June 12, 2025 Team Status: Inactive Member Role/Relationship Status Dates Joyce Lagos , LAY OUT AND DETAIL DRAFTER-C Referring Provider Active St art: July 14, 2025 End: July 14, 2025 Xin Otero LAY OUT AND DETAIL DRAFTER, LAY OUT AND DETAIL DRAFTER-C Attending Provider Active Start: July 14, 2025 End: July 14, 2025 No Primary Care Physician Primary Care Provider Active Start: July 14, 2025 End: July 14, 2025 Team Status: Inactive Member Role/Relationship Status Dates No Primary Care Physician Primary Care Provider Active Start: July 14, 2025 End: July 14, 2025 Xin Otero NP, LAY OUT AND DETAIL DRAFTER-C Attending Provider Active Start: July 14, 2025 End: July 14, 2025 Team Status: Active Member Role/Relationship Status Dates No Primary Care Physician Primary care physician Activ e Team Status: Inactive Member Role/Relationship Status Dates Joyce Lagos LAY OUT AND DETAIL DRAFTER-C Primary care physician Active Start: April 15, 2025 End: April 15, 2025 Joyce Lagos , LAY OUT AND DETAIL DRAFTER-C Referring Provider Active St art: April 15, 2025 End: April 15, 2025 Xin Otero NP, LAY OUT AND DETAIL DRAFTER-C Attending physician Active Start: April 15, 2025 End: April 15, 2025 Team Status: Inactive Member Role/Relationship Status Dates Joyce Lagos , LAY OUT AND DETAIL DRAFTER-C Primary care physician Active Start: May 12, 2025 End: May 12, 2025 Joyce Lagos LAY OUT AND DETAIL DRAFTER-C Referring Provider Active St art: May 12, 2025 End: May 12, 2025 Jeannine Gunn CNM Attending physician Active Start: May 12, 2025 End: May 12, 2025 Team Status: Inactive Member Role/Relationship Status Dates Joyce Lagos , LAY OUT AND DETAIL DRAFTER-C Primary care physician Active Start: June 12, 2025 End: June 12, 2025 Joyce Lagos , LAY OUT AND DETAIL DRAFTER-C Referring Provider Active St art: June 12, 2025 End: June 12, 2025 Dr. Viktoria Longoria DO Attending physician Acti ve Start: June 12, 2025 End: June 12, 2025 Team Status: Inactive Member Role/Relationship Status Dates Joyce Lagos , LAY OUT AND DETAIL DRAFTER-C Referring Provider Active St art: July 14, 2025 End: July 14, 2025 Xin Otero NP, LAY OUT AND DETAIL DRAFTER-C Attending physician Active Start: July 14, 2025 End: July 14, 2025 No Primary Care Physician Primary care physician Activ e Start: July 14, 2025 End: July 14, 2025 Team Status: Inactive Member Role/Relationship Status Dates No Primary Care Physician Primary care physician Activ e Start: July 14, 2025 End: July 14, 2025 Xin Otero NP, LAY OUT AND DETAIL DRAFTER-C Attending physician Active Start: July 14, 2025 End: July 14, 2025 Team Status: Inactive Member Role/Relationship Status Dates Joyce Lagos LAY OUT AND DETAIL DRAFTER-C Referring Provider Active St art: July 30, [...] End: August 13, 2025 Xin Otero NP, LAY OUT AND DETAIL DRAFTER-C Attending physician Active Start: August 13, 2025 End: August 13, 2025 Team Status: Inactive Member Role/Relationship Status Dates Joyce Lagos , LAY OUT AND DETAIL DRAFTER-C Primary care physician Active Start: June 12, 2025 End: June 12, 2025 Joyce Lagos LAY OUT AND DETAIL DRAFTER-C Referring Provider Active St art: June 12, 2025 End: June 12, 2025 Dr. Viktoria Longoria DO Attending physician Acti ve Start: June 12, 2025 End: June 12, 2025 Team Status: Inactive Member Role/Relationship Status Dates Joyce Lagos LAY OUT AND DETAIL DRAFTER-C Referring Provider Active St art: July 14, 2025 End: July 14, 2025 Xin Otero NP, LAY OUT AND DETAIL DRAFTER-C Attending physician Active Start: July 14, 2025 End: July 14, 2025 No Primary Care Physician Primary care physician Activ e Start: July 14, 2025 End: July 14, 2025 Team Status: Inactive Member Role/Relationship Status Dates No Primary Care Physician Primary care physician Activ e Start: July 14, 2025 End: July 14, 2025 Xin Otero LAY OUT AND DETAIL DRAFTER, LAY OUT AND DETAIL DRAFTER-C Attending physician Active Start: July 14, 2025 End: July 14, 2025 Team Status: Inactive Member Role/Relationship Status Dates Joyce Lagos LAY OUT AND DETAIL DRAFTER-C Referring Provider Active St art: July 30, [...] 2025 End: August 13, 2025 Xin Otero LAY OUT AND DETAIL DRAFTER, LAY OUT AND DETAIL DRAFTER-C Attending physician Active Start: August 13, 2025 End: August 13, 2025 Team Status: Inactive Member Role/Relationship Status Dates No Primary Care Physician Primary care physician Activ e Start: August 19, 2025 End: August 19, 2025 Xin Otero LAY OUT AND DETAIL DRAFTER, LAY OUT AND DETAIL DRAFTER-C Attending physician Active Start: August 19, 2025 End: August 19, 2025 Xin Otero LAY OUT AND DETAIL DRAFTER, LAY OUT AND DETAIL DRAFTER-C Referring Provider Active Start: August 19, 2025 End: August 19, 2025 Team Status: Active Member Role/Relationship Status Dates No Primary Care Physician Primary care physician Activ e Start: August 19, 2025 Dr. Seth Dominguez MD Attending physician Active Start: August 19, 2025 Xin Otero LAY OUT AND DETAIL DRAFTER, LAY OUT AND DETAIL DRAFTER-C Referring Provider Active Start: August 19, 2025 [...] BE BASED ON THE PRIMARY CLINICAL RECORDS. [employer] provides no warranty or guarantee of the accuracy or completeness of information in this document.
[2025-10-09 19:38] VITALS: BMI 46.7
[2025-10-09 19:50] VITALS: BP 133/87; PULSE 190; O2SAT 81
[2025-10-09 19:51] VITALS: PULSE 122; RESP 16; TEMP 37.4; O2SAT 98
[2025-10-09 20:58] LABS: Hematocrit 31.8 % (37-47); Hemoglobin 10.1 g/dL (12.0-15.0); Immature Granulocytes Count 0.080 X10^3/uL (0.0-0.0); Mean Corp Hgb Conc 31.8 g/dL (32-36); Mean Corpuscular Volume 86.9 fL (81-99); Mean Platelet Vol. 10.4 fl (6.2-12.0); NRBC Flagged by Analyzer 0 % (0-5); Platelet Count 287 K/mm3 (150-450); RBC Distribution Width CV 14.9 % (11.6-14.6); RBC Distribution Width SD 47.2 fl (35.1-43.9); Red Blood Count 3.66 M/mm3 (4.2-5.4); White Blood Count 13.5 K/mm3 (4.4-11.0)
[2025-10-09 21:22] LABS: Syphilis Antibodies Nonreactive (Nonreactive)
--- NOTE | 2025-10-09 21:22 | HP.PCM.OB_ITS ---
HPI - General General Date of Admission: 10/09/25 HPI Narrative BRAYDEN CONNELLY, is a 25 y/o @ 41 weeks who presents to L&D for IOL. She expresses anxiety but declines treatment at this time. Maternal Data Information EMMANUEL Calculator Estimated Delivery Date Method Current WG Current Estimate 10/02/25 LMP (Certain) 41w 0d Other Estimates 09/30/25 Ultrasound #1 41w 2d PFSH PFSH Medical History (Updated 10/09/25 @ 20:13 by Zee Persaud) Headache Seasonal allergies Home Medications ?Medication ?Instructions ?Recorded ?Last Taken ?Type sumatriptan succinate 100 mg tablet 100 mg PO ONCE hea daches 10/10/24 10/07/25 History docosahexaenoic acid 200 mg mg PO 02/14/25 1 12/09/24 History capsule ( DHA) ondansetron HCl 4 mg tablet 4 mg PO Q6H #30 tabs 02/24 Unknown Rx famotidine 20 mg tablet (Pepcid) 20 mg PO BID relux #6 0 tabs 07/30/25 10/09/25 Rx breast pump #1 ea 09/29/25 Unknown Rx Allergy/AdvReac Type Severity Reaction Status Date / Time cat dander Allergy Other Verified 10/09/25 19:54 Seasonal Allergies: Uncoded Allergy Other Verified 10/09/25 19:54 Family History Aunt Breast cancer Grandfather Pancreatic cancer Grandfather Heart disease Grandmother Benign tumor of breast Mother Benign tumor of breast Surgical History H/O oral surgery Social History adopted: No household members: spouse 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: No 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) pets and animals: cat(s) history of recent travel: Yes ([place] - December 2024 & [place] - January 2025) out of state: Yes sexually active: Yes Smoking Status: Never smoker alcohol intake: current alcohol intake frequency: holidays/special occasions only details: Not while substance use type: former substance user Date of last use: 2022 - Marijuana well-balanced diet: daily or most days caffeine: Yes Type: carbonated beverages eating out: 1-3 times/week during the past year weight has: decreased > 10 lbs what type of physical activity do you participate in: walking and running frequency: 5-6 times per week duration: 15-30 minutes/day naina/congregational: Rastafarian seatbelt use: always do you feel safe at home: Yes 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 History 1 Elective abortions Hx Para 0 Spontaneous abortions 0 Hx # Term Pregnancies Ectopic pregnancies Hx # Pregnancies Multiple births # of living children Visit Details Expected Delivery Route/Plan Labor Preferences- CB/BF classes: encouraged labor support person: Pradip labor intervention preferences: [] pain management options preferred: wants limited but ok w epidural cut cord/dad catch: yes : yes PP control planned: discussed discussed possible routes of delivery and associated risks: [] special requests: [] Plans Covid status: [] Flu vaccine: declines Tdap vaccine: declines Rhogam: NA LARC form signed: yes movement and labor precautions reviewed. Problem list reviewed and updated with the most current plan of care details and appropriate orders placed. Relevant counseling for the gestational age provided. Continue routine care and follow up unless otherwise noted in visit notes/problem list details OB Flowsheet Initial Weight: Not Recorded Date -?-?-?-?-?-?-?-?-?-?-?-?- EGA Weight BP Urine Prot -?-?-?-?-?-?-?-?-?-?-?-?- Glucose FHR FuHt Pres Dilation -?-?-?-?-?-?-?-?-?-?-?-?- Effaced St Visit Note 02/24/25 -?-?-?-?-?-?-?-?-?-?-?-?- 8w 4d 186 lb 2 oz 128/85 -?-?-?-?-?-?-?-?-?-?-?-?- 189 -?-?-?-?-?-?-?-?-?-?-?-?- JV- CRL consiste nt with LMP. undecided about NIPT. 03/20/25 -?-?-?-?-?-?-?-?-?-?-?-?- 12w 0d 194 lb 4 oz 118/75 Nega tive -?-?-?-?-?-?-?-?-?-?-?-?- Negative 160 -?-?-?-?-?-?-?-?-?-?-?-?- SM- no vb crampi ng 04/15/25 -?-?-?-?-?-?-?-?-?-?-?-?- 15w 5d 203 lb 8 oz 120/82 Nega tive -?-?-?-?-?-?-?-?-?-?-?-?- Negative 160 -?-?-?-?-?-?-?-?-?-?-?-?- MH-No VB. Nausea improved. Reviewed CF carrier and Ruthann vaz-FOB to be drawn today. Brief US confirm FHT 05/12/25 -?-?-?-?-?-?-?-?-?-?-?-?- 19w 4d 216 lb 8 oz 124/82 Nega tive -?-?-?-?-?-?-?-?-?-?-?-?- Negative 150 -?-?-?-?-?-?-?--?-?-?-?-?- KW- no vb/ctx. f lutters +, had anatomy US today. 06/12/25 -?-?-?-?-?-?-?-?-?-?-?-?- 24w 0d 233 lb 3 oz 123/84 Nega tive -?-?-?-?-?-?-?-?-?-?-?-?- Negative 144 26 -?-?-?-?-?-?-?-?-?-?-?-?- JV- migraines ar e stable on sumatriptan. taking it about once or twice a week. no lof, vaginal bleeding, or dec fm. JV- migraines are stable on sumatriptan. taking it about once or twice a week. no lof, vaginal bleeding, or dec fm. needs rpt scan for placenta sept . 07/14/25 -?-?-?-?-?-?-?-?-?--?-?-?- 28w 4d 247 lb 3 oz 120/79 Nega tive -?-?-?-?-?-?-?-?-?-?-?-?- Negative 151 30 -?-?-?-?-?-?-?-?-?-?-?-?- -No VB, LOF. G ood FM. States noting that she is having increased heart rate-EKG ordered. MFM US today for growth and check placenta. 28 wk labs pending. -No VB, LOF. Good FM. Sta trisha noting that she is having increased heart rate- EKG ordered. MFM US today for growth and check placenta. 28 wk labs pending. Discussed changes in areolas-exam normal. 07/30/25 -?-?-?-?-?-?-?-?-?-?-?-?- 30w 6d 251 lb 3 oz 119/84 Nega tive -?-?-?-?-?-?-?-?-?-?-?-?- Negative 140 32 -?-?-?-?-?-?-?-?-?-?-?-?- - no vb lof go od fm no regular ctx 08/13/25 -?-?-?-?-?-?-?-?-?-?-?-?- 32w 6d 253 lb 5 oz 115/75 Nega tive -?-?-?-?-?-?-?-?-?-?-?-?- Negative 141 33 -?-?-?-?-?-?-?-?-?-?-?-?- -No VB, LOF, C TX. Good FM. Did have migraine over weekend and had to use imitrex first time in several months 08/27/25 -?-?-?-?-?-?-?-?-?-?-?-?- 34w 6d 262 lb 3 oz 114/81 Nega tive -?-?-?-?-?-?-?-?-?-?-?-?- Negative 130 35 -?-?-?-?-?-?-?-?-?-?-?-?- SM- no vb lof go od fm n oreuglar ctx 09/08/25 -?-?-?-?-?-?-?--?-?-?-?-?- 36w 4d 260 lb 2 oz 120/86 Nega tive -?-?-?-?-?-?-?-?-?-?-?-?- Negative 140 37 Cephalic 0 -?-?-?-?-?-?-?-?-?-?-?-?- KW- no vb/lof/ct x. good fm GBS today. 09/18/25 -?-?-?-?-?-?-?-?-?-?-?-?- 38w 0d 265 lb 5 oz 116/84 Nega tive -?-?-?-?-?-?-?-?-?-?-?-?- Negative 120 39 Cephalic 0 -?-?-?-?-?-?-?-?-?-?-?-?- JV- pt has had s ome intermittent dec fm. good movement today. needs nsts weekly for bmi. wants to do next one on L&D. growth scan ordered. 09/24/25 -?-?-?-?-?-?-?-?-?-?-?-?- 38w 6d 266 lb 6 oz 121/82 -?-?-?-?-?-?-?-?-?-?-?-?- 130 0 -?-?-?-?-?-?-?-?-?-?-?-?- KW- NST reactive . good fm. got new glasses this last week and is concerned with headache. labs sent 09/29/25 -?-?-?-?-?-?-?-?-?-?-?-?- 39w 4d 265 lb 126/83 Trace -?-?-?-?-?-?-?-?-?-?--?-?- Negative 130 40 0 -?-?-?-?-?-?-?-?-?-?-?-?- SM- no vb lof go od fm no reuglar ctx 10/08/25 -?-?-?-?-?-?-?-?-?-?-?-?- 40w 6d 271 lb 4 oz 127/86 Nega tive -?-?-?-?-?-?-?-?-?-?-?-?- Negative 130 41 Cephalic 0 -?-?-?-?-?-?-?-?-?-?-?-?- KV- Good FM. Negrito nful ctx Monday that stopped on their own. No LOF/VB. Desires 41w IOL. ROS Constitutional Constitutional: Denies fatigue, headache(s) or weakness Eyes Eyes: Denies blurry vision, change in vision, seeing flashes or spots in vision Cardiovascular Cardiovascular: Denies chest pain, dyspnea, leg edema, palpitations, rapid heart rate or vomiting Respiratory/Chest Respiratory/Chest: Denies chest tightness, cough, dyspnea or breast pain Gastrointestinal Gastrointestinal: Denies abdominal pain, anorexia, constipation, cramping, diarrhea, hemorrhoids or vomiting Genitourinary Genitourinary: Denies dysuria, flank pain, genital lesions, genital pain, urinary frequency or urinary urgency Psychiatric Psychiatric: Reports anxiety Vital Signs Vital Signs Vital Signs: 10/09/25 19:50 10/09/25 19:50 10/09/25 19:50 Temperature Temperature Source Pulse Rate 190 H Respiratory Rate Blood Pressure 133/87 H BP Systolic 133 BP Diastolic 87 Pulse Ox 81 10/09/25 19:51 10/09/25 19:51 10/09/25 19:51 Temperature Temperature Source Temporal Pulse Rate 122 H Respiratory Rate Blood Pressure BP Systolic BP Diastolic Pulse Ox 98 10/09/25 19:51 10/09/25 19:51 Temperature 99.4 F H Temperature Source Pulse Rate Respiratory Rate 16 Blood Pressure BP Systolic BP Diastolic Pulse Ox Weight Weight: 272 lb 3.2 oz Body Mass Index (BMI) 46.7 Physical Exam Const alert, oriented x3, no apparent distress and healthy appearing General Appearance: cooperative; Negative for anxious HEENT normocephalic Face and Sinus: normal facial exam Eyes EOMs intact bilaterally and no scleral icterus General Eye: normal appearance of both eyes Resp normal respiratory effort Effort and Inspection: able to speak in complete sentences GI soft to palpation and non-tender Inspection: gravid Palpation: soft; Negative for tender Extremity General Extremity: Negative for edema Skin Lesions: no lesions Rashes: no rashes Psych mental status grossly normal Labs Labs Labs: Blood Type A POSITIVE Antibody Screen NEGATIVE Hct, (37-47) 31.8 % L Hgb, (12.0-15.0) 10.1 g/dL L Obstetrics Ultrasound Syphilis Total Ab, (Nonreactive) Nonreactive Rubella IgG Antibody, (Nonreactive) REAC Hep Bs Antigen, (Nonreactive) Nonreactive Hepatitis C Antibody, (Nonreactive) Nonreactive Chlamydia DNA (AMY), (Negative) Negative N.gonorrhoeae DNA (AMY), (Negative) Negative HIV 1&2 Antibody, (Nonreactive) Nonreactive Glucose 1 Hr 50 gm, (70-140) 105 mg/dL Assessment & Plan (1) Positive GBS test: COMMENT: treat in labor (2) Anemia in : QUALIFIERS: Trimester: third trimester Qualified Code(s): O99.013 - Anemia complicating , third trimester COMMENT: Add Fe (3) Palpitation: COMMENT: EKG (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 FOB drawn 04/15/25: (5) Obesity affecting : QUALIFIERS: Trimester: second trimester Obesity type affecting : unspecified obesity Qualified Code(s): O99.212 - Obesity complicating , second trimester COMMENT: BMI 31.7 - HgBA1C ordered w/NOB- excessive weight gain in . recommend weekly nsts. 39w4d EFW 3726 g 65.4%, AC 53% (6) Supervision of high-risk : QUALIFIERS: Trimester: third trimester Qualified Code(s): O09.93 - Supervision of high risk , unspecified, third trimester COMMENT: PRR G1, EMMANUEL 10/02/25, girl [facility] : Eulalio (7) : QUALIFIERS: Weeks of gestation: 40 weeks Qualified Code(s): Z3A.40 - 40 weeks gestation of COMMENT: NIPT low risk, carrier neg. 10/19 Carrier for Cystic Fibrosis and Whwiu-Kvgim-Xfnhs Syndome. (8) History of anxiety: COMMENT: In college - on Lexapro 2019, counseling 2022 (9) Marijuana use: COMMENT: Last use 2022 - random tx screen ordered (10) Migraines: QUALIFIERS: Migraine type: unspecified Status migrainosus presence: without status migrainosus Intractability: not intractable Qualified Code(s): G43.909 - Migraine, unspecified, not intractable, without status migrainosus COMMENT: on Sumatriptan - last use 02/05 PLAN: Plan Patient presents IOL, plan management for with cytotec tonight then pit in am she declines adams bulb. Pain management: plans epidural. GBS positive- start pcn if membranes rupture or if is >3-4 cm and having regular contractions . Management of any complications: none I have reviewed the [facility] and made any clinically relevant updates.
[2025-10-09] MEDS: 0.9% Saline Lock 10 ML Syringe IV (21:44)
[2025-10-09 21:54] VITALS: BP 124/67; PULSE 118
[2025-10-09 21:55] VITALS: PULSE 123; RESP 15; TEMP 36.4; O2SAT 98
[2025-10-10] VITALS (54 sets, daily range): BP systolic 101–140; BP diastolic 55–100; PULSE 96–128; RESP 12–20; TEMP 36.5–37.6; O2SAT 91–100; BMI 1428.0; BMI 20251205.0
--- NOTE | 2025-10-10 06:52 | PCM.PN.BLA ---
Progress Note patient is complaining that she is getting a migraine. She has not received her 3rd dose of cytotec yet. current tracing: FHT: 140 Moderate variability reactive no decelerations category I tracing [place]: q 1-2 min Contractions cx: 1/thick/-2 A/P: plan to give fluid bolus now ok to try 50 mg sumatriptan + 1000mg tylenol +50 benadryl reassess need for more cytotec after 2 hours as the sumatriptan can cause contractions
[2025-10-10] MEDS: DiphenhydrAMINE 50 MG/ML Syringe IV (07:23)
[2025-10-10] MEDS: LACTATED RINGERS 500 ML 999 ML IV ×2 (07:23→14:10)
[2025-10-10] MEDS: Lactated Ringers 1,000 ML 50 ML IV (07:58)
[2025-10-10] MEDS: Oxytocin 15 Units/NS 250ml 15 UNITS/250 ML IV.SOLN 2 UNITS IV (10:40)
[2025-10-10] MEDS: Lactated Ringers 1,000 ML 999 ML IV (10:41)
[2025-10-10] MEDS: fentaNYL-bupivacaine (epidural) 100 ML BAG EPIDURAL ×2 (14:27→15:54)
--- NOTE | 2025-10-10 16:44 | PN.OBGYN_ITS ---
Subjective Subjective In to discuss plan of care with patient. She is s/p several doses of cytotec and has had pitocin for a few hours with minimal cervical change (1cm). I expressed concern with tolerance of labor due to a persistent category II FHT with periods of minimal variability and intermittent variable and late decelerations even with pitocin currently off. Additionally, she had spontaneous rupture of membranes with thick meconium. IUPC was placed by Marge Miguel RN and patient's contractions are inadequate. Reviewed different management options and their risks including restarting pitocin, attempting a adams balloon, or proceeding with primary delivery. Patient and her support people are agreeable to proceeding with PLTCS at this time. Team notified. Objective Data Objective Data Vital Signs: Vital Signs Temp Pulse Resp BP Pulse Ox 98.8 F 123 H 16 124/78 H 98 10/10/25 15:52 10/10/25 15:51 10/10/25 15:52 10/10/25 15:50 10/10/25 15:51 Weight: 272 lb 3.2 oz Body Mass Index (BMI) 46.7 Intake & Output: Intake and Output for Last 24 Hours 10/08/25 10/09/25 10/10/25 23:59 23:59 23:59 Intake Total 2201.91 / 2201.91 Output Total 200 / 200 Balance / Lab / Micro Data 10/09/25 20:45 Labs: Laboratory Results - last 24 hr 10/09/25 20:45: WBC 13.5 H, RBC 3.66 L, Hgb 10.1 L, Hct 31.8 L, MCV 86.9, MCH 27.6, MCHC 31.8 L, RDW Std Deviation 47.2 H, RDW Coeff of Carol Ann 14.9 H, Plt Count 287, MPV 10.4, Immature Gran % (Auto) 0.600, Neut % (Auto) 83.8 H, Lymph % (Auto) 10.1 L, [place] % (Auto) 5.0, Eos % (Auto) 0.3, Baso % (Auto) 0.2, Absolute Neuts (auto) 11.4 H, Absolute Lymphs (auto) 1.36, Nucleated RBC % 0, Syphilis Total Ab Nonreactive, Blood Type A POSITIVE, Antibody Screen NEGATIVE
[2025-10-10] MEDS: Lactated Ringers 1,000 ML 200 ML IV (16:46)
[2025-10-10] MEDS: Cefazolin 1 GM/5 ML Vial 3 GM IV (17:08)
[2025-10-10] MEDS: Lidocaine 2% (5ml sdv) 5 ML VIAL.MPF 10 ML EPIDURAL (17:10)
[2025-10-10] MEDS: fentaNYL 100 MCG/2 ML Ampul EPIDURAL (17:15)
[2025-10-10] MEDS: morphine PF (epidural) 5 MG/10 ML Vial 3 MG EPIDURAL (17:58)
[2025-10-10] MEDS: Oxytocin 15 Units/NS 250ml 15 UNITS/250 ML IV.SOLN 83 UNITS IV (18:45)
--- NOTE | 2025-10-10 18:51 | OP.PCM_ITS ---
Maternal Data Information EMMANUEL Calculator Estimated Delivery Date Method Current WG Current Estimate 10/02/25 LMP (Certain) 41w 1d Other Estimates 09/30/25 Ultrasound #1 41w 3d Operative Report (OB) Procedure Details Date of Procedure: 10/10/25 Procedure Start Time: 17:31 Procedure Stop Time: 18:15 Time of Delivery: 17:40 Pre-Operative Diagnosis: Nonreassuring Status and Other Other Pre- Operative diagnosis: remote from vaginal delivery Post-Operative Diagnosis: Same as Pre-operative diagnosis Classification: JOSUE Type of Anesthesia: Epidural Antibiotic Given: Ancef 3 grams IV x1 and Zithromax 500 mg/5 mL X1 Drain: Swanson to straight drain Estimated Blood Loss: 800 Findings Description of surgery: Zahra Curiel is a 25-year-old, now , who presented at 41w0d for an induction of labor for post-dates. was complicated by anemia, BMI of 46, migraines. She was started with cytotec and transitioned to pitocin. She received an epidural for maternal analgesia. She had spontaneous rupture of membranes for thick meconium. Pitocin had to be turned off due to category II FHT with minimal variability and intermittent variable and late decelerations. Due to inability to augment labor due to intolerance and remote from vaginal delivery, decision was made to proceed with primary delivery. Epidural anesthesia was re-dosed. Swanson catheter was placed. The patient was placed in the dorsal supine position with leftward tilt. Patient was prepped and draped in the normal sterile fashion. Pfannenstiel skin incision was made with the scalpel and carried through to the underlying layer of fascia with the scalpel. Fascia was nicked in the midline and the incision extended laterally. The rectus bellies were dissected off superiorly and inferiorly with out complication both sharply and bluntly. The peritoneum was entered digitally. The incision was stretched and a low transverse uterine incision was made with the scalpel. The infant's head was delivered atraumatically followed by the anterior and posterior shoulders without complication the rest of the delivered. The cord was clamped and cut and the infant was handed off to awaiting nurse. The placenta was delivered spontaneously immediately following and was noted to be intact and have a three-vessel cord. The uterus was exteriorized cleared of all clots and debris, and the incision was closed in a single layer closure using #1 Monocryl. A figure-of-8 stitch with #1 Monocryl was placed over a bleeding sinus in the center of the hysterotomy with good hemostasis. The ovaries and fallopian tubes were noted to be within normal limits. The uterus was returned to the maternal abdomen and gutters were cleared of all clots and debris. Gloves were changed prior to fascial closure. Fascia was closed with 0 PDS in a running fashion. Subcutaneous tissue was copiously irrigated and closed with 3-0 Monocryl. The skin was closed with 3-0 Monocryl in a subcuticular fashion. Mepilex dressing was applied without complication. Patient was taken to recovery in stable condition. Surgical findings: no adhesions appreciated gravid uterus normal appearing tubes and ovaries liveborn female Presentation: Vertex Amniotic Membrane Rupture Type: Spontaneous Amniotic Fluid Description: Thick meconium Placental Delivery Description: Spontaneous Placenta Disposition: Sent to Pathology Specimen collected: Yes Description of specimen(s) removed: placenta Cord Gases: ABG and VBG Infant A gender: Female (1 minute): 8 (5 minute): 9 Delayed Cord Clamping: Yes Back Filler Operator family practice nurse practitioner: Yes Pit Hand: Kayleigh Hernandez Tasks completed by assistant corporation counsel: Dissecting tissue, Hemostasis: Clamp and Retracting Complications Complications: No
[2025-10-10] MEDS: Ketorolac 30 MG/ML Syringe IV (19:54)
[2025-10-10] MEDS: Lactated Ringers 1,000 ML 100 ML IV (21:42)
[2025-10-10 22:20] LABS: Pathology Specimen OB SEE PATHOLOGY REPORT
[2025-10-11] VITALS (15 sets, daily range): BP systolic 119–129; BP diastolic 71–91; PULSE 92–110; RESP 14–16; TEMP 36.1–36.4; O2SAT 95–100
[2025-10-11] MEDS: Ketorolac 30 MG/ML Syringe IV ×3 (01:35→16:33)
[2025-10-11 06:57] LABS: Hematocrit 24.7 % (37-47); Hemoglobin 7.7 g/dL (12.0-15.0); Mean Corp Hgb Conc 31.2 g/dL (32-36); Mean Corpuscular Volume 89.2 fL (81-99); Mean Platelet Vol. 10.1 fl (6.2-12.0); Platelet Count 247 K/mm3 (150-450); RBC Distribution Width CV 15.4 % (11.6-14.6); RBC Distribution Width SD 49.6 fl (35.1-43.9); Red Blood Count 2.77 M/mm3 (4.2-5.4); White Blood Count 11.7 K/mm3 (4.4-11.0)
[2025-10-11] MEDS: Senna/Docusate Sodium 1 Tablet PO (09:54)
--- NOTE | 2025-10-11 11:21 | PCM.PN.BLA ---
Progress Note Patient doing well without complaints. Tolerating PO. Ambulating some. Swanson catheter was just removed and she has not yet voided. Passing some flatus. Pain well-controlled. Feeding well. Denies chest pain, shortness of breath, calf pain/swelling, fevers, chills, lightheadedness. Physical Exam Const alert, oriented x3 and no apparent distress HEENT Head and Scalp: normocephalic and atraumatic Resp normal respiratory effort Effort and Inspection: able to speak in complete sentences and symmetric chest movement Cardio regular rate and regular rhythm GI soft to palpation and non-tender Inspection: incision intact, healing well and drainage (none) Bimanual Exam - Vag & Uterus: uterus non-tender Uterus Palpation: uterus fundus firm (below Umbilicus) Assessment & Plan Assessment/Plan (1) delivery delivered: PLAN: s/p LTCS PPD # 1 1. routine post care 2. breast feeding- support given 3. rh positive 4. rubella immune 5. BP reviewed, wnl
[2025-10-11] MEDS: 0.9% Saline Lock 10 ML Syringe IV ×3 (11:28→16:37)
[2025-10-11] MEDS: Iron Sucrose Complex 200 MG in 0.9% Normal Saline (100mL Bag) 100 ML 220 MG IV (14:16)
--- NOTE | 2025-10-11 14:54 | NURSING ---
RN in to help mom with and encourage her that shes doing okay. Pt is very anxious and tearful. States she doesnt like it when the baby cries and that she feels like shes letting her down because she isnt able to do what she needs to do right away. RN encouraged pt that every behavior the baby was showing was completely normal and validated her feelings of being overwhelmed. Gave some pointers on what she could do to help and encouraged her that she was doing a good job. RN suggested pt try to take a nap since patient reports not being able to sleep for days. Social work already consulted, and will plan to see today or tomorrow.
--- NOTE | 2025-10-11 17:37 | CASEMGMT ---
Social Work Date of referral: 10/11/25 Reason for referral: Anxiety Referred by: Jeannine lAcaraz Patient provided consent to social work visit. When vp digital marketing social media and crm arrived, the mother of baby (MOB) was in the hospital bed attempting to breastfeed and there was another adult lady in the room, presumed (but not confirmed) to be the MOB's mother. MOB verbally expressed not being able to get to latch, was appearing anxious, slightly overwhelmed and had the adult female call the nurse to come down to assist with latching. The adult female also appeared to be anxious and appeared to be rushing to find the call button to summons the nurse. MOB asked vp digital marketing social media and crm to come back at a later time so she could instead, work with the nurse and try to feed . Steam Train Driver stated that would not be a problem. (13:50) Steam Train Driver returned to complete visit and the MOB was still working with the nurse and asked vp digital marketing social media and crm to come back at a later time. (14:18) Steam Train Driver returned to meet with MOB. MOB provided consent to social work visit. The same adult female was present and the FOB was also in the room. The MOB was in the hospital bed, the adult female was sitting nearby on a couch and the FOB was sitting in a chair, holding . The MOB quickly became tearful, quickly bringing up difficulties with and not being able to get baby to latch. Just as vp digital marketing social media and crm was about to explore, a visitor arrived (who was early) and was invited to stay. Steam Train Driver to attempt visit at a later time. (17:37) Viktoria Velásquez, BULLET CASTING OPERATOR, BARBER SHOP MANAGER
[2025-10-12 02:01] VITALS: BP 118/80; PULSE 100; RESP 16; TEMP 36.2; O2SAT 97
[2025-10-12 05:15] LABS: Hematocrit 25.3 % (37-47); Hemoglobin 7.7 g/dL (12.0-15.0); Immature Granulocytes Count 0.110 X10^3/uL (0.0-0.0); Mean Corp Hgb Conc 30.4 g/dL (32-36); Mean Corpuscular Volume 91.0 fL (81-99); Mean Platelet Vol. 9.9 fl (6.2-12.0); NRBC Flagged by Analyzer 0 % (0-5); Platelet Count 242 K/mm3 (150-450); RBC Distribution Width CV 15.5 % (11.6-14.6); RBC Distribution Width SD 50.7 fl (35.1-43.9); Red Blood Count 2.78 M/mm3 (4.2-5.4); White Blood Count 10.2 K/mm3 (4.4-11.0)
[2025-10-12 08:15] VITALS: BP 121/81; PULSE 104; RESP 18; TEMP 36.3; O2SAT 98
--- NOTE | 2025-10-12 10:19 | PN_ITS ---
Progress Note Patient doing well without complaints. Tolerating PO. Ambulating and voiding without difficulty. Passing flatus. Baby still figuring out latching well but overall feeding is going ok. Pain well-controlled. [place] better after iron infusion yesterday. Still having some headaches which were relieved with triptans. Denies chest pain, shortness of breath, calf pain/swelling, fevers, chills, lightheadedness. Physical Exam Const alert, oriented x3 and no apparent distress HEENT Head and Scalp: normocephalic and atraumatic Resp normal respiratory effort Effort and Inspection: able to speak in complete sentences and symmetric chest movement Cardio regular rate and regular rhythm GI soft to palpation and non-tender Inspection: incision intact, healing well and drainage (none) Bimanual Exam - Vag & Uterus: uterus non-tender Uterus Palpation: uterus fundus firm (below Umbilicus) Assessment & Plan Assessment/Plan (1) delivery delivered: PLAN: s/p LTCS PPD # 2 1. routine post care 2. breast feeding- support given 3. rh positive 4. rubella immune 5. anticipate d/c tomorrow (2) Anemia in : QUALIFIERS: Trimester: third trimester Qualified Code(s): O99.013 - Anemia complicating , third trimester PLAN: EBL 800cc hgb 10.1->7.7, s/p iron infusion
--- NOTE | 2025-10-12 10:24 | DCINST_ITS ---
Discharge Instructions DC O2, CPAP, BIPAP needs Home O2 Discharge instructions: No Dressing / Incision Discharge Activity: May Not Drive (for 2 weeks or while taking narcotic pain medications.) and May Shower May shower in (days): 0 May resume sexual activity in: 4-6 weeks Weight Bearing Status: Full weight bearing Lifting Restrictions: 20 pounds Dressing / Incision Call your doctor if your incision/area has: Continuous Slow Oozing, Sudden Increased Bleeding, Increased Pain/ Swelling, Increased Redness and Foul Smelling Discharge Call your doctor if you observe: Fever of 101 or Higher and Using more than 1 pad per hour (for 2 hours) Suture Line Care: Avoid Pulling/Pushing and Avoid Pinching/Bending Cleanse incision/area with: Soap & Water and Keep Dressing Clean & Dry Follow Up Care When: Call [phone] to make an appointment for an incision check in 1-2 weeks. Test Results: Test results from this visit will be discussed in further detail at your follow- up appointment, if applicable. Discharge Plan Admission Admit Date/Time: 10/09/25 19:17 Attending Provider: Jeannine Alcaraz Primary Care Provider: Care PhysicianStella Primary Discharge Orders/Prescriptions Prescriptions: New acetaminophen 500 mg Tablet 1,000 mg PO Q6 14 Days Qty: 112 0RF naproxen 500 mg Tablet 500 mg PO Q8H 14 Days Qty: 42 0RF oxycodone 5 mg capsule 5 mg PO Q6H PRN (Reason: pain) 3 Days Qty: 10 0RF Continued sumatriptan succinate 100 mg tablet 100 mg PO ONCE ondansetron HCl 4 mg tablet 4 mg PO Q6H Qty: 30 4RF DHA 200 mg capsule PO famotidine [Pepcid] 20 mg tablet 20 mg PO BID Qty: 60 6RF (DME) breast pump Device See Rx Instructions .Route Qty: 1 0RF Rx Instructions: As directed Referrals / Follow Up: Care PhysicianStella Primary [Primary Care Provider, Medical] Disposition Disposition (needs filled in before D/C Order can be placed): Home, Self Care
[2025-10-12] MEDS: Senna/Docusate Sodium 1 Tablet PO (10:26)
[2025-10-12 13:41] VITALS: BP 127/90; PULSE 110; RESP 16; TEMP 36.3; O2SAT 98
--- NOTE | 2025-10-12 14:32 | CASEMGMT ---
Social Work Assessment Labor and Delivery Unit Patient Address:[address] [place] [address] Phone number: [phone] Date of Referral: 10/11/25 Time of Referral: 09:45 Referred By: Jeannine Alcaraz Date of Intervention: 10/12/25 Time of Intervention: 14:32 Reason for Referral: Anxiety History obtained from: Medical records and mother of baby (MOB). ? Household composition: MOB, FOB (Eulalio, age 27) and their daughter, Mercy, born on 10/10/25 Patient's parent/guardian status:? MOB and FOB have been together for 3 years and have been for 1 year. MOB described a positive relationship with the FOB and denied any previous or current DV. Medical History: ?Para, 1. , now 1. MOB received care (PNC) through [facility] beginning at 8 weeks and 4 days. Visits were observed to be routine. Apgars: 9 and 9. Weight: 8lbs, 5oz. Moulder Operator: Not yet identified but will be through [facility]. Educational Status: MOB denied any issues or concerns with reading or writing. MOB reported she earned her bachelor?s degree and also received her insurance license and the FOB earned his GED, served in the for 3 years and has obtained his EMT certification. Financial Status: MOB reported the household income is sufficient to meet the needs of her family at this time. The FOB works full-time as an EMT and also draws social security disability that?s related. Supplies: MALGORZATA reported she has all of the supplies she needs for baby at this time including but not limited to: Car seat, bassinet, pack-n-play, diapers, bottles, breast pump and clothing. Childcare/Caregiver(s):? MOB reported she has decided to be a zsby-pm-drdr mom (SAHM) and will be the primary caregiver.? The FOB will help provide childcare during the time he?s home. Transportation:? MOB reported she and the FOB are both licensed drivers and have reliable vehicles to get baby to and from any and all medical appointments. MOB denied any transportation barriers. Programs/Agencies Involved: MOB denied any current programs or agencies involved at this time, however reported she?s been in counseling a few times in the past to rob with various ?issues?. ??? Children Services/Legal Issues:? Denied. Behavioral Health Issues: ??Mental Health History:? MALGORZATA has a history of anxiety but is not on any medication at this time. MOB reported her anxiety is successful managed at this time. MOB denied any mental health history with the FOB. ??Substance Use History:? Denied. MOB reported that she used to smoke marijuana at one point recreationally, however denied any abuse and reported the last date of use as roughly 2 years ago. ?Family History: MOB stated the FOB?s maternal grandfather used to be an alcoholic, however is . Insulation Worker provided education. ?Drug Screens: No drug screens were obtained for the MOB or baby during this admission. ???Insulation Worker administered the Johnston Depression Scale (EPDS) and scored a 4. Insulation Worker provided education on what the score meant which the MOB verbalized she understood. ? Family/Social Stressors: MOB denied any current family/social stressors. Support Systems: Ample. MALGORZATA described her biggest support as the FOB, her mother, father, stepmom, sisters, step-sisters and their significant others, and ?also a big support? on the FOB?s side of the family as well. ?? Depression/Shaken Baby/Safe Sleeping: Insulation Worker provided verbal and written education on PPD, increased risk factors, Safe Sleeping and Shaken Baby.? MOB verbalized an understanding. ??? ASSESSMENT:? MOB provided consent to social work visit. At the time of the arrival, the MOB was sitting in the hospital bed and was holding and ?s maternal grandmother (MGM) was standing close-by. MOB stated a preference for the MGM to be present during the assessment. MOB was verbally engaged and cooperative as was the MGM. MOB appeared to be attached and bonded to as she was observed to be very nurturing, comforting and attentive towards . Later in the assessment, the MGM took baby to hold and also appeared to be attached and bonded and was very gentle and attentive as well. Insulation Worker observed positive interaction between the MOB and MGM and the MGM was observed to be supportive and encouraging to the MOB. The MOB and MGM both appeared to be anxious in general and would act in an ?urgent? manner anytime the baby would cry. MOB was tearful a few times throughout the assessment, admitted it is hard for her when the baby cries and stated it makes her makes her sad and worried that something is wrong. Insulation Worker provided encouragement, education and overall support. The MOB appears to minimize the anxiety she has been exhibiting as well as possible depression as she stated ?I know my hormones are crazy and that this up and down is normal?. MOB stated she is much better when she?s had sleep. Insulation Worker spent a substantial amount of time with the MOB to try and educate and support which the MOB expressed appreciation for. Safe Plan of Care for infant related to substance use: N/A; not needed. ? PLAN:? Baby to be discharged home when medically ready.? refuse and recycling worker also provided written information on depression, depression resources and Help Me Grow. ?No other services requested or indicated. Viktoria Velásquez, CITY PLANNING ENGINEER, SNUFF GRINDER
[2025-10-12 20:27] VITALS: BP 134/84; PULSE 99; RESP 16; TEMP 36.4; O2SAT 97
[2025-10-13 02:30] VITALS: BP 120/75; PULSE 87; RESP 16; TEMP 36.3; O2SAT 99
[2025-10-13] MEDS: Senna/Docusate Sodium 1 Tablet PO (08:14)
[2025-10-13 09:01] VITALS: BP 126/85; PULSE 105; RESP 16; TEMP 36.3; O2SAT 98
--- NOTE | 2025-10-13 11:33 | PCM.PN.BLA ---
Progress Note Patient doing well without complaints. Tolerating PO. Ambulating and voiding without difficulty. Feeding well. Denies chest pain, shortness of breath, calf pain/swelling, fevers, chills, lightheadedness. Physical Exam Const alert, oriented x3 and no apparent distress HEENT Head and Scalp: atraumatic Resp normal respiratory effort GI soft to palpation and non-tender Inspection: incision intact, healing well and drainage (none) Bimanual Exam - Vag & Uterus: uterus non-tender Uterus Palpation: uterus fundus firm (below Umbilicus) Assessment & Plan Assessment/Plan (1) delivery delivered: PLAN: Plan s/p LTCS PPD # 3 1. routine post care 2. breast feeding- support given 3. rh positive 4. rubella immune
--- NOTE | 2025-10-13 11:34 | PCM.DC.SUM ---
Providers Date of Admission: 10/09/25 Primary Care Physician: Stella Primary Care Phys Reason For Visit: PRIMAY Diagnosis Discharge Diagnosis (1) delivery delivered: Status: Acute Code(s): O82 - Encounter for delivery without indication Plan s/p LTCS PPD # 3 1. routine post care 2. breast feeding- support given 3. rh positive 4. rubella immune Medications at Discharge Home Medications sumatriptan succinate 100 mg tablet 100 mg PO ONCE headaches 10/10/24 docosahexaenoic acid 200 mg capsule ( DHA) mg PO 02/14/25 ondansetron HCl 4 mg tablet 4 mg PO Q6H #30 tabs 02/24/25 famotidine 20 mg tablet (Pepcid) 20 mg PO BID relux #60 tabs 07/30/25 breast pump #1 ea 09/29/25 acetaminophen 500 mg tablet 1,000 mg (2 x 500 mg) PO Q6 14 days #112 tabs 10/12/25 naproxen 500 mg tablet 500 mg PO Q8H 14 days #42 tabs 10/12/25 oxycodone 5 mg capsule 5 mg PO Q6H PRN pain 3 days #10 caps 10/12/25 Hospital Course Summary of Care Provided Hospital Course: admitted for IOL secondary to postdates and developed cat II tracing, was remote from delivery and had meconium fluid, decision made for primary LTCS. stable for dc to home pod 3 Weight / BMI Weight Weight: 272 lb 3.2 oz Body Mass Index (BMI) 46.7 PRE- weight 187 lb PRE- Body Mass Index 31.9 (BMI) ABG / Lab / Microbiology Data 10/12/25 05:00 D/C Instructions May shower in (days): 0 May resume sexual activity in: 4-6 weeks Weight Bearing Status: Full weight bearing Call your doctor if your incision/area has: Continuous Slow Oozing, Sudden Increased Bleeding, Increased Pain/ Swelling, Increased Redness and Foul Smelling Discharge Call your doctor if you observe: Fever of 101 or Higher and Using more than 1 pad per hour (for 2 hours) Suture Line Care: Avoid Pulling/Pushing and Avoid Pinching/Bending Cleanse incision/area with: Soap & Water and Keep Dressing Clean & Dry DC O2, CPAP, BIPAP Needs Home O2 Discharge instructions: No When: Call [phone] to make an appointment for an incision check in 1-2 weeks. Meaningful Use Info Meaningful Use Meaningful Use Diagnoses (Choose all that apply): None applicable Discharge Plan Admission Admit Date/Time: 10/09/25 19:17 Attending Provider: Jeannine Alcaraz Primary Care Provider: Stella Ferro Primary Instructions Patient Instructions: After a Delivery (WP) Discharge Orders/Prescriptions Prescriptions: New acetaminophen 500 mg Tablet 1,000 mg PO Q6 14 Days Qty: 112 0RF naproxen 500 mg Tablet 500 mg PO Q8H 14 Days Qty: 42 0RF oxycodone 5 mg capsule 5 mg PO Q6H PRN (Reason: pain) 3 Days Qty: 10 0RF Continued sumatriptan succinate 100 mg tablet 100 mg PO ONCE ondansetron HCl 4 mg tablet 4 mg PO Q6H Qty: 30 4RF DHA 200 mg capsule PO famotidine [Pepcid] 20 mg tablet 20 mg PO BID Qty: 60 6RF (DME) breast pump Device See Rx Instructions .Route Qty: 1 0RF Rx Instructions: As directed Referrals / Follow Up: Care Physician,No Primary [Primary Care Provider, Medical] Disposition Disposition (needs filled in before D/C Order can be placed): Home, Self Care
== END 2025-10-13 14:40 | disposition home or self-care (01) | DRG 786 ==
PROVIDERS: Obstetrics & Gynecology; Admitting Provider Student in an Organized Health Care Education/Training Program; Referring Provider Student in an Organized Health Care Education/Training Program; Visit Provider Student in an Organized Health Care Education/Training Program
DX: O48.0 Post-term pregnancy (principal); O41.1230 Chorioamnionitis, third trimester, not applicable or unspecified; O99.354 Diseases of the nervous system complicating childbirth; O99.214 Obesity complicating childbirth; F41.9 Anxiety disorder, unspecified; G43.909 Migraine, unspecified, not intractable, without status migrainosus; O99.344 Other mental disorders complicating childbirth; Z37.0 Single live birth; O76 Abnormality in fetal heart rate and rhythm complicating labor and delivery; O99.824 Streptococcus B carrier state complicating childbirth; O99.02 Anemia complicating childbirth; O77.0 Labor and delivery complicated by meconium in amniotic fluid; Z14.1 Cystic fibrosis carrier; Z3A.41 41 weeks gestation of pregnancy
CPT/HCPCS: 59025; 59050; 85025; 85027; 86780; 86850; 86900; 86901; 88307; 99221; J1756; A4216; G0378; J2405

== ENCOUNTER 2025-10-25 01:27 | Emergency (ER) | payer OTHER, SELFPAY ==
[2025-10-25 01:28] VITALS: BP 138/78; PULSE 93; RESP 14; TEMP 36.6; O2SAT 98; BMI 40.1
--- NOTE | 2025-10-25 01:42 | US_ITS ---
PROCEDURE: TRANSVAGINAL NON- 10/25/2025 REASON FOR EXAM: VAGINAL BLEEDING POST C SECTION TECHNIQUE: Procedure Code: USTVAG Modality: US Procedure: TRANSVAGINAL NON- COMPARISON: None FINDINGS: Measurements: Uterus: 14.1 x 7.3 x 9.7 cm. Endometrial Thickness: 12 mm. The uterine cavity is distended with echogenic fluid consistent with hemorrhage. Right Ovary: Not seen. Left Ovary: Not seen. US/Transvaginal Non- IMPRESSION: Dilated uterine cavity with hematoma. The ovaries are not seen. Reading Location: [facility]
[2025-10-25 02:16] LABS: Hematocrit 30.4 % (37-47); Hemoglobin 9.1 g/dL (12.0-15.0); Immature Granulocytes Count 0.020 X10^3/uL (0.0-0.0); Mean Corp Hgb Conc 29.9 g/dL (32-36); Mean Corpuscular Volume 89.4 fL (81-99); Mean Platelet Vol. 9.8 fl (6.2-12.0); NRBC Flagged by Analyzer 0 % (0-5); Platelet Count 341 K/mm3 (150-450); RBC Distribution Width CV 15.0 % (11.6-14.6); RBC Distribution Width SD 49.0 fl (35.1-43.9); Red Blood Count 3.40 M/mm3 (4.2-5.4); White Blood Count 7.7 K/mm3 (4.4-11.0)
[2025-10-25 02:25] LABS: Prothrombin Time (Protime)PT. 14.1 SECONDS (11.7-14.9)
[2025-10-25 02:26] LABS: Partial Thromboplast Time 30.8 Seconds (24.1-36.2)
[2025-10-25] MEDS: TRANEXAMIC ACID 1,000 MG in 0.9% Normal Saline (100mL Bag) 100 ML 440 MG IV (02:29)
[2025-10-25] MEDS: 0.9% Normal Saline (1000mL) 1,000 ML 999 ML IV (02:30)
--- OUTSIDE RECORDS SUMMARY | 2025-10-25 02:33 | XMS RPT_ITS | CCD ---
Author Organization [facility] Care Team Providers Care Steel Checker Name Role Phone NO, PHYSICIAN Primary Care Unavailable YENY JULIEN Attending Unavailab ad JULIEN, YENY SMITH Primary Care Unavailab ad JULIEN, YENY SMITH Attending Unavailab ad JULIEN, YENY SMITH Primary Care Unavailab YENY Baker Attending Unavailab ad GUZMAN, PHYSICIAN Primary Care Unavailable YENY JULIEN Attending Unavailab Dr. Deanna Jung Primary Care Provider Dr. Deanna Lozada Referring Provider [place] TRAIN CONTROL ELECTRONIC TECHNICIAN, TRAIN CONTROL ELECTRONIC TECHNICIAN-C Xin Attending Provider No, Physician Primary Care Provider UnavailYeny Vicente DO Primary Care Provider Dr. Deanna Lozada Primary Care Provider Dr. Deanna Lozada Referring Provider Cyndi ALEX, ABI Cardenas Attending Provider [phone] NONE, XXXX Primary Care Physician Unavailab Nathan Perez Admitting Unavailable Nathan Kilgore Attending Unavailable Nathan Kilgore Attending Unavailable Demond ZUÑIGA-Joyce Frost Primary Care Provider Joyce Gaines Referring Provider Mary REECE, Dr. Victor Attending Provider Paula Cobos RN Attending Provider UnavailDr. Viktoria Mcconnell DO Attending Provider Dr. Viktoria Longoria DO Referring Provider Dr. Kayleigh Brian MD Referring Provider [phone] Xin Magdaleno Attending Provider [phone] Jeannine Gunn CNM Attending Provider [phone] [place] TRAIN CONTROL ELECTRONIC TECHNICIAN-C, Joyce D Primary Care Provider [place] TRAIN CONTROL ELECTRONIC TECHNICIAN-C, Joyce D Referring Provider Mary REECE, Dr. [...] Care Unavailable BALAJI JERRY Attending Unavailable [place] TRAIN CONTROL ELECTRONIC TECHNICIAN-C, Joyce D Primary Care Provider [place] TRAIN CONTROL ELECTRONIC TECHNICIAN-C, Joyce D Referring Provider [place] TRAIN CONTROL ELECTRONIC TECHNICIAN-C, Joyce D Primary Care Physician Xin Magdaleno Attending Physician [phone] Jeannine Gunn CNM Attending Physician [phone] Dr. Viktroia Longoria DO Attending Physician Care Physician, No [...] No Primary Primary Care Unava ilable Shanna TRAIN CONTROL ELECTRONIC TECHNICIAN, Xin Attending Unavailable [place], Joyce D Referring Unavailable [place] TRAIN CONTROL ELECTRONIC TECHNICIAN, Xin Attending Unavailable [place], Joyce D Primary [...] Physician, No Primary Primary Care Unava ilable [place] TRAIN CONTROL ELECTRONIC TECHNICIAN, Xin Referring Unavailable [place] TRAIN CONTROL ELECTRONIC TECHNICIAN, Xin Attending Unavailable Care Physician, No Primary Primary Care Unava ilable [place] TRAIN CONTROL ELECTRONIC TECHNICIAN, Xin Attending Unavailable Care Physician, No Primary Referring Unava ilable Care Physician, No Primary Primary Care Unava ilable Shanna TRAIN CONTROL ELECTRONIC TECHNICIAN, Xin Attending Unavailable Care Physician, No Primary [...] [cat dander] Allergy to substance 3 Other [facility] Comment on above: Sneezing, itchy eyes (12 sources) Seasonal Allergies: Uncoded; Translations: [Seasonal Allergies: Uncoded] Allergy to substance 3 Other [facility] Comment on above: Sneezing, itchy eyes (1 source) No Known Medication Allergies; Translations: [No Known Medication Allergies] Propensity to adverse reactions (disorder) [facility] Repository Medications Current Medications Medication Drug [...] every six hours as needed for pain wkkpdca-djzvutwknsdzg-togwpdrl (Excedrin Migraine) 250-250-65 mg per tablet Take [...] 10, 2021 10:57am 21 day ethinyl estradiol 0.419949 mg/hr / etonogestrel 0.005 mg/hr vaginal system [...] neg. 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 FOB drawn 04/15/25: Residual [...] Vancomycin Islt JOSE G 0.5 S Normal [facility] Comment on above: Performed By: #### M 100.3408 ####[facility] [address] [place], [address] Laboratory - Chemistry and C hemistry - challengeOrdered By: Jeannine Gunn on 09-08-2025 Glucose Ql (U) Negative [facility] Laboratory - UrinalysisOrder ed By: Jeannine Gunn on 09-08-2025 Protein Ql (U) Negative [facility] OB Triage Progress Noteon OB Triage Progress Note [facility] Medical Records Department [address] [place] [address] OB Triage Progress Note 09/08/252149 MR#: [id number] Acct: [id number] Name: BRAYDEN CONNELLY Rep #: [id number] : 2000 25 From: Kayleigh Brian MD PCP: Care Physician,No Primary Status:DEP CLI Y DOS: Location: WPOUT Progress Notes Date of Service: 09/07/25 Progress Note: Patient presents for triage evaluation secondary to dec movement FHT: 140 Moderate variability reactive no decelerations category I tracing Gardi: no regular Contractions Assessment and plan: 36 weeks dec movememnt Reactive NST, reassuring maternal and status patient discharged to home to follow-up as scheduled. See problem list details for additional plan information. Charges/Coding Procedures Urinary/Genital 52xxx-59xxx: 62747-29 non-stress test Interp 09/08/252149 Date Kayleigh Brian MD Cosigner Signature (if applicable): Date __ CC: Dr. Kayleigh Brian MD; No Primary Care Physician Signed Normal [facility] Supervisor Laboratory Animal Facility Office Visit Reporton 09-08-2025 Supervisor Laboratory Animal Facility Office Visit Report [facility]'s [address], [address] [place] [address] OFFICE VISIT Date of Service: 09/08/25 MR#: [id number] Acct: [id number] Name: BRAYDNE CONNELLY Rep #: [id number] : 2000 Provider: JACK Christina ams Age/Sex: 25/F [place] [facility] [place]: Signed Intake Vital Signs 07/30/25 14:22 08/27/25 14:25 09/07/25 14:19 09/08/25 13:33 09/08/25 13:40 Height 5 ft 4 in 5 ft 4 in 5 ft 4 in 5 ft 4 in 5 ft 4 in Weight: 260 lb 2 oz BMI 44.6 BP 120/86 H Intake Visit Reasons: 36wk4d ob Spot Sprayer Required: No Is patient in pain?: No [...] animals: cat(s) history of recent travel: Yes ([place] - December 2024 [place] - January 2025) out of state: Yes [...] 5-6 times per week duration: 15-30 minutes/day naina/jewish: Yazidism seatbelt use: always do you feel safe [...] vb c (more content not included)... Normal [facility] Screening beta-hemolytic Str eptococcus cultureOrdered By: Jeannine Gunn on 09-08-2025 Beta-hemolytic Streptococcus culture Streptococcus agalactiae (B) Abnormal [facility] Laboratory - Chemistry and C hemistry - challengeOrdered By: Kayleigh Brian on 08-27-2025 Glucose Ql (U) Negative [facility] Laboratory - UrinalysisOrder ed By: Kayleigh Brian on 08-27-2025 Protein Ql (U) Negative [facility] Supervisor Laboratory Animal Facility Office Visit Reporton 08-27-2025 Supervisor Laboratory Animal Facility Office Visit Report [facility], [address] [place] [address] OFFICE VISIT Date of Service: 08/27/25 MR#: [id number] Acct: [id number] Name: BRAYDEN CONNELLY Rep #: [id number] : 2000 Provider: Dr. Kayleigh holly MD Age/Sex: 25/F [place] [facility] Status: Signed Intake Vital Signs 07/14/25 13:11 08/13/25 13:28 08/27/25 14:25 Height 5 ft 4 in 5 ft 4 in 5 ft 4 in Weight: 262 lb 3 oz BMI 45.0 BP 114/81 H Intake Visit Reasons: 34 WK 6 DAYS Spot Sprayer Required: No Is patient in pain?: No [...] animals: cat(s) history of recent travel: Yes ([place] - December 2024 [place] - January 2025) out of state: Yes [...] 5-6 times per week duration: 15-30 minutes/day naina/jewish: Yazidism seatbelt use: always do you feel safe [...] amping 0 (more content not included)... Normal [facility] 12 Lead EKGon 08-19-2025 12 Lead EKG [facility] Cardiovascular Services [address] [place] [address] 12 Lead EKG 08/19/25 1404 MR#: [id number] Acct: [id number] Name: BRAYDEN CONNELLY Rep #: [id number] : 2000 25 From: Seth Dominguez MD Attending Dr: Xin Otero, TRAIN CONTROL ELECTRONIC TECHNICIAN-C Status: REG CLI Ordering Dr: Xin Otero TRAIN CONTROL ELECTRONIC TECHNICIAN TRAIN CONTROL ELECTRONIC TECHNICIAN-C Date: 08/19/25 Location: PSN Sex: F C [...] ECG Confirmed by SETH DOMINGUEZ MD ([id number]), assignment editor BETH HOLLAND ([id number]) on 08/20/2025 7:12:23 AM Referred By: Xin Otero Confirmed By: SETH DOMINGUEZ MD 08/20/25 0712 Date Seth Dominguez MD CC: TRAIN CONTROL ELECTRONIC TECHNICIAN-C Xin Otero; No Primary Care Physician Signed Normal [facility] Laboratory - Chemistry and C hemistry - challengeOrdered By: Xin Otero on 08-13-2025 Glucose Ql (U) Negative [facility] Laboratory - UrinalysisOrder ed By: Xin Otero on 08-13-2025 Protein Ql (U) Negative [facility] Supervisor Laboratory Animal Facility Office Visit Reporton 08-13-2025 Supervisor Laboratory Animal Facility Office Visit Report [facility]'s [address], [address] [place] [address] OFFICE VISIT Date of Service: 08/13/25 MR#: [id number] Acct: [id number] Name: BRAYDEN CONNELLY Rep #: [id number] : 2000 Provider: RAMILA eduardo Age/Sex: 25/F [place] [facility] [place]: Signed Intake Vital Signs 07/14/25 13:11 07/30/25 14:22 08/13/25 13:28 Height 5 ft 4 in 5 ft 4 in 5 ft 4 in Weight: 253 lb 5 oz BMI 43.4 BP 115/75 Intake Visit Reasons: 32 WK 6 DAYS Spot Sprayer Required: No Is patient in pain?: No [...] animals: cat(s) history of recent travel: Yes ([place] - December 2024 [place] - January 2025) out of state: Yes [...] 5-6 times per week duration: 15-30 minutes/day naina/jewish: Yazidism seatbelt use: always do you feel safe [...] 04/15/25 -???-???-???-???-?? (more content not included)... Normal [facility] Laboratory - Chemistry and C hemistry - challengeOrdered By: Kayleigh Brian on 07-30-2025 Glucose Ql (U) Negative [facility] Laboratory - UrinalysisOrder ed By: Kayleigh Brian on 07-30-2025 Protein Ql (U) Negative [facility] Supervisor Laboratory Animal Facility Office Visit Reporton 07-30-2025 Supervisor Laboratory Animal Facility Office Visit Report [facility]'s [address], [address] [place] [address] OFFICE VISIT Date of Service: 07/30/25 MR#: [id number] Acct: [id number] Name: BRAYDEN CONNELLY Rep #: [id number] : 2000 Provider: Dr. Kayleigh holly MD Age/Sex: 25/F Location[place] [facility] Status: Signed Intake Vital Signs 05/12/25 13:39 07/14/25 13:11 07/30/25 14:22 Height 5 ft 4 in 5 ft 4 in 5 ft 4 in Weight: 251 lb 3 oz BMI 43.1 BP 119/84 H Intake Visit Reasons: 30 WK 6 DAYS Chief Complaint: 30wk OB Spot Sprayer Required: No Is patient in pain?: No [...] animals: cat(s) history of recent travel: Yes ([place] - December 2024 [place] - January 2025) out of state: Yes [...] 5-6 times per week duration: 15-30 minutes/day naina/jewish: Yazidism seatbelt use: always do you feel safe [...] ?-???-???-???-???-? ??-???-???- (more content not included)... Normal [facility] Absolute lymphocyte countOrd ered By: Viktoria Suazo on 07-14-2025 Lymphocytes Auto (Unsp spec) [#/Vol] 1.58 10*3/uL 0.83-4.51 [facility] Absolute neutrophil countOrd ered By: Viktoria Suazo on 07-14-2025 Neutrophils (Bld) [#/Vol] 10.7 10*3/uL High 2.0-7.7 [facility] Automated lymphocyte count a s percentage of total leukocytesOrdered By: Viktoria Suazo on 07-14-2025 Lymphocytes/100 WBC Auto (Unsp spec) 12.0 % Low 19-41 [facility] Basophil percentageOrdered B y: Viktoria Suazo on 07-14-2025 Basophils/100 WBC (Bld) 0.3 % 0-1 [facility] CBC W/Diff, Automatedon 09-0 Absolute Lymph 1.58 X10 3/uL Normal 0.83-4.51 [facility] Comment on above: Performed By: #### L 178.8011, L501.0250, L100.0100, L3890.6006 ####[facility] [address] [place], [address] Absolute Neut 10.7 X10 3/uL High 2.0-7.7 [facility] Comment on above: Performed By: #### L 509.8002, L501.0250, L100.0100, L3890.6006 ####[facility] [address] [place], [address] Basophils/100 WBC (Bld) 0.3 % Normal 0-1 [facility] Comment on above: Performed By: #### L 509.8002, L501.0250, L100.0100, L3890.6006 ####[facility] [address] [place], [address] Eosinophils/100 WBC (Bld) 1.8 % Normal 0-5 [facility] Comment on above: Performed By: #### L 509.8002, L501.0250, L100.0100, L3890.6006 ####[facility] [address] [place], [address] Erythrocyte distribution width (RBC) [Ratio] 12.9 % Normal 11.6-14.6 [facility] Comment on above: Performed By: #### L 509.8002, L501.0250, L100.0100, L3890.6006 ####[facility] [address] [place], [address] Hematocrit (Bld) [Volume fraction] 32.8 % Low 37-47 [facility] Comment on above: Performed By: #### L 509.8002, L501.0250, L100.0100, L3890.6006 ####[facility] [address] [place], [address] Hemoglobin (Bld) [Mass/Vol] 10.8 g/dL Low 12.0-15.0 [facility] Comment on above: Performed By: #### L 509.8002, L501.0250, L100.0100, L3890.6006 ####[facility] [address] [place], [address] IG% 0.500 Normal 0.0-0.9 [facility] Comment on above: Result Comment: IG% - Immature Granulocytes (promyelocytes, myelocytes and metamyelocytes) > 1% indicates that a LEFT SHIFT is Present. Performed By: #### L 509.8002, L501.0250, L100.0100, L3890.6006 ####[facility] [address] [place], [address] Lymphocytes/100 WBC (Bld) 12.0 % Low 19-41 [facility] Comment on above: Performed By: #### L 509.8002, L501.0250, L100.0100, L3890.6006 ####[facility] [address] [place], [address] MCH (RBC) [Entitic mass] 30.5 pg Normal 27.0-32.0 [facility] Comment on above: Performed By: #### L 509.8002, L501.0250, L100.0100, L3890.6006 ####[facility] [address] [place], [address] MCHC (RBC) [Mass/Vol] 32.9 g/dL Normal 32-36 [facility] Comment on above: Performed By: #### L 509.8002, L501.0250, L100.0100, L3890.6006 ####[facility] [address] [place], [address] MCV (RBC) [Entitic vol] 92.7 fL Normal 81-99 [facility] Comment on above: Performed By: #### L 509.8002, L501.0250, L100.0100, L3890.6006 ####[facility] [address] [place], [address] Monocytes/100 WBC (Bld) 4.4 % Normal 0-10 [facility] Comment on above: Performed By: #### L 509.8002, L501.0250, L100.0100, L3890.6006 ####[facility] [address] [place], [address] Neutrophils/100 WBC (Bld) 81.0 % High 47-70 [facility] Comment on above: Performed By: #### L 509.8002, L501.0250, L100.0100, L3890.6006 ####[facility] [address] [place], [address] Nucleated RBC (Bld) [#/Vol] 0 10*3/uL Normal 0-5 [facility] Comment on above: Performed By: #### L 509.8002, L501.0250, L100.0100, L3890.6006 ####[facility] [address] [place], [address] Platelet mean volume (Bld) [Entitic vol] 10.6 fL Normal 6.2-12.0 [facility] Comment on above: Performed By: #### L 509.8002, L501.0250, L100.0100, L3890.6006 ####[facility] [address] [place], [address] Platelets (Bld) [#/Vol] 295 10*3/uL Normal 150-450 [facility] Comment on above: Performed By: #### L 509.8002, L501.0250, L100.0100, L3890.6006 ####[facility] [address] [place], [address] RBC (Bld) [#/Vol] 3.54 10*6/uL Low 4.2-5.4 [facility] Comment on above: Performed By: #### L 509.8002, L501.0250, L100.0100, L3890.6006 ####[facility] [address] [place], [address] RDW SD 43.4 fl Normal 35.1-43.9 [facility] Comment on above: Performed By: #### L 509.8002, L501.0250, L100.0100, L3890.6006 ####[facility] [address] [place], [address] WBC (Bld) [#/Vol] 13.2 10*3/uL High 4.4-11.0 [facility] Comment on above: Performed By: #### L 509.8002, L501.0250, L100.0100, L3890.6006 ####[facility] [address] [place], [address] Eosinophil percentageOrdered By: Viktoria Suazo on 07-14-2025 Eosinophils/100 WBC (Bld) 1.8 % 0-5 [facility] Erythrocyte distribution wid th ratioOrdered By: Viktoria Suazo on 07-14-2025 Erythrocyte distribution width (RBC) [Ratio] 12.9 % 11.6-14.6 [facility] Erythrocyte distribution wid th standard deviationOrdered By: Viktoria Suazo on 07-14-2025 Erythrocyte distribution width (RBC) [Ratio] 43.4 fl 35.1-43.9 [facility] Glucose Challenge Gest 1H 50 zonia 07-14-2025 GLU GEST 50g 1H 105 mg/dL Normal 70-140 [facility] Comment on above: Performed By: #### L 509.8002, L501.0250, L100.0100, L3890.6006 ####[facility] [address] [place], [address] Glucose measurement at 2 chinmay rs post-dose gestational glucose tolerance testOrdered By: Viktoria Suazo on 07-14-2025 Glucose [Mass/Vol] 105 mg/dL 70-140 [facility] HIVon 07-14-2025 HIV Non-Reactive Normal Nonreactive [facility] Comment on above: Result Comment: Non- Reactive Reactive Repeatedly reactive samples must be confirmed according to CDC recommended confirmatory algorithms. The subresults for either HIVAG or AHIV can be used as an aid in the selection of the confirmation algorithm for reactive samples. Send out specimens with Reactive results to [facility] for confirmation. Order the HIV antibody detection and differentiation: lc#[id number] Performed By: #### L 509.8002, L501.0250, L100.0100, L3890.6006 ####[facility] [address] [place], [address] Hematocrit Auto (Bld) [Volum e fraction]Ordered By: Viktoria Suazo on 07-14-2025 Hematocrit (Bld) [Volume fraction] 32.8 % Low 37-47 [facility] Hemoglobin measurementOrdere d By: Viktoria Suazo on 07-14-2025 Hemoglobin (Bld) [Mass/Vol] 10.8 g/dL Low 12.0-15.0 [facility] Immature granulocytes/100 WB C Auto (Bld)Ordered By: Viktoria Suazo on 07-14-2025 Immature granulocytes/100 WBC (Bld) 0.500 % 0.0-0.9 [facility] Comment on above: IG% - Immature Granu locytes (promyelocytes, myelocytes and metamyelocytes) > 1% indicates that a LEFT SHIFT is Present. Laboratory - Chemistry and C hemistry - challengeOrdered By: Xin Otero on 07-14-2025 Glucose Ql (U) Negative [facility] Laboratory - UrinalysisOrder ed By: Xin Otero on 07-14-2025 Protein Ql (U) Negative [facility] MCV (mean corpuscular volume ) determinationOrdered By: Vkitoria Suazo on 07-14-2025 MCV (RBC) [Entitic vol] 92.7 fL 81-99 [facility] Mean corpuscular hemoglobin (MCH) determinationOrdered By: Viktoria Suazo on 07-14-2025 MCH (RBC) [Entitic mass] 30.5 pg 27.0-32.0 [facility] Mean corpuscular hemoglobin concentration (MCHC) determinationOrdered By: Viktoria Suazo on 07-14-2025 MCHC (RBC) [Mass/Vol] 32.9 g/dL 32-36 [facility] Mean platelet volume determi nationOrdered By: Viktoria Lakeisha on 07-14-2025 Platelet mean volume (Bld) [Entitic vol] 10.6 fL 6.2-12.0 [facility] Monocyte percentageOrdered B y: Viktoria Lakeisha on 07-14-2025 Monocytes/100 WBC (Bld) 4.4 % 0-10 [facility] Neutrophil percentageOrdered By: Viktoria Lakeisha on 07-14-2025 Neutrophils/100 WBC (Bld) 81.0 % High 47-70 [facility] No Panel InformationOrdered By: Viktoria Suazo on 07-14-2025 HIV (1&2) Antibody Non-Reactive Nonreactive [facility] Comment on above: Non-ReactiveReactive Repeatedly reactive samples must be confirmed according to CDC recommended confirmatory algorithms. The subresults for either HIVAG or AHIV can be used as an aid in the selection of the confirmation algorithm for reactive samples.Send out specimens with Reactive results to [facility] for confirmation.Order the HIV antibody detection and differentiation: #[id number] Nucleated red blood cell per centageOrdered By: Viktoriaisaias Suazo on 07-14-2025 Nucleated RBC/100 WBC (Bld) [Ratio] 0 % 0-5 [facility] Supervisor Laboratory Animal Facility Office Visit Reporton 07-14-2025 Supervisor Laboratory Animal Facility Office Visit Report [facility] [address], [address] [place] [address] OFFICE VISIT Date of Service: 07/14/25 MR#: [id number] Acct: [id number] Name: BRAYDEN CONNELLY Rep #: [id number] : 2000 Provider: RAMILA eduardo Age/Sex: 25/F [place] [facility] Status: Signed Intake Vital Signs 05/12/25 13:39 06/12/25 11:08 07/14/25 12:59 07/14/25 13:11 Height 5 ft 4 in 5 ft 4 in 5 ft 4 in 5 ft 4 in Weight: 247 lb 3 oz BMI 42.4 BP 120/79 Intake Visit Reasons: 28 wk ob/glucose Chief Complaint: 28 Week OB/Glucose Spot Sprayer Required: No Is patient in pain?: No [...] animals: cat(s) history of recent travel: Yes ([place] - December 2024 [place] - January 2025) out of state: Yes [...] 5-6 times per week duration: 15-30 minutes/day naina/jewish: Yazidism seatbelt use: always do you feel safe [...] 120/82 Negat (more content not included)... Normal [facility] Platelet countOrdered By: Deo Suazo on 07-14-2025 Platelets (d) [#/Vol] 295 10*3/uL 150-450 [facility] RBC Auto (d) [#/Vol]Ordere d By: Viktoria Suazo on 07-14-2025 RBC (d) [#/Vol] 3.54 10*6/uL Low 4.2-5.4 [facility] Syphilis Antibodieson 2024 Syphilis Abs Non-Reactive Normal Nonreactive [facility] Comment on above: Performed By: #### L 509.8002, L501.0250, L100.0100, L3890.6006 ####[facility] [address] [place], [address] White blood cell (WBC) count Ordered By: Viktoria Suazo on 07-14-2025 WBC (Bld) [#/Vol] 13.2 10*3/uL High 4.4-11.0 [facility] Laboratory - Chemistry and C hemistry - challengeOrdered By: Viktoria Suazo on 06-12-2025 Glucose Ql (U) Negative [facility] Laboratory - UrinalysisOrder ed By: Viktoria Suazo on 06-12-2025 Protein Ql (U) Negative [facility] Supervisor Laboratory Animal Facility Office Visit Reporton 06-12-2025 Supervisor Laboratory Animal Facility Office Visit Report [facility]'s [address], [address] [place] [address] OFFICE VISIT Date of Service: 06/12/25 MR#: [id number] Acct: [id number] Name: MARICELBRAYDEN KANDACE Rep #: [id number] : 2000 Provider: Dr. Viktoria Rosas DO Age/Sex: 25/F [place] [facility]: Signed Intake Vital Signs 03/20/25 10:55 05/12/25 13:39 06/12/25 11:07 06/12/25 11:08 Height 5 ft 4 in 5 ft 4 in 5 ft 4 in 5 ft 4 in Weight: 233 lb 3 oz BMI 40.0 BP 123/84 H Intake Visit Reasons: 24 wk ob Spot Sprayer Required: No Is patient in pain?: No [...] animals: cat(s) history of recent travel: Yes ([place] - December 2024 [place] - January 2025) out of state: Yes [...] 5-6 times per week duration: 15-30 minutes/day naina/jewish: Yazidism seatbelt use: always do you feel safe [...] -???-???-???-???-?? ?-???-?? (more content not included)... Normal [facility] Laboratory - Chemistry and C hemistry - challengeOrdered By: Jeannine Gunn on 05-12-2025 Glucose Ql (U) Negative [facility] Laboratory - UrinalysisOrder ed By: Jeannine Gunn on 05-12-2025 Protein Ql (U) Negative [facility] Supervisor Laboratory Animal Facility Office Visit Reporton 05-12-2025 Supervisor Laboratory Animal Facility Office Visit Report [facility] [address], [address] [place] [address] OFFICE VISIT Date of Service: 05/12/25 MR#: [id number] Acct: [id number] Name: BRAYDEN CONNELLY Rep #: [id number] : 2000 Provider: JACK Christina ams Age/Sex: 25/F Location: [facility] [place] Status: Signed Intake Vital Signs 02/24/25 13:12 04/15/25 13:37 05/12/25 13:39 Height 5 ft 4 in 5 ft 4 in 5 ft 4 in Weight: 216 lb 8 oz BMI 37.1 BP 124/82 H Intake Visit Reasons: 20 wk ob Chief Complaint: 20wk OB Spot Sprayer Required: No Is patient in pain?: No [...] animals: cat(s) history of recent travel: Yes ([place] - December 2024 [place] - January 2025) out of state: Yes [...] 5-6 times per week duration: 15-30 minutes/day naina/jewish: Yazidism seatbelt use: always do you feel safe at home: Yes 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 OB Visit EMMAUNEL Calculator Estimated Delivery Date Method Current WG [...] CF ca (more content not included)... Normal [facility] Laboratory - Chemistry and C hemistry - challengeOrdered By: Xin Otero on 04-15-2025 Glucose Ql (U) Negative [facility] Laboratory - UrinalysisOrder ed By: Xin Otero on 04-15-2025 Protein Ql (U) Negative [facility] Supervisor Laboratory Animal Facility Office Visit Reporton 04-15-2025 Supervisor Laboratory Animal Facility Office Visit Report [facility]'s [address], [address] [place] [address] OFFICE VISIT Date of Service: 04/15/25 MR#: [id number] Acct: [id number] Name: BRAYDEN CONNELLY Rep #: [id number] : 2000 Provider: RAMILA eduardo Age/Sex: 25/F [place] [facility]: Signed Intake Vital Signs 02/24/25 13:12 03/20/25 10:55 04/15/25 13:37 Height 5 ft 4 in 5 ft 4 in 5 ft 4 in Weight: 203 lb 8 oz BMI 34.9 BP 120/82 H Intake Visit Reasons: 16 wk ob Chief Complaint: 16 Week OB Spot Sprayer Required: No Is patient in pain?: No [...] animals: cat(s) history of recent travel: Yes ([place] - December 2024 [place] - January 2025) out of state: Yes [...] 5-6 times per week duration: 15-30 minutes/day naina/jewish: Yazidism seatbelt use: always do you feel safe [...] -???-???-???-???-?? ?-???-???- (more content not included)... Normal [facility] Absolute lymphocyte countOrd ered By: Viktoria Lakeisha on 03-20-2025 Lymphocytes Auto (Unsp spec) [#/Vol] 1.69 10*3/uL 0.83-4.51 [facility] Absolute neutrophil countOrd ered By: Viktoria Suazo on 03-20-2025 Neutrophils (Bld) [#/Vol] 5.7 10*3/uL 2.0-7.7 [facility] Automated lymphocyte count a s percentage of total leukocytesOrdered By: Viktoria Suazo on 03-20-2025 Lymphocytes/100 WBC Auto (Unsp spec) 20.7 % 19-41 [facility] Basophil percentageOrdered B y: Viktoria Lakeisha on 03-20-2025 Basophils/100 WBC (Bld) 0.5 % 0-1 [facility] CBC W/Diff, Automatedon 05- Absolute Lymph 1.69 X10 3/uL Normal 0.83-4.51 [facility] Comment on above: Performed By: #### L 3890.6301, L3890.6102, L900.0098, L509.8002, L3890.6006, L501.9985, L100.0100, BTS, L509.4006 #### [facility] [address] [place], [place], [address] Absolute Neut 5.7 X10 3/uL Normal 2.0-7.7 [facility] Comment on above: Performed By: #### L 3890.6301, L3890.6102, L900.0098, L509.8002, L3890.6006, L501.9985, L100.0100, BTS, L509.4006 #### [facility] [address] [place], [address] Basophils/100 WBC (Bld) 0.5 % Normal 0-1 [facility] Comment on above: Performed By: #### L 3890.6301, L3890.6102, L900.0098, L509.8002, L3890.6006, L501.9985, L100.0100, BTS, L509.4006 #### [facility] [address] [place], [address] Eosinophils/100 WBC (Bld) 3.8 % Normal 0-5 [facility] Comment on above: Performed By: #### L 3890.6301, L3890.6102, L900.0098, L509.8002, L3890.6006, L501.9985, L100.0100, BTS, L509.4006 #### [facility] [address] [facility] [place], [address] Erythrocyte distribution width (RBC) [Ratio] 12.7 % Normal 11.6-14.6 [facility] Comment on above: Performed By: #### L 3890.6301, L3890.6102, L900.0098, L509.8002, L3890.6006, L501.9985, L100.0100, BTS, L509.4006 #### [facility] [address] [place], [address] Hematocrit (Bld) [Volume fraction] 38.6 % Normal 37-47 [facility] Comment on above: Performed By: #### L 3890.6301, L3890.6102, L900.0098, L509.8002, L3890.6006, L501.9985, L100.0100, BTS, L509.4006 #### [facility] [address] [place], [address] Hemoglobin (Bld) [Mass/Vol] 12.8 g/dL Normal 12.0-15.0 [facility] Comment on above: Performed By: #### L 3890.6301, L3890.6102, L900.0098, L509.8002, L3890.6006, L501.9985, L100.0100, BTS, L509.4006 #### [facility] [address] [place], [address] IG% 0.200 Normal 0.0-0.9 [facility] Comment on above: Result Comment: IG% - Immature Granulocytes (promyelocytes, myelocytes and metamyelocytes) > 1% indicates that a LEFT SHIFT is Present. Performed By: #### L 3890.6301, L3890.6102, L900.0098, L509.8002, L3890.6006, L501.9985, L100.0100, BTS, L509.4006 #### [facility] [address] [place], [address] Lymphocytes/100 WBC (Bld) 20.7 % Normal 19-41 [facility] Comment on above: Performed By: #### L 3890.6301, L3890.6102, L900.0098, L509.8002, L3890.6006, L501.9985, L100.0100, BTS, L509.4006 #### [facility] [address] [place], [address] MCH (RBC) [Entitic mass] 30.9 pg Normal 27.0-32.0 [facility] Comment on above: Performed By: #### L 3890.6301, L3890.6102, L900.0098, L509.8002, L3890.6006, L501.9985, L100.0100, BTS, L509.4006 #### [facility] [address] [place], [address] MCHC (RBC) [Mass/Vol] 33.2 g/dL Normal 32-36 [facility] Comment on above: Performed By: #### L 3890.6301, L3890.6102, L900.0098, L509.8002, L3890.6006, L501.9985, L100.0100, BTS, L509.4006 #### [facility] [address] [place], [address] MCV (RBC) [Entitic vol] 93.2 fL Normal 81-99 [facility] Comment on above: Performed By: #### L 3890.6301, L3890.6102, L900.0098, L509.8002, L3890.6006, L501.9985, L100.0100, BTS, L509.4006 #### [facility] [address] [place], [address] Monocytes/100 WBC (Bld) 5.1 % Normal 0-10 [facility] Comment on above: Performed By: #### L 3890.6301, L3890.6102, L900.0098, L509.8002, L3890.6006, L501.9985, L100.0100, BTS, L509.4006 #### [facility] [address] [place], [address] Neutrophils/100 WBC (Bld) 69.7 % Normal 47-70 [facility] Comment on above: Performed By: #### L 3890.6301, L3890.6102, L900.0098, L509.8002, L3890.6006, L501.9985, L100.0100, BTS, L509.4006 #### [facility] [address] [place], [address] Nucleated RBC (Bld) [#/Vol] 0 10*3/uL Normal 0-5 [facility] Comment on above: Performed By: #### L 3890.6301, L3890.6102, L900.0098, L509.8002, L3890.6006, L501.9985, L100.0100, BTS, L509.4006 #### [facility] [address] [place], [address] Platelet mean volume (Bld) [Entitic vol] 10.2 fL Normal 6.2-12.0 [facility] Comment on above: Performed By: #### L 3890.6301, L3890.6102, L900.0098, L509.8002, L3890.6006, L501.9985, L100.0100, BTS, L509.4006 #### [facility] [address] [place], [address] ( Platelets (Bld) [#/Vol] 261 10*3/uL Normal 150-450 [facility] Comment on above: Performed By: #### L 3890.6301, L3890.6102, L900.0098, L509.8002, L3890.6006, L501.9985, L100.0100, BTS, L509.4006 #### [facility] [address] [place], [address] ( RBC (Bld) [#/Vol] 4.14 10*6/uL Low 4.2-5.4 [facility] Comment on above: Performed By: #### L 3890.6301, L3890.6102, L900.0098, L509.8002, L3890.6006, L501.9985, L100.0100, BTS, L509.4006 #### [facility] [address] [place], [address] RDW SD 43.7 fl Normal 35.1-43.9 [facility] Comment on above: Performed By: #### L 3890.6301, L3890.6102, L900.0098, L509.8002, L3890.6006, L501.9985, L100.0100, BTS, L509.4006 #### [facility] [address] [place], [place], [address] WBC (Bld) [#/Vol] 8.2 10*3/uL Normal 4.4-11.0 [facility] Comment on above: Performed By: #### L 3890.6301, L3890.6102, L900.0098, L509.8002, L3890.6006, L501.9985, L100.0100, BTS, L509.4006 #### [facility] [address] [place], [place], [address] Eosinophil percentageOrdered By: Viktoria Suazo on 03-20-2025 Eosinophils/100 WBC (Bld) 3.8 % 0-5 [facility] Erythrocyte distribution wid th ratioOrdered By: Viktoria Suazo on 03-20-2025 Erythrocyte distribution width (RBC) [Ratio] 12.7 % 11.6-14.6 [facility] Erythrocyte distribution wid th standard deviationOrdered By: Viktoria Suazo on 03-20-2025 Erythrocyte distribution width (RBC) [Ratio] 43.7 fl 35.1-43.9 [facility] HIVon 03-20-2025 HIV Non-Reactive Normal Nonreactive [facility] Comment on above: Result Comment: Non- Reactive Reactive Repeatedly reactive samples must be confirmed according to CDC recommended confirmatory algorithms. The subresults for either HIVAG or AHIV can be used as an aid in the selection of the confirmation algorithm for reactive samples. Send out specimens with Reactive results to [facility] for confirmation. Order the HIV antibody detection and differentiation: lc#[id number] Performed By: #### L 3890.6301, L3890.6102, L900.0098, L509.8002, L3890.6006, L501.9985, L100.0100, BTS, L509.4006 ####[facility] [id number] [place], [place], [address] Hematocrit Auto (Bld) [Volum e fraction]Ordered By: Viktoria Lakeisha on 03-20-2025 Hematocrit (Bld) [Volume fraction] 38.6 % 37-47 [facility] Hemoglobin A1con 03-20-2025 HbA1c (Bld) [Mass fraction] 5.2 % Normal <=5.6 [facility] Comment on above: Result Comment: Norm al < 5.7 % Prediabetic 5.7 - 6.4 % Diabetic >or= 6.5 % Please note range changes. Performed By: #### L 3890.6301, L3890.6102, L900.0098, L509.8002, L3890.6006, L501.9985, L100.0100, BTS, L509.4006 ####[facility] [id number] [place], [place], [id number] Hemoglobin A1c percentageOrd ered By: Viktoria Lakeisha on 03-20-2025 HbA1c (Bld) [Mass fraction] 5.2 % <5.7 [facility] Comment on above: Normal < 5.7 % Predi abetic 5.7 - 6.4 % Diabetic >or= 6.5 % Please note range changes. Hemoglobin measurementOrdere d By: Viktoria Suazo on 03-20-2025 Hemoglobin (Bld) [Mass/Vol] 12.8 g/dL 12.0-15.0 [facility] Hepatitis C Antibodyon 03-20 Hepatitis C Ab Non-Reactive Normal Nonreactive [facility] Comment on above: Result Comment: Reac tive: Presumptive evidence of antibodies to HCV. Follow CDC recommendations for supplemental testing. Non-Reactive: Antibodies to HCV were not detected; does not exclude the possibility of exposure to HCV Reactive Results are presumptive evidence of antibodies to HCV. Follow CDC recommendations for supplemental testing. Order confirmation testing: HCV Quant by PCR testing - HCVPCR #[id number] Non Reactive: < 0.8 Equivocal: >/= 0.8 to < 1.0 Reactive: >/= 1.0 The CDC requires that a reactive/equivocal HCV antibody result be sent out for confirmation. HCV Quant by PCR testing. Performed By: #### L 3890.6301, L3890.6102, L900.0098, L509.8002, L3890.6006, L501.9985, L100.0100, BTS, L509.4006 ####[facility] [id number] [place], [place], [id number] Immature granulocytes/100 WB C Auto (Bld)Ordered By: Viktoria Suazo on 03-20-2025 Immature granulocytes/100 WBC (Bld) 0.200 % 0.0-0.9 [facility] Comment on above: IG% - Immature Granu locytes (promyelocytes, myelocytes and metamyelocytes) > 1% indicates that a LEFT SHIFT is Present. L3890.6102on 03-20-2025 HEP B Surf Ag Non-Reactive Normal Nonreactive [facility] Comment on above: Result Comment: Reac tive: Presumptive evidence of HBV. Repeatedly reactive samples must be confirmed using a neutralization test ([employer] HBsAg Confirmatory Test) Non-Reactive: HBsAg not detected; does not exclude the possibility of exposure to HBV Performed By: #### L 3890.6301, L3890.6102, L900.0098, L509.8002, L3890.6006, L501.9985, L100.0100, BTS, L509.4006 ####[facility] [id number] [place], [place], [id number] L509.4006on 03-20-2025 Rubella IgG REAC Normal Nonreactive [facility] Comment on above: Result Comment: Anti body Result: Interpretation Non-Reactive: Non-Immune Reactive: Immune The following results were obtained with the [employer] Rubella IgG assay. Results from assays of other manufacturers cannot be used interchangeably. Performed By: #### L 3890.6301, L3890.6102, L900.0098, L509.8002, L3890.6006, L501.9985, L100.0100, BTS, L509.4006 ####[facility] [address] [place], [address] Laboratory - Chemistry and C hemistry - challengeOrdered By: Kayleigh Brian on 03-20-2025 Glucose Ql (U) Negative [facility] Laboratory - Microbiology an d Antimicrobial susceptibilityOrdered By: Vitkoria Suazo on 03-20-2025 HBV surface Ag Ql (S) Non-Reactive Nonreactive [facility] Comment on above: Reactive: Presumptiv e evidence of HBV. Repeatedly reactive samples must be confirmed using a neutralization test ([employer] HBsAg Confirmatory Test)Non-Reactive: HBsAg not detected; does not exclude the possibility of exposure to HBV Laboratory - UrinalysisOrder ed By: Kayleigh Brian on 03-20-2025 Protein Ql (U) Negative [facility] MCV (mean corpuscular volume ) determinationOrdered By: Viktoria Suazo on 03-20-2025 MCV (RBC) [Entitic vol] 93.2 fL 81-99 [facility] Mean corpuscular hemoglobin (MCH) determinationOrdered By: Viktoria Suazo on 03-20-2025 MCH (RBC) [Entitic mass] 30.9 pg 27.0-32.0 [facility] Mean corpuscular hemoglobin concentration (MCHC) determinationOrdered By: Viktoria Suazo on 03-20-2025 MCHC (RBC) [Mass/Vol] 33.2 g/dL 32-36 [facility] Mean platelet volume determi nationOrdered By: Viktoria uSazo on 03-20-2025 Platelet mean volume (Bld) [Entitic vol] 10.2 fL 6.2-12.0 [facility] Monocyte percentageOrdered B y: Viktoria Suazo on 03-20-2025 Monocytes/100 WBC (Bld) 5.1 % 0-10 [facility] NATERAon 03-20-2025 NATURA SEE SCANNED REPORT Normal [facility] Comment on above: Order Comment: Comme nts: Genetic Carrier testing - with gender Performed By: #### L 3890.6301, L3890.6102, L900.0098, L509.8002, L3890.6006, L501.9985, L100.0100, BTS, L509.4006 ####[facility] [id number] [place], [address] Neutrophil percentageOrdered By: Viktoria Suazo on 03-20-2025 Neutrophils/100 WBC (Bld) 69.7 % 47-70 [facility] No Panel InformationOrdered By: Viktoria Suazo on 03-20-2025 HIV (1&2) Antibody Non-Reactive Nonreactive [facility] Comment on above: Non-ReactiveReactive Repeatedly reactive samples must be confirmed according to CDC recommended confirmatory algorithms. The subresults for either HIVAG or AHIV can be used as an aid in the selection of the confirmation algorithm for reactive samples.Send out specimens with Reactive results to [facility] for confirmation.Order the HIV antibody detection and differentiation: #[id number] Nucleated red blood cell per centageOrdered By: Viktoria Suazo on 03-20-2025 Nucleated RBC/100 WBC (Bld) [Ratio] 0 % 0-5 [facility] Supervisor Laboratory Animal Facility Office Visit Reporton 03-20-2025 Supervisor Laboratory Animal Facility Office Visit Report [facility]'[address], [address] [place] [address] OFFICE VISIT Date of Service: 03/20/25 MR#: [id number] Acct: [id number] Name: BRAYDEN LUZ Rep #: [id number] : 2000 Provider: Dr. Kayleigh holly MD Age/Sex: 25/F [place] [facility] [place]: Signed Intake Vital Signs 01/29/25 09:16 02/24/25 13:12 03/20/25 10:54 03/20/25 10:55 Height 5 ft 4 in 5 ft 4 in 5 ft 4 in 5 ft 4 in Weight: 194 lb 4 oz BMI 33.3 BP 118/75 Intake Visit Reasons: 12wk OB Spot Sprayer Required: No Is patient in pain?: No [...] animals: cat(s) history of recent travel: Yes ([place] - December 2024 [place] - January 2025) out of state: Yes [...] 5-6 times per week duration: 15-30 minutes/day naina/jewish: Yazidism seatbelt use: always do you feel safe [...] Office Urine (more content not included)... Normal [facility] Platelet countOrdered By: Deo Suazo on 03-20-2025 Platelets (Bld) [#/Vol] 261 10*3/uL 150-450 [facility] RBC Auto (Bld) [#/Vol]Ordere d By: Viktoria Suazo on 03-20-2025 RBC (Bld) [#/Vol] 4.14 10*6/uL Low 4.2-5.4 [facility] Syphilis Antibodieson 2024 Syphilis Abs Non-Reactive Normal Nonreactive [facility] Comment on above: Performed By: #### L 3890.6301, L3890.6102, L900.0098, L509.8002, L3890.6006, L501.9985, L100.0100, BTS, L509.4006 ####[facility] [id number] [place], [place], [id number] Type AND Screenon 03-20-2025 Ab SCREEN GEL Negative Normal [facility] Comment on above: Order Comment: PN Performed By: #### L 3890.6301, L3890.6102, L900.0098, L509.8002, L3890.6006, L501.9985, L100.0100, BTS, L509.4006 ####[facility] [id number] [place], [address] White blood cell (WBC) count Ordered By: Viktoria Suazo on 03-20-2025 WBC (Bld) [#/Vol] 8.2 10*3/uL 4.4-11.0 [facility] C Urineon 03-10-2025 Bacteria identified Cx Nom (U) Microbiology PROCEDURE: Urine Culture [R1] SOURCE: U CleanCatch BODY SITE: COLLECTED DATE/TIME: 03/07/2025 17:41 EDT RECEIVED DATE/TIME: 03/08/2025 12:43 EDT START DATE/TIME: 03/08/2025 12:43 EDT FREE TEXT SOURCE: Jame MI, Nathan Cardenas. Jame IM, Nathan Cardenas. FINAL REPORTS Final Report [] Verified Date/Time: 03/10/2025 08:24 EDT <10,000 cfu/ml Mixed skin contaminants Performing Locations R1: This test was performed at: [facility], [address] [place] [address], [address] , [place], Normal [facility] Comment on above: Performed By: #### 2 [id number] #### [facility] [address] [place] [address] Family Medicine Office/Clini c Noteon 03-08-2025 Family [...] with voice recognition software. Occasional wrong-word or ???ojfqp-g-[id number]??? 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 Patient states that they were not planning to get this soon so will most likely be moving back to [place] by the end of the year as [...] E&M of New Patient Low 30-44 Min 99252 2. First trimester (Z34.91: Encounter for supervision of normal , unspecified, first trimester) Continue follow up with OB. Ordered: E&M of New Patient Low 30-44 Min 43671 UTI symptoms (R39.9: Unspecified symptoms and signs involving the genitourinary system) Ordered: Urine Culture Urnls Dip Stick Auto w/o Microscopy POC [id number] Follow-up With When Contact Information NONE, XXXX Additional Instructions: Patient Education First Trimester of , Kmfz-se-Wczn Urinary Frequency, Adult Problem List/Past Medical History Ongoing No qualifying data Historical No qualifying data Medications Multivitamins, 1 tab(s), Oral, Daily sumatriptan, See Instructions Allergies No Known Medication Allergies Social History Tobacco Never (less than 100 in lifetime) Tobacco Use:. Never Smokeless Tobacco Use:., 03/07/2025 [facility] Comment on above: Result Comment: Elec tronically [...] you for choosing us for your care. [facility] Patient Letter FTon 2024 Patient Letter [facility] Patient Letter [facility] [address] [facility], [facility] [place] [id number] March 07, 2025 BRAYDEN CONNELLY [address] [place] [id number] : 2000 Please excuse BRAYDEN CONNELLY from work . Date and/or Time of Absence: From: 03/07/25 To: 03/10/25 May return to work on: 03/10/25 Restrictions: None Comments: Please excuse due to an acute illness. Provider Signature: Nathan Kilgore PA-C Physician Pier Master [address] [facility] [place] [address] [facility] Chlamydia/GC AMY aptimaon CHLAMY,NUC ACID Negative Normal Negative [facility] Comment on above: Performed By: #### L 505.5000, L7000.1800, M100.2200 ####[facility] [address] [place], [address] GC BY NUC ACID Negative Normal Negative [facility] Comment on above: Result Comment: Perf ormed at: =G - [facility] [place] [address] [place], [place] [id number] Tablet Repair: Christal Cochran MD, Phone: [phone] Performed By: #### L 505.5000, L7000.1800, M100.2200 ####[facility] [address] [place], [address] Urine Cultureon 02-25-2025 [facility] Mixed Gram Positive Organisms [place] Count 11,000-25,000 [facility] Mixed contaminants. Submit a new specimen if indicated. Normal [facility] Comment on above: Performed By: #### L 505.5000, L7000.1800, M100.2200 ####[facility] [address] [place], [address] Amphetamine detection with 1 000 ng/mL as cutoffOrdered By: Viktoria Suazo on 02-24-2025 Amphetamines Screen method >1000 ng/mL Ql (U) Negative < 200 ng/mL [facility] Chlamydia trachomatis rRNA d etection by probe and target amplification methodOrdered By: Viktoria Suazo on 02-24-2025 C. trachomatis rRNA AMY+probe Ql (Unsp spec) Negative Negative [facility] Neisseria gonorrhoeae nuclei c acid detection by amplified probe techniqueOrdered By: Viktoria Suazo on 02-24-2025 N. gonorrhoeae DNA AMY+probe Ql (Unsp spec) Negative Negative [facility] Comment on above: Performed at: =G - [facility] [id number] [facility] [place], [place] [id number] Director: Christal Cochran MD, Phone: [phone] No Panel InformationOrdered By: Viktoria Suazo on 02-24-2025 Urine Buprenorphine Qualitative Negative < 200 ng/mL [facility] Urine Oxycodone Screen Negative < 100 ng/mL [facility] Supervisor Laboratory Animal Facility Office Visit Reporton 02-24-2025 Supervisor Laboratory Animal Facility Office Visit Report [facility] [address], [address] [place] [address] OFFICE VISIT Date of Service: 02/24/25 MR#: [id number] Acct: [id number] Name: BRAYDEN LUZ Rep #: [id number] : 2000 Provider: Dr. Viktoria Rosas, Age/Sex: 25/F [place] [facility] [place]: Signed Intake Vital Signs 10/10/24 16:04 01/29/25 09:16 02/14/25 09:20 02/24/25 13:12 Height 5 ft 4 in 5 ft 4 in 5 ft 4 in 5 ft 4 in Weight: 186 lb 2 oz BMI 31.9 BP 128/85 H Intake Visit Reasons: New OB, LMP 12/26, EMMANUEL 10/02 Chief Complaint: New OB Spot Sprayer Required: No Is patient in pain?: No [...] animals: cat(s) history of recent travel: Yes ([place] - December 2024 [place] - January 2025) out of state: Yes [...] 5-6 times per week duration: 15-30 minutes/day naina/jewish: Yazidism seatbelt use: always do you feel safe [...] Other St (more content not included)... Normal [facility] Quantitative urine opiates m easurementOrdered By: Viktoria Suazo on 02-24-2025 Opiates Ql (U) Negative < 300 ng/mL [facility] Screening urine fentanyl ajay surementOrdered By: Viktoria Suazo on 02-24-2025 fentaNYL Screen Ql (U) Negative [facility] Urine Drug Screen (VISTA)on 02-24-2025 AMPHETAMINES Negative Normal <1000 ng/mL [facility] Comment on above: Order Comment: UNK Performed By: #### L 505.5000, L7000.1800, M100.2200 ####[facility] [address] [place], [address] BARBITIURATES Negative Normal < 200 ng/mL [facility] Comment on above: Order Comment: UNK Performed By: #### L 505.5000, L7000.1800, M100.2200 ####[facility] [address] [place], [address] BENZODIAZIPINE Negative Normal < 200 ng/mL [facility] Comment on above: Order Comment: UNK Performed By: #### L 505.5000, L7000.1800, M100.2200 ####[facility] [address] [place], [address] BUP Ur Drug Scr Negative Normal < 200 ng/mL [facility] Comment on above: Order Comment: UNK Performed By: #### L 505.5000, L7000.1800, M100.2200 ####[facility] [address] [place], [address] COCAINE Negative Normal < 300 ng/mL [facility] Comment on above: Order Comment: UNK Performed By: #### L 505.5000, L7000.1800, M100.2200 ####[facility] [address] [place], [address] Fentanyl Negative Normal [facility] Comment on above: Order Comment: UNK Performed By: #### L 505.5000, L7000.1800, M100.2200 ####[facility] [address] [place], [address] METHADONE Negative Normal < 300 ng/mL [facility] Comment on above: Order Comment: UNK Performed By: #### L 505.5000, L7000.1800, M100.2200 ####[facility] [address] [place], [address] OPIATES Negative Normal < 300 ng/mL [facility] Comment on above: Order Comment: UNK Performed By: #### L 505.5000, L7000.1800, M100.2200 ####[facility] [address] [place], [address] OXYCODONE Negative Normal < 100 ng/mL [facility] Comment on above: Order Comment: UNK Performed By: #### L 505.5000, L7000.1800, M100.2200 ####[facility] [address] [place], [address] PCP Negative Normal < 25 ng/mL [facility] Comment on above: Order Comment: UNK Performed By: #### L 505.5000, L7000.1800, M100.2200 ####[facility] [address] [place], [address] THC Negative Normal < 50 ng/mL [facility] Comment on above: Order Comment: UNK Performed By: #### L 505.5000, L7000.1800, M100.2200 ####[facility] [address] [place], [address] Urine benzodiazepine levelOr dered By: Viktoria Suazo on 02-24-2025 Benzodiazepines Ql (U) Negative < 200 ng/mL [facility] Urine cocaine levelOrdered B y: Viktoria Suazo on 02-24-2025 Cocaine Ql (U) Negative < 300 ng/mL [facility] Urine cultureOrdered By: Luz Suazo on 02-24-2025 Bacteria identified Cx Nom (U) Positive Abnormal [facility] Urine glbfm-9-ouxtyyisfdqhyc abinol (THC) measurementOrdered By: Viktoria Suazo on 02-24-2025 Cannabinoids Screen Ql (U) Negative < 50 ng/mL [facility] Urine phencyclidine (PCP) de tectionOrdered By: Viktoria Suazo on 02-24-2025 Phencyclidine Ql (U) Negative < 25 ng/mL [facility] Laboratory - Chemistry and C hemistry - challengeOrdered By: Viktoria Suazo on 02-14-2025 HCG ( test) Ql (U) Positive [facility] Office Visit Reporton 2024 Office Visit Report [facility] [address] [place] [address] OFFICE VISIT Date of Service: MR#: [id number] Acct: [id number] Patient: BRAYDEN LUZ Rep #: [id number] : 2000 Provider: Paula Cobos RN Age/Sex: 25/F [place] [facility] [place]: Signed Intake Vital Signs 01/29/25 09:16 02/14/25 09:20 Height 5 ft 4 in 5 ft 4 in Weight: 184 lb 6 oz BMI 31.6 BP 118/68 Intake Visit Reasons: Amb Documentation Chief Complaint: Nurse visit; Confirmation; Inperson PNOB Spot Sprayer Required: No Accompanied by: Mother Is patient [...] Ambriz Signature: Date (if applicable) CC: Normal [facility] Supervisor Laboratory Animal Facility Office Visit Reporton 10-10-2024 Supervisor Laboratory Animal Facility Office Visit Report [facility] [address], [address] [place] [address] OFFICE VISIT Date of Service: 10/10/24 MR#: [id number] Acct: [id number] Name: BRAYDEN LUZ Rep #: [id number] : 2000 Provider: JACK Christina ams Age/Sex: 24/F [place] [facility] [place]: Signed Intake Vital Signs 09/19/23 15:59 09/19/23 16:20 09/23/24 08:32 10/10/24 15:59 10/10/24 16:04 Height 5 ft 5 in 5 ft 5 in 5 ft 4 in 5 ft 4 in 5 ft 4 in Weight: 189 lb BMI 32.4 BP 118/76 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 Normal [facility] Urgent Care Visit Reporton 1 11-23-2023 Urgent Care Visit Report [facility] [address], [address] [place] [address] OFFICE VISIT Date of Service: 09/23/24 MR#: [id number] Acct: [id number] Name: BRAYDEN LUZ Rep #: [id number] : 2000 Provider: ABI Salgado Age/Sex: 24/F Location: [facility] Status: Signed Intake Vital Signs 09/19/23 16:20 [...] CONCERN FOR UTI Chief Complaint: urinary frequency Spot Sprayer Required: No Is patient in pain?: No Allergies cat dander Allergy (Verified 09/23/24 08:32) Other Seasonal Allergies: Uncoded Allergy (Verified 09/23/24 08:32) Other Is last menstrual period known: No Post menopausal: No Patient : No Have you fallen in the past year?: No Nurse's Note: urinary frequency x 1 week, concern for UTI. denies abd pain/back pain/ fever. PENDING SALE TO [facility] Medical History (Updated 09/23/24 @ 08:34 by [...] color/ character of urine or stool. No mmiz-cwc-dsjlrko products taken to assist. No other associated [...] Berman on 09/23/24 08:37 Off Ur Spec Hale 1.010 Last Edit by Awa Berman on [...] Urine Pr (more content not included)... Normal [facility] Culture, urineOrdered By: St bari Hanna on 01-25-2023 Bacteria identified Cx Nom (U) Positive [facility] Basophil percentageOrdered B y: Benja Hanna on 01-23-2023 Basophil percentage 0-5 SEEN /hpf 0-5 [facility] Bilirubin Test strip Ql (U)O rdered By: Benja Hanna on 01-23-2023 Bilirubin Ql (U) Negative Negative [facility] Ketones Test strip Ql (U)Ord ered By: Benaj Hanna on 01-23-2023 Ketones Ql (U) Negative Negative [facility] Laboratory - Chemistry and C hemistry - challengeon 01-23-2023 Bilirubin Ql (U) Negative [facility] Glucose Ql (U) Negative [facility] Ketones Ql (U) Negative [facility] pH (U) 6.0 [pH] [facility] Specific gravity (U) [Rel density] 1.010 [facility] Urobilinogen (U) [Mass/Vol] 0.5881324 mg/dL [facility] Laboratory - Hematology and Cell countson 01-23-2023 Hemoglobin Ql (U) Negative [facility] Laboratory - Specimen inform ationon 01-23-2023 Clarity (U) Clear [facility] Color (U) Yellow [facility] Laboratory - Urinalysison Nitrite Ql (U) Negative [facility] Protein Ql (U) Negative [facility] Mucus LM Ql (Urine sed)Order ed By: Benja Hanna on 01-23-2023 Mucus Ql (Urine sed) 0 SEEN /hpf [facility] Nitrite Test strip Ql (U)Ord ered By: Benja Hanna on 01-23-2023 Nitrite Ql (U) Negative Negative [facility] No Panel Informationon 01-23 Urine Leukocytes Positive [facility] Comment on above: Off Ur Leukocytes pr eviously reported as Negatve Urine Non-Hemolyzed Blood [facility] Protein Test strip Ql (U)Ord ered By: Benja Hanna on 01-23-2023 Protein Ql (U) Negative Negative [facility] Squamous epithelial cells de tection in urine sediment by light microscopyOrdered By: Benja Hanna on 01-23-2023 Epithelial cells.squamous LM Ql (Urine sed) 0 SEEN /hpf 5-10 [facility] Urine blood detectionOrdered By: Benja Hanna on 01-23-2023 RBC Ql (U) Negative Negative [facility] RBC Ql (U) 0 SEEN /hpf 0-5 [facility] Urine clarityOrdered By: Eugenio Hanna on 01-23-2023 Clarity (U) Clear Clear [facility] Urine color determinationOrd ered By: Benja Hanna on 01-23-2023 Color (U) Yellow Yellow [facility] Urine glucose detectionOrder ed By: Benja Hanna on 01-23-2023 Glucose Ql (U) Normal mg/dl Normal [facility] Urine leukocyte esterase det ection by dipstickOrdered By: Benja Hanna on 01-23-2023 Leukocyte esterase Test strip Ql (U) Negative Negative [facility] Urine pHOrdered By: Benja yanez on 01-23-2023 pH (U) 6.0 [pH] 5.0 - 8.0 [facility] Urine sediment bacteria coun t by microscopy (number/high power field)Ordered By: Benja Hanna on 01-23-2023 Bacteria LM.HPF (Urine sed) [#/Area] 0 /[HPF] None Seen [facility] Urine specific gravity measu rementOrdered By: Benja Hanna on 01-23-2023 Specific gravity (U) [Rel density] 1.015 1.002-1.030 [facility] Urobilinogen Auto test strip Ql (U)Ordered By: Benja Hanna on 01-23-2023 Urobilinogen Ql (U) Normal mg/dl Normal [facility] Chlamydia trachomatis rRNA d etection by probe and target amplification methodon 09-14-2022 C. trachomatis rRNA AMY+probe Ql (Unsp spec) Negative Negative [facility] Work Phone: Laboratory - Microbiology an d Antimicrobial susceptibilityon 09-14-2022 N. gonorrhoeae DNA AMY+probe Ql (Unsp spec) Negative Negative [facility] Work Phone: Comment on above: Performed at: =G - [address] [id number] Director: Christal Cochran MD, Phone: [phone] No Panel Informationon 09-14 POC Trichomonas (Rapid) Negative [facility] Work Phone: Vital Signs Date Time Vital Sign Value Performing Clinician Faci lity 09-08-2025 13:40-0500 Body height 162.56 cm Joyce MCGRATH Work Phone: [facility] 09-08-2025 13:33-0500 Body mass index (BMI) [Ratio] 44.6 kg/m2 Joyce MCGRATH Work Phone: [facility] 09-08-2025 13:33-0500 Body weight 117.99 kg Joyce MCGRATH Work Phone: [facility] 09-08-2025 13:33-0500 Diastolic blood pressure 86 mm[Hg] Joyce MCGRATH Work Phone: [facility] 09-08-2025 13:33-0500 Systolic blood pressure 120 mm[Hg] Joyce Eubanksley TRAIN CONTROL ELECTRONIC TECHNICIAN-C Work Phone: [facility] 09-07-2025 14:24-0500 Body temperature 98.2 [degF] Joyce Lagos TRAIN CONTROL ELECTRONIC TECHNICIAN-C Work Phone: [facility] 09-07-2025 14:24-0500 Respiratory rate 18 /min Joyce Lagos TRAIN CONTROL ELECTRONIC TECHNICIAN-C Work Phone: [facility] 09-07-2025 14:22-0500 Heart rate 120 /min Joyce Lagos TRAIN CONTROL ELECTRONIC TECHNICIAN-C Work Phone: [facility] 09-07-2025 14:22-0500 SaO2% (BldA) [Mass fraction] 98 % Joyce Lagos TRAIN CONTROL ELECTRONIC TECHNICIAN-C Work Phone: [facility] 09-07-2025 14:21-0500 Diastolic blood pressure 81 mm[Hg] Joyce Lagos TRAIN CONTROL ELECTRONIC TECHNICIAN-C Work Phone: [facility] 09-07-2025 14:21-0500 Systolic blood pressure 125 mm[Hg] Joyce Lagos TRAIN CONTROL ELECTRONIC TECHNICIAN-C Work Phone: [facility] 09-07-2025 14:19-0500 Body mass index (BMI) [Ratio] 44.4 kg/m2 Joyce Lagos TRAIN CONTROL ELECTRONIC TECHNICIAN-C Work Phone: [facility] 09-07-2025 14:19-0500 Body weight 117.59 kg Joyce Lagos TRAIN CONTROL ELECTRONIC TECHNICIAN-C Work Phone: [facility] 08-27-2025 14:25-0400 Body mass index (BMI) [Ratio] 45 kg/m2 Joyce Lagos TRAIN CONTROL ELECTRONIC TECHNICIAN-C Work Phone: [facility] 08-27-2025 14:25-0400 Body weight 118.92 kg Joyce Lagos TRAIN CONTROL ELECTRONIC TECHNICIAN-C Work Phone: [facility] 08-27-2025 14:25-0400 Diastolic blood pressure 81 mm[Hg] Joyce Lagos TRAIN CONTROL ELECTRONIC TECHNICIAN-C Work Phone: [facility] 08-27-2025 14:25-0400 Systolic blood pressure 114 mm[Hg] Joyce Lagos TRAIN CONTROL ELECTRONIC TECHNICIAN-C Work Phone: [facility] 08-13-2025 13:28-0400 Body height 162.56 cm Joyce Lagos TRAIN CONTROL ELECTRONIC TECHNICIAN-C Work Phone: [facility] 08-13-2025 13:28-0400 Body mass index (BMI) [Ratio] 43.4 kg/m2 Joyce Lagos TRAIN CONTROL ELECTRONIC TECHNICIAN-C Work Phone: [facility] 08-13-2025 13:28-0400 Body weight 114.9 kg Joyce Lagos TRAIN CONTROL ELECTRONIC TECHNICIAN-C Work Phone: [facility] 08-13-2025 13:28-0400 Diastolic blood pressure 75 mm[Hg] Joyce Lagos TRAIN CONTROL ELECTRONIC TECHNICIAN-C Work Phone: [facility] 08-13-2025 13:28-0400 Systolic blood pressure 115 mm[Hg] Joyce Lagos TRAIN CONTROL ELECTRONIC TECHNICIAN-C Work Phone: [facility] 07-30-2025 14:22-0400 Body height 162.56 cm Joyce Lagos TRAIN CONTROL ELECTRONIC TECHNICIAN-C Work Phone: [facility] 07-30-2025 14:22-0400 Body mass index (BMI) [Ratio] 43.1 kg/m2 Joyce Lagos TRAIN CONTROL ELECTRONIC TECHNICIAN-C Work Phone: [facility] 07-30-2025 14:22-0400 Body weight 113.93 kg Joyce Lagos TRAIN CONTROL ELECTRONIC TECHNICIAN-C Work Phone: [facility] 07-30-2025 14:22-0400 Diastolic blood pressure 84 mm[Hg] Joyce Lagos TRAIN CONTROL ELECTRONIC TECHNICIAN-C Work Phone: [facility] 07-30-2025 14:22-0400 Systolic blood pressure 119 mm[Hg] Joyce Lagos TRAIN CONTROL ELECTRONIC TECHNICIAN-C Work Phone: [facility] 07-14-2025 13:11-0400 Body height 162.56 cm Joyce Lagos TRAIN CONTROL ELECTRONIC TECHNICIAN-C Work Phone: [facility] 07-14-2025 12:59-0400 Body mass index (BMI) [Ratio] 42.4 kg/m2 Joyce Lagos TRAIN CONTROL ELECTRONIC TECHNICIAN-C Work Phone: [facility] 07-14-2025 12:59-0400 Body weight 112.12 kg Joyce Lagos TRAIN CONTROL ELECTRONIC TECHNICIAN-C Work Phone: [facility] 07-14-2025 12:59-0400 Diastolic blood pressure 79 mm[Hg] Joyce Lagos TRAIN CONTROL ELECTRONIC TECHNICIAN-C Work Phone: [facility] 07-14-2025 12:59-0400 Systolic blood pressure 120 mm[Hg] Joyce Lagos TRAIN CONTROL ELECTRONIC TECHNICIAN-C Work Phone: [facility] 06-12-2025 11:08-0400 Body height 162.56 cm Joyce Lagos TRAIN CONTROL ELECTRONIC TECHNICIAN-C Work Phone: [facility] 06-12-2025 11:07-0400 Body mass index (BMI) [Ratio] 40 kg/m2 Joyce Lagos TRAIN CONTROL ELECTRONIC TECHNICIAN-C Work Phone: [facility] 06-12-2025 11:07-0400 Body weight 105.77 kg Joyce Lagos TRAIN CONTROL ELECTRONIC TECHNICIAN-C Work Phone: [facility] 06-12-2025 11:07-0400 Diastolic blood pressure 84 mm[Hg] Joyce Lagos TRAIN CONTROL ELECTRONIC TECHNICIAN-C Work Phone: [facility] 06-12-2025 11:07-0400 Systolic blood pressure 123 mm[Hg] Joyce Lagos TRAIN CONTROL ELECTRONIC TECHNICIAN-C Work Phone: [facility] 05-12-2025 13:39-0400 Body height 162.56 cm Joyce Lagos TRAIN CONTROL ELECTRONIC TECHNICIAN-C Work Phone: [facility] 05-12-2025 13:39-0400 Body mass index (BMI) [Ratio] 37.1 kg/m2 Joyce Lagos TRAIN CONTROL ELECTRONIC TECHNICIAN-C Work Phone: [facility] 05-12-2025 13:39-0400 Body weight 98.2 kg Joyce Lagos TRAIN CONTROL ELECTRONIC TECHNICIAN-C Work Phone: [facility] 05-12-2025 13:39-0400 Diastolic blood pressure 82 mm[Hg] Joyce Lagos TRAIN CONTROL ELECTRONIC TECHNICIAN-C Work Phone: [facility] 05-12-2025 13:39-0400 Systolic blood pressure 124 mm[Hg] Joyce Lagos TRAIN CONTROL ELECTRONIC TECHNICIAN-C Work Phone: [facility] 04-15-2025 13:37-0400 Body height 162.56 cm Joyce Lagos TRAIN CONTROL ELECTRONIC TECHNICIAN-C Work Phone: [facility] 04-15-2025 13:37-0400 Body mass index (BMI) [Ratio] 34.9 kg/m2 Joyce Lagos TRAIN CONTROL ELECTRONIC TECHNICIAN-C Work Phone: [phone] [place] [address] 04-15-2025 13:37-0400 Body weight 92.3 kg Joyce Lagos TRAIN CONTROL ELECTRONIC TECHNICIAN-C Work Phone: [facility] 04-15-2025 13:37-0400 Diastolic blood pressure 82 mm[Hg] Joyce Lagos TRAIN CONTROL ELECTRONIC TECHNICIAN-C Work Phone: [facility] 04-15-2025 13:37-0400 Systolic blood pressure 120 mm[Hg] Joyce Lagos TRAIN CONTROL ELECTRONIC TECHNICIAN-C Work Phone: [facility] 03-20-2025 10:55-0400 Body height 162.56 cm Joyce Lagos TRAIN CONTROL ELECTRONIC TECHNICIAN-C Work Phone: [facility] 03-20-2025 10:54-0400 Body mass index (BMI) [Ratio] 33.3 kg/m2 Joyce Lagos TRAIN CONTROL ELECTRONIC TECHNICIAN-C Work Phone: [facility] 03-20-2025 10:54-0400 Body weight 88.11 kg Joyce Lagos TRAIN CONTROL ELECTRONIC TECHNICIAN-C Work Phone: [facility] 03-20-2025 10:54-0400 Diastolic blood pressure 75 mm[Hg] Joyce Lagos TRAIN CONTROL ELECTRONIC TECHNICIAN-C Work Phone: [facility] 03-20-2025 10:54-0400 Systolic blood pressure 118 mm[Hg] Joyce Lagos TRAIN CONTROL ELECTRONIC TECHNICIAN-C Work Phone: [facility] 02-24-2025 13:12-0400 Body mass index (BMI) [Ratio] 31.9 kg/m2 Joyce Lagos TRAIN CONTROL ELECTRONIC TECHNICIAN-C Work Phone: [facility] 02-24-2025 13:12-0400 Body weight 84.42 kg Joyce Lagos TRAIN CONTROL ELECTRONIC TECHNICIAN-C Work Phone: [facility] 02-24-2025 13:12-0400 Diastolic blood pressure 85 mm[Hg] Joyce Lagos TRAIN CONTROL ELECTRONIC TECHNICIAN-C Work Phone: [facility] 02-24-2025 13:12-0400 Systolic blood pressure 128 mm[Hg] Joyce Lagos TRAIN CONTROL ELECTRONIC TECHNICIAN-C Work Phone: [facility] 02-14-2025 09:20-0400 Body mass index (BMI) [Ratio] 31.6 kg/m2 Joyce Lagos TRAIN CONTROL ELECTRONIC TECHNICIAN-C Work Phone: [facility] 02-14-2025 09:20-0400 Body weight 83.63 kg Joyce Lagos TRAIN CONTROL ELECTRONIC TECHNICIAN-C Work Phone: [facility] 02-14-2025 09:20-0400 Diastolic blood pressure 68 mm[Hg] Joyce Lagos TRAIN CONTROL ELECTRONIC TECHNICIAN-C Work Phone: [facility] 02-14-2025 09:20-0400 Systolic blood pressure 118 mm[Hg] Joyce Lagos TRAIN CONTROL ELECTRONIC TECHNICIAN-C Work Phone: [facility] 01-23-2023 15:48-0400 Body height 165.[address] Deanna Lozada Work Phone: [facility] 01-23-2023 15:48-0400 Body mass index (BMI) [Ratio] 27.3 kg/m2 Dr. Deanna Lozada Work Phone: [facility] 01-23-2023 15:48-0400 Body temperature 98.6 [degF] Dr. Deanna Lozada Work Phone: [facility] 01-23-2023 15:48-0400 Body weight 74.[address] Deanna Lozada Work Phone: [facility] 01-23-2023 15:48-0400 Diastolic blood pressure 68 mm[Hg] Dr. Deanna Lozada Work Phone: [facility] 01-23-2023 15:48-0400 Heart rate 65 /min Dr. Deanna Lozada Work Phone: [facility] 01-23-2023 15:48-0400 Respiratory rate 16 /min Dr. Deanna Lozada Work Phone: [facility] 01-23-2023 15:48-0400 SaO2% (BldA) [Mass fraction] 97 % Dr. Deanna Lozada Work Phone: [facility] 01-23-2023 15:48-0400 Systolic blood pressure 106 mm[Hg] Dr. Deanna Lozada Work Phone: [facility] 09-14-2022 15:16-0500 Body height 162.[address] Deanna Lozada Work Phone: [facility] Work Phone: 09-14-2022 15:11-0500 Body mass index (BMI) [Ratio] 28.5 kg/m2 Dr. Deanna Lozada Work Phone: [facility] Work Phone: 09-14-2022 15:11-0500 Body weight 75.[address] Deanna Lozada Work Phone: [facility] Work Phone: 09-14-2022 15:11-0500 Diastolic blood pressure 74 mm[Hg] Dr. Deanna Lozada Work Phone: [facility] Work Phone: 09-14-2022 15:11-0500 Systolic blood pressure 116 mm[Hg] Dr. Deanna Lozada Work Phone: [facility] Work Phone: Encounters Encounter Date Encounter Type Care Provider Facility Start: 10-02-2025 ambulatory No Primary Car e Physician Facility:[facility] Start: 09-18-2025 ambulatory No Primary Car e Physician Facility:[facility] Start: 09-08-2025 ambulatory No Primary Car e Physician Facility:[facility] Start: 09-08-2025 End: 09-08-2025 ambulatory No Primary Care Physician Facility:[facility] Start: 09-07-2025 End: 09-08-2025 ambulatory No Primary Care Physician Facility:[facility] Start: 08-27-2025 End: 08-27-[address] Kayleigh Brian MD -[facility] Work Phone: Start: 08-27-2025 End: 08-27-2025 ambulatory No Primary Care Physician Facility:[facility] Start: 08-19-2025 Non-patient / Non-visit Dr. Kristie REECE -[facility] Work Phone: Start: 08-19-2025 End: 08-19-2025 Patient encounter procedure Xin Otero NP-C -Pulmonary Services/Neurology Work Phone: Start: 08-19-2025 End: 08-19-2025 ambulatory No Primary Care Physician Facility:[facility] Start: 08-13-2025 End: 08-13-2025 Patient encounter procedure Xin Otero NP-C -[facility] Work Phone: Start: 08-13-2025 End: 08-13-2025 ambulatory Joyce Lagos TRAIN CONTROL ELECTRONIC TECHNICIAN-C Work Phone: [facility] Start: 07-30-2025 End: 07-30-[address] Kayleigh Brian MD -[facility] Work Phone: Start: 07-30-2025 End: 07-30-2025 ambulatory Joyce Francis Lagos TRAIN CONTROL ELECTRONIC TECHNICIAN-C Work Phone: -[facility] Start: 07-14-2025 End: 07-14-2025 Patient encounter procedure Xin Otero NP-C -[facility] Work Phone: Start: 07-14-2025 End: 07-14-2025 ambulatory Joyce Lagos TRAIN CONTROL ELECTRONIC TECHNICIAN-C [facility] Start: 07-14-2025 End: 07-14-2025 ambulatory No Primary Care Physician Facility:[facility] Start: 06-12-2025 End: 06-12-[address] Viktoria Longoria DO -[facility] Work Phone: Start: 06-12-2025 End: 06-12-2025 ambulatory Joyce Francis Lagos TRAIN CONTROL ELECTRONIC TECHNICIAN-C Work Phone: -[facility] Start: 05-27-2025 End: 05-27-2025 ambulatory [place] [facility] Start: 05-12-2025 End: 05-12-2025 Patient encounter procedure Jeannine Gunn CNM -[facility] Work Phone: Start: 05-12-2025 End: 05-12-2025 ambulatory Joyce Francis Lagos TRAIN CONTROL ELECTRONIC TECHNICIAN-C Work Phone: -[facility] Start: 05-12-2025 End: 05-12-2025 ambulatory KAYLEIGH BRIAN [facility] Start: 04-15-2025 End: 04-15-2025 Patient encounter procedure Xin LANTIGUAC -[facility] Work Phone: Start: 04-15-2025 End: 04-15-2025 ambulatory Joyce Lagos TRAIN CONTROL ELECTRONIC TECHNICIAN-C Work Phone: [facility] Work Phone: Start: 03-20-2025 End: 03-20-[address] Kayleigh Brian MD -[facility] Work Phone: Start: 03-20-2025 End: 03-20-2025 ambulatory Joyce Lagos TRAIN CONTROL ELECTRONIC TECHNICIAN-C Work Phone: [facility] Work Phone: Start: 03-20-2025 End: 03-20-2025 ambulatory Joyce Francis Lagos Facility:[facility] Start: 03-07-2025 End: 03-07-2025 Lab Drop off Nathan Kilgore [facility] Start: 03-07-2025 End: 03-07-2025 ambulatory Nathan Kilgore Facility:[facility] Start: 02-24-2025 End: 02-24-[address] Viktoria Longoria DO -Laboratory Specimen Work Phone: Start: 02-24-2025 End: 02-24-[address] Viktoria Longoria DO -[facility] Work Phone: Start: 02-24-2025 End: 02-24-2025 ambulatory Viktoria Longoria Facility:[facility] Start: 02-24-2025 End: 02-24-2025 ambulatory Viktoria Longoria Facility:[facility] Start: 02-14-2025 Non-patient / Non-visit Paula mccann RN -[facility] Work Phone: Start: 02-14-2025 End: 02-14-[address] Kayleigh Brian MD -[facility] Work Phone: Start: 02-14-2025 End: 02-14-2025 ambulatory Joyce Lagos Facility:[facility] Start: 10-10-2024 Encounter for gynecological examination (general) (routine) without abnormal findings Jeannine Gunn [facility] Start: 10-10-2024 End: 10-10-2024 ambulatory Joyce Lagos Facility:[facility] Start: 09-23-2024 End: 09-23-2024 ambulatory Joyce Lagos Facility:[facility] Start: 09-23-2024 End: 09-23-2024 ambulatory Joyce Lagos Facility:[facility] Start: 01-23-2023 End: 01-23-[address] Deanna Lozada Work Phone: [facility] Work Phone: Start: 01-23-2023 End: 01-23-[address] Deanna Lozada Work Phone: [facility] Spec[facility] Start: 01-23-2023 End: 01-23-[address] Deanna Lozada Work Phone: [facility] Start: 09-14-2022 End: 09-14-[address] Deanna Lozada Work Phone: [facility] Work Phone: Start: 09-14-2022 End: 09-14-[address] Deanna Lozada Work Phone: [facility] Specimen Start: 09-14-2022 End: 09-14-[address] Deanna Lozada Work Phone: [facility] Start: 08-12-2020 End: 08-12-2020 Patient encounter procedure YEYN JULIEN [facility] Start: 08-10-2020 Patient encounter procedure YENY JULIEN [facility] Start: 08-08-2020 Refill Yeny Curry DO Work Phone: [facility] Comment on above: Migraine without aur a and without status migrainosus, not intractable Start: 07-15-2020 End: 07-15-2020 Patient encounter procedure PHYSICIAN NO [facility] Ambulatory Procedures Date Procedure Procedure Detail Performing [...] HCV Quant by PCR testing - HCVPCR #[id number] Non Reactive: < 0.8 Equivocal: >/= 0.8 to < 1.0 Reactive: >/= 1.0The CDC requires that a reactive/equivocal HCV antibody result be sent out for confirmation. HCV Quant by PCR testing. Start: 03-20-2025 Procedure Joyce Lagos TRAIN CONTROL ELECTRONIC TECHNICIAN-C Work Phone: Start: 03-20-2025 Rubella IgG measurement Joyce Lagos TRAIN CONTROL ELECTRONIC TECHNICIAN-C Work Phone: Comment on above: Antibody Result: Int erpretationNon-Reactive: Non- ImmuneReactive: ImmuneThe following results were obtained with the [employer] Rubella IgG assay. Results from assays of other manufacturers cannot be used interchangeably. Start: 03-20-2025 Serologic test for syphilis Joyce Lagos TRAIN CONTROL ELECTRONIC TECHNICIAN-C Work Phone: Start: 02-24-2025 Methadone measurement, urine Joyce Lagos TRAIN CONTROL ELECTRONIC TECHNICIAN-C Work Phone: Start: 02-24-2025 Urine culture Joyce pastrana TRAIN CONTROL ELECTRONIC TECHNICIAN-C Work Phone: Urine culture Dr. Deanna Ospina dt Work Phone: Plan of Treatment Date Care Activity Detail Author Start: 09-08-2025 Non-patient / Non-visit Non-patient / Non-visit -[facility] Start: 09-08-2025 End: 09-08-2025 Patient encounter procedure Departed Clinical -Laboratory Specimen Work Phone: Start: 09-08-2025 Beta-hemolytic Streptococcus culture Group B Streptococcus Culture [facility] Start: 09-08-2025 End: 09-08-2025 Patient encounter procedure Anemia in -[facility] Work Phone: Start: 09-07-2025 Nonstress test [facility] Start: 09-07-2025 Obstetric monitoring [facility] Start: 09-07-2025 Vital signs measurements [facility] Start: 09-07-2025 [facility] Start: 09-07-2025 End: 09-07-2025 Patient encounter procedure Departed Clinical [facility] Work Phone: Start: 09-07-2025 End: 09-08-2025 Non-patient / Non-visit Non-patient / Non-visit -[facility] Start: 09-07-2025 Patient discharge [facility] Start: 07-14-2025 Electrocardiographic procedure [facility] Start: 07-14-2025 CBC W Auto Differential panel - Blood [facility] Start: 07-14-2025 Measurement of glucose 2 hours after glucose challenge for glucose tolerance test [facility] Start: 07-14-2025 Serologic test for syphilis [facility] Start: 07-14-2025 [facility] Start: 03-20-2025 CBC W Auto Differential panel - Blood [facility] Start: 03-20-2025 Hemoglobin A1c/Hemoglobin.total in Blood [facility] Start: 03-20-2025 Hepatitis C antibody measurement [facility] Start: 03-20-2025 Procedure [facility] Start: 03-20-2025 Rubella IgG measurement [facility] Start: 03-20-2025 Serologic test for syphilis [facility] Start: 03-20-2025 [facility] Start: 07-07-2022 Influenza vaccination Sequential Influ[facility] Start: 2017 Hepatitis C screening [facility] Start: 2014 HIV screening [facility] Start: 2011 Depression screening using PHQ-9 (Patient Health Questionnaire 9) score Depression Screening (PHQ-2/9) [facility] Start: 2010 Vaccination for human papillomavirus HPV Vaccines (1 - 2-dose series) [facility] Start: 2002 History and physical examination, annual for health maintenance [facility] Start: 1999 COVID-19 Vaccine (#1) COVID-19 Vaccine (#1) [facility] Start: 1999 Screening for Chlamydia trachomatis Chlamydia Screening [facility] Start: 1999 Screening for malignant neoplasm of cervix Pap [facility]ear [facility] Start: 1999 Tetanus vaccination Tetanus: Every 10yrs [facility] CBC W Auto Different ial panel - Blood [facility] Erythrocyte mean cor puscular volume determination [facility] Erythrocyte mean cor puscular volume determination [facility] Hematocrit [Volume F raction] of Blood [facility] Hematocrit [Volume F raction] of Blood [facility] Hemoglobin [Mass/vol ume] in Blood [facility] Hemoglobin [Mass/vol ume] in Blood [facility] Hepatitis B virus rivas rface Ag [Presence] in Serum [facility] Leukocytes [#/volume ] in Blood [facility] Leukocytes [#/volume ] in Blood [facility] Mean corpuscular hem oglobin concentration determination [facility] Mean corpuscular hem oglobin concentration determination [facility] Mean corpuscular hem oglobin determination [facility] Mean corpuscular hem oglobin determination [facility] Measurement of gluco se 2 hours after glucose challenge for glucose tolerance test [facility] Neutrophil count [facility] Neutrophil count [facility] Neutrophil percent differential count [facility] Neutrophil percent differential count [facility] Patient Education Kick Counts OB Triage: Return to Hospital or Notify Physician if you Experience: [facility] Work Phone: Platelets [#/volume] in Blood [facility] Platelets [#/volume] in Blood [facility] Red blood cell count [facility] Red blood cell count [facility] Red cell distributio n width determination [facility] Red cell distributio n width determination [facility] Serologic test for syphilis [facility] Payers Date Payer Category Payer Unknown [id number] 2024 Self-pay [id number] 2023 Unknown [id number] 2019 Unknown [id number] 1999 Unknown [id number] 2.16. 840.1.805781.3.579.2.903 1999 Unknown [id number] 2.16. 840.1.345093.3.579.2.903 1999 Unknown [id number] 2.16. 840.1.263337.3.579.2.903 1999 Unknown [id number] 2.16. 840.1.853825.3.579.2.903 1999 Unknown [id number] 2.16.8 40.1.725430.3.579.2.727 1999 Unknown [id number] 2.16.8 40.1.388306.3.579.2.727 1999 Unknown [id number] 2.16. 840.1.208744.3.579.2.479 Unknown [id number] Unknown [id number] Unknown [id number] 2.16.8 40.1.142900.3.579.2.462 Unknown [id number] 2.16.8 40.1.094338.3.579.2.462 Unknown [id number] 2.16.8 40.1.932262.3.579.2.462 Unknown [id number] 2.16.8 40.1.087391.3.579.2.462 Unknown [id number] 2.16.8 40.1.826134.3.579.2.462 Unknown [id number] 2.16.8 40.1.966486.3.579.2.462 Unknown [id number] 2.16.8 40.1.556037.3.579.2.462 Unknown [id number] 2.16.8 40.1.302139.3.579.2.462 Unknown [id number] 2.16.8 40.1.944778.3.579.2.462 Unknown [id number] 2.16.8 40.1.560841.3.579.2.462 Unknown [id number] 2.16.8 40.1.700542.3.579.2.462 Unknown [id number] 2.16.8 40.1.867967.3.579.2.462 Unknown [id number] 2.16.8 40.1.203598.3.579.2.462 Unknown [id number] 2.16.8 40.1.757794.3.579.2.462 Unknown [id number] 2.16.8 40.1.214572.3.579.2.462 Unknown [id number] 2.16.8 40.1.620099.3.579.2.462 Unknown [id number] 2.16.8 40.1.034760.3.579.2.462 Unknown [id number] 2.16.8 40.1.060627.3.579.2.462 Unknown [id number] 2.16.8 40.1.490686.3.579.2.462 Unknown [id number] 2.16.8 40.1.550115.3.579.2.462 Unknown [id number] 2.16.8 40.1.551306.3.579.2.462 Unknown [id number] 2.16.8 40.1.348898.3.579.2.462 Unknown [id number] 2.16.8 40.1.667954.3.579.2.462 Unknown [id number] 2.16.8 40.1.536993.3.579.2.462 Social History Date Type Detail Facility Start: 09-14-2022 End: 01-23-2023 Tobacco smoking status NHIS Unknown if ever smoked [facility] Start: 2000 Sex Assigned At Female W [facility] Start: 07-15-2020 End: 02-14-2025 Tobacco smoking status NHIS Never smoked tobacco [facility] Start: 07-15-2020 Tobacco use and exposure Smoke less tobacco non-user [facility] Start: 07-15-2020 Alcohol intake Current drinke r of alcohol (finding) [facility] Start: 07-15-2020 History SDOH Alcohol Frequency 3 [facility] Start: 07-14-2020 History SDOH Alcohol Std Drinks 99 [facility] Start: 1999 Sex Assigned At Not on file [facility] Start: 07-13-2020 End: 08-12-2020 Exposure to SARS-CoV-2 (event) Unable to assess [facility] Tobacco smoking status Never [facility] Sexual Orientation [facility] Sex Assigned At Female [facility] Sex Female (finding) [facility] Clinical Notes 08-10-2020 to 08-27-2025 Note Date & Type Note Facility 08-27-2025 Progress note [facility] 08-27-2025 Progress note Note Date/Time August 27, 2025 3:55pm [facility] [address], [address] [place] [address] OFFICE VISIT Date of Service: 08/27/25 MR#: [id number] Acct: [id number] Name: BRAYDEN CONNELLY Rep #: [id number] : 2000 Provider: Dr. Isael Brian MD Age/Sex: 25/F [facility] [facility] Status: Signed Intake Vital Signs 07/14/25 13:11 08/13/25 13:28 08/27/25 14:25 Height 5 ft 4 in 5 ft 4 in 5 ft 4 in Weight: 262 lb 3 oz BMI 45.0 BP 114/81 H Intake Visit Reasons: 34 WK 6 DAYS Spot Sprayer Required: No Is patient in pain?: No [...] animals: cat(s) history of recent travel: Yes ([place] - December 2024 & [place] - January 2025)out of state: Yes sexually [...] 5-6 times per week duration: 15-30 minutes/day naina/jewish: Yazidism seatbelt use: always do you feel safe [...] she is having increased heart rate-EKG ordered. [facility] US today for growth and check placenta. 28 wk labs pending. -No VB, LOF. Good FM. Sta trisha noting that she is having increased heart rate- EKG ordered. 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 FOB drawn 04/15/25: (4) Obesity [...] neg. 10/19 Carrier for Cystic Fibrosis and Hdurs-Zweds-Oivsx Syndome. (7) History of anxiety: Status: Acute [...] fallen in the past year?: No 08/27/25 9899 <Electronically signed by Kayleigh garcia MD> Date _ [facility] Signature: Date (if applicable) CC: ~ [facility] Work Phone: [phone] [facility] [address], [address] [place] [address] OFFICE VISIT Date of Service: 07/30/25 MR#: [id number] Acct: [id number] Name: BRAYDEN CONNELLY Rep #: [id number] : 2000 Provider: Dr. Isael Brian MD Age/Sex: 25/F Location: [facility] Status: Signed Intake Vital Signs 05/12/25 13:39 07/14/25 13:11 07/30/25 14:22 Height 5 ft 4 in 5 ft 4 in 5 ft 4 in Weight: 251 lb 3 oz BMI 43.1 BP 119/84 H Intake Visit Reasons: 30 WK 6 DAYS Chief Complaint: 30wk OB Spot Sprayer Required: No Is patient in pain?: No [...] animals: cat(s) history of recent travel: Yes ([place] - December 2024 & [place] - January 2025)out of state: Yes sexually [...] 5-6 times per week duration: 15-30 minutes/day naina/jewish: Yazidism seatbelt use: always do you feel safe [...] she is having increased heart rate-EKG ordered. [facility] US today for growth and check placenta. 28 wk labs pending. -No VB, LOF. Good FM. Sta trisha noting that she is having increased heart rate- EKG ordered. 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 FOB drawn 04/15/25: (4) Obesity [...] neg. 10/19 Carrier for Cystic Fibrosis and Mwxau-Hkcxn-Qtgzj Syndome. (7) History of anxiety: Status: Acute [...] jose REECE> Date _ [facility] Signature: Date (if applicable) CC: ~ [facility]09-24-2025 Progress note Author Kayleigh Brian [facility] Note Date/Time July 30, 2025 2:57pm [facility] [address], [address] [place] [address] OFFICE VISIT Date of Service: 07/30/25 MR#: [id number] Acct: [id number] Name: BRAYDEN CONNELLY Rep #: [id number] : 2000 Provider: Dr. 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 FOB drawn 04/15/25: (4) Obesity [...] neg. 10/19 Carrier for Cystic Fibrosis and Nyacp-Knfoo-Szbca Syndome. (7) History of anxiety: Status: Acute Comment: In college - on Lexapro 2018, counseling 2022 (8) Marijuana use: Status: Acute Comment: Last use 2022 - random tx screen ordered (9) Migraines: Status: Acute Comment: on Sumatriptan - last use 02/05 Orders: Orders POC Urinalysis 2 Dip (Clinic) Today Medications: New famotidine (Pepcid) 20 mg PO BID 60 tabs 6RF 07/30/25 0727 <Electronically signed by Kayleigh garcia MD> Date _ Kayleigh Brian MD Cosigner Signature: Date (if applicable) CC: ~ [email or web address] Work Phone: [phone] Evaluation note* Diagnosis Onset Date Resolution Status [...] Supervision of high-risk acute September 08 1:29pm [facility] Work Phone: [phone] 680-171508-07-2025 [facility] [address] [place] [address], [address] [place] [address] OFFICE VISIT Date of Service: 06/12/25 MR#: [id number] Acct: [id number] Name: BRAYDEN CONNELLY Rep #: [id number] : 2000 Provider: Dr. 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 FOB drawn 04/15/25: (3) Obesity [...] neg. 10/19 Carrier for Cystic Fibrosis and Vvrhh-Oyisj-Mswhs Syndome. (6) History of anxiety: Status: Acute [...] DO> Date _ Viktoria Wilkes Lakeisha DO [facility] Signature: Date (if applicable) CC: ~ [facility]07-07-2025 [facility] [address] [place] [address], [address] [place] [address] OFFICE VISIT Date of Service: 05/12/25 MR#: [id number] Acct: [id number] Name: BRAYDEN CONNELLY Rep #: [id number] : 2000 Provider: JACK Gunn Age/Sex: 25/F Location[place] [facility] Status: Signed Intake Vital Signs 02/24/25 13:12 04/15/25 13:37 05/12/25 13:39 Height 5 ft 4 in 5 ft 4 in 5 ft 4 in Weight: 216 lb 8 oz BMI 37.1 BP 124/82 H Intake Visit Reasons: 20 wk ob Chief Complaint: 20wk OB Spot Sprayer Required: No Is patient in pain?: No [...] animals: cat(s) history of recent travel: Yes ([place] - December 2024 & [place] - January 2025)out of state: Yes sexually [...] 5-6 times per week duration: 15-30 minutes/day naina/jewish: Yazidism seatbelt use: always do you feel safe [...] 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 FOB drawn 04/15/25: (2) Obesity [...] neg. 10/19 Carrier for Cystic Fibrosis and Umtuf-Jjwuf-Ntxuh Syndome. (5) History of anxiety: Status: Acute [...] Cosigner Signature: Date (if applicable) CC: ~ [facility]07-07-2025 Progress note Author Jeannine Gunn [facility] Note Date/Time May 12, 2025 2:03p [facility] [address] [place] [address], [address] [place] [address] OFFICE VISIT Date of Service: 05/12/25 MR#: [id number] Acct: [id number] Name: BRAYDEN CONNELLY Rep #: [id number] : 2000 Provider: JACK Gunn Age/Sex: 25/F Location[place] [facility] Status: Signed Intake Vital Signs 02/24/25 13:12 04/15/25 13:37 05/12/25 13:39 Height 5 ft 4 in 5 ft 4 in 5 ft 4 in Weight: 216 lb 8 oz BMI 37.1 BP 124/82 H Intake Visit Reasons: 20 wk ob Chief Complaint: 20wk OB Spot Sprayer Required: No Is patient in pain?: No [...] animals: cat(s) history of recent travel: Yes ([place] - December 2024 & [place] - January 2025)out of state: Yes sexually [...] 5-6 times per week duration: 15-30 minutes/day naina/jewish: Yazidism seatbelt use: always do you feel safe [...] 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 FOB drawn 04/15/25: (2) Obesity [...] neg. 10/19 Carrier for Cystic Fibrosis and Zwlfh-Tljeg-Qcopt Syndome. (5) History of anxiety: Status: Acute [...] this visit. GA appropriate handout given. 05/12/25 [id number] <Electronically signed by Jeannine davenport CNM> Date _ Jeannine Gunn CNM Cosigner Signature: Date (if applicable) CC: ~ [facility] Work Phone: 1(722) 506-120306-10-2025 Evaluation note* Diagnosis Onset Date Resolution Status [...] lying placenta, antepartum resolved July 14 12:52pm [facility] Work Phone: 1(748) 297-584606-10-2025 Evaluation note* Diagnosis Onset Date Resolution Status [...] of high-risk acute July 30, 2025 2:14pm [facility] Work Phone: 1([phone]) 201-172406-10-2025 Evaluation note* Diagnosis Onset Date Resolution Status [...] Supervision of high-risk acute August 13 1:23pm [facility] Work Phone: 1(384) 812-319805-15-2025 Evaluation note* Diagnosis Onset Date Resolution Status [...] high-risk acute July 14 2 025 12:52pm [facility] Work Phone: 1([phone] 502-854605-03-2025 NotePatient Education Obstetrics and Gynecology First Trimester [...] these instructions at home: Medicines ??? Take dztu-lnk-zskdfxy and prescription medicines only as told by [...] visits. Where to find more information ??? [place] [employer]: americanpregnancy.org ??? [place]: www.acog.org ??? [...] away if: ??? You (more content not included)...[facility]05-02-2025 Evaluation + Plan note Diagnostic Tests Pending * Urine Culture 03/07/25 [facility] 04-21-2025 Evaluation note* Diagnosis Onset Date [...] high-risk acute March 20, 2025 1 0:44am [facility] Work Phone: [phone]) [phone] Evaluation note* Diagnosis Onset Date Resolution Status [...] of high-risk acute April 15, 2025 1:33pm [facility] Work Phone: [phone]) 674-657504-21-2025 Evaluation note* Diagnosis Onset Date Resolution Status [...] high-risk acute May 12, 2025 1 :29pm [facility] Work Phone: 1([phone]) 760-925404-21-2025 Evaluation note* Diagnosis Onset Date Resolution Status [...] of high-risk acute June 12, 2025 10:58am [facility] Work Phone: [phone] Miscellaneous Notes* Telephone Encounter - Joyce Lloyd [...] preferred pharmacy if needed. documented in this [id number] Telephone encounter Note* Telephone Encounter - Joyce Lloyd LPN - 08/11/2020 11:17 AM EDT Pt rescheduled video visit for tomorrow (08/12/20) at 11:00am. States she does not need a refill before appt. [id number] Telephone encounter Note* Telephone Encounter - Yeny Julien DO - 08/10/2020 2:01 PM EDT No show for today's appointment. Please reschedule video visit. Let me know if refill needed beforeappointment and update preferred pharmacy if needed. [facility] note* Diagnosis Onset Date Resolution Status Possible exposure to STD non eactive Encounter for routine gynecological examination noneactive [facility] Work Phone: Evaluation note* Diagnosis Migraine without aura and without status migrainosus, not intractable documented in this encounter [facility] note* Diagnosis Onset Date Resolution Status Urinary tract infection with hematuria acute [facility] Work Phone: Hospital course Narrative No data available for this section [facility] Hospital Discharge instructions No data available for this section [facility] Progress note No data available for this section [facility] Progress note Author Viktoria Suazo [facility] Note Date/Time June 12, 2025 11: 45am [facility] [address] [place] [address], [address] [place] [address] OFFICE VISIT Date of Service: 06/12/25 MR#: [id number] Acct: [id number] Name: BRAYDEN CONNELLY Rep #: [id number] : 2000 Provider: Dr. 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 FOB drawn 04/15/25: (3) Obesity [...] neg. 10/19 Carrier for Cystic Fibrosis and Dzzdk-Rjahu-Irqaa Syndome. 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] 14, 2025 12:52pm Supervision of high-risk [facility] 2024 12:52pm Low lying placenta, antepartum July 14, 2025 12:52pm Anemia in July 30, 2025 2:14pm Cystic fibrosis carrier July 30, 2025 2:14pm History of anxiety July 30, 2025 2:14pm Marijuana use July 30, 2025 2:14pm Migraines July 30, 2025 2:14pm Obesity affecting July 302024 2:14pm Palpitation July 30, 2025 2:14pm July 30, 2025 2:14pm Supervision of high-risk [facility] 2024 2:14pm Anemia in August 13, 2025 [...] July 14, 2025 12:52pm [facility]vision of [facility] 2024 12:52pm Low lying placenta, antepartum July 14, 2025 12:52pm Anemia in July 30, 2025 2:14pm Cystic fibrosis carrier July 30, 2025 2:14pm History of anxiety July 30, 2025 2:14pm Marijuana use July 30, 2025 2:14pm Migraines July 30, 2025 2:14pm Obesity affecting July 302024 2:14pm Palpitation July 30, 2025 2:14pm July 30, 2025 2:14pm Supervision of high-risk [facility] 2024 2:14pm Anemia in August 13, 2025 [...] section and content) DATE CREATED AUTHOR 09/01/2020 [facility] DATE CREATED AUTHOR AUTHOR'S ORGANIZ ATION 03/13/2025 [facility] DATE CREATED AUTHOR AUTHOR'S ORGANIZ ATION 07/16/2025 [facility] DATE CREATED AUTHOR AUTHOR'S ORGANIZ ATION 09/17/2025 [facility] Goals (unrecognized section and content) Type Care [...] Care Teams (unrecognized sec tion and content) Steel Checker Relationship Specialty Start Date End Date No, Physician [facility] PCP - General 07/14/20 08/09/20 Yeny Julien DO [address] [place] [address] [place] [address] PCP - General Family Medicine 08/10/20 Team [...] Member Role Status Dates Joyce Lagos , TRAIN CONTROL ELECTRONIC TECHNICIAN-C Primary Care Provider Active Team Status: Inactive Member Role Status Dates Joyce Lagos , TRAIN CONTROL ELECTRONIC TECHNICIAN-C Primary Care Provider Active Start: February 14, 2025 End: February 14, 2025 Joyce Francis Lagos , TRAIN CONTROL ELECTRONIC TECHNICIAN-C Referring Provider Active St art: February 14, 2025 End: February 14, 2025 Dr. Kayleigh Brian MD Attending Provider Active Start: February 14, 2025 End: February 14, 2025 Team Status: Active Member Role Status Dates Joyce Lagos , TRAIN CONTROL ELECTRONIC TECHNICIAN-C Primary Care Provider Active Start: February 14, 2025 Paula Cobos RN Attending Provider Active St art: February 14, 2025 Team Status: Inactive Member Role Status Dates Joyce Francis Lagos , TRAIN CONTROL ELECTRONIC TECHNICIAN-C Primary Care Provider Active Start: February 24, 2025 End: February 24, 2025 Joyce Francis Lagos , TRAIN CONTROL ELECTRONIC TECHNICIAN-C Referring Provider Active St art: February 24, 2025 End: February 24, 2025 Dr. Viktoria Longoria DO Attending Provider Activ e Start: February 24, 2025 End: February 24, 2025 Team Status: Inactive Member Role Status Dates Joyce Francis Lagos , TRAIN CONTROL ELECTRONIC TECHNICIAN-C Primary Care Provider Active Start: February 24, 2025 End: February 24, 2025 Dr. Viktoria Longoria DO Attending Provider Activ e Start: February 24, 2025 End: February 24, 2025 Dr. Viktoria Longoria DO Referring Provider Activ e Start: February 24, 2025 End: February 24, 2025 Team Status: Inactive Member Role Status Dates Joyce Francis Lagos , TRAIN CONTROL ELECTRONIC TECHNICIAN-C Primary Care Provider Active Start: March 20, 2025 End: March 20, 2025 Joyce Lagos , TRAIN CONTROL ELECTRONIC TECHNICIAN-C Referring Provider Active St art: March 20, 2025 End: March 20, 2025 Dr. Kayleigh Brian MD Attending Provider Active Start: March 20, 2025 End: March 20, 2025 Team Status: Active Member Role Status Dates Joyce Lagos , TRAIN CONTROL ELECTRONIC TECHNICIAN-C Primary Care Provider Active Start: March 20, 2025 Dr. Kayleigh Brian MD Attending Provider Active Start: March 20, 2025 Dr. Kayleigh Brian MD Referring Provider Active Start: March 20, 2025 Team Status: Inactive Member Role Status Dates Joyce Lagos , TRAIN CONTROL ELECTRONIC TECHNICIAN-C Primary Care Provider Active Start: March 20, 2025 End: March 20, 2025 Dr. Kayleigh Brian MD Attending Provider Active Start: March 20, 2025 End: March 20, 2025 Dr. Kayleigh Brian MD Referring Provider Active Start: March 20, 2025 End: March 20, 2025 Team Status: Inactive Member Role Status Dates Joyce Francis Lagos , TRAIN CONTROL ELECTRONIC TECHNICIAN-C Primary Care Provider Active Start: April 15, 2025 End: April 15, 2025 Joyce Lagos , TRAIN CONTROL ELECTRONIC TECHNICIAN-C Referring Provider Active St art: April 15, 2025 End: April 15, 2025 Xin Otero NP, TRAIN CONTROL ELECTRONIC TECHNICIAN-C Attending Provider Active Start: April 15, 2025 End: April 15, 2025 Team Status: Active Member Role/Relationship Status Dates Joyce Francis Lagos , TRAIN CONTROL ELECTRONIC TECHNICIAN-C Primary Care Provider Active Team Status: Inactive Member Role/Relationship Status Dates Joyce Francis Lagos , TRAIN CONTROL ELECTRONIC TECHNICIAN-C Primary Care Provider Active Start: February 14, 2025 End: February 14, 2025 Joyce Lagos , TRAIN CONTROL ELECTRONIC TECHNICIAN-C Referring Provider Active St art: February 14, 2025 End: February 14, 2025 Dr. Kayleigh Brian MD Attending Provider Active Start: February 14, 2025 End: February 14, 2025 Team Status: Active Member Role/Relationship Status Dates Joyce Lagos , TRAIN CONTROL ELECTRONIC TECHNICIAN-C Primary Care Provider Active Start: February 14, 2025 Paula Cobos RN Attending Provider Active St art: February 14, 2025 Team Status: Inactive Member Role/Relationship Status Dates Joyce Francis Lagos , TRAIN CONTROL ELECTRONIC TECHNICIAN-C Primary Care Provider Active Start: February 24, 2025 End: February 24, 2025 Joyce Lagos , TRAIN CONTROL ELECTRONIC TECHNICIAN-C Referring Provider Active St art: February 24, 2025 End: February 24, 2025 Dr. Viktoria Longoria DO Attending Provider Activ e Start: February 24, 2025 End: February 24, 2025 Team Status: Inactive Member Role/Relationship Status Dates Joyce Francis Lagos , TRAIN CONTROL ELECTRONIC TECHNICIAN-C Primary Care Provider Active Start: February 24, 2025 End: February 24, 2025 Dr. Viktoria Longoria DO Attending Provider Activ e Start: February 24, 2025 End: February 24, 2025 Dr. Viktoria Longoria DO Referring Provider Activ e Start: February 24, 2025 End: February 24, 2025 Team Status: Inactive Member Role/Relationship Status Dates Joyce Francis Lagos , TRAIN CONTROL ELECTRONIC TECHNICIAN-C Primary Care Provider Active Start: March 20, 2025 End: March 20, 2025 Joyce Lagos , TRAIN CONTROL ELECTRONIC TECHNICIAN-C Referring Provider Active St art: March 20, 2025 End: March 20, 2025 Dr. Kayleigh Brian MD Attending Provider Active Start: March 20, 2025 End: March 20, 2025 Team Status: Inactive Member Role/Relationship Status Dates Joyce Lagos , TRAIN CONTROL ELECTRONIC TECHNICIAN-C Primary Care Provider Active Start: March 20, 2025 End: March 20, 2025 Dr. Kayleigh Brian MD Attending Provider Active Start: March 20, 2025 End: March 20, 2025 Dr. Kayleigh Brian MD Referring Provider Active Start: March 20, 2025 End: March 20, 2025 Team Status: Inactive Member Role/Relationship Status Dates Joyce Francis Lagos , TRAIN CONTROL ELECTRONIC TECHNICIAN-C Primary Care Provider Active Start: April 15, 2025 End: April 15, 2025 Joyce Lagos , TRAIN CONTROL ELECTRONIC TECHNICIAN-C Referring Provider Active St art: April 15, 2025 End: April 15, 2025 Xin Otero NP, TRAIN CONTROL ELECTRONIC TECHNICIAN-C Attending Provider Active Start: April 15, 2025 End: April 15, 2025 Team Status: Inactive Member Role/Relationship Status Dates Joyce Francis Lagos , TRAIN CONTROL ELECTRONIC TECHNICIAN-C Primary Care Provider Active Start: May 12, 2025 End: May 12, 2025 Joyce D Demond , TRAIN CONTROL ELECTRONIC TECHNICIAN-C Referring Provider Active St art: May 12, 2025 End: May 12, 2025 Jeannine Gunn CNM Attending Provider Active S tart: May 12, 2025 End: May 12, 2025 Team Status: Inactive Member Role/Relationship Status Dates Joyce D Demond , TRAIN CONTROL ELECTRONIC TECHNICIAN-C Primary Care Provider Active Start: June 12, 2025 End: June 12, 2025 Joyce D Demond , TRAIN CONTROL ELECTRONIC TECHNICIAN-C Referring Provider Active St art: June 12, 2025 End: June 12, 2025 Dr. Viktoria Longoria DO Attending Provider Activ e Start: June 12, 2025 End: June 12, 2025 Team Status: Active Member Role/Relationship Status Dates No Primary Care Physician Primary Care Provider Active Team Status: Inactive Member Role/Relationship Status Dates Joyce D Demond , TRAIN CONTROL ELECTRONIC TECHNICIAN-C Primary Care Provider Active Start: March 20, 2025 End: March 20, 2025 Joyce Francis Lagos , TRAIN CONTROL ELECTRONIC TECHNICIAN-C Referring Provider Active St art: March 20, 2025 End: March 20, 2025 Dr. Kayleigh Brian MD Attending Provider Active Start: March 20, 2025 End: March 20, 2025 Team Status: Inactive Member Role/Relationship Status Dates Joyce D Demond , TRAIN CONTROL ELECTRONIC TECHNICIAN-C Primary Care Provider Active Start: March 20, 2025 End: March 20, 2025 Dr. Kayleigh Brian MD Attending Provider Active Start: March 20, 2025 End: March 20, 2025 Dr. Kayleigh Brina MD Referring Provider Active Start: March 20, 2025 End: March 20, 2025 Team Status: Inactive Member Role/Relationship Status Dates Joyce D Demond , TRAIN CONTROL ELECTRONIC TECHNICIAN-C Primary Care Provider Active Start: April 15, 2025 End: April 15, 2025 Joyce D Demond , TRAIN CONTROL ELECTRONIC TECHNICIAN-C Referring Provider Active St art: April 15, 2025 End: April 15, 2025 Xin Otero NP, TRAIN CONTROL ELECTRONIC TECHNICIAN-C Attending Provider Active Start: April 15, 2025 End: April 15, 2025 Team Status: Inactive Member Role/Relationship Status Dates Joyce D Demond , TRAIN CONTROL ELECTRONIC TECHNICIAN-C Primary Care Provider Active Start: May 12, 2025 End: May 12, 2025 Joyce Lagos , TRAIN CONTROL ELECTRONIC TECHNICIAN-C Referring Provider Active St art: May 12, 2025 End: May 12, 2025 Jeannine Gunn CNM Attending Provider Active S tart: May 12, 2025 End: May 12, 2025 Team Status: Inactive Member Role/Relationship Status Dates Joyce Lagos , TRAIN CONTROL ELECTRONIC TECHNICIAN-C Primary Care Provider Active Start: June 12, 2025 End: June 12, 2025 Joyce Lagos , TRAIN CONTROL ELECTRONIC TECHNICIAN-C Referring Provider Active St art: June 12, 2025 End: June 12, 2025 Dr. Viktoria Longoria , DO Attending Provider Activ e Start: June 12, 2025 End: June 12, 2025 Team Status: Inactive Member Role/Relationship Status Dates Joyce Lagos , TRAIN CONTROL ELECTRONIC TECHNICIAN-C Referring Provider Active St art: July 14, 2025 End: July 14, 2025 Xin Otero TRAIN CONTROL ELECTRONIC TECHNICIAN, TRAIN CONTROL ELECTRONIC TECHNICIAN-C Attending Provider Active Start: July 14, 2025 End: July 14, 2025 No Primary Care Physician Primary Care Provider Active Start: July 14, 2025 End: July 14, 2025 Team Status: Active Member Role/Relationship Status Dates No Primary Care Physician Primary Care Provider Active Start: July 14, 2025 Xin Otero TRAIN CONTROL ELECTRONIC TECHNICIAN, TRAIN CONTROL ELECTRONIC TECHNICIAN-C Attending Provider Active Start: July 14, 2025 Team Status: Inactive Member Role/Relationship Status Dates Joyce Lagos , TRAIN CONTROL ELECTRONIC TECHNICIAN-C Primary Care Provider Active Start: April 15, 2025 End: April 15, 2025 Joyce Lagos , TRAIN CONTROL ELECTRONIC TECHNICIAN-C Referring Provider Active St art: April 15, 2025 End: April 15, 2025 Xin Otero TRAIN CONTROL ELECTRONIC TECHNICIAN, TRAIN CONTROL ELECTRONIC TECHNICIAN-C Attending Provider Active Start: April 15, 2025 End: April 15, 2025 Team Status: Inactive Member Role/Relationship Status Dates Joyce Lagos , TRAIN CONTROL ELECTRONIC TECHNICIAN-C Primary Care Provider Active Start: May 12, 2025 End: May 12, 2025 Joyce Lagos , TRAIN CONTROL ELECTRONIC TECHNICIAN-C Referring Provider Active St art: May 12, 2025 End: May 12, 2025 Jeannine Gunn CNM Attending Provider Active S tart: May 12, 2025 End: May 12, 2025 Team Status: Inactive Member Role/Relationship Status Dates Joyce Lagos , TRAIN CONTROL ELECTRONIC TECHNICIAN-C Primary Care Provider Active Start: June 12, 2025 End: June 12, 2025 Joyce Lagos , TRAIN CONTROL ELECTRONIC TECHNICIAN-C Referring Provider Active St art: June 12, 2025 End: June 12, 2025 Dr. Viktoria Longoria DO Attending Provider Activ e Start: June 12, 2025 End: June 12, 2025 Team Status: Inactive Member Role/Relationship Status Dates Joyce Lagos , TRAIN CONTROL ELECTRONIC TECHNICIAN-C Referring Provider Active St art: July 14, 2025 End: July 14, 2025 Xin Otero TRAIN CONTROL ELECTRONIC TECHNICIAN, TRAIN CONTROL ELECTRONIC TECHNICIAN-C Attending Provider Active Start: July 14, 2025 End: July 14, 2025 No Primary Care Physician Primary Care Provider Active Start: July 14, 2025 End: July 14, 2025 Team Status: Inactive Member Role/Relationship Status Dates No Primary Care Physician Primary Care Provider Active Start: July 14, 2025 End: July 14, 2025 Xin Otero NP, TRAIN CONTROL ELECTRONIC TECHNICIAN-C Attending Provider Active Start: July 14, 2025 End: July 14, 2025 Team Status: Active Member Role/Relationship Status Dates No Primary Care Physician Primary care physician Activ e Team Status: Inactive Member Role/Relationship Status Dates Joyce Lagos TRAIN CONTROL ELECTRONIC TECHNICIAN-C Primary care physician Active Start: April 15, 2025 End: April 15, 2025 Joyce Lagos , TRAIN CONTROL ELECTRONIC TECHNICIAN-C Referring Provider Active St art: April 15, 2025 End: April 15, 2025 Xin Otero NP, TRAIN CONTROL ELECTRONIC TECHNICIAN-C Attending physician Active Start: April 15, 2025 End: April 15, 2025 Team Status: Inactive Member Role/Relationship Status Dates Joyce Lagos , TRAIN CONTROL ELECTRONIC TECHNICIAN-C Primary care physician Active Start: May 12, 2025 End: May 12, 2025 Joyce Lagos TRAIN CONTROL ELECTRONIC TECHNICIAN-C Referring Provider Active St art: May 12, 2025 End: May 12, 2025 Jeannine Gunn CNM Attending physician Active Start: May 12, 2025 End: May 12, 2025 Team Status: Inactive Member Role/Relationship Status Dates Joyce Lagos , TRAIN CONTROL ELECTRONIC TECHNICIAN-C Primary care physician Active Start: June 12, 2025 End: June 12, 2025 Joyce Lagos , TRAIN CONTROL ELECTRONIC TECHNICIAN-C Referring Provider Active St art: June 12, 2025 End: June 12, 2025 Dr. Viktoria Longoria DO Attending physician Acti ve Start: June 12, 2025 End: June 12, 2025 Team Status: Inactive Member Role/Relationship Status Dates Joyce Lagos , TRAIN CONTROL ELECTRONIC TECHNICIAN-C Referring Provider Active St art: July 14, 2025 End: July 14, 2025 Xin Otero NP, TRAIN CONTROL ELECTRONIC TECHNICIAN-C Attending physician Active Start: July 14, 2025 End: July 14, 2025 No Primary Care Physician Primary care physician Activ e Start: July 14, 2025 End: July 14, 2025 Team Status: Inactive Member Role/Relationship Status Dates No Primary Care Physician Primary care physician Activ e Start: July 14, 2025 End: July 14, 2025 Xin Otero NP, TRAIN CONTROL ELECTRONIC TECHNICIAN-C Attending physician Active Start: July 14, 2025 End: July 14, 2025 Team Status: Inactive Member Role/Relationship Status Dates Joyce Lagos TRAIN CONTROL ELECTRONIC TECHNICIAN-C Referring Provider Active St art: July 30, [...] End: August 13, 2025 Xin Otero NP, TRAIN CONTROL ELECTRONIC TECHNICIAN-C Attending physician Active Start: August 13, 2025 End: August 13, 2025 Team Status: Inactive Member Role/Relationship Status Dates Joyce Lagos , TRAIN CONTROL ELECTRONIC TECHNICIAN-C Primary care physician Active Start: June 12, 2025 End: June 12, 2025 Joyce Lagos TRAIN CONTROL ELECTRONIC TECHNICIAN-C Referring Provider Active St art: June 12, 2025 End: June 12, 2025 Dr. Viktoria Longoria DO Attending physician Acti ve Start: June 12, 2025 End: June 12, 2025 Team Status: Inactive Member Role/Relationship Status Dates Joyce Lagos TRAIN CONTROL ELECTRONIC TECHNICIAN-C Referring Provider Active St art: July 14, 2025 End: July 14, 2025 Xin Otero NP, TRAIN CONTROL ELECTRONIC TECHNICIAN-C Attending physician Active Start: July 14, 2025 End: July 14, 2025 No Primary Care Physician Primary care physician Activ e Start: July 14, 2025 End: July 14, 2025 Team Status: Inactive Member Role/Relationship Status Dates No Primary Care Physician Primary care physician Activ e Start: July 14, 2025 End: July 14, 2025 Xin Otero TRAIN CONTROL ELECTRONIC TECHNICIAN, TRAIN CONTROL ELECTRONIC TECHNICIAN-C Attending physician Active Start: July 14, 2025 End: July 14, 2025 Team Status: Inactive Member Role/Relationship Status Dates Joyce Lagos TRAIN CONTROL ELECTRONIC TECHNICIAN-C Referring Provider Active St art: July 30, [...] 2025 End: August 13, 2025 Xin Otero TRAIN CONTROL ELECTRONIC TECHNICIAN, TRAIN CONTROL ELECTRONIC TECHNICIAN-C Attending physician Active Start: August 13, 2025 End: August 13, 2025 Team Status: Inactive Member Role/Relationship Status Dates No Primary Care Physician Primary care physician Activ e Start: August 19, 2025 End: August 19, 2025 Xin Otero TRAIN CONTROL ELECTRONIC TECHNICIAN, TRAIN CONTROL ELECTRONIC TECHNICIAN-C Attending physician Active Start: August 19, 2025 End: August 19, 2025 Xin Otero TRAIN CONTROL ELECTRONIC TECHNICIAN, TRAIN CONTROL ELECTRONIC TECHNICIAN-C Referring Provider Active Start: August 19, 2025 End: August 19, 2025 Team Status: Active Member Role/Relationship Status Dates No Primary Care Physician Primary care physician Activ e Start: August 19, 2025 Dr. Seth Dominguez MD Attending physician Active Start: August 19, 2025 Xin Otero TRAIN CONTROL ELECTRONIC TECHNICIAN, TRAIN CONTROL ELECTRONIC TECHNICIAN-C Referring Provider Active Start: August 19, 2025 [...] BE BASED ON THE PRIMARY CLINICAL RECORDS. [employer] provides no warranty or guarantee of the accuracy or completeness of information in this document.
[2025-10-25 03:28] VITALS: BP 121/72; PULSE 80; RESP 18; TEMP 36.6; O2SAT 100
--- NOTE | 2025-10-25 04:37 | EDS_ITS ---
HPI HPI - Female History of Present Illness Chief Complaint: Vag Bleeding Narrative Narrative: Patient was seen and examined after presenting to ED for vaginal bleeding she is 2 weeks after a she is known by Dr. Deshaun Blanco. No known bleeding disorders states that she started noticing bleeding tonight and it progressively got worse she started using the larger panties with pads. PFSH PFSH Medical History Care and examination of lactating mother Headache Seasonal allergies Home Medications ?Medication ?Instructions ?Recorded ?Last Taken ?Type sumatriptan succinate 100 mg tablet 100 mg PO ONCE hea daches 10/10/24 10/07/25 History breast pump #1 ea 09/29/25 Unknown Rx acetaminophen 500 mg tablet 1,000 mg (2 x 500 mg) PO Q 6 14 10/12/25 Unknown Rx days #112 tabs naproxen 500 mg tablet 500 mg PO Q8H 14 days #42 ta bs 10/12/25 Unknown Rx sertraline 50 mg tablet (Zoloft) 50 mg PO DAILY #90 ta bs 10/22/25 Unknown Rx methylergonovine 0.2 mg tablet 0.2 mg PO Q6H 4 days #1 6 tabs 10/25/25 Unknown Rx Allergy/AdvReac Type Severity Reaction Status Date / Time cat dander Allergy Other Verified 10/25/25 01:29 Seasonal Allergies: Uncoded Allergy Other Verified 10/25/25 01:29 Family History Aunt Breast cancer Grandfather Pancreatic cancer Grandfather Heart disease Grandmother Benign tumor of breast Mother Benign tumor of breast Surgical History H/O oral surgery Social History adopted: No household members: spouse and children number of children: 1 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: No 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) pets and animals: cat(s) history of recent travel: Yes ([place] - December 2024 & [place] - January 2025) out of state: Yes sexually active: Yes Smoking Status: Never smoker alcohol intake: current alcohol intake frequency: holidays/special occasions only details: Not while substance use type: former substance user Date of last use: 2022 - Marijuana well-balanced diet: daily or most days caffeine: Yes Type: carbonated beverages eating out: 1-3 times/week during the past year weight has: decreased > 10 lbs what type of physical activity do you participate in: walking and running frequency: 5-6 times per week duration: 15-30 minutes/day naina/presybeterian: Zoroastrian seatbelt use: always do you feel safe at home: Yes 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 Systems reviewed including constitutional, psychiatric, cardiovascular, respiratory, integument, HENT, gastrointestinal. EXAM Physical Exam Narrative Exam Narrative: Afebrile hemodynamically stable does not appear toxic or in distress normocephalic and atraumatic abdomen is soft nontender nondistended. With nurse associate pastor present in the room exam was performed she had larger clots in her vagina and it seems like her cervix was open. No other abnormal findings Const Vital Signs: 10/25/25 01:28 10/25/25 03:28 10/25/25 05:00 Temperature 98 F 97.9 F Temperature Source Temporal Oral Pulse Rate 93 80 72 Respiratory Rate 14 18 16 Blood Pressure 138/78 H 121/72 H 108/65 Blood Pressure Mean 98 88 79 Pulse Ox 98 100 100 Oxygen Delivery Method Room Air 10/25/25 07:00 Temperature Temperature Source Pulse Rate 98 Respiratory Rate 18 Blood Pressure 127/88 H Blood Pressure Mean 101 Pulse Ox 100 Oxygen Delivery Method Room Air MDM MDM MDM Narrative Medical decision making narrative: Nursing notes, triage notes, available previous documentation, and vital signs were reviewed. Any discrepancies noted were addressed. Differential Diagnoses: bleeding not known to have any bleeding disorders Interventions: 1 g TXA 0.2 mg of IM Methergine Fluids Given: 1 L normal saline Labs Reviewed: Hemoglobin is 9.1 up from 7.7 from 13 days ago no leukocytosis or leukopenia platelets are 341 coags are unremarkable. Imaging Reviewed: 0711: Patient's transvaginal ultrasound resulted shows a dilated uterine cavity with a hematoma and showing that it is distended with echogenic fluid that is consistent with a hemorrhage endometrial thickness is 12 mm Previous Documentation Reviewed: None available or applicable at this time. ED Course: Patient presenting with vaginal bleeding as described above I did do a pelvic exam did not appear like she is actively hemorrhaging but she did have clots she did have an open cervical os transvaginal ultrasound was ordered we will discuss with CIVIL TECHNICIAN patient was given TXA. 0720: Discussed with Dr Man who recommends giving her IM Methergine right now and then sending her home with a prescription for p.o. to take every 6 hours given that her bleeding seems to have improved and that she is hemodynamically stable. However patient is actively breast-feeding in which Dr. Man said that this was something that they would routinely give even with breast-feeding. So patient will receive a dose of IM Methergine here and we sent 16 tablets to the retail pharmacy here for her to pickle cutter. This note was made utilizing voice recognition software. All attempts were made to correct spelling or other errors prior to note completion. However, due to the fast-paced nature of emergency medicine, some errors may still be present. Lab Data Labs: Laboratory Results - last 24 hr 10/25/25 02:00 WBC 7.7 RBC 3.40 L Hgb 9.1 L Hct 30.4 L MCV 89.4 MCH 26.8 L MCHC 29.9 L RDW Std Deviation 49.0 H RDW Coeff of Carol Ann 15.0 H Plt Count 341 MPV 9.8 Immature Gran % (Auto) 0.300 Neut % (Auto) 75.6 H Lymph % (Auto) 16.4 L [place] % (Auto) 5.8 Eos % (Auto) 1.4 Baso % (Auto) 0.5 Absolute Neuts (auto) 5.8 Absolute Lymphs (auto) 1.27 Nucleated RBC % 0 PT 14.1 INR 1.1 APTT 30.8 Blood Type A POSITIVE Radiography Diagnostic Testing: Clinical Impression(s) from Imaging Studies Transvaginal US 10/25/25 01:42 IMPRESSION: Dilated uterine cavity with hematoma. The ovaries are not seen. Reading Location: [facility] Discharge Plan Triage Chief Complaint: Vag Bleeding ED Provider: Dennis Mario Dx/Rx/DC Orders Clinical Impression: hemorrhage of vagina Instructions: Hemorrhage Prescriptions: New methylergonovine 0.2 mg tablet 0.2 mg PO Q6H 4 Days Qty: 16 0RF No Action sumatriptan succinate 100 mg tablet 100 mg PO ONCE acetaminophen 500 mg Tablet 1,000 mg PO Q6 14 Days Qty: 112 0RF naproxen 500 mg Tablet 500 mg PO Q8H 14 Days Qty: 42 0RF (DME) breast pump Device See Rx Instructions .Route Qty: 1 0RF Rx Instructions: As directed sertraline [Zoloft] 50 mg tablet 50 mg PO DAILY Qty: 90 3RF Primary Care Provider: Care Physician,No Primary Referrals: Kayleigh Hernandez MD [Med Staff - Active Staff, Obstetrics-Gynecology (OBGYN)] - As soon as possible Care Physician,No Primary [Primary Care Provider, Medical] Activity Restrictions/Additional Instructions: Follow-up with your CIVIL TECHNICIAN take the medications every 6 hours the next 4 days if you have worsening bleeding or worsening pain do not hesitate to return Print Language: Czech Disposition Disposition: Home, Self Care
[2025-10-25 05:00] VITALS: BP 108/65; PULSE 72; RESP 16; O2SAT 100
[2025-10-25 07:00] VITALS: BP 127/88; PULSE 98; RESP 18; O2SAT 100
[2025-10-25 08:25] VITALS: BP 118/90; PULSE 85; RESP 18; TEMP 37; O2SAT 100
== END 2025-10-25 08:26 | disposition home or self-care (01) ==
PROVIDERS: Emergency Provider Specialist/Technologist Athletic Trainer; Visit Provider Specialist/Technologist Athletic Trainer
DX: O72.1 Other immediate postpartum hemorrhage (principal)
CPT/HCPCS: 76830; 85025; 85610; 85730; 86900; 86901; 96365; 96372; 99283; A4216